=== PATIENT | female | born 1955 | race American Indian/Alaskan Native ===

== ENCOUNTER 2018-11-24 13:55 | Emergency (ER) | payer MEDICARE ==
[2018-11-24 14:08] VITALS: BP 145/62
--- NOTE | 2018-11-24 14:09 | Emergency Department Report ---
Chief Complaint: Dyspnea/Respdistress Stated Complaint: KATERINA Time Seen by Provider: 11/24/18 14:06 - HPI History of Present Illness: PCP CLINIC COLD COUGH CONGESTION SMOKER DENIES FEVER/COPD COUGH WORSE IN AM ASSOCIATED WITH DULL CP- SUBSTERNAL RAD TO L NECK; NO DIAPHORESIS DENIES SOB RHONCHI ON EXAM WITH MILD WHEEZING MOM DEC CA DAD DEC CA PMH HTN RX LISINOPRIL PSH HYSTERECTOMY ALLERGY NONE 12 LEAD DUE TO TACHYCARDIA AND CHEST PAIN LOW INDEX SUSP FOR ACS MSE COMPLETED MSE screening note: Focused history and physical exam performed. Due to findings the following was ordered: ED Disposition for MSE Condition: Stable
--- NOTE | 2018-11-24 14:28 | XRay Report ---
ROUTINE CHEST, TWO VIEWS: HISTORY: Cough. The trachea, heart, mediastinal contour, lung mcbride and bony thorax are unremarkable. IMPRESSION: Unremarkable chest x-ray.
--- NOTE | 2018-11-24 15:13 | Emergency Department Report ---
Minor Respiratory - HPI Chief Complaint: Dyspnea/Respdistress Stated Complaint: KATERINA Time Seen by Provider: 11/24/18 14:06 Duration: 3 Days Minor Respiratory: Yes Able to Tolerate Fluids, Yes Cough (productive of yellow sputum as of today), Yes Shortness of Breath, No Sore Throat, No Ear Pain, No Sick Contacts, No Hemoptysis, No Chest Pain, No Fever Other History: Patient is a heavy smoker ED Review of Systems ROS: Stated complaint: KATERINA Other details as noted in HPI Comment: All other systems reviewed and negative ED Past Medical Hx - Past Medical History Previous Medical History?: Yes Hx Hypertension: Yes - Surgical History Past Surgical History?: Yes Additional Surgical History: hysterectomy - Social History Smoking Status: Current Every Day Smoker Substance Use Type: None - Medications Home Medications: Home Medications Medication Instructions Recorded Confirmed Last Taken Type ALBUTEROL Inhaler (OR & NICU) 2 puff IH QID PRN #1 inhalation 11/24/18 Unknown Rx [ProAir HFA Inhaler] Azithromycin [Zithromax Z-LONNY] 250 mg PO DAILY #6 tablet 11/24/18 Unknown Rx predniSONE [Deltasone] 20 mg PO QDAY #5 tab 11/24/18 Unknown Rx Minor Respiratory Exam - Exam General: Vital signs noted. No distress. Alert and acting appropriately. HEENT: Yes Moist Mucous Membranes, No Pharyngeal Erythema, No Pharyngeal Exudates, No Rhinorrhea, No Conjuctival Injection, No Frontal Tenderness, No Maxillary Tenderness Ear: Neither TM Bulge, Neither TM Erythema, Neither EAC Pain, Neither EAC Discharge Neck: Yes Supple, No Adenopathy Lungs: Yes Good Air Exchange, Yes Cough, No Wheezes, No Ronchi, No Stridor, No Labored Respirations, No Retractions, No Use of Accessory Muscles, No Other Abnormal Lung Sounds Heart: Yes Regular, No Murmur Abdomen: Yes Normal Bowel Sounds, No Tenderness, No Peritoneal Signs Skin: No Rash, No Edema Neurologic: Alert and oriented, no deficits. Musculoskeletal: Unremarkable. ED Course Vital Signs 11/24/18 14:06 Temperature 98.3 F Pulse Rate 87 Respiratory 18 Rate Blood Pressure 145/62 O2 Sat by Pulse 100 Oximetry ED Medical Decision Making - Radiology Data Chest x-ray is within normal limits - Medical Decision Making Patient presumed to have a smoker's bronchitis will be treated appropriately. Patient discharged home in stable condition. Critical care attestation.: If time is entered above; I have spent that time in minutes in the direct care of this critically ill patient, excluding procedure time. ED Disposition Clinical Impression: Acute bronchitis Qualifiers: Bronchitis organism: unspecified organism Qualified Code(s): J20.9 - Acute bronchitis, unspecified Disposition: DC-01 TO HOME OR SELFCARE Is pt being admited?: No Does the pt Need Aspirin: No Condition: Stable Instructions: Acute Bronchitis (ED), How to Stop Smoking (ED) Time of Disposition: 15:12
[2018-11-24 15:15] LABS: Hematocrit 30.5 % (30.3-42.9); Hemoglobin 9.3 gm/dl (10.1-14.3); Mean Corpuscular HGB Conc 30 % (30-34); Mean Corpuscular Volume 89 fl (79-97); Platelet Count 381 K/mm3 (140-440); Red Blood Count 3.43 M/mm3 (3.65-5.03)
[2018-11-24 15:17] LABS: Red Cell Distribution Width 25.1 % (13.2-15.2)
[2018-11-24 15:24] LABS: BUN/Creatinine Ratio 17; Blood Urea Nitrogen 12 mg/dL (7-17); Calcium 8.8 mg/dL (8.4-10.2); Hemolysis Index 6
== END 2018-11-24 15:33 | disposition home or self-care (01) ==
LOC: ED 13:55
DX: J20.9 Acute bronchitis, unspecified (principal); F17.200 Nicotine dependence, unspecified, uncomplicated
CPT/HCPCS: 36415; 71046; 80048; 85027; 93005; 93010

== ENCOUNTER 2019-03-04 08:50 | Inpatient (IN) | payer MEDICARE ==
[2019-03-04 09:43] LABS: Albumin 3.4 g/dL (3.9-5); Calcium 9.5 mg/dL (8.4-10.2)
[2019-03-04 09:54] LABS: Hematocrit 25.1 % (30.3-42.9); Hemoglobin 8.1 gm/dl (10.1-14.3); Mean Corpuscular HGB Conc 32 % (30-34); Platelet Count 607 K/mm3 (140-440); Red Blood Count 3.85 M/mm3 (3.65-5.03)
[2019-03-04 09:55] LABS: Mean Corpuscular Volume 65 fl (79-97); Red Cell Distribution Width 20.5 % (13.2-15.2)
[2019-03-04] MEDS ORDERED: ANTIVERT PO ONE (09:57)
[2019-03-04 11:10] LABS: Total Cells Counted 100
--- NOTE | 2019-03-04 11:10 | Cat Scan Report ---
PROCEDURE: CT HEAD/BRAIN WO CON TECHNIQUE: A noncontrast CT of the head was performed. HISTORY: vertigo COMPARISON: None FINDINGS: There is no acute intracranial hemorrhage. There is no brain edema, mass effect or midline shift. Ventricular size is appropriate for brain volume. There is no abnormal extra-axial fluid collections. There is no skull fracture seen. The visualized paranasal sinuses, mastoids and middle ears are aerated. IMPRESSION: There is no acute intracranial abnormality seen. This document is electronically signed by Soraya Tadeo MD., March 04 2019 12:08:57 PM ET
[2019-03-04 11:11] LABS: Anisocytosis 1+; Band Neutrophils # (Manual) 1.4 K/mm3; Basophils % (Manual) 0 % (0.0-1.8); Eosinophils % (Manual) 0 % (0.0-4.3); Hypochromasia 2+; Platelet Estimate Consistent w Auto; Target Cells 1+
[2019-03-04] MEDS ORDERED: NACL 0.9% 1000 ML 1,000 ML IV ONE ×2 (11:49→15:14)
[2019-03-04] MEDS ORDERED: NACL 0.9% 1000 ML 1,000 ML ONE ×2 (11:50→20:21)
[2019-03-04] MEDS ORDERED: ZOFRAN IV ONE (12:48)
[2019-03-04] MEDS ORDERED: MORPHINE IV ONE (12:48)
--- NOTE | 2019-03-04 13:34 | Emergency Department Report ---
ED General Adult HPI - General Chief complaint: Dizziness Stated complaint: N/V/NO BOWEL MOVEMENT Time Seen by Provider: 03/04/19 09:34 Source: patient Mode of arrival: Wheelchair Limitations: No Limitations - History of Present Illness Initial comments: The patient presents to the emergency department with a chief complaint dizziness and started 2 days ago. Patient states that her dizziness is worse with standing. Patient also complains of having some vomiting 1 day as well. Patient denies chest pain, shows above, or abdominal pain. -: Sudden Location: head Radiation: non-radiation Severity scale (0 -10): 0 Improves with: rest Worsens with: movement Associated Symptoms: denies other symptoms, nausea/vomiting Treatments Prior to Arrival: none - Related Data Previous Rx's Medication Instructions Recorded Last Taken Type ALBUTEROL Inhaler (OR & NICU) 2 puff IH QID PRN #1 inhalation 11/24/18 Unknown Rx [ProAir HFA Inhaler] Azithromycin [Zithromax Z-LONNY] 250 mg PO DAILY #6 tablet 11/24/18 Unknown Rx predniSONE [Deltasone] 20 mg PO QDAY #5 tab 11/24/18 Unknown Rx Allergies Allergy/AdvReac Type Severity Reaction Status Date / Time Penicillins Allergy Itching Verified 03/04/19 08:51 ED Review of Systems ROS: Stated complaint: N/V/NO BOWEL MOVEMENT Other details as noted in HPI Comment: All other systems reviewed and negative Constitutional: denies: chills, fever Eyes: denies: eye pain, eye discharge, vision change ENT: denies: ear pain, throat pain Respiratory: denies: cough, shortness of breath, wheezing Cardiovascular: denies: chest pain, palpitations Endocrine: no symptoms reported Gastrointestinal: denies: abdominal pain, nausea, diarrhea Genitourinary: denies: urgency, dysuria, discharge Musculoskeletal: denies: back pain, joint swelling, arthralgia Skin: denies: rash, lesions Neurological: vertigo. denies: headache, weakness, paresthesias Psychiatric: denies: anxiety, depression Hematological/Lymphatic: denies: easy bleeding, easy bruising ED Past Medical Hx - Past Medical History Hx Hypertension: Yes - Surgical History Additional Surgical History: hysterectomy - Social History Smoking Status: Current Every Day Smoker - Medications Home Medications: Home Medications Medication Instructions Recorded Confirmed Last Taken Type ALBUTEROL Inhaler (OR & NICU) 2 puff IH QID PRN #1 inhalation 11/24/18 Unknown Rx [ProAir HFA Inhaler] Azithromycin [Zithromax Z-LONNY] 250 mg PO DAILY #6 tablet 11/24/18 Unknown Rx predniSONE [Deltasone] 20 mg PO QDAY #5 tab 11/24/18 Unknown Rx ED Physical Exam - General Limitations: No Limitations General appearance: alert, in no apparent distress - Head Head exam: Present: atraumatic, normocephalic - Eye Eye exam: Present: normal appearance, PERRL, EOMI - ENT ENT exam: Present: mucous membranes moist - Neck Neck exam: Present: normal inspection - Respiratory Respiratory exam: Present: normal lung sounds bilaterally. Absent: respiratory distress - Cardiovascular Cardiovascular Exam: Present: regular rate, normal rhythm. Absent: systolic murmur, diastolic murmur, rubs, gallop - GI/Abdominal GI/Abdominal exam: Present: soft, normal bowel sounds. Absent: distended, tenderness - Extremities Exam Extremities exam: Present: normal inspection - Back Exam Back exam: Present: normal inspection - Neurological Exam Neurological exam: Present: alert, oriented X3, CN II-XII intact, other (able to decrease symptoms with rapid standing). Absent: motor sensory deficit - Psychiatric Psychiatric exam: Present: normal affect, normal mood - Skin Skin exam: Present: warm, dry, intact, normal color. Absent: rash ED Course Vital Signs 03/04/19 03/04/19 03/04/19 08:51 10:00 11:36 Temperature 98.7 F Pulse Rate 110 H Pulse Rate [ 102 H Lying] Respiratory 18 18 Rate Blood Pressure 99/57 Blood Pressure 103/61 [Lying] O2 Sat by Pulse 100 Oximetry ED Medical Decision Making - Lab Data Result diagrams: 03/04/19 09:06 03/04/19 09:06 Lab Results 03/04/19 03/04/19 Range/Units 09:06 09:06 WBC 27.2 H (4.5-11.0) K/mm3 RBC 3.85 (3.65-5.03) M/mm3 Hgb 8.1 L (10.1-14.3) gm/dl Hct 25.1 L (30.3-42.9) % MCV 65 L (79-97) fl MCH 21 L (28-32) pg MCHC 32 (30-34) % RDW 20.5 H (13.2-15.2) % Plt Count 607 H (140-440) K/mm3 Lymph % (Auto) General Claims Agent Harvey % (Auto) General Claims Agent Eos % (Auto) General Claims Agent Baso % (Auto) General Claims Agent Lymph # General Claims Agent Harvey # General Claims Agent Eos # General Claims Agent Baso # General Claims Agent Add Manual Diff Complete Total Counted 100 Seg Neutrophils % General Claims Agent Seg Neuts % (Manual) 88.0 H (40.0-70.0) % Band Neutrophils % 5.0 % Lymphocytes % (Manual) 3.0 L (13.4-35.0) % Reactive Lymphs % (Man) 0 % Monocytes % (Manual) 4.0 (0.0-7.3) % Eosinophils % (Manual) 0 (0.0-4.3) % Basophils % (Manual) 0 (0.0-1.8) % Metamyelocytes % 0 % Myelocytes % 0 % Promyelocytes % 0 % Blast Cells % 0 % Nucleated RBC % Not Reportable Seg Neutrophils # General Claims Agent Seg Neutrophils # Man 23.9 H (1.8-7.7) K/mm3 Band Neutrophils # 1.4 K/mm3 Lymphocytes # (Manual) 0.8 L (1.2-5.4) K/mm3 Abs React Lymphs (Man) 0.0 K/mm3 Monocytes # (Manual) 1.1 H (0.0-0.8) K/mm3 Eosinophils # (Manual) 0.0 (0.0-0.4) K/mm3 Basophils # (Manual) 0.0 (0.0-0.1) K/mm3 Metamyelocytes # 0.0 K/mm3 Myelocytes # 0.0 K/mm3 Promyelocytes # 0.0 K/mm3 Blast Cells # 0.0 K/mm3 WBC Morphology Not Reportable Hypersegmented Neuts Not Reportable Hyposegmented Neuts Not Reportable Hypogranular Neuts Not Reportable Smudge Cells Not Reportable Toxic Granulation Not Reportable Toxic Vacuolation Not Reportable Dohle Bodies Not Reportable Pelger-Huet Anomaly Not Reportable Eliezer Rods Not Reportable Platelet Estimate Consistent w auto Clumped Platelets Not Reportable Plt Clumps, EDTA Not Reportable Large Platelets Not Reportable Giant Platelets Not Reportable Platelet Satelliting Not Reportable Plt Morphology Comment Not Reportable RBC Morphology Not Reportable Dimorphic RBCs Not Reportable Polychromasia Not Reportable Hypochromasia 2+ Poikilocytosis Not Reportable Anisocytosis 1+ Microcytosis 1+ Macrocytosis Not Reportable Spherocytes Not Reportable Pappenheimer Bodies Not Reportable Sickle Cells Not Reportable Target Cells 1+ Tear Drop Cells Not Reportable Ovalocytes Not Reportable Helmet Cells Not Reportable Ramírez-Chidester Bodies Not Reportable [place] Rings Not Reportable [place] Cells Not Reportable Bite Cells Not Reportable Crenated Cell Not Reportable Elliptocytes Not Reportable Acanthocytes (Spur) Not Reportable Rouleaux Not Reportable Hemoglobin C Crystals Not Reportable Schistocytes Not Reportable Malaria parasites Not Reportable Brendan Bodies Not Reportable Hem Pathologist Commnt No Sodium 131 L (137-145) mmol/L Potassium 3.0 L (3.6-5.0) mmol/L Chloride 83.9 L (98-107) mmol/L Carbon Dioxide 22 (22-30) mmol/L Anion Gap 28 mmol/L BUN 41 H (7-17) mg/dL Creatinine 4.6 H (0.7-1.2) mg/dL Estimated GFR 12 ml/min BUN/Creatinine Ratio 9 % Glucose 219 H (65-100) mg/dL Calcium 9.5 (8.4-10.2) mg/dL Total Bilirubin 0.30 (0.1-1.2) mg/dL AST 12 (5-40) units/L ALT 8 (7-56) units/L Alkaline Phosphatase 99 (35-129) units/L Total Protein 7.6 (6.3-8.2) g/dL Albumin 3.4 L (3.9-5) g/dL Albumin/Globulin Ratio 0.8 % - EKG Data -: EKG Interpreted by Pr EKG shows normal: sinus rhythm Rate: normal - Radiology Data Radiology results: report reviewed - Medical Decision Making Orthostatics Supine BP is 103/61 heart rate 102 Sitting BP is 117/67 heart rate is 105 Standing BP is 95/51 heart rate is 112 On reevaluation of the patient at 12:45 PM she began to complain of lower abdom inal pain patient is tender to palpation right lower quadrant Repeat exam at 2:59 PM patient states that her last bowel movement was 3 days ago and she has been vomiting for 2 days NG tube ordered Patient denies any previous surgical history specifically exploratory laparoscopy, hysterectomy, section. At 3:30 PM the patient informs the nurse that she forgot to tell us that she's had a partial hysterectomy at the approximate age of 33 Critical Care Time: Yes Critical care time in (mins) excluding proc time.: 35 Critical care attestation.: If time is entered above; I have spent that time in minutes in the direct care of this critically ill patient, excluding procedure time. ED Disposition Clinical Impression: SBO (small bowel obstruction), Renal failure Disposition: -09 OP ADMIT IP TO THIS HOSP Is pt being admited?: Yes Does the pt Need Aspirin: No Condition: Fair Referrals: KEVIN FORD MD [Primary Care Provider] - 3-5 Days
[2019-03-04 13:54] LABS: Bacteria,Urine 1+ /HPF (Negative); Bilirubin,Urine NEG (Negative); Blood,Urine NEG (Negative); Mucus,Urine FEW /HPF; Urobilinogen,Urine < 2.0 mg/dL (<2.0)
[2019-03-04 13:58] LABS: Color,Urine Yellow (Yellow)
--- NOTE | 2019-03-04 14:03 | XRay Report ---
PROCEDURE: XR CHEST 1V AP TECHNIQUE: Frontal chest radiograph. HISTORY: leukocytosis COMPARISONS: None FINDINGS: Atherosclerotic calculi are seen in the thoracic aorta. The cardiomediastinal silhouette is normal. Mild groundglass opacities are seen in the left lower lobe. A focal nodular opacity projects in the l ateral aspect of the left upper lobe measuring 1.1 cm. No pleural effusion. No pneumothorax. No acute osseous abnormality. IMPRESSION: 1.1 cm left upper lobe nodule. Recommend further evaluation with chest CT. Mild groundglass opacities in left lower lobe may represent atelectasis versus early pneumonia. This document is electronically signed by Brittny Jett., March 04 2019 03:01:17 PM ET
--- NOTE | 2019-03-04 14:51 | Cat Scan Report ---
PROCEDURE: CT ABDOMEN PELVIS WO CON TECHNIQUE: Computerized axial tomography of the abdomen and pelvis was performed without intravenous contrast. This study is performed without intravascular contrast material and its sensitivity for ab dominal and pelvic pathology, including neoplasms, inflammation, abscess, free fluid, thrombosis, art erial dissection and infarction, is reduced compared with a contrast enhanced study. CT DOSE LENGTH PRODUCT: 468.1 mGycm HISTORY: Right lower quadrant abdominal pain COMPARISONS: None . FINDINGS: Visualized lower thorax: No significant abnormality. Liver: Normal size and attenuation. Spleen: 2.4 cm cyst in the inferior spleen. Gallbladder and biliary system: Normal. Pancreas: Normal. Adrenals: Normal. Kidneys: There are 2 left renal cysts present, measuring up to 15 mm. GI tract: There is small bowel obstruction. Small bowel loops are dilated up to 4 cm. There is bowel wall thickening in the distal ileum. The transition point may be at the junction of the terminal ile um and colon, where there is soft tissue prominence. There is limited evaluation due to lack of contr ast. Cannot exclude a mass. The colon is decompressed diffusely. Small amount of intraluminal contras t is seen within the colon . The appendix is not identified Lymph nodes and mesentery: There is limited evaluation due to lack of IV contrast. There is likely pa raaortic adenopathy Vasculature: Aortic atherosclerotic calcification. Bladder: Normal. Reproductive organs: Uterus is not identified. Peritoneum: No free fluid. Musculoskeletal structures: Degenerative disc changes at L5-S1. Other: None. IMPRESSION: There is small bowel obstruction. Transition point is likely at the junction of the terminal ileum an d the colon. There is abnormal wall thickening in the region of the terminal ileum, and a mass cannot be excluded which could be causing the obstruction. Recommend further evaluation with CT with IV and oral contrast Probable para-aortic adenopathy, which is not well delineated from surrounding small bowel loops. Aga in this would be better evaluated with CT with IV and oral contrast This document is electronically signed by Ginny Bertrand MD., March 04 2019 03:49:24 PM ET
[2019-03-04] MEDS ORDERED: VICKS SINEX NS ONE (14:58)
[2019-03-04] MEDS ORDERED: HURRICAINE ONE 20% TOPICAL SPRAY MM NR (15:00)
[2019-03-04] MEDS ORDERED: NACL 0.9% 1000 ML IV ONE (15:06)
--- NOTE | 2019-03-04 15:31 | History and Physical Report ---
History of Present Illness Chief complaint: I been feeling sick, Im dizzy, im nauseated, and i been vomiting History of present illness: 63 YO Female with HTN, Nicotine Dependence presents to ED for evaluation. Pt states that she has experienced Nausea, multiple episodes of vomiting, and abdominal discomfort over the past 3 days with worsening symptoms over the past 1 day. Pt also acknowledges dizziness with standing over the past 1 day. Pt acknowledges decreased oral intake due to the aformentioned symptoms as well as an inability to tolerate oral intake. Pt transported to [facility] via private vehicle. Pt seen and evaluated in ED and found to have SBO, ARF, Sepsis, Hypokalemia with a QSofa Score of 3. Pt found to be hypotensive with SBP in the 90's. Pt admitted to [facility] and initiated on Sepsis protocol. Surgery team consulted in ED. Pt initiated on IVF resuscitation therapy. Pt denies fever, chills, CP, Palpit ations, Trauma, BRBPR, Skin Rash, Productive Cough, Hematemesis, ingestion of food/water from new or different sources. No prior admission for review. Past History Past Medical History: hypertension, other (nicotine Dependence) Past Surgical History: hysterectomy Social history: smoking Family history: hypertension Medications and Allergies Allergies Allergy/AdvReac Type Severity Reaction Status Date / Time Penicillins Allergy Itching Verified 03/04/19 08:51 Home Medications Medication Instructions Recorded Confirmed Last Taken Type ALBUTEROL Inhaler (OR & NICU) 2 puff IH QID PRN #1 inhalation 11/24/18 Unknown Rx [ProAir HFA Inhaler] Azithromycin [Zithromax Z-LONNY] 250 mg PO DAILY #6 tablet 11/24/18 Unknown Rx predniSONE [Deltasone] 20 mg PO QDAY #5 tab 11/24/18 Unknown Rx Active Meds: Active Medications Benzocaine (Hurricaine One 20% Topical [place]) 1 spray MM PREOP NR Stop: 03/04/19 23:59 Levofloxacin/Dextrose (Levaquin 750mg/150ml) 750 mg in 150 mls @ 100 mls/hr IV ONCE ONE; Protocol Stop: 03/04/19 17:29 Levofloxacin/Dextrose (Levaquin 500mg/100ml) 500 mg in 100 mls @ 100 mls/hr IV Q48HR AUDREY Sodium Chloride (Nacl 0.9% 1000 Ml) 1,000 mls @ 125 mls/hr IV BOLUS ONE Stop: 03/04/19 23:13 Review of Systems Constitutional: no weight loss, no weight gain, no fever, no chills Ears, nose, mouth and throat: no ear pain, no ear discharge, no tinnitis, no decreased hearing, no nose pain, no nasal congestion Breasts: no change in shape, no swelling, no mass Cardiovascular: no chest pain, no orthopnea, no edema, no syncope, no lightheadedness, no shortness of breath Respiratory: no cough, no cough with sputum, no excessive sputum, no hemoptysis, no shortness of breath, no dyspnea on exertion Gastrointestinal: nausea, vomiting, no abdominal pain, no diarrhea, no BRBPR, no melena, no hematochezia, no loss of appetite Genitourinary Female: no pelvic pain, no flank pain, no menorrhagia, no dysuria, no urinary frequency, no urgency, no stress incontinence, no post void dribbling Rectal: no pain, no incontinence, no bleeding Musculoskeletal: no neck stiffness, no neck pain, no shooting arm pain, no arm numbness/tingling, no shooting leg pain, no leg numbness/tingling Integumentary: no rash, no pruritis, no redness, no sores, no wounds Neurological: no head injury, no transient paralysis, no paralysis, no weakness, no parathesias, no numbness, no tingling Psychiatric: no anxiety, no memory loss, no change in sleep habits, no sleep disturbances, no insomnia, no hypersomnia, no change in appetite, no change in libido, no suicidal ideation Endocrine: no cold intolerance, no heat intolerance, no polyphagia, no excessive thirst, no polydipsia, no polyuria, no nocturia Hematologic/Lymphatic: no easy bruising, no easy bleeding, no lymphadenopathy, no lymphedema Allergic/Immunologic: no urticaria, no allergic rhinitis, no wheezing Exam - Constitutional Vitals: Temp Pulse Resp BP Pulse Ox 98.7 F 102 H 18 103/61 100 03/04/19 08:51 03/04/19 11:36 03/04/19 10:00 03/04/19 11:36 03/04/19 08:51 General appearance: Present: mild distress - EENT Eyes: Present: PERRL ENT: hearing intact, clear oral mucosa - Neck Neck: Present: supple, normal ROM - Respiratory Respiratory effort: normal Respiratory: bilateral: CTA - Cardiovascular Heart Sounds: Present: S1 & S2. Absent: rub, click - Extremities Extremities: pulses symmetrical, No edema Peripheral Pulses: within normal limits - Abdominal General gastrointestinal: Present: soft, non-tender, distended, normal bowel sounds. Absent: hepatomegaly, splenomegaly, mass Localized gastrointestinal: tender: diffuse Female genitourinary: Present: normal - Integumentary Integumentary: Present: clear, warm, dry - Musculoskeletal Musculoskeletal: gait normal, strength equal bilaterally - Psychiatric Psychiatric: appropriate mood/affect, intact judgment & insight - Neurologic Neurologic: CNII-XII intact, moves all extremities Results - Labs CBC & Chem 7: 03/04/19 09:06 03/04/19 09:06 Labs: Abnormal lab results 03/04/19 03/04/19 Range/Units 09:06 09:06 WBC 27.2 H (4.5-11.0) K/mm3 Hgb 8.1 L (10.1-14.3) gm/dl Hct 25.1 L (30.3-42.9) % MCV 65 L (79-97) fl MCH 21 L (28-32) pg RDW 20.5 H (13.2-15.2) % Plt Count 607 H (140-440) K/mm3 Seg Neuts % (Manual) 88.0 H (40.0-70.0) % Lymphocytes % (Manual) 3.0 L (13.4-35.0) % Seg Neutrophils # Man 23.9 H (1.8-7.7) K/mm3 Lymphocytes # (Manual) 0.8 L (1.2-5.4) K/mm3 Monocytes # (Manual) 1.1 H (0.0-0.8) K/mm3 Sodium 131 L (137-145) mmol/L Potassium 3.0 L (3.6-5.0) mmol/L Chloride 83.9 L (98-107) mmol/L BUN 41 H (7-17) mg/dL Creatinine 4.6 H (0.7-1.2) mg/dL Glucose 219 H (65-100) mg/dL Albumin 3.4 L (3.9-5) g/dL Assessment and Plan - Patient Problems (1) Sepsis Current Visit: Yes Status: Acute Qualifiers: Sepsis type: sepsis due to unspecified organism Qualified Code(s): A41.9 - Sepsis, unspecified organism Plan to address problem: Admit to IMCU, Sepsis Protocol: IV ABx therapy(Renal dose levaquin), IVF resuscitation therapy, serial lactic acid level, Chest x ray, urinalysis, blood cultures, monitor uop q shift, IV pressor support as indicated to maintain MAP above 60. (2) ARF (acute renal failure) with tubular necrosis Current Visit: Yes Status: Acute Plan to address problem: IVF resuscitation therapy, Nephrology consulted, renal ultrasound, urine electrolytes. (3) Hypokalemia Current Visit: Yes Status: Acute (4) SBO (small bowel obstruction) Current Visit: Yes Status: Acute Plan to address problem: Surgery consulted, NGT to LWS as per surgical team, serial abdominal exam, CT Abdomen/Pelvis, pain control, bowel rest. (5) DVT prophylaxis Current Visit: Yes Status: Acute Plan to address problem: SCD to BLE while in bed. Prophylactic heparin.
[2019-03-04] MEDS ORDERED: PROVENTIL IH PRN (15:40)
[2019-03-04] MEDS ORDERED: SODIUM CHLORIDE FLUSH SYRINGE 10 ML IV PRN (15:40)
[2019-03-04] MEDS ORDERED: LEVAQUIN 750MG/150ML 750 MG/150 ML BAG IV ONE ×2 (16:00→17:08)
[2019-03-04] MEDS ORDERED: VICKS SINEX ONE (16:18)
--- NOTE | 2019-03-04 17:05 | Event Note ---
Date: 03/04/[address] Kent. Chart and CT reviewed. Concern for SBO secondary to possible mass. Pt in renal failure. Admit to hospitalist for resuscitation. Place NGT. Patient will most likely need ex-lap once resuscitated. Will probably need blood transfusion as well since the Hgb of 8 is probably hemoconcentrated.
[2019-03-04] MEDS ORDERED: POTASSIUM CHLORIDE FEEDTUBE ONE (18:00)
[2019-03-04] MEDS ORDERED: FLAGYL 500 MG/100 ML 500 MG/100 ML BAG IV ONE (22:40)
[2019-03-04] MEDS ORDERED: HEPARIN ONE (22:40)
[2019-03-04] MEDS: FLAGYL 500 MG/100 ML 500 MG/100 ML BAG IV SCH (22:49)
[2019-03-04] MEDS: HEPARIN SUB-Q SCH (22:49)
[2019-03-04] MEDS: SODIUM CHLORIDE FLUSH SYRINGE 10 ML IV SCH (22:49)
[2019-03-05] MEDS: FLAGYL 500 MG/100 ML 500 MG/100 ML BAG IV SCH ×3 (05:27→21:15)
[2019-03-05 06:43] LABS: Hematocrit 21.6 % (30.3-42.9); Hemoglobin 6.9 gm/dl (10.1-14.3); Mean Corpuscular HGB Conc 32 % (30-34); Platelet Count 560 K/mm3 (140-440)
[2019-03-05 06:52] LABS: Mean Corpuscular Volume 66 fl (79-97); Red Cell Distribution Width 20.2 % (13.2-15.2)
[2019-03-05 06:55] LABS: Albumin 2.7 g/dL (3.9-5); Calcium 8.5 mg/dL (8.4-10.2)
[2019-03-05 09:28] LABS: Basophils % (Manual) 0 % (0.0-1.8); Eosinophils % (Manual) 0 % (0.0-4.3); Total Cells Counted 100
[2019-03-05 09:29] LABS: Anisocytosis 1+; Hypochromasia 2+; Target Cells 1+
[2019-03-05 09:30] LABS: Platelet Estimate Consistent w Auto
[2019-03-05] MEDS: HEPARIN SUB-Q SCH ×2 (10:00→21:15)
[2019-03-05] MEDS ORDERED: LEVAQUIN 250MG/50ML 250 MG/50 ML BAG IV SCH (10:00)
[2019-03-05] MEDS ORDERED: DELTASONE PO SCH (10:00)
[2019-03-05] MEDS: SODIUM CHLORIDE FLUSH SYRINGE 10 ML IV SCH ×2 (10:05→21:16)
--- NOTE | 2019-03-05 11:30 | Consultation ---
History of Present Illness - Reason for Consult Consult date: 03/05/19 acute renal failure - History of Present Illness The patient is a 63 YO Female with hsitory signficant for HTN and Nicotine Dependence who presented to [facility] ED for evaluation nausea, vomiting and abdominal discomfort over the past week. The symptoms are worse for about a day. Pt also reports obstipation, decrease appetite, poor PO intake and dizziness on standing. Pt denies fever, chills, CP, Palpitations, Trauma, rash, Cough, Hematemesis, diarrhea or syncope. On further evaluation she was found to have SBO, RUSS, Hypokalemia and Sepsis. Her initial BP was in the 90/50s. Pt admitted to [facility] and initiated on Sepsis protocol. Creatinine was 4.6 on admission. Nephrology was consulted for further evaluation. Past History Past Medical History: hypertension, other (nicotine Dependence) Past Surgical History: hysterectomy Social history: smoking Family history: hypertension Medications and Allergies Allergies Allergy/AdvReac Type Severity Reaction Status Date / Time Penicillins Allergy Itching Verified 03/04/19 08:51 Home Medications Medication Instructions Recorded Confirmed Last Taken Type ALBUTEROL Inhaler (OR & NICU) 2 puff IH QID PRN #1 inhalation 11/24/18 03/04/19 Unknown Rx [ProAir HFA Inhaler] Azithromycin [Zithromax Z-LONNY] 250 mg PO DAILY #6 tablet 11/24/18 03/04/19 Unknown Rx predniSONE [Deltasone] 20 mg PO QDAY #5 tab 11/24/18 03/04/19 Unknown Rx Active Meds: Active Medications Albuterol (Proventil) 2.5 mg IH Q3HRT PRN PRN Reason: Shortness Of Breath Heparin Sodium (Porcine) (Heparin) 5,000 unit SUB-Q Q12HR AUDREY Last Admin: 03/04/19 22:49 Dose: 5,000 unit Documented by: Levofloxacin/Dextrose (Levaquin 500mg/100ml) 500 mg in 100 mls @ 100 mls/hr IV Q48HR AUDREY Metronidazole (Flagyl 500 Mg/100 Ml) 500 mg in 100 mls @ 100 mls/hr IV Q8HR S [facility]; Protocol Last Admin: 03/05/19 05:27 Dose: 100 mls/hr Documented by: Sodium Chloride (Sodium Chloride Flush Syringe 10 Ml) 10 ml IV BID [facility] Last Admin: 03/04/19 22:49 Dose: 10 ml Documented by: Sodium Chloride (Sodium Chloride Flush Syringe 10 Ml) 10 ml IV PRN PRN PRN Reason: LINE FLUSH Review of Systems Constitutional: anorexia, fatigue, weakness, poor appetite, no weight loss, no weight gain, no fever, no chills Breasts: deferred Cardiovascular: no chest pain, no orthopnea, no edema, no syncope, no shortness of breath, no high blood pressure, no leg edema Respiratory: no cough, no shortness of breath Gastrointestinal: abdominal pain, nausea, vomiting, constipation Genitourinary Female: no dysuria Rectal: no bleeding Integumentary: no rash, no sores, no wounds, no jaundice Neurological: no head injury, no paralysis, no weakness, no seizures, no syncope, no tremors, no aphasia, no change in speech, no change in mentation, no confusion, no memory loss Exam - Vital Signs Vital signs: Vital Signs Temp Pulse Resp BP Pulse Ox 98.7 F 110 H 18 99/57 100 03/04/19 08:51 03/04/19 08:51 03/04/19 08:51 03/04/19 08:51 03/04/19 08:51 - General Appearance General appearance: well-developed, appears stated age, other (no distress) EENT: ATNC, PERRL, mucous membranes dry, hearing intact, vision intact Neck: Present: neck supple, trachea midline Respiratory: Clear to Ascultation Heart: regular, S1S2, no murmurs Gastrointestinal: Present: normoactive bowel sounds, tenderness, distended Integumentary: no rash, warm and dry Neurologic: no focal deficit, no asterixis, alert and oriented x3 Musculoskeletal: Present: other (no edema) Psychiatric: cooperative Results - Lab Results 03/07/19 04:55 03/07/19 04:55 Most recent lab results Calcium 8.5 mg/dL (8.4-10.2) 03/05/19 05:23 - Image Kidney/bladder ultrasound: report reviewed Assessment and Plan 1. Acute kidney injury: Vasomotor RUSS in the setting of volume depletion. Renal US was negative for hydronephrosis. Renal function is improving. Continue IV fluids. Monitor renal function. Avoid nephrotoxic agents. Meds dosage based on GFR. 2. FEN: Continue IV fluids. Replete K. Monitor lytes. 3. Small bowel obstruction: Followed by Gen. Surgery. 4. Anemia. 5. Leukocytosis.
--- NOTE | 2019-03-05 12:11 | Ultrasound Report ---
ULTRASOUND RENAL BILATERAL HISTORY: Renal failure. TECHNIQUE: transabdominal ultrasound with color Doppler interrogation. FINDINGS: The right kidney measures 10.9cm. Right renal cortex: 1.5cm. The left kidney measures 10.9cm. Left renal cortex: 1.5cm. Scans of the kidneys show normal renal contours. There is normal central calyceal clustering and good preservation of the cortical thickness. There is no evidence of mass or hydronephrosis. There are 2 or 3 cysts in the mid left kidney measuring up to 2.6 cm in diameter. The views of the bladder and the region of the ureters appear normal. IMPRESSION: Unremarkable renal ultrasound. Few simple left renal cysts.
[2019-03-05] MEDS ORDERED: NACL 0.9% IV SCH (13:00)
[2019-03-05] MEDS ORDERED: KCL IV SCH (13:00)
[2019-03-05] MEDS ORDERED: NACL 0.9% 500 ML 500 ML IV SCH (13:36)
--- NOTE | 2019-03-05 13:41 | Progress Note ---
Assessment and Plan Assessment and plan: --Anemia: Hemoglobin 6.9, type and cross transfuse 2 units of PRBC today Closely monitor H&H additional PRBC transfusion as needed --Hypokalemia; Replace with KCl IV, check magnesium, closely monitor electrolytes -- SBO (small bowel obstruction) Surgery evaluated the patient, NGT to LWS as per surgical team, Supportive care --Possible abdominal mass/causing small bowel obstruction workup in progress -- Sepsis Sepsis Protocol: IV ABx therapy(Renal dose levaquin), IVF resuscitation therapy, serial lactic acid level, Follow cultures --ARF (acute renal failure) with tubular necrosis IVF resuscitation therapy, Nephrology following , Renal function gradually improving ,renal ultrasound no acute abnormalities --Severe malnutrition/hypoalbuminemia Due to her underlying disease process, diet reconsult nutrition supplements when able to take oral --DVT prophylaxis SCD to BLE while in bed. Prophylactic heparin. Consultations and recommendations noted and appreciated History Interval history: Patient seen and examined, Medical records reviewed Patient complains of vague abdominal discomfort Alert and awake , mild distress Vital signs noted Hospitalist Physical - Constitutional Vitals: Temp Pulse Resp BP Pulse Ox 99.7 F H 101 H 20 129/70 95 03/05/19 11:54 03/05/19 12:00 03/05/19 12:00 03/05/19 12:00 03/05/19 12:00 General appearance: Present: mild distress, well-nourished - EENT Eyes: Present: PERRL, EOM intact - Neck Neck: Present: supple, normal ROM - Respiratory Respiratory effort: normal Respiratory: bilateral: diminished, negative: rales, rhonchi, wheezing - Cardiovascular Rhythm: regular Heart Sounds: Present: S1 & S2 - Extremities Extremities: no ischemia, No edema - Abdominal General gastrointestinal: soft, non-tender, distended, normal bowel sounds - Integumentary Integumentary: Present: clear, warm - Psychiatric Psychiatric: appropriate mood/affect, cooperative - Neurologic Neurologic: CNII-XII intact, moves all extremities Results - Labs CBC & Chem 7: 03/06/19 05:46 03/06/19 05:46 Labs: Laboratory Last Values WBC 19.1 K/mm3 (4.5-11.0) H 03/05/19 05:23 RBC 3.30 M/mm3 (3.65-5.03) L 03/05/19 05:23 Hgb 6.9 gm/dl (10.1-14.3) L 03/05/19 05:23 Hct 21.6 % (30.3-42.9) L 03/05/19 05:23 MCV 66 fl (79-97) L 03/05/19 05:23 MCH 21 pg (28-32) L 03/05/19 05:23 MCHC 32 % (30-34) 03/05/19 05:23 RDW 20.2 % (13.2-15.2) H 03/05/19 05:23 Plt Count 560 K/mm3 (140-440) H 03/05/19 05:23 Lymph % (Auto) [employer] 03/04/19 09:06 [place] % (Auto) [employer] 03/04/19 09:06 Eos % (Auto) [employer] 03/04/19 09:06 Baso % (Auto) [employer] 03/04/19 09:06 Lymph # [employer] 03/04/19 09:06 [place] # [employer] 03/04/19 09:06 Eos # [employer] 03/04/19 09:06 Baso # [employer] 03/04/19 09:06 Add Manual Diff Complete 03/05/19 05:23 Total Counted 100 03/05/19 05:23 Seg Neutrophils % [employer] 03/04/19 09:06 Seg Neuts % (Manual) 96.0 % (40.0-70.0) H 03/05/19 05:23 0 % 03/05/19 05:23 2.0 % (13.4-35.0) L 03/05/19 05:23 Reactive Lymphs % (Man) 0 % 03/05/19 05:23 2.0 % (0.0-7.3) 03/05/19 05:23 0 % (0.0-4.3) 03/05/19 05:23 0 % (0.0-1.8) 03/05/19 05:23 0 % 03/05/19 05:23 0 % 03/05/19 05:23 0 % 03/05/19 05:23 0 % 03/05/19 05:23 Nucleated RBC % Not Reportable 03/05/19 05:23 Seg Neutrophils # [employer] 03/04/19 09:06 Seg Neutrophils # Man 18.3 K/mm3 (1.8-7.7) H 03/05/19 05:23 Band Neutrophils # 0.0 K/mm3 03/05/19 05:23 0.4 K/mm3 (1.2-5.4) L 03/05/19 05:23 Abs React Lymphs (Man) 0.0 K/mm3 03/05/19 05:23 0.4 K/mm3 (0.0-0.8) 03/05/19 05:23 0.0 K/mm3 (0.0-0.4) 03/05/19 05:23 0.0 K/mm3 (0.0-0.1) 03/05/19 05:23 0.0 K/mm3 03/05/19 05:23 0.0 K/mm3 03/05/19 05:23 0.0 K/mm3 03/05/19 05:23 Blast Cells # 0.0 K/mm3 03/05/19 05:23 WBC Morphology Not Reportable 03/05/19 05:23 Hypersegmented Neuts Not Reportable 03/05/19 05:23 Hyposegmented Neuts Not Reportable 03/05/19 05:23 Hypogranular Neuts Not Reportable 03/05/19 05:23 Not Reportable 03/05/19 05:23 Not Reportable 03/05/19 05:23 Not Reportable 03/05/19 05:23 Not Reportable 03/05/19 05:23 Not Reportable 03/05/19 05:23 Not Reportable 03/05/19 05:23 Consistent w auto 03/05/19 05:23 Not Reportable 03/05/19 05:23 Plt Clumps, EDTA Not Reportable 03/05/19 05:23 Not Reportable 03/05/19 05:23 Not Reportable 03/05/19 05:23 Not Reportable 03/05/19 05:23 Plt Morphology Comment Not Reportable 03/05/19 05:23 RBC Morphology Not Reportable 03/05/19 05:23 Dimorphic RBCs Not Reportable 03/05/19 05:23 Not Reportable 03/05/19 05:23 2+ 03/05/19 05:23 Not Reportable 03/05/19 05:23 1+ 03/05/19 05:23 1+ 03/05/19 05:23 Not Reportable 03/05/19 05:23 Not Reportable 03/05/19 05:23 Not Reportable 03/05/19 05:23 Not Reportable 03/05/19 05:23 1+ 03/05/19 05:23 Not Reportable 03/05/19 05:23 Not Reportable 03/05/19 05:23 Not Reportable 03/05/19 05:23 Not Reportable 03/05/19 05:23 Not Reportable 03/05/19 05:23 Not Reportable 03/05/19 05:23 Not Reportable 03/05/19 05:23 Not Reportable 03/05/19 05:23 Not Reportable 03/05/19 05:23 Acanthocytes (Spur) Not Reportable 03/05/19 05:23 Rouleaux Not Reportable 03/05/19 05:23 Not Reportable 03/05/19 05:23 Not Reportable 03/05/19 05:23 Not Reportable 03/05/19 05:23 Not Reportable 03/05/19 05:23 Hem Pathologist Commnt No 03/05/19 05:23 Sodium 139 mmol/L (137-145) D 03/05/19 05:23 Potassium 3.0 mmol/L (3.6-5.0) L 03/05/19 05:23 Chloride 98.5 mmol/L (98-107) 03/05/19 05:23 Carbon Dioxide 24 mmol/L (22-30) 03/05/19 05:23 19 mmol/L 03/05/19 05:23 BUN 36 mg/dL (7-17) H 03/05/19 05:23 1.5 mg/dL (0.7-1.2) H D 03/05/19 05:23 Estimated GFR 42 ml/min 03/05/19 05:23 24 % 03/05/19 05:23 Glucose 115 mg/dL (65-100) H 03/05/19 05:23 Lactic Acid 0.80 mmol/L (0.7-2.0) 03/05/19 05:23 Calcium 8.5 mg/dL (8.4-10.2) 03/05/19 05:23 0.30 mg/dL (0.1-1.2) 03/05/19 05:23 AST 9 units/L (5-40) 03/05/19 05:23 ALT 5 units/L (7-56) L 03/05/19 05:23 85 units/L (35-129) 03/05/19 05:23 6.1 g/dL (6.3-8.2) L 03/05/19 05:23 2.7 g/dL (3.9-5) L 03/05/19 05:23 0.8 % 03/05/19 05:23 Yellow (Yellow) 03/04/19 13:13 Cloudy (Clear) 03/04/19 13:13 5.0 (5.0-7.0) 03/04/19 13:13 Ur Specific [place] 1.018 (1.003-1.030) 03/04/19 13:13 30 mg/dl mg/dL (Negative) 03/04/19 13:13 Neg mg/dL (Negative) 03/04/19 13:13 Tr mg/dL (Negative) 03/04/19 13:13 Neg (Negative) 03/04/19 13:13 Neg (Negative) 03/04/19 13:13 Neg (Negative) 03/04/19 13:13 < 2.0 mg/dL (<2.0) 03/04/19 13:13 Ur Leukocyte Esterase Tr (Negative) 03/04/19 13:13 5.0 /HPF (0.0-6.0) 03/04/19 13:13 4.0 /HPF (0.0-6.0) 03/04/19 13:13 U Epithel Cells (Auto) 8.0 /HPF (0-13.0) 03/04/19 13:13 1+ /HPF (Negative) 03/04/19 13:13 Few /HPF 03/04/19 13:13 Blood Type O NEGATIVE 03/04/19 15:56 Antibody Screen Not Reportable 03/04/19 15:56 [place] Antibody Screen Negative 03/04/19 15:56 Active Medications - Current Medications Current Medications: Generic Name Dose Route Start Last Admin Trade Name Freq PRN Reason Stop Dose Admin Albuterol 2.5 mg 03/04/19 15:40 Proventil IH Q3HRT PRN Shortness Of Breath Heparin Sodium (Porcine) 5,000 unit 03/04/19 22:00 03/04/19 22:49 Heparin SUB-Q 5,000 unit Q12HR AUDREY Administration Levofloxacin/Dextrose 500 mg in 100 mls @ 100 mls/hr 03/06/19 10:00 Levaquin 500mg/100ml IV Q48HR AUDREY Metronidazole 500 mg in 100 mls @ 100 mls/hr 03/04/19 22:00 03/05/19 05:27 Flagyl 500 Mg/100 Ml IV 100 mls/hr Q8HR AUDREY Administration Protocol Potassium Chloride 40 meq/ 1,020 mls @ 100 mls/hr 03/05/19 13:00 Sodium Chloride IV DIRECT AUDREY Sodium Chloride 10 ml 03/04/19 22:00 03/04/19 22:49 Sodium Chloride Flush Syringe 10 Ml IV 10 ml BID AUDREY Administration Sodium Chloride 10 ml 03/04/19 15:40 Sodium Chloride Flush Syringe 10 Ml IV PRN PRN LINE FLUSH Nutrition/Malnutrition Assess - Dietary Evaluation Nutrition/Malnutrition Findings: Nutrition Notes Start: 03/05/19 13:19 Freq: Status: Active Protocol: Document 03/05/19 13:20 LP (Rec: 03/05/19 13:23 LP [id number]) Nutrition Notes Need for Assessment generated from: rn embedded Initial or Follow up Assessment Current Diagnosis Acute Kidney Injury,Sepsis, Hypertension,Small Bowel Obstruction Current Diet No diet Labs/Tests K 3 BUN 36 Cr 1.5 Pertinent Medications Reviewed Height 5 ft 7 in Weight 58.6 kg [place] Body Weight (kg) 61.36 BMI 20.2 Subjective/Other Information Screen for MST. Pt states eating well right before admit . Pt denies wt changes. NGT to LIS. Burn Absent Trauma Absent #1 Nutrition Diagnosis Inadequate oral intake Etiology altered GI function As Evidenced by Signs and Symptoms Pt currently NPO and NGT to LIS Is patient on ventilator? No Is Patient Ambulatory and/or Out of Bed Yes [facility] [ 1512.719 [id number]] Calculation Used for Recommendations [facility] Additional Notes Protein needs are 59-70g (1-1. 2g/kg) Fluid needs are 1ml/kcal Nutrition Intervention Change Diet Order: Advance diet as feasible Goal #1 Advance diet as feasible Anticipated Discharge Needs: Unable to determine at this time Follow-Up By: 03/08/19 Additional Comments Follow for diet advancement/ intakes
[2019-03-05] MEDS: KCL 10MEQ/100ML 10 MEQ/100 ML BAG IV SCH ×4 (16:30→21:19)
--- NOTE | 2019-03-05 17:39 | Consultation ---
History of Present Illness Consult date: 03/05/19 Reason for consult: abdominal pain Requesting physician: BERT HERRERA Chief complaint: abdominal pain - History of present illness History of present illness: 63yo F with no prior cancer history presents with acute onset of obstipation, abdominal pain, N/V. Pt reports that 2 months ago, she went from having BMs daily to every 2-3 days. Then, she could not have a BM without a laxative. It would just be liquid. She could go a week without a BM. Currently, she has stomach soreness. The N/V has resolved with the NGT. She has not passed flatus or BM. Past History Past Medical History: hypertension, other (nicotine Dependence) Past Surgical History: hysterectomy Social history: smoking. denies: alcohol abuse, prescription drug abuse, IV drug use Family history: hypertension Medications and Allergies Allergies Allergy/AdvReac Type Severity Reaction Status Date / Time Penicillins Allergy Itching Verified 03/04/19 08:51 Home Medications Medication Instructions Recorded Confirmed Last Taken Type ALBUTEROL Inhaler (OR & NICU) 2 puff IH QID PRN #1 inhalation 11/24/18 03/04/19 Unknown Rx [ProAir HFA Inhaler] Azithromycin [Zithromax Z-LONNY] 250 mg PO DAILY #6 tablet 11/24/18 03/04/19 Unknown Rx predniSONE [Deltasone] 20 mg PO QDAY #5 tab 11/24/18 03/04/19 Unknown Rx Active Meds: Active Medications Albuterol (Proventil) 2.5 mg IH Q3HRT PRN PRN Reason: Shortness Of Breath Heparin Sodium (Porcine) (Heparin) 5,000 unit SUB-Q Q12HR AUDREY Last Admin: 03/05/19 10:00 Dose: Not Given Documented by: Levofloxacin/Dextrose (Levaquin 500mg/100ml) 500 mg in 100 mls @ 100 mls/hr IV Q48HR AUDREY Metronidazole (Flagyl 500 Mg/100 Ml) 500 mg in 100 mls @ 100 mls/hr IV Q8HR AUDREY; Protocol Last Admin: 03/05/19 16:27 Dose: 100 mls/hr Documented by: Potassium Chloride 40 meq/ (Sodium Chloride) 1,020 mls @ 100 mls/hr IV DIRECT AUDREY Last Admin: 03/05/19 16:32 Dose: 100 mls/hr Documented by: Sodium Chloride (Nacl 0.9% 500 Ml) 500 mls @ 0 mls/hr IV ONCE AUDREY Stop: 03/06/19 06:00 Potassium Chloride (Kcl 10meq/100ml) 10 meq in 100 mls @ 100 mls/hr IV Q1H [facility] Stop: 03/05/19 19:59 Last Admin: 03/05/19 16:30 Dose: 100 mls/hr Documented by: Sodium Chloride (Sodium Chloride Flush Syringe 10 Ml) 10 ml IV BID AUDREY Last Admin: 03/05/19 10:05 Dose: 10 ml Documented by: Sodium Chloride (Sodium Chloride Flush Syringe 10 Ml) 10 ml IV PRN PRN PRN Reason: LINE FLUSH Review of Systems - Constitutional no fever, no chills, no chronic pain - Cardiovascular no chest pain - Respiratory no cough, no shortness of breath, no dyspnea on exertion - Gastrointestinal abdominal pain, nausea, vomiting, constipation, change in bowel habits, no hematemesis, no coffee ground emesis, no BRBPR, no melena, no hematochezia - Muskuloskeletal no low back pain Exam Vital Signs Temp Pulse Resp BP Pulse Ox 98.7 F 110 H 18 99/57 100 03/04/19 08:51 03/04/19 08:51 03/04/19 08:51 03/04/19 08:51 03/04/19 08:51 - General physical appearance Positive: no distress, no pain, other - Eyes Positive: normal occular movement. Negative: icteric - Respiratory Positive: normal expansion, normal respiratory effort, clear to auscultation - Cardiovascular Rhythm: regular - Abdomen Abdomen: Present: soft, tender (mild throughout, significant in RLQ/right pelvic area. ), bowel sounds hypoactive (none). Absent: distended, masses, guarding, rigid, wound - Integumentary no rash, no growths, no abnormal pigmentation - Neurologic Neurologic: alert and oriented to time, place and person, motor strength and sensation are grossly intact - Psychiatric Psychiatric: appropriate mood/affect, intact judgment & insight, cooperative Results - Labs 03/05/19 05:23 03/05/19 05:23 Abnormal lab results 03/04/19 03/05/19 03/05/19 Range/Units 15:56 05:23 05:23 WBC 19.1 H (4.5-11.0) K/mm3 RBC 3.30 L (3.65-5.03) M/mm3 Hgb 6.9 L (10.1-14.3) gm/dl Hct 21.6 L (30.3-42.9) % MCV 66 L (79-97) fl MCH 21 L (28-32) pg RDW 20.2 H (13.2-15.2) % Plt Count 560 H (140-440) K/mm3 Seg Neuts % (Manual) 96.0 H (40.0-70.0) % Lymphocytes % (Manual) 2.0 L (13.4-35.0) % Seg Neutrophils # Man 18.3 H (1.8-7.7) K/mm3 Lymphocytes # (Manual) 0.4 L (1.2-5.4) K/mm3 Potassium 3.0 L (3.6-5.0) mmol/L BUN 36 H (7-17) mg/dL Creatinine 1.5 H D (0.7-1.2) mg/dL Glucose 115 H (65-100) mg/dL ALT 5 L (7-56) units/L Total Protein 6.1 L (6.3-8.2) g/dL Albumin 2.7 L (3.9-5) g/dL Crossmatch See Detail Diabetes panel 03/05/19 Range/Units 05:23 Sodium 139 D (137-145) mmol/L Potassium 3.0 L (3.6-5.0) mmol/L Chloride 98.5 (98-107) mmol/L Carbon Dioxide 24 (22-30) mmol/L BUN 36 H (7-17) mg/dL Creatinine 1.5 H D (0.7-1.2) mg/dL Glucose 115 H (65-100) mg/dL Calcium 8.5 (8.4-10.2) mg/dL AST 9 (5-40) units/L ALT 5 L (7-56) units/L Alkaline Phosphatase 85 (35-129) units/L Total Protein 6.1 L (6.3-8.2) g/dL Albumin 2.7 L (3.9-5) g/dL Calcium panel 03/05/19 Range/Units 05:23 Calcium 8.5 (8.4-10.2) mg/dL Albumin 2.7 L (3.9-5) g/dL Pituitary panel 03/05/19 Range/Units 05:23 Sodium 139 D (137-145) mmol/L Potassium 3.0 L (3.6-5.0) mmol/L Chloride 98.5 (98-107) mmol/L Carbon Dioxide 24 (22-30) mmol/L BUN 36 H (7-17) mg/dL Creatinine 1.5 H D (0.7-1.2) mg/dL Glucose 115 H (65-100) mg/dL Calcium 8.5 (8.4-10.2) mg/dL Adrenal panel 03/05/19 Range/Units 05:23 Sodium 139 D (137-145) mmol/L Potassium 3.0 L (3.6-5.0) mmol/L Chloride 98.5 (98-107) mmol/L Carbon Dioxide 24 (22-30) mmol/L BUN 36 H (7-17) mg/dL Creatinine 1.5 H D (0.7-1.2) mg/dL Glucose 115 H (65-100) mg/dL Calcium 8.5 (8.4-10.2) mg/dL Total Bilirubin 0.30 (0.1-1.2) mg/dL AST 9 (5-40) units/L ALT 5 L (7-56) units/L Alkaline Phosphatase 85 (35-129) units/L Total Protein 6.1 L (6.3-8.2) g/dL Albumin 2.7 L (3.9-5) g/dL - Imaging CT scan - abdomen: report reviewed, image reviewed CT scan - pelvis: report reviewed, image reviewed Assessment and Plan - Patient Problems (1) SBO (small bowel obstruction) Current Visit: Yes Status: Acute Plan to address problem: Pt stable. Her history is very concerning for a neoplastic process causing her blockage. She will most likely need some sort of surgery to relieve the current blockage. If her Cr is back to normal tomorrow (4.6 was probably a lab error), I would like to get a repeat CT tomorrow with IV and PO contrast. That will assist with surgical planning. My preference would be to a robotic/laparoscopic right hemicolectomy if she does not have wide spread disease. -Cont NGT for now -Cont resuscitation -BMP and CEA in AM -CT soon if Cr back to normal. Will follow along. Please call with questions. Time=30min
[2019-03-06] MEDS: FLAGYL 500 MG/100 ML 500 MG/100 ML BAG IV SCH ×3 (05:10→21:52)
[2019-03-06 06:05] LABS: Hematocrit 27.7 % (30.3-42.9); Hemoglobin 9.2 gm/dl (10.1-14.3); Mean Corpuscular HGB Conc 33 % (30-34); Platelet Count 627 K/mm3 (140-440); Red Blood Count 3.98 M/mm3 (3.65-5.03)
[2019-03-06 06:07] LABS: Mean Corpuscular Volume 70 fl (79-97); Red Cell Distribution Width 22.8 % (13.2-15.2)
[2019-03-06 06:34] LABS: Alanine Aminotransferase 7 units/L (7-56); Albumin 2.8 g/dL (3.9-5); BUN/Creatinine Ratio 40; Blood Urea Nitrogen 32 mg/dL (7-17); Calcium 9.1 mg/dL (8.4-10.2); Hemolysis Index 0
[2019-03-06 08:34] LABS: Anisocytosis 1+; Basophils % (Manual) 0 % (0.0-1.8); Eosinophils % (Manual) 0 % (0.0-4.3); Total Cells Counted 100
[2019-03-06 08:35] LABS: Hypochromasia 1+; Platelet Estimate Consistent w Auto; Target Cells 1+
--- NOTE | 2019-03-06 09:12 | Progress Note ---
Assessment and Plan 1. Acute kidney injury: Vasomotor RUSS in the setting of volume depletion. Renal US was negative for hydronephrosis. Renal function is improving. Continue IV fluids. Monitor renal function. Avoid nephrotoxic agents. Meds dosage based on GFR. 2. FEN: Continue IV fluids. Replete K. Monitor lytes. 3. Small bowel obstruction: Followed by Gen. Surgery. 4. Anemia. 5. Leukocytosis. Subjective Date of service: 03/06/19 Interval history: Patient was seen and examined at the bedside. Doing ok. Objective - Vital Signs Vital signs: Vital Signs - 12hr 03/05/19 03/05/19 03/05/19 21:15 22:00 23:00 Temperature 99.0 F Pulse Rate 98 H 101 H 102 H Respiratory 23 27 H 26 H Rate Blood Pressure 154/81 146/79 153/89 O2 Sat by Pulse 96 93 Oximetry 03/06/19 03/06/19 03/06/19 00:00 01:00 02:00 Temperature Pulse Rate 103 H 97 H 99 H Respiratory 24 22 26 H Rate Blood Pressure 145/86 134/62 153/83 O2 Sat by Pulse 95 93 94 Oximetry 03/06/19 03/06/19 03/06/19 03:00 04:00 05:00 Temperature Pulse Rate 99 H 98 H 99 H Respiratory 23 22 24 Rate Blood Pressure 170/92 146/79 149/84 O2 Sat by Pulse 93 95 95 Oximetry 03/06/19 03/06/19 06:00 07:00 Temperature Pulse Rate 96 H 94 H Respiratory 25 H 22 Rate Blood Pressure 144/73 148/76 O2 Sat by Pulse 93 92 Oximetry - General Appearance General appearance: well-developed, appears stated age, other (NG tube noted, no distress) EENT: ATNC, PERRL, hearing intact, vision intact Neck: supple Respiratory: Present: Clear to Ascultation Cardiology: regular, S1S2, no murmurs Gastrointestinal: normoactive bowel sounds, tenderness, distended Integumentary: no rash, warm and dry Neurologic: no focal deficit, no asterixis, alert and oriented x3 Musculoskeletal: other (no edema) Psychiatric: cooperative - Lab 03/07/19 04:55 03/07/19 04:55 Most recent lab results Calcium 9.1 mg/dL (8.4-10.2) 03/06/19 05:46 Phosphorus 2.10 mg/dL (2.5-4.5) L 03/06/19 05:46 Magnesium 1.90 mg/dL (1.7-2.3) 03/06/19 05:46 Medications & Allergies - Medications Allergies/Adverse Reactions: Allergies Penicillins Allergy (Verified 03/04/19 08:51) Itching Home Medications: Home Medications Medication Instructions Recorded Confirmed Last Taken Type ALBUTEROL Inhaler (OR & NICU) 2 puff IH QID PRN #1 inhalation 11/24/18 03/04/19 Unknown Rx [ProAir HFA Inhaler] Azithromycin [Zithromax Z-LONNY] 250 mg PO DAILY #6 tablet 11/24/18 03/04/19 Unknown Rx predniSONE [Deltasone] 20 mg PO QDAY #5 tab 11/24/18 03/04/19 Unknown Rx Active Medications: Generic Name Dose Route Start Last Admin Trade Name Freq PRN Reason Stop Dose Admin Albuterol 2.5 mg 03/04/19 15:40 Proventil IH Q3HRT PRN Shortness Of Breath Heparin Sodium (Porcine) 5,000 unit 03/04/19 22:00 03/05/19 21:15 Heparin SUB-Q 5,000 unit Q12HR AUDREY Administration Levofloxacin/Dextrose 500 mg in 100 mls @ 100 mls/hr 03/06/19 10:00 Levaquin 500mg/100ml IV Q24HR AUDREY Metronidazole 500 mg in 100 mls @ 100 mls/hr 03/04/19 22:00 03/06/19 05:10 Flagyl 500 Mg/100 Ml IV 100 mls/hr Q8HR AUDREY Administration Protocol Potassium Chloride 40 meq/ 1,020 mls @ 100 mls/hr 03/05/19 13:00 03/05/19 16:32 Sodium Chloride IV 100 mls/hr DIRECT AUDREY Administration Sodium Chloride 10 ml 03/04/19 22:00 03/05/19 21:16 Sodium Chloride Flush Syringe 10 Ml IV 10 ml BID AUDREY Administration Sodium Chloride 10 ml 03/04/19 15:40 Sodium Chloride Flush Syringe 10 Ml IV PRN PRN LINE FLUSH
[2019-03-06] MEDS: HEPARIN SUB-Q SCH ×2 (09:36→21:51)
[2019-03-06] MEDS: SODIUM CHLORIDE FLUSH SYRINGE 10 ML IV SCH ×2 (09:37→21:53)
[2019-03-06] MEDS: LEVAQUIN 500MG/100ML 500 MG/100 ML BAG IV SCH (09:37)
[2019-03-06] MEDS ORDERED: KPHOS 40 MMOL in NACL 0.9% 500 ML 500 ML IV ONE (12:00)
--- NOTE | 2019-03-06 13:53 | Cat Scan Report ---
PROCEDURE: CT ABDOMEN PELVIS W CON TECHNIQUE: CT examination of the abdomen and pelvis was performed after the IV injection of iodinated nonionic contrast. CT DOSE LENGTH PRODUCT: 767.8 mGycm HISTORY: assess mass in RLQ . Small bowel obstruction COMPARISONS: AP CT without IV contrast 03/04/2019 . FINDINGS: Nonspecific consolidation in right lung base posteriorly may be atelectasis and/or pneumonia. New sli ght atelectasis left posterior CP angle. Degenerative change in the regional skeleton. No acute fracture. New trace ascites is noted in the abdomen and pelvis. This may be reactive. A smoothly marginated hypodense right hepatic lobe lesion is nonspecific and statistically most likel y reflects a cyst or hemangioma. Normal-appearing gallbladder, adrenals, pancreas, and spleen. Intact normal caliber abdominal aorta w ith moderate calcified atherosclerotic plaque. Normal caliber IVC. Nonspecific, smoothly marginated, simple appearing, low density bilateral renal lesions are statistic ally most likely cysts. No renal calculus or hydronephrosis. The ureters are obscured by adjacent str uctures. Very small fat-containing umbilical hernia. No inguinal hernia. No visualized retroperitonea l adenopathy. No visualized mesenteric mass. Normal-appearing stomach and duodenum. NG tube distal ti p in the anterior mid stomach region. Again present is diffuse distention of the small bowel in the abdomen and pelvis compatible with hist ory of obstruction. Oral contrast opacifies several loops of proximal distended small intestine. It d oes not reach the pelvic small bowel. This limits the evaluation of the small intestine. The distende d small bowel contains prominent gas and fluid levels throughout. Loop distention of small bowel is l arger in the abdomen and pelvis. A small amount of luminal contrast is noted in the rectum. This may have been introduced per rectum. It does not reach the sigmoid or remaining colon, limiting the examination. The rectum and sigmoid co dinh are not distended. No diverticulosis noted. Normal caliber transverse colon. Normal-appearing dis herman ascending colon. Once again, there is ill-defined nonspecific soft tissue prominence in the right lower quadrant in th e region of the cecum and terminal ileum, as well as ileocecal valve. This raises suspicion of a soft tissue mass in this region, not much better outlined with IV contrast. Lack of oral contrast in this region again limits the examination. Mural thickening is suggested in the cecum and proximal ascendi ng colon. On sagittal images, this manifests as irregular mural thickening with luminal narrowing inv olving a 5.8 cm segment of proximal ascending colon, just distal to the ileocecal valve region. Findi ngs again could reflect edema, inflammation, infection, or neoplastic infiltration. The appendix is obscured or surgically absent. Normal-appearing urinary bladder. No definite adnexal abnormality. IMPRESSION: Findings again most compatible with small bowel obstruction with transition point in the region of th e ileocecal valve or proximal ascending colon. Sagittal images suggest an apple core type lesion, in the proximal ascending colon, just distal to the ileocecal valve, suspicious for neoplasm. The ileoce mckay valve may also be involved. Differential includes edema, inflammation, or infection. New consolidation in the right lung base posteriorly may be atelectasis and/or pneumonia. New slight atelectasis left posterior CP angle 8mm lesion in subcapsular lateral aspect of anterior segment right hepatic lobe may be a small cyst o r hemangioma. Metastatic disease must be considered since there is a possibility of intestinal neopla sm Trace new ascites in the abdomen and pelvis may be reactive or neoplastic This document is electronically signed by Huan Krishna MD., March 06 2019 01:51:35 PM ET
--- NOTE | 2019-03-06 15:42 | Progress Note ---
Assessment and Plan - Patient Problems (1) SBO (small bowel obstruction) Current Visit: Yes Status: Acute Plan to address problem: Pt stable. CT done today is concerning for a mass in the ascending colon. No evidence of metastatic disease. Discussed with patient. I recommended our best approach would be to do a right hemicolectomy. I told her that it depends on what we find, but she may need chemotherapy afterwards. Procedure, risks, benefits were discussed. All questions were answered. Consent was obtained for an open right hemicolectomy. Unfortunately due to the obstruction and bowel dilatation, a minimally invasive approach is not recommended. Patient has been scheduled for at 1 PM. CEA pending. Will follow along. Please call with questions. Time=15min Subjective Date of service: 03/06/19 Patient Reports: Positive: no new complaints, feels better. Negative: nausea, vomiting Objective Vital Signs - 12hr 03/06/19 03/06/19 03/06/19 04:00 05:00 06:00 Pulse Rate 98 H 99 H 96 H Respiratory 22 24 25 H Rate Blood Pressure 146/79 149/84 144/73 O2 Sat by Pulse 95 95 93 Oximetry 03/06/19 03/06/19 03/06/19 07:00 08:00 09:00 Pulse Rate 94 H 92 H 95 H Respiratory 22 27 H 23 Rate Blood Pressure 148/76 153/83 150/85 O2 Sat by Pulse 92 92 95 Oximetry 03/06/19 03/06/19 03/06/19 10:00 11:00 12:00 Pulse Rate 97 H 102 H Respiratory 20 17 27 H Rate Blood Pressure 160/84 143/82 O2 Sat by Pulse 97 91 94 Oximetry 03/06/19 03/06/19 03/06/19 12:01 13:01 14:00 Pulse Rate 107 H 90 97 H Respiratory 23 15 18 Rate Blood Pressure 187/105 154/87 153/88 O2 Sat by Pulse 96 99 96 Oximetry - General physical appearance no distress, no pain - Eyes normal occular movement - Respiratory normal expansion, normal respiratory effort - Abdomen soft, bowel sounds hypoactive, not guarding, not rigid - Integumentary no rash, no growths, no abnormal pigmentation - Psychiatric oriented to time, oriented to person, oriented to place, speech is normal, memory intact - Labs 03/06/19 05:46 03/06/19 05:46 Diabetes panel 03/06/19 Range/Units 05:46 Sodium 144 (137-145) mmol/L Potassium 3.4 L (3.6-5.0) mmol/L Chloride 101.3 (98-107) mmol/L Carbon Dioxide 26 (22-30) mmol/L BUN 32 H (7-17) mg/dL Creatinine 0.8 (0.7-1.2) mg/dL Glucose 117 H (65-100) mg/dL Calcium 9.1 (8.4-10.2) mg/dL AST 11 (5-40) units/L ALT 7 (7-56) units/L Alkaline Phosphatase 93 (35-129) units/L Total Protein 6.4 (6.3-8.2) g/dL Albumin 2.8 L (3.9-5) g/dL Calcium panel 03/06/19 Range/Units 05:46 Calcium 9.1 (8.4-10.2) mg/dL Phosphorus 2.10 L (2.5-4.5) mg/dL Albumin 2.8 L (3.9-5) g/dL Pituitary panel 03/06/19 Range/Units 05:46 Sodium 144 (137-145) mmol/L Potassium 3.4 L (3.6-5.0) mmol/L Chloride 101.3 (98-107) mmol/L Carbon Dioxide 26 (22-30) mmol/L BUN 32 H (7-17) mg/dL Creatinine 0.8 (0.7-1.2) mg/dL Glucose 117 H (65-100) mg/dL Calcium 9.1 (8.4-10.2) mg/dL Adrenal panel 03/06/19 Range/Units 05:46 Sodium 144 (137-145) mmol/L Potassium 3.4 L (3.6-5.0) mmol/L Chloride 101.3 (98-107) mmol/L Carbon Dioxide 26 (22-30) mmol/L BUN 32 H (7-17) mg/dL Creatinine 0.8 (0.7-1.2) mg/dL Glucose 117 H (65-100) mg/dL Calcium 9.1 (8.4-10.2) mg/dL Total Bilirubin 0.40 (0.1-1.2) mg/dL AST 11 (5-40) units/L ALT 7 (7-56) units/L Alkaline Phosphatase 93 (35-129) units/L Total Protein 6.4 (6.3-8.2) g/dL Albumin 2.8 L (3.9-5) g/dL - Imaging CT scan - abdomen: report reviewed, image reviewed CT Scan - head: report reviewed, image reviewed
--- NOTE | 2019-03-06 17:21 | Progress Note ---
Assessment and Plan Assessment and plan: --Hypokalemia; Replace with KCl IV, check magnesium, closely monitor electrolytes --Hypophosphatemia replacement therapy with IV K-Phos, monitor electrolytes -- SBO (small bowel obstruction) NGT to LWS as per surgical team, --CT abdomen and pelvis/abdominal mass CT abdomen and pelvis findings possible mass in the ascending colon. Surgery recommend right hemicolectomy, on 03/08/2019 --Anemia: Received 2 units PRBC yesterday ,Hemoglobin 6.9-9.2, Closely monitor H&H additional PRBC transfusion if not PRBC as needed -- Sepsis Sepsis Protocol: IV ABx therapy(Renal dose levaquin), IVF resuscitation therapy, lactate levels within normal limits, follow cultures --ARF (acute renal failure) with tubular necrosis IVF resuscitation therapy, Nephrology following , resolved Avoid nephrotoxins --Severe malnutrition/hypoalbuminemia Due to her underlying disease process, diet reconsult nutrition supplements when able to take oral --DVT prophylaxis SCD to BLE while in bed. Prophylactic heparin. Consults and recommendations noted and appreciated History Interval history: Patient seen and examined medical records reviewed Patient complains of vague abdominal discomfort and tiredness CT abdomen findings reviewed NG tube in place Vital signs noted Hospitalist Physical - Constitutional Vitals: Temp Pulse Resp BP Pulse Ox 98.4 F 97 H 18 153/88 96 03/06/19 16:00 03/06/19 14:00 03/06/19 14:00 03/06/19 14:00 03/06/19 14:00 General appearance: Present: mild distress, well-nourished - EENT Eyes: Present: PERRL, EOM intact - Neck Neck: Present: supple, normal ROM - Respiratory Respiratory effort: normal Respiratory: bilateral: diminished, negative: rales, rhonchi, wheezing - Cardiovascular Rhythm: regular Heart Sounds: Present: S1 & S2 - Extremities Extremities: no ischemia, No edema - Abdominal General gastrointestinal: soft, non-tender, distended, normal bowel sounds - Integumentary Integumentary: Present: clear, warm - Psychiatric Psychiatric: appropriate mood/affect, cooperative - Neurologic Neurologic: CNII-XII intact, moves all extremities Results - Labs CBC & Chem 7: 03/06/19 05:46 03/06/19 05:46 Labs: Laboratory Last Values WBC 18.7 K/mm3 (4.5-11.0) H 03/06/19 05:46 RBC 3.98 M/mm3 (3.65-5.03) 03/06/19 05:46 Hgb 9.2 gm/dl (10.1-14.3) L 03/06/19 05:46 Hct 27.7 % (30.3-42.9) L D 03/06/19 05:46 MCV 70 fl (79-97) L 03/06/19 05:46 MCH 23 pg (28-32) L 03/06/19 05:46 MCHC 33 % (30-34) 03/06/19 05:46 RDW 22.8 % (13.2-15.2) H 03/06/19 05:46 Plt Count 627 K/mm3 (140-440) H 03/06/19 05:46 Lymph % (Auto) Info Specialist 03/04/19 09:06 [place] % (Auto) Info Specialist 03/04/19 09:06 Eos % (Auto) Info Specialist 03/04/19 09:06 Baso % (Auto) Info Specialist 03/04/19 09:06 Lymph # Info Specialist 03/04/19 09:06 [place] # Info Specialist 03/04/19 09:06 Eos # Info Specialist 03/04/19 09:06 Baso # Info Specialist 03/04/19 09:06 Add Manual Diff Complete 03/06/19 05:46 Total Counted 100 03/06/19 05:46 Seg Neutrophils % Info Specialist 03/04/19 09:06 Seg Neuts % (Manual) 96.0 % (40.0-70.0) H 03/06/19 05:46 0 % 03/06/19 05:46 2.0 % (13.4-35.0) L 03/06/19 05:46 Reactive Lymphs % (Man) 0 % 03/06/19 05:46 2.0 % (0.0-7.3) 03/06/19 05:46 0 % (0.0-4.3) 03/06/19 05:46 0 % (0.0-1.8) 03/06/19 05:46 0 % 03/06/19 05:46 0 % 03/06/19 05:46 0 % 03/06/19 05:46 0 % 03/06/19 05:46 Nucleated RBC % Not Reportable 03/06/19 05:46 Seg Neutrophils # Info Specialist 03/04/19 09:06 Seg Neutrophils # Man 18.0 K/mm3 (1.8-7.7) H 03/06/19 05:46 Band Neutrophils # 0.0 K/mm3 03/06/19 05:46 0.4 K/mm3 (1.2-5.4) L 03/06/19 05:46 Abs React Lymphs (Man) 0.0 K/mm3 03/06/19 05:46 0.4 K/mm3 (0.0-0.8) 03/06/19 05:46 0.0 K/mm3 (0.0-0.4) 03/06/19 05:46 0.0 K/mm3 (0.0-0.1) 03/06/19 05:46 0.0 K/mm3 03/06/19 05:46 0.0 K/mm3 03/06/19 05:46 0.0 K/mm3 03/06/19 05:46 Blast Cells # 0.0 K/mm3 03/06/19 05:46 WBC Morphology Not Reportable 03/06/19 05:46 Hypersegmented Neuts Not Reportable 03/06/19 05:46 Hyposegmented Neuts Not Reportable 03/06/19 05:46 Hypogranular Neuts Not Reportable 03/06/19 05:46 Not Reportable 03/06/19 05:46 Not Reportable 03/06/19 05:46 Not Reportable 03/06/19 05:46 Not Reportable 03/06/19 05:46 Not Reportable 03/06/19 05:46 Not Reportable 03/06/19 05:46 Consistent w auto 03/06/19 05:46 Not Reportable 03/06/19 05:46 Plt Clumps, EDTA Not Reportable 03/06/19 05:46 Not Reportable 03/06/19 05:46 Not Reportable 03/06/19 05:46 Not Reportable 03/06/19 05:46 Plt Morphology Comment Not Reportable 03/06/19 05:46 RBC Morphology Not Reportable 03/06/19 05:46 Dimorphic RBCs Not Reportable 03/06/19 05:46 Not Reportable 03/06/19 05:46 1+ 03/06/19 05:46 Not Reportable 03/06/19 05:46 1+ 03/06/19 05:46 1+ 03/06/19 05:46 Not Reportable 03/06/19 05:46 Not Reportable 03/06/19 05:46 Not Reportable 03/06/19 05:46 Not Reportable 03/06/19 05:46 1+ 03/06/19 05:46 Not Reportable 03/06/19 05:46 Not Reportable 03/06/19 05:46 Not Reportable 03/06/19 05:46 Not Reportable 03/06/19 05:46 Not Reportable 03/06/19 05:46 Not Reportable 03/06/19 05:46 Not Reportable 03/06/19 05:46 Not Reportable 03/06/19 05:46 Not Reportable 03/06/19 05:46 Acanthocytes (Spur) Not Reportable 03/06/19 05:46 Rouleaux Not Reportable 03/06/19 05:46 Not Reportable 03/06/19 05:46 Not Reportable 03/06/19 05:46 Not Reportable 03/06/19 05:46 Not Reportable 03/06/19 05:46 Hem Pathologist Commnt No 03/06/19 05:46 Sodium 144 mmol/L (137-145) 03/06/19 05:46 Potassium 3.4 mmol/L (3.6-5.0) L 03/06/19 05:46 Chloride 101.3 mmol/L (98-107) 03/06/19 05:46 Carbon Dioxide 26 mmol/L (22-30) 03/06/19 05:46 20 mmol/L 03/06/19 05:46 BUN 32 mg/dL (7-17) H 03/06/19 05:46 0.8 mg/dL (0.7-1.2) 03/06/19 05:46 Estimated GFR > 60 ml/min 03/06/19 05:46 40 % 03/06/19 05:46 Glucose 117 mg/dL (65-100) H 03/06/19 05:46 Lactic Acid 0.80 mmol/L (0.7-2.0) 03/05/19 05:23 Calcium 9.1 mg/dL (8.4-10.2) 03/06/19 05:46 Phosphorus 2.10 mg/dL (2.5-4.5) L 03/06/19 05:46 Magnesium 1.90 mg/dL (1.7-2.3) 03/06/19 05:46 0.40 mg/dL (0.1-1.2) 03/06/19 05:46 AST 11 units/L (5-40) 03/06/19 05:46 ALT 7 units/L (7-56) 03/06/19 05:46 93 units/L (35-129) 03/06/19 05:46 6.4 g/dL (6.3-8.2) 03/06/19 05:46 2.8 g/dL (3.9-5) L 03/06/19 05:46 0.8 % 03/06/19 05:46 Yellow (Yellow) 03/04/19 13:13 Cloudy (Clear) 03/04/19 13:13 5.0 (5.0-7.0) 03/04/19 13:13 Ur Specific [place] 1.018 (1.003-1.030) 03/04/19 13:13 30 mg/dl mg/dL (Negative) 03/04/19 13:13 Neg mg/dL (Negative) 03/04/19 13:13 Tr mg/dL (Negative) 03/04/19 13:13 Neg (Negative) 03/04/19 13:13 Neg (Negative) 03/04/19 13:13 Neg (Negative) 03/04/19 13:13 < 2.0 mg/dL (<2.0) 03/04/19 13:13 Ur Leukocyte Esterase Tr (Negative) 03/04/19 13:13 5.0 /HPF (0.0-6.0) 03/04/19 13:13 4.0 /HPF (0.0-6.0) 03/04/19 13:13 U Epithel Cells (Auto) 8.0 /HPF (0-13.0) 03/04/19 13:13 1+ /HPF (Negative) 03/04/19 13:13 Few /HPF 03/04/19 13:13 Blood Type O NEGATIVE 03/04/19 15:56 Antibody Screen Not Reportable 03/04/19 15:56 [place] Antibody Screen Negative 03/04/19 15:56 Crossmatch See Detail 03/04/19 15:56 Active Medications - Current Medications Current Medications: Generic Name Dose Route Start Last Admin Trade Name Freq PRN Reason Stop Dose Admin Albuterol 2.5 mg 03/04/19 15:40 Proventil IH Q3HRT PRN Shortness Of Breath Heparin Sodium (Porcine) 5,000 unit 03/04/19 22:00 03/06/19 09:36 Heparin SUB-Q 5,000 unit Q12HR AUDREY Administration Levofloxacin/Dextrose 500 mg in 100 mls @ 100 mls/hr 03/06/19 10:00 03/06/19 09:37 Levaquin 500mg/100ml IV 100 mls/hr Q24HR AUDREY Administration Metronidazole 500 mg in 100 mls @ 100 mls/hr 03/04/19 22:00 03/06/19 14:52 Flagyl 500 Mg/100 Ml IV 100 mls/hr Q8HR AUDREY Administration Protocol Potassium Chloride 40 meq/ 1,020 mls @ 100 mls/hr 03/05/19 13:00 03/05/19 16:32 Sodium Chloride IV 100 mls/hr DIRECT AUDREY Administration Potassium Phosphate 40 mmol/ 513.3333 mls @ 83 mls/hr 03/06/19 12:00 03/06/19 14:52 Sodium Chloride IV 03/06/19 18:11 83 mls/hr ONCE ONE Administration Sodium Chloride 10 ml 03/04/19 22:00 03/06/19 09:37 Sodium Chloride Flush Syringe 10 Ml IV 10 ml BID AUDREY Administration Sodium Chloride 10 ml 03/04/19 15:40 Sodium Chloride Flush Syringe 10 Ml IV PRN PRN LINE FLUSH Nutrition/Malnutrition Assess - Dietary Evaluation Nutrition/Malnutrition Findings: Nutrition Notes Start: 03/05/19 13:19 Freq: Status: Active Protocol: Document 03/05/19 13:20 LP (Rec: 03/05/19 13:23 LP [id number]) Nutrition Notes Need for Assessment generated from: hospital nursing assistant Initial or Follow up Assessment Current Diagnosis Acute Kidney Injury,Sepsis, Hypertension,Small Bowel Obstruction Current Diet No diet Labs/Tests K 3 BUN 36 Cr 1.5 Pertinent Medications Reviewed Height 5 ft 7 in Weight 58.6 kg [place] Body Weight (kg) 61.36 BMI 20.2 Subjective/Other Information Screen for MST. Pt states eating well right before admit . Pt denies wt changes. NGT to LIS. Burn Absent Trauma Absent #1 Nutrition Diagnosis Inadequate oral intake Etiology altered GI function As Evidenced by Signs and Symptoms Pt currently NPO and NGT to LIS Is patient on ventilator? No Is Patient Ambulatory and/or Out of Bed Yes REE-([facility]-ambulatory/OOB) [ 1512.719 [id number]] Calculation Used for Recommendations [facility] Additional Notes Protein needs are 59-70g (1-1. 2g/kg) Fluid needs are 1ml/kcal Nutrition Intervention Change Diet Order: Advance diet as feasible Goal #1 Advance diet as feasible Anticipated Discharge Needs: Unable to determine at this time Follow-Up By: 03/08/19 Additional Comments Follow for diet advancement/ intakes
[2019-03-06] MEDS ORDERED: RESTORIL PO ONE (21:17)
[2019-03-07 05:18] LABS: Hematocrit 29.6 % (30.3-42.9); Hemoglobin 9.8 gm/dl (10.1-14.3); Mean Corpuscular HGB Conc 33 % (30-34); Platelet Count 687 K/mm3 (140-440); Red Blood Count 4.26 M/mm3 (3.65-5.03)
[2019-03-07 05:27] LABS: Mean Corpuscular Volume 69 fl (79-97); Red Cell Distribution Width 23.3 % (13.2-15.2)
[2019-03-07] MEDS: FLAGYL 500 MG/100 ML 500 MG/100 ML BAG IV SCH ×3 (05:32→22:37)
[2019-03-07 05:39] LABS: BUN/Creatinine Ratio 31; Blood Urea Nitrogen 25 mg/dL (7-17); Calcium 9.3 mg/dL (8.4-10.2); Hemolysis Index 0
[2019-03-07 06:11] LABS: Anisocytosis 2+; Basophils % (Manual) 0 % (0.0-1.8); Hypochromasia 1+; Poikilocytosis 1+; Target Cells 1+; Total Cells Counted 100
[2019-03-07 06:12] LABS: Ovalocytes Few; Platelet Estimate Consistent w Auto; Tear Drop Cells Rare
--- NOTE | 2019-03-07 09:41 | Progress Note ---
Assessment and Plan 1. Acute kidney injury: Vasomotor RUSS in the setting of volume depletion. Renal US was negative for hydronephrosis. Renal function is improving. Continue IV fluids. Monitor renal function. Avoid nephrotoxic agents. Meds dosage based on GFR. 2. FEN: Continue IV fluids. Replete K and Phos. Monitor lytes. 3. Small bowel obstruction: Followed by Gen. Surgery. 4. Anemia. 5. Leukocytosis. Subjective Date of service: 03/07/19 Interval history: Patient was seen and examined at the bedside. Passing gas. Objective - Vital Signs Vital signs: Vital Signs - 12hr 03/06/19 03/06/19 03/07/19 22:00 23:00 00:00 Temperature 99.4 F Pulse Rate 99 H 92 H 81 Respiratory 24 22 28 H Rate Blood Pressure 180/93 148/88 152/85 O2 Sat by Pulse 94 93 93 Oximetry 03/07/19 03/07/19 03/07/19 01:00 02:00 03:00 Temperature Pulse Rate 87 84 89 Respiratory 27 H 26 H 27 H Rate Blood Pressure 169/91 172/94 169/90 O2 Sat by Pulse 94 93 96 Oximetry 03/07/19 03/07/19 03/07/19 04:00 05:00 06:00 Temperature 99.3 F Pulse Rate 93 H 93 H 80 Respiratory 28 H 28 H 24 Rate Blood Pressure 161/92 168/91 136/73 O2 Sat by Pulse 98 96 Oximetry - General Appearance General appearance: well-developed, appears stated age, other (NG tube noted, no distress) EENT: ATNC, PERRL, hearing intact, vision intact Neck: supple Respiratory: Present: Clear to Ascultation Cardiology: regular, S1S2, no murmurs Gastrointestinal: normoactive bowel sounds, no tenderness, no distended Integumentary: no rash, warm and dry Neurologic: no focal deficit, no asterixis, alert and oriented x3 Musculoskeletal: other (no edema) - Lab 03/07/19 04:55 03/07/19 04:55 Most recent lab results Calcium 9.3 mg/dL (8.4-10.2) 03/07/19 04:55 Phosphorus 2.30 mg/dL (2.5-4.5) L 03/07/19 04:55 Magnesium 1.90 mg/dL (1.7-2.3) 03/06/19 05:46 Medications & Allergies - Medications Allergies/Adverse Reactions: Allergies Penicillins Allergy (Verified 03/04/19 08:51) Itching Home Medications: Home Medications Medication Instructions Recorded Confirmed Last Taken Type ALBUTEROL Inhaler (OR & NICU) 2 puff IH QID PRN #1 inhalation 11/24/18 03/04/19 Unknown Rx [ProAir HFA Inhaler] Azithromycin [Zithromax Z-LONNY] 250 mg PO DAILY #6 tablet 11/24/18 03/04/19 Unkn own Rx predniSONE [Deltasone] 20 mg PO QDAY #5 tab 11/24/18 03/04/19 Unknown Rx Active Medications: Generic Name Dose Route Start Last Admin Trade Name Freq PRN Reason Stop Dose Admin Albuterol 2.5 mg 03/04/19 15:40 Proventil IH Q3HRT PRN Shortness Of Breath Heparin Sodium (Porcine) 5,000 unit 03/04/19 22:00 03/06/19 21:51 Heparin SUB-Q 5,000 unit Q12HR AUDREY Administration Levofloxacin/Dextrose 500 mg in 100 mls @ 100 mls/hr 03/06/19 10:00 03/06/19 09:37 Levaquin 500mg/100ml IV 100 mls/hr Q24HR AUDREY Administration Metronidazole 500 mg in 100 mls @ 100 mls/hr 03/04/19 22:00 03/07/19 05:32 Flagyl 500 Mg/100 Ml IV 100 mls/hr Q8HR AUDREY Administration Protocol Potassium Chloride 40 meq/ 1,020 mls @ 100 mls/hr 03/05/19 13:00 03/05/19 16:32 Sodium Chloride IV 100 mls/hr DIRECT AUDREY Administration Sodium Chloride 10 ml 03/04/19 22:00 03/06/19 21:53 Sodium Chloride Flush Syringe 10 Ml IV 10 ml BID AUDREY Administration Sodium Chloride 10 ml 03/04/19 15:40 03/07/19 05:33 Sodium Chloride Flush Syringe 10 Ml IV 10 ml PRN PRN Administration LINE FLUSH
[2019-03-07] MEDS: SODIUM CHLORIDE FLUSH SYRINGE 10 ML IV SCH ×2 (10:03→22:40)
[2019-03-07] MEDS: LEVAQUIN 500MG/100ML 500 MG/100 ML BAG IV SCH (10:04)
[2019-03-07] MEDS: HEPARIN SUB-Q SCH ×2 (10:19→22:32)
[2019-03-07] MEDS ORDERED: FLAGYL 500 MG/100 ML 500 MG/100 ML BAG IV NR (17:00)
--- NOTE | 2019-03-07 18:04 | Progress Note ---
Assessment and Plan Assessment and plan: --Hypokalemia; corrected ,monitor electrolytes --Hypophosphatemia replacement therapy with IV K-Phos, monitor electrolytes -- SBO (small bowel obstruction) NGT to LWS as per surgical team, right hemicolectomy tomorrow Clear liquids today, nothing by mouth from midnight --CT abdomen and pelvis/abdominal mass CT abdomen and pelvis findings possible mass in the ascending colon. Surgery recommend right hemicolectomy, on 03/08/2019 --Anemia: Received 2 units PRBC yesterday ,Hemoglobin 6.9-9.2-9.8 Closely monitor H&H additional PRBC transfusion if not PRBC as needed -- Sepsis Sepsis Protocol: IV ABx therapy Levaquin and Flagyl, IVF resuscitation therapy, lactate levels within normal limits, follow cultures --ARF (acute renal failure) with tubular necrosis IVF resuscitation therapy, Nephrology following , resolved Avoid nephrotoxins --Severe malnutrition/hypoalbuminemia Due to her underlying disease process, diet reconsult nutrition supplements when able to take oral --DVT prophylaxis SCD to BLE while in bed. Prophylactic heparin. Consults and recommendations noted and appreciated Plan of care is reviewed for the patient and her nurse No family members available History Interval history: Patient seen and examined medical records reviewed Patient feels slightly better scheduled for right hemicolectomy tomorrow Complaints of some abdominal pain NG tube in place, Vital signs reviewed Hospitalist Physical - Constitutional Vitals: Temp Pulse Resp BP Pulse Ox 99.3 F 94 H 24 168/75 95 03/07/19 04:00 03/07/19 16:00 03/07/19 16:00 03/07/19 16:00 03/07/19 16:00 General appearance: Present: mild distress, well-nourished - EENT Eyes: Present: PERRL, EOM intact - Neck Neck: Present: supple, normal ROM - Respiratory Respiratory effort: normal Respiratory: bilateral: diminished, negative: rales, rhonchi, wheezing - Cardiovascular Rhythm: regular Heart Sounds: Present: S1 & S2 - Extremities Extremities: no ischemia, No edema - Abdominal General gastrointestinal: soft, non-tender, non-distended - Integumentary Integumentary: Present: clear, warm - Psychiatric Psychiatric: appropriate mood/affect, cooperative - Neurologic Neurologic: moves all extremities Results - Labs CBC & Chem 7: 03/07/19 04:55 03/07/19 04:55 Labs: Laboratory Last Values WBC 15.9 K/mm3 (4.5-11.0) H 03/07/19 04:55 RBC 4.26 M/mm3 (3.65-5.03) 03/07/19 04:55 Hgb 9.8 gm/dl (10.1-14.3) L 03/07/19 04:55 Hct 29.6 % (30.3-42.9) L 03/07/19 04:55 MCV 69 fl (79-97) L 03/07/19 04:55 MCH 23 pg (28-32) L 03/07/19 04:55 MCHC 33 % (30-34) 03/07/19 04:55 RDW 23.3 % (13.2-15.2) H 03/07/19 04:55 Plt Count 687 K/mm3 (140-440) H 03/07/19 04:55 Lymph % (Auto) Data Coordinator 03/04/19 09:06 [place] % (Auto) Data Coordinator 03/04/19 09:06 Eos % (Auto) Data Coordinator 03/04/19 09:06 Baso % (Auto) Data Coordinator 03/04/19 09:06 Lymph # Data Coordinator 03/04/19 09:06 [place] # Data Coordinator 03/04/19 09:06 Eos # Data Coordinator 03/04/19 09:06 Baso # Data Coordinator 03/04/19 09:06 Add Manual Diff Complete 03/07/19 04:55 Total Counted 100 03/07/19 04:55 Seg Neutrophils % Data Coordinator 03/04/19 09:06 Seg Neuts % (Manual) 89.0 % (40.0-70.0) H 03/07/19 04:55 0 % 03/07/19 04:55 5.0 % (13.4-35.0) L 03/07/19 04:55 Reactive Lymphs % (Man) 0 % 03/07/19 04:55 4.0 % (0.0-7.3) 03/07/19 04:55 2.0 % (0.0-4.3) 03/07/19 04:55 0 % (0.0-1.8) 03/07/19 04:55 0 % 03/07/19 04:55 0 % 03/07/19 04:55 0 % 03/07/19 04:55 0 % 03/07/19 04:55 Nucleated RBC % Not Reportable 03/07/19 04:55 Seg Neutrophils # Data Coordinator 03/04/19 09:06 Seg Neutrophils # Man 14.2 K/mm3 (1.8-7.7) H 03/07/19 04:55 Band Neutrophils # 0.0 K/mm3 03/07/19 04:55 0.8 K/mm3 (1.2-5.4) L 03/07/19 04:55 Abs React Lymphs (Man) 0.0 K/mm3 03/07/19 04:55 0.6 K/mm3 (0.0-0.8) 03/07/19 04:55 0.3 K/mm3 (0.0-0.4) 03/07/19 04:55 0.0 K/mm3 (0.0-0.1) 03/07/19 04:55 0.0 K/mm3 03/07/19 04:55 0.0 K/mm3 03/07/19 04:55 0.0 K/mm3 03/07/19 04:55 Blast Cells # 0.0 K/mm3 03/07/19 04:55 WBC Morphology Not Reportable 03/07/19 04:55 Hypersegmented Neuts Not Reportable 03/07/19 04:55 Hyposegmented Neuts Not Reportable 03/07/19 04:55 Hypogranular Neuts Not Reportable 03/07/19 04:55 Not Reportable 03/07/19 04:55 Not Reportable 03/07/19 04:55 Not Reportable 03/07/19 04:55 Not Reportable 03/07/19 04:55 Not Reportable 03/07/19 04:55 Not Reportable 03/07/19 04:55 Consistent w auto 03/07/19 04:55 Not Reportable 03/07/19 04:55 Plt Clumps, EDTA Not Reportable 03/07/19 04:55 Not Reportable 03/07/19 04:55 Not Reportable 03/07/19 04:55 Not Reportable 03/07/19 04:55 Plt Morphology Comment Not Reportable 03/07/19 04:55 RBC Morphology Not Reportable 03/07/19 04:55 Dimorphic RBCs Not Reportable 03/07/19 04:55 Not Reportable 03/07/19 04:55 1+ 03/07/19 04:55 1+ 03/07/19 04:55 2+ 03/07/19 04:55 1+ 03/07/19 04:55 Not Reportable 03/07/19 04:55 Not Reportable 03/07/19 04:55 Not Reportable 03/07/19 04:55 Not Reportable 03/07/19 04:55 1+ 03/07/19 04:55 Rare 03/07/19 04:55 Few 03/07/19 04:55 Not Reportable 03/07/19 04:55 Not Reportable 03/07/19 04:55 Not Reportable 03/07/19 04:55 Not Reportable 03/07/19 04:55 Not Reportable 03/07/19 04:55 Not Reportable 03/07/19 04:55 Few 03/07/19 04:55 Acanthocytes (Spur) Not Reportable 03/07/19 04:55 Rouleaux Not Reportable 03/07/19 04:55 Not Reportable 03/07/19 04:55 Not Reportable 03/07/19 04:55 Not Reportable 03/07/19 04:55 Not Reportable 03/07/19 04:55 Hem Pathologist Commnt No 03/07/19 04:55 Sodium 146 mmol/L (137-145) H 03/07/19 04:55 Potassium 3.7 mmol/L (3.6-5.0) 03/07/19 04:55 Chloride 105.1 mmol/L (98-107) 03/07/19 04:55 Carbon Dioxide 29 mmol/L (22-30) 03/07/19 04:55 16 mmol/L 03/07/19 04:55 BUN 25 mg/dL (7-17) H 03/07/19 04:55 0.8 mg/dL (0.7-1.2) 03/07/19 04:55 Estimated GFR > 60 ml/min 03/07/19 04:55 31 % 03/07/19 04:55 Glucose 118 mg/dL (65-100) H 03/07/19 04:55 Lactic Acid 0.80 mmol/L (0.7-2.0) 03/05/19 05:23 Calcium 9.3 mg/dL (8.4-10.2) 03/07/19 04:55 Phosphorus 2.30 mg/dL (2.5-4.5) L 03/07/19 04:55 Magnesium 1.90 mg/dL (1.7-2.3) 03/06/19 05:46 0.40 mg/dL (0.1-1.2) 03/06/19 05:46 AST 11 units/L (5-40) 03/06/19 05:46 ALT 7 units/L (7-56) 03/06/19 05:46 93 units/L (35-129) 03/06/19 05:46 6.4 g/dL (6.3-8.2) 03/06/19 05:46 2.8 g/dL (3.9-5) L 03/06/19 05:46 0.8 % 03/06/19 05:46 Yellow (Yellow) 03/04/19 13:13 Cloudy (Clear) 03/04/19 13:13 5.0 (5.0-7.0) 03/04/19 13:13 Ur Specific [place] 1.018 (1.003-1.030) 03/04/19 13:13 30 mg/dl mg/dL (Negative) 03/04/19 13:13 Neg mg/dL (Negative) 03/04/19 13:13 Tr mg/dL (Negative) 03/04/19 13:13 Neg (Negative) 03/04/19 13:13 Neg (Negative) 03/04/19 13:13 Neg (Negative) 03/04/19 13:13 < 2.0 mg/dL (<2.0) 03/04/19 13:13 Ur Leukocyte Esterase Tr (Negative) 03/04/19 13:13 5.0 /HPF (0.0-6.0) 03/04/19 13:13 4.0 /HPF (0.0-6.0) 03/04/19 13:13 U Epithel Cells (Auto) 8.0 /HPF (0-13.0) 03/04/19 13:13 1+ /HPF (Negative) 03/04/19 13:13 Few /HPF 03/04/19 13:13 Blood Type O NEGATIVE 03/04/19 15:56 Antibody Screen Not Reportable 03/04/19 15:56 [place] Antibody Screen Negative 03/04/19 15:56 Crossmatch See Detail 03/04/19 15:56 Active Medications - Current Medications Current Medications: Generic Name Dose Route Start Last Admin Trade Name Freq PRN Reason Stop Dose Admin Albuterol 2.5 mg 03/04/19 15:40 Proventil IH Q3HRT PRN Shortness Of Breath Heparin Sodium (Porcine) 5,000 unit 03/04/19 22:00 03/07/19 10:19 Heparin SUB-Q 5,000 unit Q12HR AUDREY Administration Levofloxacin/Dextrose 500 mg in 100 mls @ 100 mls/hr 03/06/19 10:00 03/07/19 10:04 Levaquin 500mg/100ml IV 100 mls/hr Q24HR AUDREY Administration Metronidazole 500 mg in 100 mls @ 100 mls/hr 03/04/19 22:00 03/07/19 15:34 Flagyl 500 Mg/100 Ml IV 100 mls/hr Q8HR AUDREY Administration Protocol Potassium Chloride 40 meq/ 1,020 mls @ 100 mls/hr 03/05/19 13:00 03/05/19 16:32 Sodium Chloride IV 100 mls/hr DIRECT AUDREY Administration Gentamicin Sulfate / Sodium 100 mls @ 200 mls/hr 03/08/19 06:00 Chloride IV 03/08/19 06:29 PREOP ONE Protocol Morphine Sulfate 2 mg 03/07/19 17:58 Morphine IV Q4H PRN Pain, Moderate (4-6) Sodium Chloride 10 ml 03/04/19 22:00 03/07/19 10:03 Sodium Chloride Flush Syringe 10 Ml IV 10 ml BID AUDREY Administration Sodium Chloride 10 ml 03/04/19 15:40 03/07/19 05:33 Sodium Chloride Flush Syringe 10 Ml IV 10 ml PRN PRN Administration LINE FLUSH Nutrition/Malnutrition Assess - Dietary Evaluation Nutrition/Malnutrition Findings: Nutrition Notes Start: 03/05/19 13:19 Freq: Status: Active Protocol: Document 03/05/19 13:20 LP (Rec: 03/05/19 13:23 LP [id number]) Nutrition Notes 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 Pt states eating well right before admit . Pt denies wt changes. NGT to LIS. Burn Absent Trauma Absent #1 Nutrition Diagnosis Inadequate oral intake Etiology altered GI function As Evidenced by Signs and Symptoms Pt currently NPO and NGT to LIS Is patient on ventilator? No Is Patient Ambulatory and/or Out of Bed Yes REE-([facility]-ambulatory/OOB) [ 1512.719 [email or web address]] Calculation Used for Recommendations [facility] Additional Notes Protein needs are 59-70g (1-1. 2g/kg) Fluid needs are 1ml/kcal Nutrition Intervention Change Diet Order: Advance diet as feasible Goal #1 Advance diet as feasible Anticipated Discharge Needs: Unable to determine at this time Follow-Up By: 03/08/19 Additional Comments Follow for diet advancement/ intakes
[2019-03-07] MEDS ORDERED: KPHOS 30 MMOL in NACL 0.9% 500 ML 500 ML IV ONE (18:30)
[2019-03-08] MEDS: FLAGYL 500 MG/100 ML 500 MG/100 ML BAG IV SCH ×3 (05:24→22:00)
[2019-03-08 05:42] LABS: Basophils # (Auto) 0.1 K/mm3 (0.0-0.1); Basophils % (Auto) 0.7 % (0.0-1.8); Eosinophils % (Auto) 0.2 % (0.0-4.3); Hematocrit 29.5 % (30.3-42.9); Hemoglobin 9.8 gm/dl (10.1-14.3); Lymphocytes # (Auto) 2.4 K/mm3 (1.2-5.4); Lymphocytes % (Auto) 13.7 % (13.4-35.0); Mean Corpuscular HGB Conc 33 % (30-34); Mean Corpuscular Volume 70 fl (79-97); Monocytes # (Auto) 1.6 K/mm3 (0.0-0.8); Monocytes % (Auto) 8.8 % (0.0-7.3); Platelet Count 731 K/mm3 (140-440); Red Blood Count 4.21 M/mm3 (3.65-5.03)
[2019-03-08] MEDS ORDERED: GENTAMICIN/NS 80 MG/100 ML 100 ML IV ONE (06:00)
[2019-03-08 06:02] LABS: BUN/Creatinine Ratio 29; Blood Urea Nitrogen 20 mg/dL (7-17); Calcium 9.2 mg/dL (8.4-10.2); Hemolysis Index 1
--- NOTE | 2019-03-08 07:22 | Progress Note ---
Assessment and Plan Assessment and plan: -- SBO (small bowel obstruction) Right hemicolectomy today Patient nothing by mouth --CT abdomen and pelvis/abdominal mass CT abdomen and pelvis findings possible mass in the ascending colon. Schedule for right hemicolectomy, today --Hypomagnesemia; replace with mag sulfate 3 g IV, monitor levels --Hypokalemia/Hypophosphatemia: corrected , monitor electrolytes --Anemia: Received 2 units PRBC yesterday ,Hemoglobin 6.9-9.2-9.8 Closely monitor H&H additional PRBC transfusion if not PRBC as needed -- Sepsis Sepsis Protocol: IV ABx therapy Levaquin and Flagyl, IVF resuscitation therapy, lactate levels within normal limits, follow cultures --ARF (acute renal failure) with tubular necrosis IVF resuscitation therapy, Nephrology following , resolved Avoid nephrotoxins --Severe malnutrition/hypoalbuminemia Due to her underlying disease process, diet reconsult nutrition supplements when able to take oral --DVT prophylaxis SCD to BLE while in bed. Prophylactic heparin. Plan of care reviewed with the patient and her nurse History Interval history: Patient seen and examined this morning medical records reviewed Patient is scheduled for right hemicolectomy Nothing by mouth, NG tube intermittent suction Patient looks chronically ill cachectic Mild distress, vital vital signs reviewed Hospitalist Physical - Constitutional Vitals: Temp Pulse Resp BP Pulse Ox 98.7 F 109 H 22 175/104 100 03/08/19 04:00 03/08/19 05:00 03/08/19 05:00 03/08/19 07:00 03/08/19 07:00 General appearance: Present: mild distress, cachectic, disheveled - EENT Eyes: Present: PERRL, EOM intact - Neck Neck: Present: supple, normal ROM - Respiratory Respiratory effort: normal Respiratory: bilateral: diminished, negative: rales, rhonchi, wheezing - Cardiovascular Rhythm: regular Heart Sounds: Present: S1 & S2 - Extremities Extremities: no ischemia, No edema - Abdominal General gastrointestinal: soft, non-tender - Integumentary Integumentary: Present: clear, warm - Psychiatric Psychiatric: appropriate mood/affect, cooperative - Neurologic Neurologic: moves all extremities Results - Labs CBC & Chem 7: 03/08/19 05:25 03/08/19 05:25 Labs: Laboratory Last Values WBC 17.8 K/mm3 (4.5-11.0) H 03/08/19 05:25 RBC 4.21 M/mm3 (3.65-5.03) 03/08/19 05:25 Hgb 9.8 gm/dl (10.1-14.3) L 03/08/19 05:25 Hct 29.5 % (30.3-42.9) L 03/08/19 05:25 MCV 70 fl (79-97) L 03/08/19 05:25 MCH 23 pg (28-32) L 03/08/19 05:25 MCHC 33 % (30-34) 03/08/19 05:25 RDW 24.0 % (13.2-15.2) H 03/08/19 05:25 Plt Count 731 K/mm3 (140-440) H 03/08/19 05:25 Lymph % (Auto) 13.7 % (13.4-35.0) 03/08/19 05:25 [place] % (Auto) 8.8 % (0.0-7.3) H 03/08/19 05:25 Eos % (Auto) 0.2 % (0.0-4.3) 03/08/19 05:25 Baso % (Auto) 0.7 % (0.0-1.8) 03/08/19 05:25 Lymph # 2.4 K/mm3 (1.2-5.4) 03/08/19 05:25 [place] # 1.6 K/mm3 (0.0-0.8) H 03/08/19 05:25 Eos # 0.0 K/mm3 (0.0-0.4) 03/08/19 05:25 Baso # 0.1 K/mm3 (0.0-0.1) 03/08/19 05:25 Add Manual Diff Complete 03/07/19 04:55 Total Counted 100 03/07/19 04:55 Seg Neutrophils % 76.6 % (40.0-70.0) H 03/08/19 05:25 Seg Neuts % (Manual) 89.0 % (40.0-70.0) H 03/07/19 04:55 0 % 03/07/19 04:55 5.0 % (13.4-35.0) L 03/07/19 04:55 Reactive Lymphs % (Man) 0 % 03/07/19 04:55 4.0 % (0.0-7.3) 03/07/19 04:55 2.0 % (0.0-4.3) 03/07/19 04:55 0 % (0.0-1.8) 03/07/19 04:55 0 % 03/07/19 04:55 0 % 03/07/19 04:55 0 % 03/07/19 04:55 0 % 03/07/19 04:55 Nucleated RBC % Not Reportable 03/07/19 04:55 Seg Neutrophils # 13.7 K/mm3 (1.8-7.7) H 03/08/19 05:25 Seg Neutrophils # Man 14.2 K/mm3 (1.8-7.7) H 03/07/19 04:55 Band Neutrophils # 0.0 K/mm3 03/07/19 04:55 0.8 K/mm3 (1.2-5.4) L 03/07/19 04:55 Abs React Lymphs (Man) 0.0 K/mm3 03/07/19 04:55 0.6 K/mm3 (0.0-0.8) 03/07/19 04:55 0.3 K/mm3 (0.0-0.4) 03/07/19 04:55 0.0 K/mm3 (0.0-0.1) 03/07/19 04:55 0.0 K/mm3 03/07/19 04:55 0.0 K/mm3 03/07/19 04:55 0.0 K/mm3 03/07/19 04:55 Blast Cells # 0.0 K/mm3 03/07/19 04:55 WBC Morphology Not Reportable 03/07/19 04:55 Hypersegmented Neuts Not Reportable 03/07/19 04:55 Hyposegmented Neuts Not Reportable 03/07/19 04:55 Hypogranular Neuts Not Reportable 03/07/19 04:55 Not Reportable 03/07/19 04:55 Not Reportable 03/07/19 04:55 Not Reportable 03/07/19 04:55 Not Reportable 03/07/19 04:55 Not Reportable 03/07/19 04:55 Not Reportable 03/07/19 04:55 Consistent w auto 03/07/19 04:55 Not Reportable 03/07/19 04:55 Plt Clumps, EDTA Not Reportable 03/07/19 04:55 Not Reportable 03/07/19 04:55 Not Reportable 03/07/19 04:55 Not Reportable 03/07/19 04:55 Plt Morphology Comment Not Reportable 03/07/19 04:55 RBC Morphology Not Reportable 03/07/19 04:55 Dimorphic RBCs Not Reportable 03/07/19 04:55 Not Reportable 03/07/19 04:55 1+ 03/07/19 04:55 1+ 03/07/19 04:55 2+ 03/07/19 04:55 1+ 03/07/19 04:55 Not Reportable 03/07/19 04:55 Not Reportable 03/07/19 04:55 Not Reportable 03/07/19 04:55 Not Reportable 03/07/19 04:55 1+ 03/07/19 04:55 Rare 03/07/19 04:55 Few 03/07/19 04:55 Not Reportable 03/07/19 04:55 Not Reportable 03/07/19 04:55 Not Reportable 03/07/19 04:55 Not Reportable 03/07/19 04:55 Not Reportable 03/07/19 04:55 Not Reportable 03/07/19 04:55 Few 03/07/19 04:55 Acanthocytes (Spur) Not Reportable 03/07/19 04:55 Rouleaux Not Reportable 03/07/19 04:55 Not Reportable 03/07/19 04:55 Not Reportable 03/07/19 04:55 Not Reportable 03/07/19 04:55 Not Reportable 03/07/19 04:55 Hem Pathologist Commnt No 03/07/19 04:55 Sodium 147 mmol/L (137-145) H 03/08/19 05:25 Potassium 3.9 mmol/L (3.6-5.0) 03/08/19 05:25 Chloride 106.2 mmol/L (98-107) 03/08/19 05:25 Carbon Dioxide 24 mmol/L (22-30) 03/08/19 05:25 21 mmol/L 03/08/19 05:25 BUN 20 mg/dL (7-17) H 03/08/19 05:25 0.7 mg/dL (0.7-1.2) 03/08/19 05:25 Estimated GFR > 60 ml/min 03/08/19 05:25 29 % 03/08/19 05:25 Glucose 106 mg/dL (65-100) H 03/08/19 05:25 Lactic Acid 0.80 mmol/L (0.7-2.0) 03/05/19 05:23 Calcium 9.2 mg/dL (8.4-10.2) 03/08/19 05:25 Phosphorus 4.50 mg/dL (2.5-4.5) D 03/08/19 05:25 Magnesium 1.40 mg/dL (1.7-2.3) L 03/08/19 05:25 0.40 mg/dL (0.1-1.2) 03/06/19 05:46 AST 11 units/L (5-40) 03/06/19 05:46 ALT 7 units/L (7-56) 03/06/19 05:46 93 units/L (35-129) 03/06/19 05:46 6.4 g/dL (6.3-8.2) 03/06/19 05:46 2.8 g/dL (3.9-5) L 03/06/19 05:46 0.8 % 03/06/19 05:46 Yellow (Yellow) 03/04/19 13:13 Cloudy (Clear) 03/04/19 13:13 5.0 (5.0-7.0) 03/04/19 13:13 Ur Specific [place] 1.018 (1.003-1.030) 03/04/19 13:13 30 mg/dl mg/dL (Negative) 03/04/19 13:13 Neg mg/dL (Negative) 03/04/19 13:13 Tr mg/dL (Negative) 03/04/19 13:13 Neg (Negative) 03/04/19 13:13 Neg (Negative) 03/04/19 13:13 Neg (Negative) 03/04/19 13:13 < 2.0 mg/dL (<2.0) 03/04/19 13:13 Ur Leukocyte Esterase Tr (Negative) 03/04/19 13:13 5.0 /HPF (0.0-6.0) 03/04/19 13:13 4.0 /HPF (0.0-6.0) 03/04/19 13:13 U Epithel Cells (Auto) 8.0 /HPF (0-13.0) 03/04/19 13:13 1+ /HPF (Negative) 03/04/19 13:13 Few /HPF 03/04/19 13:13 Blood Type O NEGATIVE 03/04/19 15:56 Antibody Screen Not Reportable 03/04/19 15:56 [place] Antibody Screen Negative 03/04/19 15:56 Crossmatch See Detail 03/04/19 15:56 Active Medications - Current Medications Current Medications: Generic Name Dose Route Start Last Admin Trade Name Freq PRN Reason Stop Dose Admin Albuterol 2.5 mg 03/04/19 15:40 Proventil IH Q3HRT PRN Shortness Of Breath Heparin Sodium (Porcine) 5,000 unit 03/04/19 22:00 03/07/19 22:32 Heparin SUB-Q 5,000 unit Q12HR AUDREY Administration Levofloxacin/Dextrose 500 mg in 100 mls @ 100 mls/hr 03/06/19 10:00 03/07/19 10:04 Levaquin 500mg/100ml IV 100 mls/hr Q24HR AUDREY Administration Metronidazole 500 mg in 100 mls @ 100 mls/hr 03/04/19 22:00 03/08/19 05:24 Flagyl 500 Mg/100 Ml IV 100 mls/hr Q8HR AUDREY Administration Protocol Potassium Chloride 40 meq/ 1,020 mls @ 100 mls/hr 03/05/19 13:00 03/05/19 16:32 Sodium Chloride IV 100 mls/hr DIRECT AUDREY Administration Magnesium Sulfate 3 gm/ Sodium 106 mls @ 35.333 mls/hr 03/08/19 07:16 Chloride IV 03/08/19 10:15 ONCE ONE Morphine Sulfate 2 mg 03/07/19 17:58 Morphine IV Q4H PRN Pain, Moderate (4-6) Sodium Chloride 10 ml 03/04/19 22:00 03/07/19 22:40 Sodium Chloride Flush Syringe 10 Ml IV 10 ml BID AUDREY Administration Sodium Chloride 10 ml 03/04/19 15:40 03/07/19 05:33 Sodium Chloride Flush Syringe 10 Ml IV 10 ml PRN PRN Administration LINE FLUSH Nutrition/Malnutrition Assess - Dietary Evaluation Nutrition/Malnutrition Findings: Nutrition Notes Start: 03/05/19 13:19 Freq: Status: Active Protocol: Document 03/05/19 13:20 LP (Rec: 03/05/19 13:23 LP [id number]) Nutrition Notes 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 Pt states eating well right before admit . Pt denies wt changes. NGT to LIS. Burn Absent Trauma Absent #1 Nutrition Diagnosis Inadequate oral intake Etiology altered GI function As Evidenced by Signs and Symptoms Pt currently NPO and NGT to LIS Is patient on ventilator? No Is Patient Ambulatory and/or Out of Bed Yes REE-(Wallace-St. Jeor-ambulatory/OOB) [ 1512.719 NUTR.MSJOOB] Calculation Used for Recommendations [facility]-St Jeor Additional Notes Protein needs are 59-70g (1-1. 2g/kg) Fluid needs are 1ml/kcal Nutrition Intervention Change Diet Order: Advance diet as feasible Goal #1 Advance diet as feasible Anticipated Discharge Needs: Unable to determine at this time Follow-Up By: 03/08/19 Additional Comments Follow for diet advancement/ intakes
[2019-03-08] MEDS ORDERED: MAGNESIUM SULFATE 3 GM in NACL 0.9% 100 ML IV ONE (08:30)
[2019-03-08] MEDS: LEVAQUIN 500MG/100ML 500 MG/100 ML BAG IV SCH (09:47)
[2019-03-08] MEDS: HEPARIN SUB-Q SCH ×2 (09:47→22:01)
[2019-03-08] MEDS: SODIUM CHLORIDE FLUSH SYRINGE 10 ML IV SCH ×2 (09:48→22:00)
--- NOTE | 2019-03-08 09:48 | Progress Note ---
Assessment and Plan 1. Acute kidney injury: Vasomotor RUSS in the setting of volume depletion. Renal US was negative for hydronephrosis. Renal function is better. Continue IV fluids. Monitor renal function. Avoid nephrotoxic agents. Meds dosage based on GFR. 2. FEN: Continue IV fluids. Replete Mg. Monitor lytes. 3. Small bowel obstruction: Followed by Gen. Surgery. 4. Anemia. 5. Leukocytosis. Subjective Date of service: 03/08/19 Interval history: Patient was seen and examined at the bedside. Objective - Vital Signs Vital signs: Vital Signs - 12hr 03/07/19 03/07/19 03/08/19 22:00 23:00 00:00 Temperature 99.0 F Pulse Rate 95 H 96 H 96 H Respiratory 20 23 24 Rate Blood Pressure 163/95 172/93 182/96 O2 Sat by Pulse 97 94 99 Oximetry 03/08/19 03/08/19 03/08/19 01:00 02:00 03:00 Temperature Pulse Rate 92 H 98 H 97 H Respiratory 25 H 16 17 Rate Blood Pressure 147/83 159/103 170/99 O2 Sat by Pulse 97 100 Oximetry 03/08/19 03/08/19 03/08/19 04:00 05:00 06:00 Temperature 98.7 F Pulse Rate 94 H 109 H Respiratory 22 22 Rate Blood Pressure 172/94 164/112 161/104 O2 Sat by Pulse 99 100 99 Oximetry 03/08/19 07:00 Temperature Pulse Rate Respiratory Rate Blood Pressure 175/104 O2 Sat by Pulse 100 Oximetry - General Appearance General appearance: well-developed, appears stated age, other (no distress) EENT: ATNC, PERRL, hearing intact, vision intact Neck: supple Respiratory: Present: Clear to Ascultation Cardiology: regular, S1S2, no murmurs Gastrointestinal: normoactive bowel sounds, tenderness, distended Integumentary: no rash, warm and dry Neurologic: no focal deficit, no asterixis Musculoskeletal: other (no edema) - Lab 03/12/19 04:18 03/11/19 05:10 Most recent lab results Calcium 9.2 mg/dL (8.4-10.2) 03/08/19 05:25 Phosphorus 4.50 mg/dL (2.5-4.5) D 03/08/19 05:25 Magnesium 1.40 mg/dL (1.7-2.3) L 03/08/19 05:25 Medications & Allergies - Medications Allergies/Adverse Reactions: Allergies Penicillins Allergy (Verified 03/04/19 08:51) Itching Home Medications: Home Medications Medication Instructions Recorded Confirmed Last Taken Type ALBUTEROL Inhaler (OR & NICU) 2 puff IH QID PRN #1 inhalation 11/24/18 03/04/19 Unknown Rx [ProAir HFA Inhaler] Azithromycin [Zithromax Z-LONNY] 250 mg PO DAILY #6 tablet 11/24/18 03/04/19 Unknown Rx predniSONE [Deltasone] 20 mg PO QDAY #5 tab 11/24/18 03/04/19 Unknown Rx Amitriptyline 10 mg PO HS 03/08/19 03/08/19 Unknown History Chlorthalidone 25 mg PO QDAY 03/08/19 03/08/19 Unknown History Mirtazapine 45 mg PO HS 03/08/19 03/08/19 Unknown History RisperiDONE 1 mg HS 03/08/19 03/08/19 03/03/19 History amLODIPine 10 mg PO QDAY 03/08/19 03/08/19 Unknown History Active Medications: Generic Name Dose Route Start Last Admin Trade Name Freq PRN Reason Stop Dose Admin Albuterol 2.5 mg 03/04/19 15:40 Proventil IH Q3HRT PRN Shortness Of Breath Heparin Sodium (Porcine) 5,000 unit 03/04/19 22:00 03/07/19 22:32 Heparin SUB-Q 5,000 unit Q12HR AUDREY Administration Levofloxacin/Dextrose 500 mg in 100 mls @ 100 mls/hr 03/06/19 10:00 03/07/19 10:04 Levaquin 500mg/100ml IV 100 mls/hr Q24HR AUDREY Administration Metronidazole 500 mg in 100 mls @ 100 mls/hr 03/04/19 22:00 03/08/19 05:24 Flagyl 500 Mg/100 Ml IV 100 mls/hr Q8HR AUDREY Administration Protocol Potassium Chloride 40 meq/ 1,020 mls @ 100 mls/hr 03/05/19 13:00 03/05/19 16:32 Sodium Chloride IV 100 mls/hr DIRECT AUDREY Administration Magnesium Sulfate 3 gm/ Sodium 106 mls @ 35.333 mls/hr 03/08/19 08:30 Chloride IV 03/08/19 11:29 ONCE ONE Morphine Sulfate 2 mg 03/07/19 17:58 Morphine IV Q4H PRN Pain, Moderate (4-6) Sodium Chloride 10 ml 03/04/19 22:00 03/07/19 22:40 Sodium Chloride Flush Syringe 10 Ml IV 10 ml BID AUDREY Administration Sodium Chloride 10 ml 03/04/19 15:40 03/07/19 05:33 Sodium Chloride Flush Syringe 10 Ml IV 10 ml PRN PRN Administration LINE FLUSH
[2019-03-08] MEDS ORDERED: APRESOLINE IV PRN (11:10)
[2019-03-08] MEDS: ATIVAN IV PRN (11:42)
[2019-03-08] MEDS ORDERED: NS/KCL 40MEQ 40 MEQ/1,000 ML BAG IV SCH (12:00)
--- NOTE | 2019-03-08 14:26 | Anesthesia Day of Surgery ---
Anesthesia Day of Surgery - Day of Surgery Patient Examined: Yes Patient H&P Reviewed: Yes Patient is NPO: Yes
--- NOTE | 2019-03-08 14:26 | Anesthesia Consultation ---
Anesthesia Consult and Med Hx Date of service: 03/08/19 - Airway Anesthetic Teeth Evaluation: Partials Mental/Hyoid Distance: Adequate Mallampati Class: Class II Intubation Access Assessment: Probably Good - Pulmonary Exam CTA: Yes - Cardiac Exam Cardiac Exam: RRR - Pre-Operative Health Status ASA Pre-Surgery Classification: ASA4 Proposed Anesthetic Plan: General - Pulmonary Hx Smoking: Yes (Daily smoker 30 + years) - Cardiovascular System Hx Hypertension: Yes - Additional Comments Anesthesia Medical History Comments: Acute obstruction, hx HTN, smoker, Fever 100.1 will give GA plan to extubate at the end of case if possible d/w Surgeon
[2019-03-08] MEDS ORDERED: DILAUDID IV PRN (15:00)
[2019-03-08] MEDS ORDERED: ZOFRAN IV PRN (15:00)
[2019-03-08] MEDS ORDERED: DILAUDID ONE (15:01)
[2019-03-08] MEDS ORDERED: DIPRIVAN 10 MG/ML IV ONE (15:01)
[2019-03-08] MEDS ORDERED: ZEMURON IV ONE (15:01)
[2019-03-08] MEDS ORDERED: XYLOCAINE MPF 2% ONE (15:01)
[2019-03-08] MEDS: LACTATED RINGERS 1,000 ML IV SCH ×2 (15:12→22:06)
[2019-03-08] MEDS ORDERED: QUELICIN ONE (15:28)
[2019-03-08] MEDS ORDERED: BLOXIVERZ ONE (17:08)
[2019-03-08] MEDS ORDERED: ZOFRAN ONE (17:08)
[2019-03-08] MEDS ORDERED: ROBINUL ONE ×2 (17:08)
[2019-03-08] MEDS ORDERED: NACL 0.9% 1000 ML 1,000 ML ONE (17:19)
--- NOTE | 2019-03-08 17:22 | Post Operative Note ---
Date of procedure: 03/08/19 (dictation:[id number]) Pre-op diagnosis: bowel obstruction Post-op diagnosis: other (malignant bowel obstruction with diffuse met implants) Findings: large, firm mass in RLQ involving presumed malignancy, large bowel and small bowel. multiple implants in mesentery, omentum, peritoneum, liver, iliac LNs. Procedure: ex lap, omental biopsies x 2, diverting loop ileostomy creation. IVF 1000cc EBL 50cc UOP 100cc Anesthesia: GETA Surgeon: FANNY SALINAS Gastroenterology Technician: ASHLEY BOO Estimated blood loss: minimal (50cc) Pathology: list (omental biopsies x 2. Second one was adhered to small bowel as well.) Specimen disposition: to lab Condition: stable Disposition: PACU
--- NOTE | 2019-03-08 18:34 | Operative Report ---
PREOPERATIVE DIAGNOSIS: Bowel obstruction. POSTOPERATIVE DIAGNOSIS: Malignant bowel obstruction with metastatic disease. REFERRING PHYSICIAN: Philip Mcknight MD MEDIA SUPERVISOR: Dr. Lam. ANESTHESIA: General. ESTIMATED BLOOD LOSS: 50 mL. FLUIDS: 1 liter. URINE OUTPUT: 100 mL. PROCEDURES: 1. Exploratory laparotomy. 2. Omental biopsies x 2. 3. Creation of loop ileostomy. DRAINS SPECIMENS: None. COMPLICATIONS: None. DISPOSITION: Stable transport to Recovery Room. INDICATIONS: This is a 63-year-old female who presented with acute onset of right lower quadrant pain. Evaluation revealed a bowel obstruction with an ill-defined mass in the right lower quadrant. Further review suggested perhaps a mass in the ascending colon that was causing the blockage. The patient is estimated need for exploratory laparotomy and possible right hemicolectomy. Procedure, risks and benefits were explained to the patient. Risks included but were not limited to infection, bleeding, pain, injury to surrounding structures, possible ostomy creation, possible need for further surgeries in the future. The patient understood and consented. Our original consent that was typewritten and listed all of the risks including an ostomy creation possibility was misplaced, so a new hand written consent was done. However, we did discuss all of these risks yesterday. DESCRIPTION OF PROCEDURE: The patient was brought to the operating room and placed on the table in supine position. After adequate general anesthesia was established, the patient was prepped and draped in the usual sterile fashion. Antibiotics were already being given. SCDs were in place. Elena catheter was placed. Timeout was called. Sterile prep and drape had been done. I began by making a midline incision. We entered the peritoneal cavity safely. The small bowel was mildly dilated in places; however, soon after we got in, we found a large firm mass composed of what appeared to be malignant tissue. Small bowel and large bowel, all matted together in one dense mass in the right lower quadrant. I found what I presumed to be metastatic implants in the right lobe of the liver, anterior peritoneum, omentum and small bowel mesentery. We also found enlarged lymph nodes in the left iliac vessel region. The patient appeared to have diffuse disease. At this point, I discussed with Dr. Lam that we have an elderly woman that has not been eating well for recent period of time, she presented anemic, she has no assistance at home, and this is a worst case scenario where she has presumed metastatic disease throughout the abdomen. I felt that to do a large resection when she is clinically malnourished and in a weakened state that she has not been eating well or having bowel movements that it would be very risky for her. The better part would be to give her a diverting ileostomy, so that she could get the nutrition that she needs, regain her strength, and have a conversation with Oncology to see what her options are and her prognosis. Dr. Lam agreed. Therefore, we proceeded to identify the ligament of Treitz and go as far distal in the small bowel as possible. We made it to the jejunoileal junction region and plan to bring up that part of the bowel as a loop ileostomy. I made an approximately 3 cm opening in the left side of the abdominal wall just below the level of the umbilicus, trying to take into account where her anterior superior iliac spine was and belt line so as not to cause a problem with her clothes or when she sits. Small lac vieux of skin was excised. I excised some of the subcutaneous tissue as well, so as not to put excessive pressure on this loop ileostomy that we are bringing up. A cruciate incision was made in the anterior and posterior rectus sheaths. We brought up the loop of bowel. The proximal end was on the superior side and the distal limb was on the inferior side. On the peritoneal surface, we secured the two loops of bowel to the peritoneum with interrupted 3-0 Vicryl sutures. We then proceeded to secure the bowel to the anterior rectus sheath with interrupted 3-0 Vicryl sutures. At this point, we turned our attention to closing the abdomen. We also took 2 biopsies of the omentum where there were at least 1 cm implants, one of the second implant was actually adhered to a loop of small bowel. The appearance of this implant was similar to the other implants that we had seen and she had various sizes throughout the abdomen. Seprafilm was placed over the omentum. We made sure that we did not create any holes in the omentum through which an internal hernia could occur. We did open up any sections of omentum where we thought there may be a hole. We laid the omentum over the bowel. The residual omentum laid Seprafilm over it and then closed the fascia with a running looped PDS running stitch. Subcutaneous tissue was cleaned. Skin was closed with damon. We then covered this area and proceeded to mature the ostomy. Vertical incision was made in the ostomy and then circumferentially, we matured the loop ileostomy with 3-0 Vicryl sutures, taking a bite of skin, serosa and then the edge of the ileostomy. We checked both the distal and proximal openings. They easily allowed a finger to pass. I did not feel that the openings were tight at all, nor did I feel that they were excessively loose. They felt slightly snug, so I thought that was good. Hemostasis was good. Red rubber catheter had been used as an alternative to a osmel to help mature the loop ileostomy. Skin was cleaned and dried. Appliance was placed. The patient tolerated the procedure well. There were no complications. The patient was safely extubated at the end of the case. The patient has no family or friends that she wanted me to talk to. JOB# [id number] JAMISON/SATYA CHAHAL
[2019-03-08] MEDS: MORPHINE IV PRN (22:00)
[2019-03-09 05:31] LABS: Hematocrit 29.1 % (30.3-42.9); Hemoglobin 9.4 gm/dl (10.1-14.3); Mean Corpuscular HGB Conc 32 % (30-34); Mean Corpuscular Volume 71 fl (79-97); Platelet Count 683 K/mm3 (140-440); Red Blood Count 4.08 M/mm3 (3.65-5.03)
[2019-03-09] MEDS: FLAGYL 500 MG/100 ML 500 MG/100 ML BAG IV SCH ×3 (05:35→21:52)
[2019-03-09 06:01] LABS: Albumin 2.2 g/dL (3.9-5); BUN/Creatinine Ratio 31; Blood Urea Nitrogen 28 mg/dL (7-17); Hemolysis Index 0
[2019-03-09 06:02] LABS: Alanine Aminotransferase < 5 units/L (7-56)
[2019-03-09 06:17] LABS: Anisocytosis 2+; Basophils % (Manual) 0 % (0.0-1.8); Eosinophils % (Manual) 0 % (0.0-4.3); Hypochromasia 2+; Target Cells Few; Total Cells Counted 100
[2019-03-09 06:18] LABS: Platelet Estimate Consistent w Auto
[2019-03-09] MEDS: NORCO 5/325 PO PRN (06:39)
[2019-03-09] MEDS: MORPHINE IV PRN ×3 (08:03→22:18)
--- NOTE | 2019-03-09 08:17 | Progress Note ---
Assessment and Plan - Patient Problems (1) SBO (small bowel obstruction) Current Visit: Yes Status: Acute Plan to address problem: Pt stable. Clinically appears to have metastatic process in abdomen. Source is probably colon. Biopsies pending. May have a diet as tolerated. Did diverting ileostomy so that she could eat and improve her nutritional st atus. Depending on Dr. Carson's eval, will decide if further surgery will be needed. If so, then she would benefit from referral to a surgical oncologist. An en-bloc resection will be required which also may involve the iliac vessels. This is not something that we would be able to do here. She told me today that she is homeless. Will have to discuss with case management about what resources are available for her. Please call with questions. Subjective Date of service: 03/09/19 Patient Reports: Positive: still having pain (pain now in midline as well. ), tolerating liquids well. Negative: nausea, vomiting Objective Vital Signs - 12hr 03/08/19 03/08/19 03/08/19 20:36 21:00 22:00 Temperature 98.6 F Pulse Rate 96 H 93 H Pulse Rate [ From Monitor] Respiratory 14 15 Rate Blood Pressure 124/57 119/55 O2 Sat by Pulse 98 100 Oximetry 03/08/19 03/08/19 03/09/19 23:00 23:46 00:00 Temperature Pulse Rate 88 88 85 Pulse Rate [ 85 From Monitor] Respiratory 16 14 Rate Blood Pressure 142/80 137/75 O2 Sat by Pulse 100 100 Oximetry 03/09/19 03/09/19 03/09/19 00:11 00:45 01:00 Temperature 98.8 F Pulse Rate 86 83 Pulse Rate [ From Monitor] Respiratory 15 15 Rate Blood Pressure 137/75 139/79 O2 Sat by Pulse 100 100 Oximetry 03/09/19 03/09/19 03/09/19 02:00 03:00 04:00 Temperature Pulse Rate 85 86 89 Pulse Rate [ 88 From Monitor] Respiratory 17 20 19 Rate Blood Pressure 124/79 135/72 139/75 O2 Sat by Pulse 100 100 100 Oximetry 03/09/19 03/09/19 03/09/19 04:55 05:00 06:00 Temperature 98.6 F Pulse Rate 80 83 Pulse Rate [ From Monitor] Respiratory 20 19 Rate Blood Pressure 140/75 140/74 O2 Sat by Pulse 99 100 Oximetry - General physical appearance no distress, no pain, other (appears sad) - Eyes normal occular movement - Respiratory normal expansion, normal respiratory effort - Abdomen soft, tender (appropriately), distended (mild), not guarding, not rigid, surgical scars (dressing dry), other (ostomy pink and moderate amount of fluid in the bag.) - Integumentary no rash, no growths, no abnormal pigmentation - Psychiatric oriented to time, oriented to person, oriented to place, speech is normal, memory intact - Labs 03/09/19 04:52 03/09/19 04:52 Diabetes panel 03/09/19 Range/Units 04:52 Sodium 146 H (137-145) mmol/L Potassium 4.5 (3.6-5.0) mmol/L Chloride 108.4 H (98-107) mmol/L Carbon Dioxide 25 (22-30) mmol/L BUN 28 H (7-17) mg/dL Creatinine 0.9 (0.7-1.2) mg/dL Glucose 84 (65-100) mg/dL Calcium 8.0 L (8.4-10.2) mg/dL AST 12 (5-40) units/L ALT < 5 L (7-56) units/L Alkaline Phosphatase 65 (35-129) units/L Total Protein 5.5 L (6.3-8.2) g/dL Albumin 2.2 L (3.9-5) g/dL Calcium panel 03/09/19 Range/Units 04:52 Calcium 8.0 L (8.4-10.2) mg/dL Albumin 2.2 L (3.9-5) g/dL Pituitary panel 03/09/19 Range/Units 04:52 Sodium 146 H (137-145) mmol/L Potassium 4.5 (3.6-5.0) mmol/L Chloride 108.4 H (98-107) mmol/L Carbon Dioxide 25 (22-30) mmol/L BUN 28 H (7-17) mg/dL Creatinine 0.9 (0.7-1.2) mg/dL Glucose 84 (65-100) mg/dL Calcium 8.0 L (8.4-10.2) mg/dL Adrenal panel 03/09/19 Range/Units 04:52 Sodium 146 H (137-145) mmol/L Potassium 4.5 (3.6-5.0) mmol/L Chloride 108.4 H (98-107) mmol/L Carbon Dioxide 25 (22-30) mmol/L BUN 28 H (7-17) mg/dL Creatinine 0.9 (0.7-1.2) mg/dL Glucose 84 (65-100) mg/dL Calcium 8.0 L (8.4-10.2) mg/dL Total Bilirubin 0.20 (0.1-1.2) mg/dL AST 12 (5-40) units/L ALT < 5 L (7-56) units/L Alkaline Phosphatase 65 (35-129) units/L Total Protein 5.5 L (6.3-8.2) g/dL Albumin 2.2 L (3.9-5) g/dL
[2019-03-09] MEDS: HEPARIN SUB-Q SCH (10:08)
[2019-03-09] MEDS: LEVAQUIN 500MG/100ML 500 MG/100 ML BAG IV SCH (10:08)
[2019-03-09] MEDS: SODIUM CHLORIDE FLUSH SYRINGE 10 ML IV SCH ×2 (10:08→21:54)
--- NOTE | 2019-03-09 10:51 | Progress Note ---
Assessment and Plan Assessment and plan: --Status post diverting ileostomy; Status post diverting ileostomy, biopsies of metastatic lesions in the abdomen, postop care, Oncology consulted -- SBO (small bowel obstruction) Right hemicolectomy today Patient nothing by mouth --CT abdomen and pelvis/abdominal mass CT abdomen and pelvis findings possible mass in the ascending colon. Schedule for right hemicolectomy, today --Hypomagnesemia; replace with mag sulfate 3 g IV, monitor levels --Hypokalemia/Hypophosphatemia: corrected , monitor electrolytes --Anemia: Received 2 units PRBC yesterday ,Hemoglobin 6.9-9.2-9.8 Closely monitor H&H additional PRBC transfusion if not PRBC as needed -- Sepsis Sepsis Protocol: IV ABx therapy Levaquin and Flagyl, IVF resuscitation therapy, lactate levels within normal limits, follow cultures --ARF (acute renal failure) with tubular necrosis IVF resuscitation therapy, Nephrology following , resolved Avoid nephrotoxins --Severe malnutrition/hypoalbuminemia Due to her underlying disease process, diet reconsult nutrition supplements when able to take oral --DVT prophylaxis SCD to BLE while in bed. Prophylactic heparin. Plan of care reviewed with the patient and her nurse And case management History Interval history: Patient seen and examined and medical records reviewed Underwent diverting ileostomy and biopsy of metastatic lesion Patient feels slightly better, tolerating clear liquids Vital signs noted Hospitalist Physical - Constitutional Vitals: Temp Pulse Resp BP Pulse Ox 98.6 F 83 19 140/74 100 03/09/19 04:55 03/09/19 06:00 03/09/19 06:00 03/09/19 06:00 03/09/19 06:00 General appearance: Present: mild distress, cachectic, disheveled - EENT Eyes: Present: PERRL, EOM intact - Neck Neck: Present: supple, normal ROM - Respiratory Respiratory effort: normal Respiratory: bilateral: diminished, negative: rales, rhonchi, wheezing - Cardiovascular Rhythm: regular Heart Sounds: Present: S1 & S2 - Extremities Extremities: no ischemia, No edema - Abdominal General gastrointestinal: soft, non-tender, non-distended, normal bowel sounds - Integumentary Integumentary: Present: clear, warm - Psychiatric Psychiatric: appropriate mood/affect, cooperative - Neurologic Neurologic: CNII-XII intact, moves all extremities Results - Labs CBC & Chem 7: 03/09/19 04:52 03/09/19 04:52 Labs: Laboratory Last Values WBC 13.1 K/mm3 (4.5-11.0) H 03/09/19 04:52 RBC 4.08 M/mm3 (3.65-5.03) 03/09/19 04:52 Hgb 9.4 gm/dl (10.1-14.3) L 03/09/19 04:52 Hct 29.1 % (30.3-42.9) L 03/09/19 04:52 MCV 71 fl (79-97) L 03/09/19 04:52 MCH 23 pg (28-32) L 03/09/19 04:52 MCHC 32 % (30-34) 03/09/19 04:52 RDW 25.0 % (13.2-15.2) H 03/09/19 04:52 Plt Count 683 K/mm3 (140-440) H 03/09/19 04:52 Lymph % (Auto) 13.7 % (13.4-35.0) 03/08/19 05:25 [place] % (Auto) 8.8 % (0.0-7.3) H 03/08/19 05:25 Eos % (Auto) 0.2 % (0.0-4.3) 03/08/19 05:25 Baso % (Auto) 0.7 % (0.0-1.8) 03/08/19 05:25 Lymph # 2.4 K/mm3 (1.2-5.4) 03/08/19 05:25 [place] # 1.6 K/mm3 (0.0-0.8) H 03/08/19 05:25 Eos # 0.0 K/mm3 (0.0-0.4) 03/08/19 05:25 Baso # 0.1 K/mm3 (0.0-0.1) 03/08/19 05:25 Add Manual Diff Complete 03/09/19 04:52 Total Counted 100 03/09/19 04:52 Seg Neutrophils % 76.6 % (40.0-70.0) H 03/08/19 05:25 Seg Neuts % (Manual) 85.0 % (40.0-70.0) H 03/09/19 04:52 0 % 03/09/19 04:52 9.0 % (13.4-35.0) L 03/09/19 04:52 Reactive Lymphs % (Man) 1.0 % 03/09/19 04:52 5.0 % (0.0-7.3) 03/09/19 04:52 0 % (0.0-4.3) 03/09/19 04:52 0 % (0.0-1.8) 03/09/19 04:52 0 % 03/09/19 04:52 0 % 03/09/19 04:52 0 % 03/09/19 04:52 0 % 03/09/19 04:52 Nucleated RBC % Not Reportable 03/09/19 04:52 Seg Neutrophils # 13.7 K/mm3 (1.8-7.7) H 03/08/19 05:25 Seg Neutrophils # Man 11.1 K/mm3 (1.8-7.7) H 03/09/19 04:52 Band Neutrophils # 0.0 K/mm3 03/09/19 04:52 1.2 K/mm3 (1.2-5.4) 03/09/19 04:52 Abs React Lymphs (Man) 0.1 K/mm3 03/09/19 04:52 0.7 K/mm3 (0.0-0.8) 03/09/19 04:52 0.0 K/mm3 (0.0-0.4) 03/09/19 04:52 0.0 K/mm3 (0.0-0.1) 03/09/19 04:52 0.0 K/mm3 03/09/19 04:52 0.0 K/mm3 03/09/19 04:52 0.0 K/mm3 03/09/19 04:52 Blast Cells # 0.0 K/mm3 03/09/19 04:52 WBC Morphology Not Reportable 03/09/19 04:52 Hypersegmented Neuts Not Reportable 03/09/19 04:52 Hyposegmented Neuts Not Reportable 03/09/19 04:52 Hypogranular Neuts Not Reportable 03/09/19 04:52 Not Reportable 03/09/19 04:52 Not Reportable 03/09/19 04:52 Not Reportable 03/09/19 04:52 Not Reportable 03/09/19 04:52 Not Reportable 03/09/19 04:52 Not Reportable 03/09/19 04:52 Consistent w auto 03/09/19 04:52 Not Reportable 03/09/19 04:52 Plt Clumps, EDTA Not Reportable 03/09/19 04:52 Not Reportable 03/09/19 04:52 Not Reportable 03/09/19 04:52 Not Reportable 03/09/19 04:52 Plt Morphology Comment Not Reportable 03/09/19 04:52 RBC Morphology Not Reportable 03/09/19 04:52 Dimorphic RBCs Not Reportable 03/09/19 04:52 Not Reportable 03/09/19 04:52 2+ 03/09/19 04:52 Not Reportable 03/09/19 04:52 2+ 03/09/19 04:52 Not Reportable 03/09/19 04:52 Not Reportable 03/09/19 04:52 Not Reportable 03/09/19 04:52 Not Reportable 03/09/19 04:52 Not Reportable 03/09/19 04:52 Few 03/09/19 04:52 Not Reportable 03/09/19 04:52 Not Reportable 03/09/19 04:52 Not Reportable 03/09/19 04:52 Not Reportable 03/09/19 04:52 Not Reportable 03/09/19 04:52 Not Reportable 03/09/19 04:52 Not Reportable 03/09/19 04:52 Not Reportable 03/09/19 04:52 Not Reportable 03/09/19 04:52 Acanthocytes (Spur) Not Reportable 03/09/19 04:52 Rouleaux Not Reportable 03/09/19 04:52 Not Reportable 03/09/19 04:52 Not Reportable 03/09/19 04:52 Not Reportable 03/09/19 04:52 Not Reportable 03/09/19 04:52 Hem Pathologist Commnt No 03/09/19 04:52 Sodium 146 mmol/L (137-145) H 03/09/19 04:52 Potassium 4.5 mmol/L (3.6-5.0) 03/09/19 04:52 Chloride 108.4 mmol/L (98-107) H 03/09/19 04:52 Carbon Dioxide 25 mmol/L (22-30) 03/09/19 04:52 17 mmol/L 03/09/19 04:52 BUN 28 mg/dL (7-17) H 03/09/19 04:52 0.9 mg/dL (0.7-1.2) 03/09/19 04:52 Estimated GFR > 60 ml/min 03/09/19 04:52 31 % 03/09/19 04:52 Glucose 84 mg/dL (65-100) 03/09/19 04:52 Lactic Acid 0.80 mmol/L (0.7-2.0) 03/05/19 05:23 Calcium 8.0 mg/dL (8.4-10.2) L 03/09/19 04:52 Phosphorus 4.50 mg/dL (2.5-4.5) D 03/08/19 05:25 Magnesium 1.90 mg/dL (1.7-2.3) 03/09/19 04:52 0.20 mg/dL (0.1-1.2) 03/09/19 04:52 AST 12 units/L (5-40) 03/09/19 04:52 ALT < 5 units/L (7-56) L 03/09/19 04:52 65 units/L (35-129) 03/09/19 04:52 5.5 g/dL (6.3-8.2) L 03/09/19 04:52 2.2 g/dL (3.9-5) L 03/09/19 04:52 0.7 % 03/09/19 04:52 Carcinoembryonic Ag 14.1 ng/mL (0.0-2.4) H 03/06/19 05:46 Yellow (Yellow) 03/04/19 13:13 Cloudy (Clear) 03/04/19 13:13 5.0 (5.0-7.0) 03/04/19 13:13 Ur Specific [place] 1.018 (1.003-1.030) 03/04/19 13:13 30 mg/dl mg/dL (Negative) 03/04/19 13:13 Neg mg/dL (Negative) 03/04/19 13:13 Tr mg/dL (Negative) 03/04/19 13:13 Neg (Negative) 03/04/19 13:13 Neg (Negative) 03/04/19 13:13 Neg (Negative) 03/04/19 13:13 < 2.0 mg/dL (<2.0) 03/04/19 13:13 Ur Leukocyte Esterase Tr (Negative) 03/04/19 13:13 5.0 /HPF (0.0-6.0) 03/04/19 13:13 4.0 /HPF (0.0-6.0) 03/04/19 13:13 U Epithel Cells (Auto) 8.0 /HPF (0-13.0) 03/04/19 13:13 1+ /HPF (Negative) 03/04/19 13:13 Few /HPF 03/04/19 13:13 Blood Type O NEGATIVE 03/08/19 14:25 Antibody Screen Negative 03/08/19 14:25 [place] Antibody Screen Negative 03/04/19 15:56 Crossmatch See Detail 03/04/19 15:56 Active Medications - Current Medications Current Medications: Generic Name Dose Route Start Last Admin Trade Name Freq PRN Reason Stop Dose Admin Acetaminophen/Hydrocodone Bitart 2 each 03/08/19 17:17 03/09/19 06:39 [place] 5/325 PO 2 each Q6H PRN Administration Pain, Moderate (4-6) Albuterol 2.5 mg 03/04/19 15:40 Proventil IH Q3HRT PRN Shortness Of Breath Heparin Sodium (Porcine) 5,000 unit 03/04/19 22:00 03/09/19 10:08 Heparin SUB-Q 5,000 unit Q12HR AUDREY Administration Hydralazine HCl 10 mg 03/08/19 11:10 Apresoline IV Q4HR PRN Hypertension Levofloxacin/Dextrose 500 mg in 100 mls @ 100 mls/hr 03/06/19 10:00 03/09/19 10:08 Levaquin 500mg/100ml IV 100 mls/hr Q24HR AUDREY Administration Metronidazole 500 mg in 100 mls @ 100 mls/hr 03/04/19 22:00 03/09/19 05:35 Flagyl 500 Mg/100 Ml IV 100 mls/hr Q8HR AUDREY Administration Protocol Potassium Chloride/Sodium Chloride 40 meq in 1,000 mls @ 100 mls/hr 03/08/19 12:00 Ns/Kcl 40meq IV DIRECT AUDREY Lactated Ringer's 1,000 mls @ 75 mls/hr 03/08/19 15:00 03/08/19 22:06 Lactated Ringers IV 75 mls/hr DIRECT AUDREY Administration Lorazepam 1 mg 03/08/19 11:10 03/08/19 11:42 Ativan IV 1 mg Q4H PRN Administration Agitation Morphine Sulfate 2 mg 03/07/19 17:58 03/09/19 08:03 Morphine IV 2 mg Q4H PRN Administration Pain, Moderate (4-6) Ondansetron HCl 4 mg 03/08/19 15:00 Zofran IV ONCE PRN Nausea And Vomiting Sodium Chloride 10 ml 03/04/19 22:00 03/09/19 10:08 Sodium Chloride Flush Syringe 10 Ml IV 10 ml BID AUDREY Administration Sodium Chloride 10 ml 03/04/19 15:40 03/07/19 05:33 Sodium Chloride Flush Syringe 10 Ml IV 10 ml PRN PRN Administration LINE FLUSH Nutrition/Malnutrition Assess - Dietary Evaluation Nutrition/Malnutrition Findings: Nutrition Notes Start: 03/05/19 13:19 Freq: Status: Active Protocol: Document 03/08/19 14:54 RM (Rec: 03/08/19 14:56 RM [id number]) Nutrition Notes Initial or Follow up Brief Note Subjective/Other Information Pt remains NPO w/NGT in place. Nutrition Intervention Follow-Up By: 03/10/19 Additional Comments Follow for diet advancement/ intakes
--- NOTE | 2019-03-09 14:06 | Progress Note ---
Assessment and Plan 1. Acute kidney injury: Vasomotor RUSS in the setting of volume depletion. Renal US was negative for hydronephrosis. Renal function is better. Continue IV fluids. Monitor renal function. Avoid nephrotoxic agents. Meds dosage based on GFR. 2. FEN: Continue IV fluids. Monitor lytes. 3. Small bowel obstruction: S/p Ex lap, omental biopsies x 2 and diverting loop ileostomy creation. Followed by Gen. Surgery. 4. Anemia. 5. Leukocytosis. Subjective Date of service: 03/09/19 Interval history: Patient was seen and examined at the bedside. Objective - Vital Signs Vital signs: Vital Signs - 12hr 03/09/19 03/09/19 03/09/19 03:00 04:00 04:55 Temperature 98.6 F Pulse Rate 86 89 Pulse Rate [ 88 From Monitor] Respiratory 20 19 Rate Blood Pressure 135/72 139/75 O2 Sat by Pulse 100 100 Oximetry 03/09/19 03/09/19 03/09/19 05:00 06:00 07:00 Temperature Pulse Rate 80 83 83 Pulse Rate [ From Monitor] Respiratory 20 19 22 Rate Blood Pressure 140/75 140/74 140/71 O2 Sat by Pulse 99 100 100 Oximetry 03/09/19 03/09/19 03/09/19 08:00 09:00 10:01 Temperature 98.7 F Pulse Rate 90 89 86 Pulse Rate [ From Monitor] Respiratory 17 18 20 Rate Blood Pressure 154/80 141/73 136/62 O2 Sat by Pulse 100 100 100 Oximetry 03/09/19 03/09/19 11:00 12:00 Temperature 98.8 F Pulse Rate 82 88 Pulse Rate [ From Monitor] Respiratory 20 19 Rate Blood Pressure 124/69 123/76 O2 Sat by Pulse 100 97 Oximetry - General Appearance General appearance: well-developed, appears stated age, other (no distress) EENT: ATNC, PERRL, hearing intact, vision intact Neck: supple Respiratory: Present: Clear to Ascultation Cardiology: regular, S1S2, no murmurs Gastrointestinal: tenderness, other (bowel sounds heard) Integumentary: no rash, warm and dry Neurologic: no focal deficit, no asterixis Musculoskeletal: other (no edema) - Lab 03/12/19 04:18 03/11/19 05:10 Most recent lab results Calcium 8.0 mg/dL (8.4-10.2) L 03/09/19 04:52 Phosphorus 4.50 mg/dL (2.5-4.5) D 03/08/19 05:25 Magnesium 1.90 mg/dL (1.7-2.3) 03/09/19 04:52 Medications & Allergies - Medications Allergies/Adverse Reactions: Allergies Penicillins Allergy (Verified 03/04/19 08:51) Itching Home Medications: Home Medications Medication Instructions Recorded Confirmed Last Taken Type ALBUTEROL Inhaler (OR & NICU) 2 puff IH QID PRN #1 inhalation 11/24/18 03/04/19 Unknown Rx [ProAir HFA Inhaler] Azithromycin [Zithromax Z-LONNY] 250 mg PO DAILY #6 tablet 11/24/18 03/04/19 Unknown Rx predniSONE [Deltasone] 20 mg PO QDAY #5 tab 11/24/18 03/04/19 Unknown Rx Amitriptyline 10 mg PO HS 03/08/19 03/08/19 Unknown History Chlorthalidone 25 mg PO QDAY 03/08/19 03/08/19 Unknown History Mirtazapine 45 mg PO HS 03/08/19 03/08/19 Unknown History RisperiDONE 1 mg HS 03/08/19 03/08/19 03/03/19 History amLODIPine 10 mg PO QDAY 03/08/19 03/08/19 Unknown History Active Medications: Generic Name Dose Route Start Last Admin Trade Name Freq PRN Reason Stop Dose Admin Acetaminophen/Hydrocodone Bitart 2 each 03/08/19 17:17 03/09/19 06:39 [place] 5/325 PO 2 each Q6H PRN Administration Pain, Moderate (4-6) Albuterol 2.5 mg 03/04/19 15:40 Proventil IH Q3HRT PRN Shortness Of Breath Heparin Sodium (Porcine) 5,000 unit 03/04/19 22:00 03/09/19 10:08 Heparin SUB-Q 5,000 unit Q12HR AUDREY Administration Hydralazine HCl 10 mg 03/08/19 11:10 Apresoline IV Q4HR PRN Hypertension Levofloxacin/Dextrose 500 mg in 100 mls @ 100 mls/hr 03/06/19 10:00 03/09/19 10:08 Levaquin 500mg/100ml IV 100 mls/hr Q24HR AUDREY Administration Metronidazole 500 mg in 100 mls @ 100 mls/hr 03/04/19 22:00 03/09/19 05:35 Flagyl 500 Mg/100 Ml IV 100 mls/hr Q8HR AUDREY Administration Protocol Potassium Chloride/Sodium Chloride 40 meq in 1,000 mls @ 100 mls/hr 03/08/19 12:00 Ns/Kcl 40meq IV DIRECT AUDREY Lactated Ringer's 1,000 mls @ 75 mls/hr 03/08/19 15:00 03/08/19 22:06 Lactated Ringers IV 75 mls/hr DIRECT AUDREY Administration Lorazepam 1 mg 03/08/19 11:10 03/08/19 11:42 Ativan IV 1 mg Q4H PRN Administration Agitation Morphine Sulfate 2 mg 03/07/19 17:58 03/09/19 08:03 Morphine IV 2 mg Q4H PRN Administration Pain, Moderate (4-6) Ondansetron HCl 4 mg 03/08/19 15:00 Zofran IV ONCE PRN Nausea And Vomiting Sodium Chloride 10 ml 03/04/19 22:00 03/09/19 10:08 Sodium Chloride Flush Syringe 10 Ml IV 10 ml BID AUDREY Administration Sodium Chloride 10 ml 03/04/19 15:40 03/07/19 05:33 Sodium Chloride Flush Syringe 10 Ml IV 10 ml PRN PRN Administration LINE FLUSH
--- NOTE | 2019-03-09 16:58 | Event Note ---
Date: 03/09/19 [id number]
[2019-03-09] MEDS: LACTATED RINGERS 1,000 ML IV SCH (18:44)
[2019-03-09] MEDS: ATIVAN IV PRN (21:53)
[2019-03-10] MEDS: FLAGYL 500 MG/100 ML 500 MG/100 ML BAG IV SCH ×3 (05:27→21:30)
[2019-03-10] MEDS: LACTATED RINGERS 1,000 ML IV SCH (05:27)
[2019-03-10 05:45] LABS: Hematocrit 27.9 % (30.3-42.9); Mean Corpuscular HGB Conc 32 % (30-34); Mean Corpuscular Volume 70 fl (79-97); Platelet Count 703 K/mm3 (140-440); Red Blood Count 3.98 M/mm3 (3.65-5.03)
[2019-03-10 05:53] LABS: Red Cell Distribution Width 25.4 % (13.2-15.2)
[2019-03-10 06:13] LABS: BUN/Creatinine Ratio 20; Blood Urea Nitrogen 18 mg/dL (7-17); Calcium 8.1 mg/dL (8.4-10.2); Hemolysis Index 0; Iron 11 ug/dL (37-170); Total Iron Binding Capacity 201 mcg/dL (250-450)
[2019-03-10 07:28] LABS: Basophils % (Manual) 0 % (0.0-1.8); Eosinophils % (Manual) 0 % (0.0-4.3); Total Cells Counted 100
[2019-03-10 07:29] LABS: Anisocytosis 1+; Hypochromasia 1+
[2019-03-10 07:30] LABS: Platelet Estimate Consistent w Auto
[2019-03-10] MEDS: MORPHINE IV PRN ×2 (08:26→17:37)
[2019-03-10] MEDS: ATIVAN IV PRN ×2 (08:27→21:30)
--- NOTE | 2019-03-10 10:31 | Progress Note ---
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 multiple implants in mesentery, omentum, peritoneum, liver, iliac LNs. s/p omental biopsies x 2, diverting loop ileostomy creation. Continue supportive care, follow histopathology Oncology evaluation noted no appreciated --CT abdomen and pelvis/abdominal mass CT abdomen and pelvis findings possible mass in the ascending colon. --Hypomagnesemia;Hypokalemia/Hypophosphatemia: corrected , monitor electrolytes --Anemia: Received 2 units PRBC, hemoglobin level improved -- Sepsis Sepsis Protocol: IV ABx therapy Levaquin and Flagyl, IVF resuscitation therapy, lactate levels within normal limits, follow cultures --ARF (acute renal failure) with tubular necrosis Resolved , avoid nephrotoxins , IV fluids needed --Severe malnutrition/hypoalbuminemia Due to her underlying disease process, nutrition consult nutrition supplements when able to take oral --DVT prophylaxis SCD to BLE while in bed. Prophylactic heparin. Plan of care reviewed with the patient and her nurse And case management History Interval history: Assessment and examined medical records reviewed Patient feels slightly better, no new complaints On full liquid diet, advance the diet as tolerated Review of systems Denies nausea denies vomiting Denies chest pain or shortness of breath Denies headache or dizziness Vital signs noted Hospitalist Physical - Constitutional Vitals: Temp Pulse Resp BP Pulse Ox 98.7 F 101 H 24 148/60 97 03/10/19 07:26 03/10/19 07:00 03/10/19 07:00 03/10/19 07:00 03/10/19 07:00 General appearance: Present: mild distress, cachectic, disheveled - EENT Eyes: Present: PERRL, EOM intact - Neck Neck: Present: supple, normal ROM - Respiratory Respiratory effort: normal Respiratory: bilateral: diminished, negative: rales, rhonchi, wheezing - Cardiovascular Rhythm: regular Heart Sounds: Present: S1 & S2 - Extremities Extremities: no ischemia, No edema - Abdominal General gastrointestinal: soft, non-tender, non-distended, normal bowel sounds, other (ostomy in place, surgical dressing) - Integumentary Integumentary: Present: clear, warm - Psychiatric Psychiatric: appropriate mood/affect, cooperative - Neurologic Neurologic: CNII-XII intact, moves all extremities Results - Labs CBC & Chem 7: 03/10/19 04:31 03/10/19 04:31 Labs: Laboratory Last Values WBC 23.3 K/mm3 (4.5-11.0) H 03/10/19 04:31 RBC 3.98 M/mm3 (3.65-5.03) 03/10/19 04:31 Hgb 9.0 gm/dl (10.1-14.3) L 03/10/19 04:31 Hct 27.9 % (30.3-42.9) L 03/10/19 04:31 MCV 70 fl (79-97) L 03/10/19 04:31 MCH 23 pg (28-32) L 03/10/19 04:31 MCHC 32 % (30-34) 03/10/19 04:31 RDW 25.4 % (13.2-15.2) H 03/10/19 04:31 Plt Count 703 K/mm3 (140-440) H 03/10/19 04:31 Lymph % (Auto) 13.7 % (13.4-35.0) 03/08/19 05:25 [place] % (Auto) 8.8 % (0.0-7.3) H 03/08/19 05:25 Eos % (Auto) 0.2 % (0.0-4.3) 03/08/19 05:25 Baso % (Auto) 0.7 % (0.0-1.8) 03/08/19 05:25 Lymph # 2.4 K/mm3 (1.2-5.4) 03/08/19 05:25 [place] # 1.6 K/mm3 (0.0-0.8) H 03/08/19 05:25 Eos # 0.0 K/mm3 (0.0-0.4) 03/08/19 05:25 Baso # 0.1 K/mm3 (0.0-0.1) 03/08/19 05:25 Add Manual Diff Complete 03/10/19 04:31 Total Counted 100 03/10/19 04:31 Seg Neutrophils % 76.6 % (40.0-70.0) H 03/08/19 05:25 Seg Neuts % (Manual) 74.0 % (40.0-70.0) H 03/10/19 04:31 13.0 % 03/10/19 04:31 6.0 % (13.4-35.0) L 03/10/19 04:31 Reactive Lymphs % (Man) 0 % 03/10/19 04:31 7.0 % (0.0-7.3) 03/10/19 04:31 0 % (0.0-4.3) 03/10/19 04:31 0 % (0.0-1.8) 03/10/19 04:31 0 % 03/10/19 04:31 0 % 03/10/19 04:31 0 % 03/10/19 04:31 0 % 03/10/19 04:31 Nucleated RBC % Not Reportable 03/10/19 04:31 Seg Neutrophils # 13.7 K/mm3 (1.8-7.7) H 03/08/19 05:25 Seg Neutrophils # Man 17.2 K/mm3 (1.8-7.7) H 03/10/19 04:31 Band Neutrophils # 3.0 K/mm3 03/10/19 04:31 1.4 K/mm3 (1.2-5.4) 03/10/19 04:31 Abs React Lymphs (Man) 0.0 K/mm3 03/10/19 04:31 1.6 K/mm3 (0.0-0.8) H 03/10/19 04:31 0.0 K/mm3 (0.0-0.4) 03/10/19 04:31 0.0 K/mm3 (0.0-0.1) 03/10/19 04:31 0.0 K/mm3 03/10/19 04:31 0.0 K/mm3 03/10/19 04:31 0.0 K/mm3 03/10/19 04:31 Blast Cells # 0.0 K/mm3 03/10/19 04:31 WBC Morphology Not Reportable 03/10/19 04:31 Hypersegmented Neuts Not Reportable 03/10/19 04:31 Hyposegmented Neuts Not Reportable 03/10/19 04:31 Hypogranular Neuts Not Reportable 03/10/19 04:31 Not Reportable 03/10/19 04:31 Not Reportable 03/10/19 04:31 Not Reportable 03/10/19 04:31 Not Reportable 03/10/19 04:31 Not Reportable 03/10/19 04:31 Not Reportable 03/10/19 04:31 Consistent w auto 03/10/19 04:31 Not Reportable 03/10/19 04:31 Plt Clumps, EDTA Not Reportable 03/10/19 04:31 Not Reportable 03/10/19 04:31 Not Reportable 03/10/19 04:31 Not Reportable 03/10/19 04:31 Plt Morphology Comment Not Reportable 03/10/19 04:31 RBC Morphology Not Reportable 03/10/19 04:31 Dimorphic RBCs Not Reportable 03/10/19 04:31 Not Reportable 03/10/19 04:31 1+ 03/10/19 04:31 Not Reportable 03/10/19 04:31 1+ 03/10/19 04:31 1+ 03/10/19 04:31 Not Reportable 03/10/19 04:31 Not Reportable 03/10/19 04:31 Not Reportable 03/10/19 04:31 Not Reportable 03/10/19 04:31 Not Reportable 03/10/19 04:31 Not Reportable 03/10/19 04:31 Not Reportable 03/10/19 04:31 Not Reportable 03/10/19 04:31 Not Reportable 03/10/19 04:31 Not Reportable 03/10/19 04:31 Not Reportable 03/10/19 04:31 Not Reportable 03/10/19 04:31 Not Reportable 03/10/19 04:31 Not Reportable 03/10/19 04:31 Acanthocytes (Spur) Not Reportable 03/10/19 04:31 Rouleaux Not Reportable 03/10/19 04:31 Not Reportable 03/10/19 04:31 Not Reportable 03/10/19 04:31 Not Reportable 03/10/19 04:31 Not Reportable 03/10/19 04:31 Hem Pathologist Commnt No 03/10/19 04:31 Sodium 138 mmol/L (137-145) D 03/10/19 04:31 Potassium 3.6 mmol/L (3.6-5.0) 03/10/19 04:31 Chloride 99.9 mmol/L (98-107) 03/10/19 04:31 Carbon Dioxide 26 mmol/L (22-30) 03/10/19 04:31 16 mmol/L 03/10/19 04:31 BUN 18 mg/dL (7-17) H 03/10/19 04:31 0.9 mg/dL (0.7-1.2) 03/10/19 04:31 Estimated GFR > 60 ml/min 03/10/19 04:31 20 % 03/10/19 04:31 Glucose 148 mg/dL (65-100) H 03/10/19 04:31 Lactic Acid 0.80 mmol/L (0.7-2.0) 03/05/19 05:23 Calcium 8.1 mg/dL (8.4-10.2) L 03/10/19 04:31 Phosphorus 4.50 mg/dL (2.5-4.5) D 03/08/19 05:25 Magnesium 1.90 mg/dL (1.7-2.3) 03/09/19 04:52 Iron 11 ug/dL (37-170) L 03/10/19 04:31 TIBC 201 mcg/dL (250-450) L 03/10/19 04:31 87.9 ng/mL (13.0-400.0) 03/10/19 04:31 0.20 mg/dL (0.1-1.2) 03/09/19 04:52 AST 12 units/L (5-40) 03/09/19 04:52 ALT < 5 units/L (7-56) L 03/09/19 04:52 65 units/L (35-129) 03/09/19 04:52 5.5 g/dL (6.3-8.2) L 03/09/19 04:52 2.2 g/dL (3.9-5) L 03/09/19 04:52 0.7 % 03/09/19 04:52 Carcinoembryonic Ag 14.1 ng/mL (0.0-2.4) H 03/06/19 05:46 Vitamin B12 1622 pg/mL (211-911) H 03/10/19 04:31 8.04 ng/mL (7.3-26.0) 03/10/19 04:31 Yellow (Yellow) 03/04/19 13:13 Cloudy (Clear) 03/04/19 13:13 5.0 (5.0-7.0) 03/04/19 13:13 Ur Specific Bell 1.018 (1.003-1.030) 03/04/19 13:13 30 mg/dl mg/dL (Negative) 03/04/19 13:13 Neg mg/dL (Negative) 03/04/19 13:13 Tr mg/dL (Negative) 03/04/19 13:13 Neg (Negative) 03/04/19 13:13 Neg (Negative) 03/04/19 13:13 Neg (Negative) 03/04/19 13:13 < 2.0 mg/dL (<2.0) 03/04/19 13:13 Ur Leukocyte Esterase Tr (Negative) 03/04/19 13:13 5.0 /HPF (0.0-6.0) 03/04/19 13:13 4.0 /HPF (0.0-6.0) 03/04/19 13:13 U Epithel Cells (Auto) 8.0 /HPF (0-13.0) 03/04/19 13:13 1+ /HPF (Negative) 03/04/19 13:13 Few /HPF 03/04/19 13:13 Blood Type O NEGATIVE 03/08/19 14:25 Antibody Screen Negative 03/08/19 14:25 [place] Antibody Screen Negative 03/04/19 15:56 Crossmatch See Detail 03/04/19 15:56 Active Medications - Current Medications Current Medications: Generic Name Dose Route Start Last Admin Trade Name Freq PRN Reason Stop Dose Admin Acetaminophen/Hydrocodone Bitart 2 each 03/08/19 17:17 03/09/19 06:39 [place] 5/325 PO 2 each Q6H PRN Administration Pain, Moderate (4-6) Albuterol 2.5 mg 03/04/19 15:40 Proventil IH Q3HRT PRN Shortness Of Breath Heparin Sodium (Porcine) 5,000 unit 03/04/19 22:00 03/10/19 00:00 Heparin SUB-Q Not Given Q12HR AUDREY Hydralazine HCl 10 mg 03/08/19 11:10 Apresoline IV Q4HR PRN Hypertension Levofloxacin/Dextrose 500 mg in 100 mls @ 100 mls/hr 03/06/19 10:00 03/09/19 10:08 Levaquin 500mg/100ml IV 100 mls/hr Q24HR AUDREY Administration Metronidazole 500 mg in 100 mls @ 100 mls/hr 03/04/19 22:00 03/10/19 05:27 Flagyl 500 Mg/100 Ml IV 100 mls/hr Q8HR AUDREY Administration Protocol Potassium Chloride/Sodium Chloride 40 meq in 1,000 mls @ 100 mls/hr 03/08/19 12:00 Ns/Kcl 40meq IV DIRECT AUDREY Lactated Ringer's 1,000 mls @ 75 mls/hr 03/08/19 15:00 03/10/19 05:27 Lactated Ringers IV 75 mls/hr DIRECT AUDREY Administration Lorazepam 1 mg 03/08/19 11:10 03/10/19 08:27 Ativan IV 1 mg Q4H PRN Administration Agitation Morphine Sulfate 2 mg 03/07/19 17:58 03/10/19 08:26 Morphine IV 2 mg Q4H PRN Administration Pain, Moderate (4-6) Ondansetron HCl 4 mg 03/08/19 15:00 Zofran IV ONCE PRN Nausea And Vomiting Sodium Chloride 10 ml 03/04/19 22:00 03/09/19 21:54 Sodium Chloride Flush Syringe 10 Ml IV 10 ml BID AUDREY Administration Sodium Chloride 10 ml 03/04/19 15:40 03/07/19 05:33 Sodium Chloride Flush Syringe 10 Ml IV 10 ml PRN PRN Administration LINE FLUSH Nutrition/Malnutrition Assess - Dietary Evaluation Nutrition/Malnutrition Findings: Nutrition Notes Start: 03/05/19 13:19 Freq: Status: Active Protocol: Document 03/08/19 14:54 RM (Rec: 03/08/19 14:56 RM [id number]) Nutrition Notes Initial or Follow up Brief Note Subjective/Other Information Pt remains NPO w/NGT in place. Nutrition Intervention Follow-Up By: 03/10/19 Additional Comments Follow for diet advancement/ intakes
[2019-03-10] MEDS: LEVAQUIN 500MG/100ML 500 MG/100 ML BAG IV SCH (11:22)
[2019-03-10] MEDS: HEPARIN SUB-Q SCH ×3 (11:22→21:31)
[2019-03-10] MEDS: SODIUM CHLORIDE FLUSH SYRINGE 10 ML IV SCH ×2 (11:22→21:34)
--- NOTE | 2019-03-10 11:37 | Progress Note ---
Assessment and Plan - Patient Problems (1) SBO (small bowel obstruction) Current Visit: Yes Status: Acute Plan to address problem: Pt stable. Clinically appears to have metastatic process in abdomen. Source is probably colon. Biopsies pending. May have a diet as tolerated. No new recs. Did diverting ileostomy so that she could eat and improve her nutritional status. Depending on Dr. Carson's eval, will decide if further surgery will be needed. If so, then she would benefit from referral to a surgical oncologist. An en-bloc resection will be required which also may involve the iliac vessels. This is not something that we would be able to do here. Please call with questions. Subjective Date of service: 03/10/19 Patient Reports: Positive: no new complaints, still having pain, tolerating a regular diet. Negative: nausea, vomiting Objective Vital Signs - 12hr 03/10/19 03/10/19 03/10/19 00:00 01:00 02:00 Temperature 99.9 F H Pulse Rate 96 H 95 H 98 H Pulse Rate [ 96 H From Monitor] Respiratory 25 H 25 H 24 Rate Blood Pressure 141/71 132/69 134/78 O2 Sat by Pulse 99 99 100 Oximetry 03/10/19 03/10/19 03/10/19 03:00 04:00 05:00 Temperature 99.8 F H Pulse Rate 107 H 96 H 95 H Pulse Rate [ 101 H From Monitor] Respiratory 23 21 29 H Rate Blood Pressure 147/74 151/74 153/78 O2 Sat by Pulse 97 97 98 Oximetry 03/10/19 03/10/19 03/10/19 06:00 07:00 07:26 Temperature 98.7 F Pulse Rate 94 H 101 H Pulse Rate [ From Monitor] Respiratory 24 24 Rate Blood Pressure 147/80 148/60 O2 Sat by Pulse 98 97 Oximetry - General physical appearance no distress, no pain, other (depressed affect) - Eyes normal occular movement - Respiratory normal expansion, normal respiratory effort - Abdomen soft, tender (mild), distended (mild), not guarding, not rigid, surgical scars (dressing with minimal drainage), other (ostomy functioning with brown liquid and some formed material) - Integumentary no rash, no growths, no abnormal pigmentation - Psychiatric oriented to time, oriented to person, oriented to place, speech is normal, memory intact - Labs 03/10/19 04:31 03/10/19 04:31 Diabetes panel 03/10/19 Range/Units 04:31 Sodium 138 D (137-145) mmol/L Potassium 3.6 (3.6-5.0) mmol/L Chloride 99.9 (98-107) mmol/L Carbon Dioxide 26 (22-30) mmol/L BUN 18 H (7-17) mg/dL Creatinine 0.9 (0.7-1.2) mg/dL Glucose 148 H (65-100) mg/dL Calcium 8.1 L (8.4-10.2) mg/dL Calcium panel 03/10/19 Range/Units 04:31 Calcium 8.1 L (8.4-10.2) mg/dL Pituitary panel 03/10/19 Range/Units 04:31 Sodium 138 D (137-145) mmol/L Potassium 3.6 (3.6-5.0) mmol/L Chloride 99.9 (98-107) mmol/L Carbon Dioxide 26 (22-30) mmol/L BUN 18 H (7-17) mg/dL Creatinine 0.9 (0.7-1.2) mg/dL Glucose 148 H (65-100) mg/dL Calcium 8.1 L (8.4-10.2) mg/dL Adrenal panel 03/10/19 Range/Units 04:31 Sodium 138 D (137-145) mmol/L Potassium 3.6 (3.6-5.0) mmol/L Chloride 99.9 (98-107) mmol/L Carbon Dioxide 26 (22-30) mmol/L BUN 18 H (7-17) mg/dL Creatinine 0.9 (0.7-1.2) mg/dL Glucose 148 H (65-100) mg/dL Calcium 8.1 L (8.4-10.2) mg/dL
--- NOTE | 2019-03-10 16:22 | Progress Note ---
Assessment and Plan 1. Acute kidney injury: Vasomotor RUSS in the setting of volume depletion. Renal US was negative for hydronephrosis. Renal function is better. Continue IV fluids. Monitor renal function. Avoid nephrotoxic agents. Meds dosage based on GFR. 2. FEN: Continue IV fluids. Monitor lytes. 3. Small bowel obstruction: S/p Ex lap, omental biopsies x 2 and diverting loop ileostomy creation. Followed by Gen. Surgery. 4. Anemia. 5. Leukocytosis. Subjective Date of service: 03/10/19 Interval history: Patient was seen and examined at the bedside. Doing ok. Objective - Vital Signs Vital signs: Vital Signs - 12hr 03/10/19 03/10/19 03/10/19 05:00 06:00 07:00 Temperature Pulse Rate 95 H 94 H 101 H Pulse Rate [ From Monitor] Respiratory 29 H 24 24 Rate Blood Pressure 153/78 147/80 148/60 O2 Sat by Pulse 98 98 97 Oximetry 03/10/19 03/10/19 03/10/19 07:26 08:00 08:16 Temperature 98.7 F Pulse Rate Pulse Rate [ 101 H From Monitor] Respiratory 21 Rate Blood Pressure O2 Sat by Pulse 97 100 Oximetry 03/10/19 03/10/19 03/10/19 09:00 10:00 11:00 Temperature Pulse Rate Pulse Rate [ From Monitor] Respiratory Rate Blood Pressure 146/76 149/80 144/78 O2 Sat by Pulse 100 100 98 Oximetry 03/10/19 03/10/19 03/10/19 11:53 12:00 13:00 Temperature 99.7 F H Pulse Rate Pulse Rate [ From Monitor] Respiratory Rate Blood Pressure 153/74 131/71 O2 Sat by Pulse 97 98 Oximetry 03/10/19 03/10/19 03/10/19 14:00 15:00 16:00 Temperature Pulse Rate 100 H 99 H 97 H Pulse Rate [ From Monitor] Respiratory 27 H 28 H 25 H Rate Blood Pressure 130/65 125/69 125/69 O2 Sat by Pulse 99 97 99 Oximetry - General Appearance General appearance: well-developed, appears stated age, other (no distress) EENT: ATNC, PERRL, hearing intact, vision intact Neck: supple Respiratory: Present: Clear to Ascultation Cardiology: regular, S1S2, no murmurs Gastrointestinal: normoactive bowel sounds, no tenderness, no distended Integumentary: no rash, warm and dry Neurologic: no focal deficit, no asterixis Musculoskeletal: other (no edema) - Lab 03/12/19 04:18 03/11/19 05:10 Most recent lab results Calcium 8.1 mg/dL (8.4-10.2) L 03/10/19 04:31 Phosphorus 4.50 mg/dL (2.5-4.5) D 03/08/19 05:25 Magnesium 1.90 mg/dL (1.7-2.3) 03/09/19 04:52 Medications & Allergies - Medications Allergies/Adverse Reactions: Allergies Penicillins Allergy (Verified 03/04/19 08:51) Itching Home Medications: Home Medications Medication Instructions Recorded Confirmed Last Taken Type ALBUTEROL Inhaler (OR & NICU) 2 puff IH QID PRN #1 inhalation 11/24/18 03/04/19 Unknown Rx [ProAir HFA Inhaler] Azithromycin [Zithromax Z-LONNY] 250 mg PO DAILY #6 tablet 11/24/18 03/04/19 Unknown Rx predniSONE [Deltasone] 20 mg PO QDAY #5 tab 11/24/18 03/04/19 Unknown Rx Amitriptyline 10 mg PO HS 03/08/19 03/08/19 Unknown History Chlorthalidone 25 mg PO QDAY 03/08/19 03/08/19 Unknown History Mirtazapine 45 mg PO HS 03/08/19 03/08/19 Unknown History RisperiDONE 1 mg HS 03/08/19 03/08/19 03/03/19 History amLODIPine 10 mg PO QDAY 03/08/19 03/08/19 Unknown History Active Medications: Generic Name Dose Route Start Last Admin Trade Name Freq PRN Reason Stop Dose Admin Acetaminophen/Hydrocodone Bitart 2 each 03/08/19 17:17 03/09/19 06:39 [place] 5/325 PO 2 each Q6H PRN Administration Pain, Moderate (4-6) Albuterol 2.5 mg 03/04/19 15:40 Proventil IH Q3HRT PRN Shortness Of Breath Heparin Sodium (Porcine) 5,000 unit 03/04/19 22:00 03/10/19 11:22 Heparin SUB-Q 5,000 unit Q12HR AUDREY Administration Hydralazine HCl 10 mg 03/08/19 11:10 Apresoline IV Q4HR PRN Hypertension Levofloxacin/Dextrose 500 mg in 100 mls @ 100 mls/hr 03/06/19 10:00 03/10/19 11:22 Levaquin 500mg/100ml IV 100 mls/hr Q24HR AUDREY Administration Metronidazole 500 mg in 100 mls @ 100 mls/hr 03/04/19 22:00 03/10/19 05:27 Flagyl 500 Mg/100 Ml IV 100 mls/hr Q8HR AUDREY Administration Protocol Potassium Chloride/Sodium Chloride 40 meq in 1,000 mls @ 100 mls/hr 03/08/19 12:00 Ns/Kcl 40meq IV DIRECT AUDREY Lactated Ringer's 1,000 mls @ 75 mls/hr 03/08/19 15:00 03/10/19 05:27 Lactated Ringers IV 75 mls/hr DIRECT AUDREY Administration Lorazepam 1 mg 03/08/19 11:10 03/10/19 08:27 Ativan IV 1 mg Q4H PRN Administration Agitation Morphine Sulfate 2 mg 03/07/19 17:58 03/10/19 08:26 Morphine IV 2 mg Q4H PRN Administration Pain, Moderate (4-6) Ondansetron HCl 4 mg 03/08/19 15:00 Zofran IV ONCE PRN Nausea And Vomiting Sodium Chloride 10 ml 03/04/19 22:00 03/10/19 11:22 Sodium Chloride Flush Syringe 10 Ml IV 10 ml BID AUDREY Administration Sodium Chloride 10 ml 03/04/19 15:40 03/07/19 05:33 Sodium Chloride Flush Syringe 10 Ml IV 10 ml PRN PRN Administration LINE FLUSH
--- NOTE | 2019-03-10 17:33 | Consultation ---
REFERRED BY: Dr. Magallon/Dr. Mcknight. REASON FOR CONSULTATION: Colon cancer, clinical suspicion. HISTORY OF PRESENT ILLNESS: I saw the patient, a 63-year-old female, in the medical floor. The patient says that she was well until about 2 weeks ago when she was having bowel issues and slowly constipation worsened. She took laxatives. She also had nausea, episodes of vomiting and abdominal discomfort. The patient was not able to eat well. In the Emergency Room, the patient was found to have bowel obstruction, renal failure, sepsis. Surgical team saw the patient. The patient underwent diverting ileostomy. RADIOLOGY: CT suggested possible mass in the ascending colon. The patient was also found to have anemia for which she received transfusion support, renal failure. I have been asked to evaluate the patient further with a suspicion for stage IV colon cancer. We are waiting for pathology report. At this time, abdominal discomfort post procedure, no headache, no visual disturbances. No ear discharge, no chest pain, no shortness of breath. The patient had a history of nausea, vomiting and no bowel movement, no leg discomfort. PAST MEDICAL HISTORY: Hypertension, history of smoking. PAST SURGICAL HISTORY: Hysterectomy. SOCIAL HISTORY: The patient states lives with friends. FAMILY HISTORY: Hypertension. ALLERGIES: PENICILLIN. HOME MEDICATIONS: Include Zithromax, prednisone. PRESENT MEDICATIONS: Include albuterol, heparin, lorazepam. PHYSICAL EXAMINATION: VITAL SIGNS: Temperature 99, pulse 84, respirations 19, BP 126/66. HEENT: Pallor present. No icterus. NECK: No neck lymph nodes. HEART: S1, S2. LUNGS: Clear to auscultation anteriorly. ABDOMEN: Soft. Surgical scar present. Ileostomy present. NEUROLOGIC: Alert, awake, answers simple questions. LABORATORY DATA: White cell 13, hemoglobin 9.4, MCV 71, platelets 383, at admission hemoglobin 6.9, MCV 66. Potassium was 3 at admission, now 4.5. Creatinine has improved to 0.9, calcium 8.5, bilirubin 0.3. RADIOLOGY: Abdominal CT, small-bowel obstruction junction of the terminal ileum and colon, abnormal thickening in the terminal ileum area, probable paraaortic adenopathy. During the procedure note, it appears that there was metastatic process in the abdomen and a diverting ileostomy was done. ASSESSMENT AND PLAN: Clinical suspicion of colon cancer with mass in the ascending colon and based on surgical notes metastatic process in the abdomen. I had discussed with the pathologist the tissue is being processed. The patient has a diverting ileostomy. If the disease is advanced stage 4 with mets in the abdomen, chemotherapy will be the first line. I discussed with the patient regarding clinical suspicion. The -----pathology report and if it is confirmed to be colon, we would do markers to decide immunotherapy. Tumor markers. Anemia, MCV low, likely secondary to iron deficiency. Electrolyte issues. Creatinine better. Social issues, the patient lives with friends. I will follow the patient during inpatient stay. JOB# [id number] SOSA/SATYA CHAHAL
[2019-03-10] MEDS: NORCO 5/325 PO PRN (21:30)
[2019-03-11] MEDS: LACTATED RINGERS 1,000 ML IV SCH (02:24)
[2019-03-11] MEDS: FLAGYL 500 MG/100 ML 500 MG/100 ML BAG IV SCH ×3 (05:14→21:02)
[2019-03-11 05:54] LABS: Basophils # (Auto) 0.1 K/mm3 (0.0-0.1); Basophils % (Auto) 0.4 % (0.0-1.8); Eosinophils # (Auto) 0.2 K/mm3 (0.0-0.4); Eosinophils % (Auto) 0.9 % (0.0-4.3); Hematocrit 25.5 % (30.3-42.9); Hemoglobin 8.4 gm/dl (10.1-14.3); Lymphocytes # (Auto) 2.5 K/mm3 (1.2-5.4); Lymphocytes % (Auto) 13.1 % (13.4-35.0); Mean Corpuscular HGB Conc 33 % (30-34); Monocytes # (Auto) 1.4 K/mm3 (0.0-0.8); Monocytes % (Auto) 7.2 % (0.0-7.3); Red Blood Count 3.67 M/mm3 (3.65-5.03)
[2019-03-11 06:00] LABS: Mean Corpuscular Volume 70 fl (79-97)
[2019-03-11 06:06] LABS: BUN/Creatinine Ratio 15; Blood Urea Nitrogen 12 mg/dL (7-17); Calcium 8.2 mg/dL (8.4-10.2); Hemolysis Index 0
[2019-03-11] MEDS: MORPHINE IV PRN ×3 (06:12→21:02)
[2019-03-11 06:44] LABS: Platelet Count 669 K/mm3 (140-440)
[2019-03-11] MEDS ORDERED: FERRLECIT 125 MG in NACL 0.9% 100 ML IV ONE (08:24)
--- NOTE | 2019-03-11 08:28 | Hem/Onc Progress Note ---
Assessment and Plan # Clinical suspicion of colon cancer with mass in the ascending colon and based on surgical notes metastatic process in the abdomen. I had discussed with the pathologist the tissue is being processed. The patient has a diverting ileostomy. If the disease is advanced stage 4 with mets in the abdomen, chemotherapy will be the first line. I discussed with the patient regarding clinical suspicion. will await pathology report and if it is confirmed to be colon, we would do markers to decide immunotherapy. # Tumor markers. # Anemia, MCV low, likely secondary to iron deficiency. # Electrolyte issues. # Creatinine better. # Social issues, the patient lives with friends. I will follow the patient during inpatient stay. 03/11 d/w pt that ref to sx an option - but due to her age - chemo - immunotherapy preferred - Patient Problems (1) Colonic mass Current Visit: Yes Status: Acute Subjective Date of service: 03/11/19 Principal diagnosis: cliical colon ca Interval history: s/p sx Objective - Constitutional Vitals: Last Vital Signs Temp 98.8 F 03/11/19 04:06 Pulse 87 03/11/19 05:00 Resp 22 03/11/19 05:00 BP 130/77 03/11/19 06:00 Pulse Ox 95 03/11/19 06:00 Pain Intensity (0-10): 1/10 General appearance: no acute distress Performance status: 4-completely disabled - EENT Eyes: EOM intact ENT: hearing intact Lymph node exam: negative cervical - Respiratory Respiratory effort: Positive: normal Respiratory: bilateral: CTA (anteriorly) - Cardiovascular Heart Sounds: Present: S1 & S2 Extremities: normal temperature - Gastrointestinal General gastrointestinal: Present: soft, other (stomy) Rectal Exam: deferred - Genitourinary Female genitourinary: Present: deferred - Integumentary Integumentary: warm - Musculoskeletal Musculoskeletal: generalized weakness - Labs Lab Results: Laboratory Results - last 24 hr 03/11/19 03/11/19 05:10 05:10 WBC 19.2 H RBC 3.67 Hgb 8.4 L Hct 25.5 L MCV 70 L MCH 23 L MCHC 33 RDW 25.0 H Plt Count 669 H Lymph % (Auto) 13.1 L [place] % (Auto) 7.2 Eos % (Auto) 0.9 Baso % (Auto) 0.4 Lymph # 2.5 [place] # 1.4 H Eos # 0.2 Baso # 0.1 Seg Neutrophils % 78.4 H Seg Neutrophils # 15.0 H Sodium 136 L Potassium 3.6 Chloride 98.5 Carbon Dioxide 24 Anion Gap 17 BUN 12 Creatinine 0.8 Estimated GFR > 60 BUN/Creatinine Ratio 15 Glucose 109 H Calcium 8.2 L Medications & Allergies - Medications Allergies/Adverse Reactions: Allergies Penicillins Allergy (Verified 03/04/19 08:51) Itching Home Medications: Home Medications Medication Instructions Recorded Confirmed Last Taken Type ALBUTEROL Inhaler (OR & NICU) 2 puff IH QID PRN #1 inhalation 11/24/18 03/04/19 Unknown Rx [ProAir HFA Inhaler] Azithromycin [Zithromax Z-LONNY] 250 mg PO DAILY #6 tablet 11/24/18 03/04/19 Unknown Rx predniSONE [Deltasone] 20 mg PO QDAY #5 tab 11/24/18 03/04/19 Unknown Rx Amitriptyline 10 mg PO HS 03/08/19 03/08/19 Unknown History Chlorthalidone 25 mg PO QDAY 03/08/19 03/08/19 Unknown History Mirtazapine 45 mg PO HS 03/08/19 03/08/19 Unknown History RisperiDONE 1 mg HS 03/08/19 03/08/19 03/03/19 History amLODIPine 10 mg PO QDAY 03/08/19 03/08/19 Unknown History Active Medications: Generic Name Dose Route Start Last Admin Trade Name Freq PRN Reason Stop Dose Admin Acetaminophen/Hydrocodone Bitart 2 each 03/08/19 17:17 03/10/19 21:30 [place] 5/325 PO 2 each Q6H PRN Administration Pain, Moderate (4-6) Albuterol 2.5 mg 03/04/19 15:40 Proventil IH Q3HRT PRN Shortness Of Breath Heparin Sodium (Porcine) 5,000 unit 03/04/19 22:00 03/10/19 21:31 Heparin SUB-Q 5,000 unit Q12HR AUDREY Administration Hydralazine HCl 10 mg 03/08/19 11:10 Apresoline IV Q4HR PRN Hypertension Levofloxacin/Dextrose 500 mg in 100 mls @ 100 mls/hr 03/06/19 10:00 03/10/19 11:22 Levaquin 500mg/100ml IV 100 mls/hr Q24HR AUDREY Administration Metronidazole 500 mg in 100 mls @ 100 mls/hr 03/04/19 22:00 03/11/19 05:14 Flagyl 500 Mg/100 Ml IV 100 mls/hr Q8HR AUDREY Administration Protocol Potassium Chloride/Sodium Chloride 40 meq in 1,000 mls @ 100 mls/hr 03/08/19 12:00 Ns/Kcl 40meq IV DIRECT AUDREY Lactated Ringer's 1,000 mls @ 75 mls/hr 03/08/19 15:00 03/11/19 02:24 Lactated Ringers IV 75 mls/hr DIRECT AUDREY Administration Ferric Sodium Gluconate 110 mls @ 100 mls/hr 03/11/19 08:24 Complex 125 mg/ Sodium IV 03/11/19 09:29 Chloride ONCE ONE Lorazepam 1 mg 03/08/19 11:10 03/10/19 21:30 Ativan IV 1 mg Q4H PRN Administration Agitation Morphine Sulfate 2 mg 03/07/19 17:58 03/11/19 06:12 Morphine IV 2 mg Q4H PRN Administration Pain, Moderate (4-6) Ondansetron HCl 4 mg 03/08/19 15:00 Zofran IV ONCE PRN Nausea And Vomiting Sodium Chloride 10 ml 03/04/19 22:00 03/10/19 21:34 Sodium Chloride Flush Syringe 10 Ml IV 10 ml BID AUDREY Administration Sodium Chloride 10 ml 03/04/19 15:40 03/07/19 05:33 Sodium Chloride Flush Syringe 10 Ml IV 10 ml PRN PRN Administration LINE FLUSH
--- NOTE | 2019-03-11 09:30 | Progress Note ---
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 multiple implants in mesentery, omentum, peritoneum, liver, iliac LNs. s/p omental biopsies x 2, diverting loop ileostomy creation. Continue supportive care, follow histopathology Oncology evaluation noted no appreciated --CT abdomen and pelvis/abdominal mass CT abdomen and pelvis findings possible mass in the ascending colon. --Hypomagnesemia;Hypokalemia/Hypophosphatemia: corrected , monitor electrolytes --Anemia: Received 2 units PRBC, hemoglobin level improved -- Sepsis/leukocytosis Sepsis Protocol: IV ABx therapy Levaquin and Flagyl, IVF resuscitation therapy, lactate levels within normal limits, follow cultures --ARF (acute renal failure) with tubular necrosis Resolved , avoid nephrotoxins , IV fluids needed --Severe malnutrition/hypoalbuminemia Due to her underlying disease process, nutrition consult nutrition supplements when able to take oral --DVT prophylaxis SCD to BLE while in bed. Prophylactic heparin. Plan of care reviewed with the patient and her nurse Consults and recommendations noted and appreciated History Interval history: Patient seen and examined medical records reviewed No new events reported by nursing Oncology evaluation and recommendations noted Alert awake oriented 3 not in acute distress Vital signs noted Hospitalist Physical - Constitutional Vitals: Temp Pulse Resp BP Pulse Ox 97.4 F L 87 22 130/77 95 03/11/19 08:00 03/11/19 05:00 03/11/19 05:00 03/11/19 06:00 03/11/19 06:00 General appearance: Present: no acute distress, cachectic, disheveled - EENT Eyes: Present: PERRL, EOM intact - Neck Neck: Present: supple, normal ROM - Respiratory Respiratory effort: normal Respiratory: bilateral: diminished, negative: rales, rhonchi, wheezing - Cardiovascular Rhythm: regular Heart Sounds: Present: S1 & S2 - Extremities Extremities: no ischemia, No edema - Abdominal General gastrointestinal: soft, non-tender, non-distended, normal bowel sounds, other (surgical scars, ileostomy in place) - Integumentary Integumentary: Present: clear, warm - Psychiatric Psychiatric: appropriate mood/affect, cooperative - Neurologic Neurologic: CNII-XII intact, moves all extremities Results - Labs CBC & Chem 7: 03/11/19 05:10 03/11/19 05:10 Labs: Laboratory Last Values WBC 19.2 K/mm3 (4.5-11.0) H 03/11/19 05:10 RBC 3.67 M/mm3 (3.65-5.03) 03/11/19 05:10 Hgb 8.4 gm/dl (10.1-14.3) L 03/11/19 05:10 Hct 25.5 % (30.3-42.9) L 03/11/19 05:10 MCV 70 fl (79-97) L 03/11/19 05:10 MCH 23 pg (28-32) L 03/11/19 05:10 MCHC 33 % (30-34) 03/11/19 05:10 RDW 25.0 % (13.2-15.2) H 03/11/19 05:10 Plt Count 669 K/mm3 (140-440) H 03/11/19 05:10 Lymph % (Auto) 13.1 % (13.4-35.0) L 03/11/19 05:10 [place] % (Auto) 7.2 % (0.0-7.3) 03/11/19 05:10 Eos % (Auto) 0.9 % (0.0-4.3) 03/11/19 05:10 Baso % (Auto) 0.4 % (0.0-1.8) 03/11/19 05:10 Lymph # 2.5 K/mm3 (1.2-5.4) 03/11/19 05:10 [place] # 1.4 K/mm3 (0.0-0.8) H 03/11/19 05:10 Eos # 0.2 K/mm3 (0.0-0.4) 03/11/19 05:10 Baso # 0.1 K/mm3 (0.0-0.1) 03/11/19 05:10 Add Manual Diff Complete 03/10/19 04:31 Total Counted 100 03/10/19 04:31 Seg Neutrophils % 78.4 % (40.0-70.0) H 03/11/19 05:10 Seg Neuts % (Manual) 74.0 % (40.0-70.0) H 03/10/19 04:31 13.0 % 03/10/19 04:31 6.0 % (13.4-35.0) L 03/10/19 04:31 Reactive Lymphs % (Man) 0 % 03/10/19 04:31 7.0 % (0.0-7.3) 03/10/19 04:31 0 % (0.0-4.3) 03/10/19 04:31 0 % (0.0-1.8) 03/10/19 04:31 0 % 03/10/19 04:31 0 % 03/10/19 04:31 0 % 03/10/19 04:31 0 % 03/10/19 04:31 Nucleated RBC % Not Reportable 03/10/19 04:31 Seg Neutrophils # 15.0 K/mm3 (1.8-7.7) H 03/11/19 05:10 Seg Neutrophils # Man 17.2 K/mm3 (1.8-7.7) H 03/10/19 04:31 Band Neutrophils # 3.0 K/mm3 03/10/19 04:31 1.4 K/mm3 (1.2-5.4) 03/10/19 04:31 Abs React Lymphs (Man) 0.0 K/mm3 03/10/19 04:31 1.6 K/mm3 (0.0-0.8) H 03/10/19 04:31 0.0 K/mm3 (0.0-0.4) 03/10/19 04:31 0.0 K/mm3 (0.0-0.1) 03/10/19 04:31 0.0 K/mm3 03/10/19 04:31 0.0 K/mm3 03/10/19 04:31 0.0 K/mm3 03/10/19 04:31 Blast Cells # 0.0 K/mm3 03/10/19 04:31 WBC Morphology Not Reportable 03/10/19 04:31 Hypersegmented Neuts Not Reportable 03/10/19 04:31 Hyposegmented Neuts Not Reportable 03/10/19 04:31 Hypogranular Neuts Not Reportable 03/10/19 04:31 Not Reportable 03/10/19 04:31 Not Reportable 03/10/19 04:31 Not Reportable 03/10/19 04:31 Not Reportable 03/10/19 04:31 Not Reportable 03/10/19 04:31 Not Reportable 03/10/19 04:31 Consistent w auto 03/10/19 04:31 Not Reportable 03/10/19 04:31 Plt Clumps, EDTA Not Reportable 03/10/19 04:31 Not Reportable 03/10/19 04:31 Not Reportable 03/10/19 04:31 Not Reportable 03/10/19 04:31 Plt Morphology Comment Not Reportable 03/10/19 04:31 RBC Morphology Not Reportable 03/10/19 04:31 Dimorphic RBCs Not Reportable 03/10/19 04:31 Not Reportable 03/10/19 04:31 1+ 03/10/19 04:31 Not Reportable 03/10/19 04:31 1+ 03/10/19 04:31 1+ 03/10/19 04:31 Not Reportable 03/10/19 04:31 Not Reportable 03/10/19 04:31 Not Reportable 03/10/19 04:31 Not Reportable 03/10/19 04:31 Not Reportable 03/10/19 04:31 Not Reportable 03/10/19 04:31 Not Reportable 03/10/19 04:31 Not Reportable 03/10/19 04:31 Not Reportable 03/10/19 04:31 Not Reportable 03/10/19 04:31 Not Reportable 03/10/19 04:31 Not Reportable 03/10/19 04:31 Not Reportable 03/10/19 04:31 Not Reportable 03/10/19 04:31 Acanthocytes (Spur) Not Reportable 03/10/19 04:31 Rouleaux Not Reportable 03/10/19 04:31 Not Reportable 03/10/19 04:31 Not Reportable 03/10/19 04:31 Not Reportable 03/10/19 04:31 Not Reportable 03/10/19 04:31 Hem Pathologist Commnt No 03/10/19 04:31 Sodium 136 mmol/L (137-145) L 03/11/19 05:10 Potassium 3.6 mmol/L (3.6-5.0) 03/11/19 05:10 Chloride 98.5 mmol/L (98-107) 03/11/19 05:10 Carbon Dioxide 24 mmol/L (22-30) 03/11/19 05:10 17 mmol/L 03/11/19 05:10 BUN 12 mg/dL (7-17) 03/11/19 05:10 0.8 mg/dL (0.7-1.2) 03/11/19 05:10 Estimated GFR > 60 ml/min 03/11/19 05:10 15 % 03/11/19 05:10 Glucose 109 mg/dL (65-100) H 03/11/19 05:10 Lactic Acid 0.80 mmol/L (0.7-2.0) 03/05/19 05:23 Calcium 8.2 mg/dL (8.4-10.2) L 03/11/19 05:10 Phosphorus 4.50 mg/dL (2.5-4.5) D 03/08/19 05:25 Magnesium 1.90 mg/dL (1.7-2.3) 03/09/19 04:52 Iron 11 ug/dL (37-170) L 03/10/19 04:31 TIBC 201 mcg/dL (250-450) L 03/10/19 04:31 87.9 ng/mL (13.0-400.0) 03/10/19 04:31 0.20 mg/dL (0.1-1.2) 03/09/19 04:52 AST 12 units/L (5-40) 03/09/19 04:52 ALT < 5 units/L (7-56) L 03/09/19 04:52 65 units/L (35-129) 03/09/19 04:52 5.5 g/dL (6.3-8.2) L 03/09/19 04:52 2.2 g/dL (3.9-5) L 03/09/19 04:52 0.7 % 03/09/19 04:52 Carcinoembryonic Ag 14.1 ng/mL (0.0-2.4) H 03/06/19 05:46 Vitamin B12 1622 pg/mL (211-911) H 03/10/19 04:31 8.04 ng/mL (7.3-26.0) 03/10/19 04:31 Yellow (Yellow) 03/04/19 13:13 Cloudy (Clear) 03/04/19 13:13 5.0 (5.0-7.0) 03/04/19 13:13 Ur Specific [place] 1.018 (1.003-1.030) 03/04/19 13:13 30 mg/dl mg/dL (Negative) 03/04/19 13:13 Neg mg/dL (Negative) 03/04/19 13:13 Tr mg/dL (Negative) 03/04/19 13:13 Neg (Negative) 03/04/19 13:13 Neg (Negative) 03/04/19 13:13 Neg (Negative) 03/04/19 13:13 < 2.0 mg/dL (<2.0) 03/04/19 13:13 Ur Leukocyte Esterase Tr (Negative) 03/04/19 13:13 5.0 /HPF (0.0-6.0) 03/04/19 13:13 4.0 /HPF (0.0-6.0) 03/04/19 13:13 U Epithel Cells (Auto) 8.0 /HPF (0-13.0) 03/04/19 13:13 1+ /HPF (Negative) 03/04/19 13:13 Few /HPF 03/04/19 13:13 Blood Type O NEGATIVE 03/08/19 14:25 Antibody Screen Negative 03/08/19 14:25 [place] Antibody Screen Negative 03/04/19 15:56 Crossmatch See Detail 03/04/19 15:56 Active Medications - Current Medications Current Medications: Generic Name Dose Route Start Last Admin Trade Name Freq PRN Reason Stop Dose Admin Acetaminophen/Hydrocodone Bitart 2 each 03/08/19 17:17 03/10/19 21:30 [place] 5/325 PO 2 each Q6H PRN Administration Pain, Moderate (4-6) Albuterol 2.5 mg 03/04/19 15:40 Proventil IH Q3HRT PRN Shortness Of Breath Heparin Sodium (Porcine) 5,000 unit 03/04/19 22:00 03/10/19 21:31 Heparin SUB-Q 5,000 unit Q12HR AUDREY Administration Hydralazine HCl 10 mg 03/08/19 11:10 Apresoline IV Q4HR PRN Hypertension Levofloxacin/Dextrose 500 mg in 100 mls @ 100 mls/hr 03/06/19 10:00 03/10/19 11:22 Levaquin 500mg/100ml IV 100 mls/hr Q24HR AUDREY Administration Metronidazole 500 mg in 100 mls @ 100 mls/hr 03/04/19 22:00 03/11/19 05:14 Flagyl 500 Mg/100 Ml IV 100 mls/hr Q8HR AUDREY Administration Protocol Potassium Chloride/Sodium Chloride 40 meq in 1,000 mls @ 100 mls/hr 03/08/19 12:00 Ns/Kcl 40meq IV DIRECT AUDREY Lactated Ringer's 1,000 mls @ 75 mls/hr 03/08/19 15:00 03/11/19 02:24 Lactated Ringers IV 75 mls/hr DIRECT AUDREY Administration Ferric Sodium Gluconate 110 mls @ 100 mls/hr 03/11/19 08:24 Complex 125 mg/ Sodium IV 03/11/19 09:29 Chloride ONCE ONE Lorazepam 1 mg 03/08/19 11:10 03/10/19 21:30 Ativan IV 1 mg Q4H PRN Administration Agitation Morphine Sulfate 2 mg 03/07/19 17:58 03/11/19 06:12 Morphine IV 2 mg Q4H PRN Administration Pain, Moderate (4-6) Ondansetron HCl 4 mg 03/08/19 15:00 Zofran IV ONCE PRN Nausea And Vomiting Sodium Chloride 10 ml 03/04/19 22:00 03/10/19 21:34 Sodium Chloride Flush Syringe 10 Ml IV 10 ml BID AUDREY Administration Sodium Chloride 10 ml 03/04/19 15:40 03/07/19 05:33 Sodium Chloride Flush Syringe 10 Ml IV 10 ml PRN PRN Administration LINE FLUSH Nutrition/Malnutrition Assess - Dietary Evaluation Nutrition/Malnutrition Findings: Nutrition Notes Start: 03/05/19 13:19 Freq: Status: Active Protocol: Document 03/10/19 16:34 RM (Rec: 03/10/19 16:40 RM [id number]) Nutrition Notes Initial or Follow up Reassessment Current Diagnosis Acute Kidney Injury,Sepsis, Hypertension,Small Bowel Obstruction Other Pertinent Diagnosis Surgical abdominal wound Current Diet [facility] soft Labs/Tests Reviewed Pertinent Medications Reviewed Height 5 ft 7 in Weight 59.2 kg [place] Body Weight (kg) 61.36 BMI 20.4 Subjective/Other Information Pt stated that her appetite is improving and that she eats 1 /3 of her meals. Percent of energy/protein needs met: 47%/47% Burn Absent Trauma Absent #1 Nutrition Diagnosis Inadequate oral intake Diagnosis Progress(for reassessment Continues documentation) Is patient on ventilator? No Is Patient Ambulatory and/or Out of Bed Yes REE-([facility]-ambulatory/OOB) [ 1520.519 [id number]] Calculation Used for Recommendations [facility] Additional Notes Protein needs are 71-89g (1.2- 1.5g/kg) Fluid needs are 1ml/kcal Nutrition Intervention Change Diet Order: Continue current Add Supplement/Snack (indicate name/kcal Ensure Enlive Bomoseen 1 /protein ) daily Provides kCal: 350 Provides Protein (gm) 20 Goal #1 Meet at least 75% of calorie and protein needs via PO and ONS intakes Anticipated Discharge Needs: [facility] soft Follow-Up By: 03/14/19 Additional Comments Follow for PO and ONS intakes
[2019-03-11] MEDS: LEVAQUIN 500MG/100ML 500 MG/100 ML BAG IV SCH (10:45)
[2019-03-11] MEDS: SODIUM CHLORIDE FLUSH SYRINGE 10 ML IV SCH ×2 (10:46→21:03)
[2019-03-11] MEDS: HEPARIN SUB-Q SCH ×2 (10:46→21:02)
--- NOTE | 2019-03-11 12:02 | Progress Note ---
Assessment and Plan 1. Acute kidney injury: Vasomotor RUSS in the setting of volume depletion. Renal US was negative for hydronephrosis. Renal function is better. Continue IV fluids. Monitor renal function. Avoid nephrotoxic agents. Meds dosage based on GFR. 2. FEN: Continue IV fluids. Monitor lytes. 3. Small bowel obstruction: S/p Ex lap, omental biopsies x 2 and diverting loop ileostomy creation. Followed by Gen. Surgery. 4. Anemia. Will sign off. Subjective Date of service: 03/11/19 Interval history: Patient was seen and examined at the bedside. Doing ok. Objective - Vital Signs Vital signs: Vital Signs - 12hr 03/11/19 03/11/19 03/11/19 00:08 01:00 02:00 Temperature Pulse Rate 91 H 88 85 Pulse Rate [ From Monitor] Respiratory 23 21 21 Rate Blood Pressure 133/72 129/66 129/67 O2 Sat by Pulse 95 96 96 Oximetry 03/11/19 03/11/19 03/11/19 03:00 04:00 04:06 Temperature 98.8 F Pulse Rate 84 86 Pulse Rate [ 87 From Monitor] Respiratory 21 21 Rate Blood Pressure 128/69 135/74 O2 Sat by Pulse 95 95 Oximetry 03/11/19 03/11/19 03/11/19 05:00 06:00 08:00 Temperature 97.4 F L Pulse Rate 87 Pulse Rate [ From Monitor] Respiratory 22 Rate Blood Pressure 129/67 130/77 O2 Sat by Pulse 94 95 Oximetry 03/11/19 10:00 Temperature Pulse Rate 87 Pulse Rate [ From Monitor] Respiratory Rate Blood Pressure O2 Sat by Pulse Oximetry - General Appearance General appearance: well-developed, appears stated age, other (no edema) EENT: ATNC, PERRL, hearing intact, vision intact Neck: supple Respiratory: Present: Clear to Ascultation Cardiology: regular, S1S2, no murmurs Gastrointestinal: normoactive bowel sounds, no tenderness, no distended Integumentary: no rash, warm and dry Neurologic: no focal deficit, no asterixis Musculoskeletal: other (no edema) - Lab 03/12/19 04:18 03/11/19 05:10 Most recent lab results Calcium 8.2 mg/dL (8.4-10.2) L 03/11/19 05:10 Phosphorus 4.50 mg/dL (2.5-4.5) D 03/08/19 05:25 Magnesium 1.90 mg/dL (1.7-2.3) 03/09/19 04:52 Medications & Allergies - Medications Allergies/Adverse Reactions: Allergies Penicillins Allergy (Verified 03/04/19 08:51) Itching Home Medications: Home Medications Medication Instructions Recorded Confirmed Last Taken Type ALBUTEROL Inhaler (OR & NICU) 2 puff IH QID PRN #1 inhalation 11/24/18 03/04/19 Unknown Rx [ProAir HFA Inhaler] Azithromycin [Zithromax Z-LONNY] 250 mg PO DAILY #6 tablet 11/24/18 03/04/19 Unknown Rx predniSONE [Deltasone] 20 mg PO QDAY #5 tab 11/24/18 03/04/19 Unknown Rx Amitriptyline 10 mg PO HS 03/08/19 03/08/19 Unknown History Chlorthalidone 25 mg PO QDAY 03/08/19 03/08/19 Unknown History Mirtazapine 45 mg PO HS 03/08/19 03/08/19 Unknown History RisperiDONE 1 mg HS 03/08/19 03/08/19 03/03/19 History amLODIPine 10 mg PO QDAY 03/08/19 03/08/19 Unknown History Active Medications: Generic Name Dose Route Start Last Admin Trade Name Freq PRN Reason Stop Dose Admin Acetaminophen/Hydrocodone Bitart 2 each 03/08/19 17:17 03/10/19 21:30 [place] 5/325 PO 2 each Q6H PRN Administration Pain, Moderate (4-6) Albuterol 2.5 mg 03/04/19 15:40 Proventil IH Q3HRT PRN Shortness Of Breath Heparin Sodium (Porcine) 5,000 unit 03/04/19 22:00 03/11/19 10:46 Heparin SUB-Q Not Given Q12HR AUDREY Hydralazine HCl 10 mg 03/08/19 11:10 Apresoline IV Q4HR PRN Hypertension Levofloxacin/Dextrose 500 mg in 100 mls @ 100 mls/hr 03/06/19 10:00 03/11/19 10:45 Levaquin 500mg/100ml IV 100 mls/hr Q24HR AUDREY Administration Metronidazole 500 mg in 100 mls @ 100 mls/hr 03/04/19 22:00 03/11/19 05:14 Flagyl 500 Mg/100 Ml IV 100 mls/hr Q8HR AUDREY Administration Protocol Potassium Chloride/Sodium Chloride 40 meq in 1,000 mls @ 100 mls/hr 03/08/19 12:00 Ns/Kcl 40meq IV DIRECT AUDREY Lactated Ringer's 1,000 mls @ 75 mls/hr 03/08/19 15:00 03/11/19 02:24 Lactated Ringers IV 75 mls/hr DIRECT AUDREY Administration Lorazepam 1 mg 03/08/19 11:10 03/10/19 21:30 Ativan IV 1 mg Q4H PRN Administration Agitation Morphine Sulfate 2 mg 03/07/19 17:58 03/11/19 06:12 Morphine IV 2 mg Q4H PRN Administration Pain, Moderate (4-6) Ondansetron HCl 4 mg 03/08/19 15:00 Zofran IV ONCE PRN Nausea And Vomiting Sodium Chloride 10 ml 03/04/19 22:00 03/11/19 10:46 Sodium Chloride Flush Syringe 10 Ml IV Not Given BID AUDREY Sodium Chloride 10 ml 03/04/19 15:40 03/07/19 05:33 Sodium Chloride Flush Syringe 10 Ml IV 10 ml PRN PRN Administration LINE FLUSH
--- NOTE | 2019-03-11 12:06 | Event Note ---
Date: 03/11/19 Patient resting comfortably. Nurse reports small leak from ostomy bag. Otherwise, patient doing well. Continue present management. Please call with questions.
[2019-03-11] MEDS: NORCO 5/325 PO PRN (15:30)
[2019-03-11] MEDS: ATIVAN IV PRN (16:30)
[2019-03-12] MEDS: NORCO 5/325 PO PRN ×3 (01:20→20:21)
[2019-03-12 05:10] LABS: Hematocrit 26.6 % (30.3-42.9); Hemoglobin 8.8 gm/dl (10.1-14.3); Mean Corpuscular HGB Conc 33 % (30-34); Platelet Count 688 K/mm3 (140-440); Red Blood Count 3.84 M/mm3 (3.65-5.03)
[2019-03-12 05:16] LABS: Mean Corpuscular Volume 69 fl (79-97); Red Cell Distribution Width 25.3 % (13.2-15.2)
[2019-03-12 06:03] LABS: Anisocytosis 2+; Basophils % (Manual) 0 % (0.0-1.8); Hypochromasia 1+; Total Cells Counted 100
[2019-03-12] MEDS: FLAGYL 500 MG/100 ML 500 MG/100 ML BAG IV SCH ×3 (06:33→22:26)
--- NOTE | 2019-03-12 08:22 | Hem/Onc Progress Note ---
Assessment and Plan # Clinical suspicion of colon cancer with mass in the ascending colon and based on surgical notes metastatic process in the abdomen. I had discussed with the pathologist the tissue is being processed. The patient has a diverting ileostomy. If the disease is advanced stage 4 with mets in the abdomen, chemotherapy will be the first line. I discussed with the patient regarding clinical suspicion. will await pathology report and if it is confirmed to be colon, we would do markers to decide immunotherapy. # Tumor markers. # Anemia, MCV low, likely secondary to iron deficiency. # Electrolyte issues. # Creatinine better. # Social issues, the patient lives with friends. I will follow the patient during inpatient stay. 03/12 d/w pt that referal to sx for colon sx an option - but due to her age - chemo - immunotherapy preferred prelim path - report - + for colon ca - Patient Problems (1) Colonic mass Current Visit: Yes Status: Acute Subjective Date of service: 03/12/19 Principal diagnosis: colon mass Interval history: pt sitting - trying to eat Objective - Constitutional Vitals: Last Vital Signs Temp 98.9 F 03/12/19 04:00 Pulse 73 03/12/19 06:00 Resp 13 03/12/19 06:00 BP 137/68 03/12/19 06:00 Pulse Ox 97 03/12/19 06:00 Pain Intensity (0-10): denies any pain General appearance: no acute distress Performance status: 3-limited selfcare - EENT Eyes: EOM intact ENT: hearing intact Lymph node exam: negative cervical - Neck Neck: normal ROM - Respiratory Respiratory effort: Positive: normal Respiratory: bilateral: CTA - Cardiovascular Heart Sounds: Present: S1 & S2 Extremities: No edema - Gastrointestinal General gastrointestinal: Present: soft, other (stomy+) Rectal Exam: deferred - Genitourinary Female genitourinary: Present: deferred - Integumentary Integumentary: warm - Musculoskeletal Musculoskeletal: generalized weakness - Neurologic Neurologic: moves all extremities - Labs Lab Results: Laboratory Results - last 24 hr 03/12/19 04:18 WBC 14.4 H RBC 3.84 Hgb 8.8 L Hct 26.6 L MCV 69 L MCH 23 L MCHC 33 RDW 25.3 H Plt Count 688 H Add Manual Diff Complete Total Counted 100 Seg Neuts % (Manual) 73.0 H Band Neutrophils % 0 Lymphocytes % (Manual) 15.0 Reactive Lymphs % (Man) 0 Monocytes % (Manual) 9.0 H Eosinophils % (Manual) 3.0 Basophils % (Manual) 0 Metamyelocytes % 0 Myelocytes % 0 Promyelocytes % 0 Blast Cells % 0 Nucleated RBC % Not Reportable Seg Neutrophils # Man 10.5 H Band Neutrophils # 0.0 Lymphocytes # (Manual) 2.2 Abs React Lymphs (Man) 0.0 Monocytes # (Manual) 1.3 H Eosinophils # (Manual) 0.4 Basophils # (Manual) 0.0 Metamyelocytes # 0.0 Myelocytes # 0.0 Promyelocytes # 0.0 Blast Cells # 0.0 WBC Morphology Not Reportable Hypersegmented Neuts Not Reportable Hyposegmented Neuts Not Reportable Hypogranular Neuts Not Reportable Smudge Cells Not Reportable Toxic Granulation Not Reportable Toxic Vacuolation Not Reportable Dohle Bodies Not Reportable Pelger-Huet Anomaly Not Reportable Eliezer Rods Not Reportable Platelet Estimate Not Reportable Clumped Platelets Not Reportable Plt Clumps, EDTA Not Reportable Large Platelets Not Reportable Giant Platelets Not Reportable Platelet Satelliting Not Reportable Plt Morphology Comment Not Reportable RBC Morphology Not Reportable Dimorphic RBCs Not Reportable Polychromasia Not Reportable Hypochromasia 1+ Poikilocytosis Not Reportable Anisocytosis 2+ Microcytosis 1+ Macrocytosis Not Reportable Spherocytes Not Reportable Pappenheimer Bodies Not Reportable Sickle Cells Not Reportable Target Cells Not Reportable Tear Drop Cells Not Reportable Ovalocytes Not Reportable Helmet Cells Not Reportable [place] Bodies Not Reportable [place] Rings Not Reportable Ralf Cells Not Reportable Bite Cells Not Reportable Crenated Cell Not Reportable Elliptocytes Not Reportable Acanthocytes (Spur) Not Reportable Rouleaux Not Reportable Hemoglobin C Crystals Not Reportable Schistocytes Not Reportable Malaria parasites Not Reportable Brendan Bodies Not Reportable Hem Pathologist Commnt No Medications & Allergies - Medications Allergies/Adverse Reactions: Allergies Penicillins Allergy (Verified 03/04/19 08:51) Itching Home Medications: Home Medications Medication Instructions Recorded Confirmed Last Taken Type ALBUTEROL Inhaler (OR & NICU) 2 puff IH QID PRN #1 inhalation 11/24/18 03/04/19 Unknown Rx [ProAir HFA Inhaler] Azithromycin [Zithromax Z-LONNY] 250 mg PO DAILY #6 tablet 11/24/18 03/04/19 Unknown Rx predniSONE [Deltasone] 20 mg PO QDAY #5 tab 11/24/18 03/04/19 Unknown Rx Amitriptyline 10 mg PO HS 03/08/19 03/08/19 Unknown History Chlorthalidone 25 mg PO QDAY 03/08/19 03/08/19 Unknown History Mirtazapine 45 mg PO HS 03/08/19 03/08/19 Unknown History RisperiDONE 1 mg HS 03/08/19 03/08/19 03/03/19 History amLODIPine 10 mg PO QDAY 03/08/19 03/08/19 Unknown History Active Medications: Generic Name Dose Route Start Last Admin Trade Name Freq PRN Reason Stop Dose Admin Acetaminophen/Hydrocodone Bitart 2 each 03/08/19 17:17 03/12/19 01:20 [place] 5/325 PO 2 each Q6H PRN Administration Pain, Moderate (4-6) Albuterol 2.5 mg 03/04/19 15:40 Proventil IH Q3HRT PRN Shortness Of Breath Heparin Sodium (Porcine) 5,000 unit 03/04/19 22:00 03/11/19 21:02 Heparin SUB-Q 5,000 unit Q12HR AUDREY Administration Hydralazine HCl 10 mg 03/08/19 11:10 Apresoline IV Q4HR PRN Hypertension Levofloxacin/Dextrose 500 mg in 100 mls @ 100 mls/hr 03/06/19 10:00 03/11/19 10:45 Levaquin 500mg/100ml IV 03/16/19 09:59 100 mls/hr Q24HR AUDREY Administration Metronidazole 500 mg in 100 mls @ 100 mls/hr 03/04/19 22:00 03/12/19 06:33 Flagyl 500 Mg/100 Ml IV 100 mls/hr Q8HR AUDREY Administration Protocol Potassium Chloride/Sodium Chloride 40 meq in 1,000 mls @ 100 mls/hr 03/08/19 12:00 Ns/Kcl 40meq IV DIRECT AUDREY Lactated Ringer's 1,000 mls @ 75 mls/hr 03/08/19 15:00 03/11/19 02:24 Lactated Ringers IV 75 mls/hr DIRECT AUDREY Administration Lorazepam 1 mg 03/08/19 11:10 03/11/19 16:30 Ativan IV 1 mg Q4H PRN Administration Agitation Morphine Sulfate 2 mg 03/07/19 17:58 03/11/19 21:02 Morphine IV 2 mg Q4H PRN Administration Pain, Moderate (4-6) Ondansetron HCl 4 mg 03/08/19 15:00 Zofran IV ONCE PRN Nausea And Vomiting Sodium Chloride 10 ml 03/04/19 22:00 03/11/19 21:03 Sodium Chloride Flush Syringe 10 Ml IV 10 ml BID AUDREY Administration Sodium Chloride 10 ml 03/04/19 15:40 03/07/19 05:33 Sodium Chloride Flush Syringe 10 Ml IV 10 ml PRN PRN Administration LINE FLUSH
[2019-03-12] MEDS: LEVAQUIN 500MG/100ML 500 MG/100 ML BAG IV SCH (10:42)
[2019-03-12] MEDS: HEPARIN SUB-Q SCH ×2 (10:42→22:31)
[2019-03-12] MEDS: SODIUM CHLORIDE FLUSH SYRINGE 10 ML IV SCH ×2 (10:43→22:37)
[2019-03-12] MEDS: LACTATED RINGERS 1,000 ML IV SCH ×2 (10:43→22:51)
[2019-03-12] MEDS: ATIVAN IV PRN ×2 (14:09→22:44)
--- NOTE | 2019-03-12 14:17 | Progress Note ---
Assessment and Plan - Patient Problems (1) SBO (small bowel obstruction) Current Visit: Yes Status: Acute Plan to address problem: Pt stable. Clinically appears to have metastatic process in abdomen. Source is probably colon. Biopsies pending. May have a diet as tolerated. No new recs. Cleared from surgical standpoint for discharge/transfer. Will remove catheter under ileostomy in the office in 1-2 weeks. Did diverting ileostomy so that she could eat and improve her nutritional status. Please call with questions. Subjective Date of service: 03/12/19 Patient Reports: Positive: feels better, pain is less, tolerating a regular diet. Negative: nausea, vomiting Objective Vital Signs - 12hr 03/12/19 03/12/19 03/12/19 03:00 04:00 04:47 Temperature 98.9 F Pulse Rate 77 73 Pulse Rate [ 71 From Monitor] Respiratory 15 11 L 14 Rate Blood Pressure 127/69 O2 Sat by Pulse 96 98 100 Oximetry 03/12/19 03/12/19 03/12/19 05:00 06:00 07:00 Temperature Pulse Rate 71 73 75 Pulse Rate [ From Monitor] Respiratory 15 13 12 Rate Blood Pressure 119/62 137/68 143/68 O2 Sat by Pulse 98 97 98 Oximetry 03/12/19 03/12/19 03/12/19 08:00 09:00 10:00 Temperature 98.5 F Pulse Rate 75 88 80 Pulse Rate [ 80 From Monitor] Respiratory 17 17 18 Rate Blood Pressure 151/73 138/71 136/76 O2 Sat by Pulse 98 96 97 Oximetry 03/12/19 03/12/19 03/12/19 11:00 12:00 13:00 Temperature 98.8 F Pulse Rate 77 85 83 Pulse Rate [ 78 From Monitor] Respiratory 17 20 22 Rate Blood Pressure 152/76 141/76 O2 Sat by Pulse 98 99 98 Oximetry - General physical appearance no distress, no pain, other (looks better) - Eyes normal occular movement - Respiratory normal expansion, normal respiratory effort - Abdomen soft, tender (mild), distended (mild), not guarding, not rigid, surgical scars (C/D/I) - Integumentary no rash, no growths, no abnormal pigmentation - Psychiatric oriented to time, oriented to person, oriented to place, speech is normal, memory intact - Labs 03/12/19 04:18 03/11/19 05:10
--- NOTE | 2019-03-12 16:14 | Progress Note ---
Assessment and Plan Assessment and plan: 63-year-old female patient admitted through emergency room with nausea vomiting generalized weakness, initiated workup is consistent with anemia, small bowel obstruction Patient received 2 units of PRBC, surgery evaluated the patient. Possible colonic mass suspicion for malignancy, patient stabilized Underwent exploratory laparotomy, diverting loop ileostomy, omental biopsies.Large firm mass right lower quadrant, presumed malignancy Patient was evaluated by oncology, pending pathology report , metastatic colon cancer consider different treatment plans --Possible metastases colon cancer Surgery, oncology following, needing pathology report of omental biopsy --Small bowel obstruction /Status post diverting ileostomy; Expl Lap:large, firm mass in RLQ involving presumed malignancy, large bowel and small bowel. multiple implants in mesentery, omentum, peritoneum, liver, iliac LNs. s/p omental biopsies x 2, diverting loop ileostomy creation. Continue supportive care, follow histopathology Oncology evaluation noted no appreciated --CT abdomen and pelvis/abdominal mass CT abdomen and pelvis findings possible mass in the ascending colon. --Hypomagnesemia;Hypokalemia/Hypophosphatemia: corrected , monitor electrolytes --Anemia: Received 2 units PRBC, hemoglobin level improved -- Sepsis/leukocytosis Sepsis Protocol: IV ABx therapy Levaquin and Flagyl, IVF resuscitation therapy, lactate levels within normal limits, follow cultures --ARF (acute renal failure) with tubular necrosis Resolved , avoid nephrotoxins , IV fluids needed --Severe malnutrition/hypoalbuminemia Due to her underlying disease process, nutrition consult nutrition supplements when able to take oral --DVT prophylaxis SCD to BLE while in bed. Prophylactic heparin. Plan of care reviewed with the patient and her nurse Consults and recommendations noted and appreciated Disposition; follow biopsy report, follow oncology and surgical recommendations Pending placement to SNF/rehabilitation History Interval history: Patient seen and examined medical records reviewed Face but in no new complaints Vital signs reviewed Tolerating mechanical soft diet Hospitalist Physical - Constitutional Vitals: Temp Pulse Resp BP Pulse Ox 98.6 F 83 22 141/76 98 03/12/19 12:00 03/12/19 13:00 03/12/19 13:00 03/12/19 13:00 03/12/19 13:00 General appearance: Present: no acute distress, cachectic, disheveled - EENT Eyes: Present: PERRL, EOM intact - Neck Neck: Present: supple, normal ROM - Respiratory Respiratory effort: normal Respiratory: bilateral: diminished, negative: rales, rhonchi, wheezing - Cardiovascular Rhythm: regular Heart Sounds: Present: S1 & S2 - Extremities Extremities: no ischemia, No edema - Abdominal General gastrointestinal: soft, non-tender, distended (mild), normal bowel sounds - Integumentary Integumentary: Present: clear, warm - Psychiatric Psychiatric: appropriate mood/affect, cooperative - Neurologic Neurologic: CNII-XII intact, moves all extremities Results - Labs CBC & Chem 7: 03/12/19 04:18 03/11/19 05:10 Labs: Laboratory Last Values WBC 14.4 K/mm3 (4.5-11.0) H 03/12/19 04:18 RBC 3.84 M/mm3 (3.65-5.03) 03/12/19 04:18 Hgb 8.8 gm/dl (10.1-14.3) L 03/12/19 04:18 Hct 26.6 % (30.3-42.9) L 03/12/19 04:18 MCV 69 fl (79-97) L 03/12/19 04:18 MCH 23 pg (28-32) L 03/12/19 04:18 MCHC 33 % (30-34) 03/12/19 04:18 RDW 25.3 % (13.2-15.2) H 03/12/19 04:18 Plt Count 688 K/mm3 (140-440) H 03/12/19 04:18 Lymph % (Auto) 13.1 % (13.4-35.0) L 03/11/19 05:10 [place] % (Auto) 7.2 % (0.0-7.3) 03/11/19 05:10 Eos % (Auto) 0.9 % (0.0-4.3) 03/11/19 05:10 Baso % (Auto) 0.4 % (0.0-1.8) 03/11/19 05:10 Lymph # 2.5 K/mm3 (1.2-5.4) 03/11/19 05:10 [place] # 1.4 K/mm3 (0.0-0.8) H 03/11/19 05:10 Eos # 0.2 K/mm3 (0.0-0.4) 03/11/19 05:10 Baso # 0.1 K/mm3 (0.0-0.1) 03/11/19 05:10 Add Manual Diff Complete 03/12/19 04:18 Total Counted 100 03/12/19 04:18 Seg Neutrophils % 78.4 % (40.0-70.0) H 03/11/19 05:10 Seg Neuts % (Manual) 73.0 % (40.0-70.0) H 03/12/19 04:18 0 % 03/12/19 04:18 15.0 % (13.4-35.0) 03/12/19 04:18 Reactive Lymphs % (Man) 0 % 03/12/19 04:18 9.0 % (0.0-7.3) H 03/12/19 04:18 3.0 % (0.0-4.3) 03/12/19 04:18 0 % (0.0-1.8) 03/12/19 04:18 0 % 03/12/19 04:18 0 % 03/12/19 04:18 0 % 03/12/19 04:18 0 % 03/12/19 04:18 Nucleated RBC % Not Reportable 03/12/19 04:18 Seg Neutrophils # 15.0 K/mm3 (1.8-7.7) H 03/11/19 05:10 Seg Neutrophils # Man 10.5 K/mm3 (1.8-7.7) H 03/12/19 04:18 Band Neutrophils # 0.0 K/mm3 03/12/19 04:18 2.2 K/mm3 (1.2-5.4) 03/12/19 04:18 Abs React Lymphs (Man) 0.0 K/mm3 03/12/19 04:18 1.3 K/mm3 (0.0-0.8) H 03/12/19 04:18 0.4 K/mm3 (0.0-0.4) 03/12/19 04:18 0.0 K/mm3 (0.0-0.1) 03/12/19 04:18 0.0 K/mm3 03/12/19 04:18 0.0 K/mm3 03/12/19 04:18 0.0 K/mm3 03/12/19 04:18 Blast Cells # 0.0 K/mm3 03/12/19 04:18 WBC Morphology Not Reportable 03/12/19 04:18 Hypersegmented Neuts Not Reportable 03/12/19 04:18 Hyposegmented Neuts Not Reportable 03/12/19 04:18 Hypogranular Neuts Not Reportable 03/12/19 04:18 Not Reportable 03/12/19 04:18 Not Reportable 03/12/19 04:18 Not Reportable 03/12/19 04:18 Not Reportable 03/12/19 04:18 Not Reportable 03/12/19 04:18 Not Reportable 03/12/19 04:18 Not Reportable 03/12/19 04:18 Not Reportable 03/12/19 04:18 Plt Clumps, EDTA Not Reportable 03/12/19 04:18 Not Reportable 03/12/19 04:18 Not Reportable 03/12/19 04:18 Not Reportable 03/12/19 04:18 Plt Morphology Comment Not Reportable 03/12/19 04:18 RBC Morphology Not Reportable 03/12/19 04:18 Dimorphic RBCs Not Reportable 03/12/19 04:18 Not Reportable 03/12/19 04:18 1+ 03/12/19 04:18 Not Reportable 03/12/19 04:18 2+ 03/12/19 04:18 1+ 03/12/19 04:18 Not Reportable 03/12/19 04:18 Not Reportable 03/12/19 04:18 Not Reportable 03/12/19 04:18 Not Reportable 03/12/19 04:18 Not Reportable 03/12/19 04:18 Not Reportable 03/12/19 04:18 Not Reportable 03/12/19 04:18 Not Reportable 03/12/19 04:18 Not Reportable 03/12/19 04:18 Not Reportable 03/12/19 04:18 Not Reportable 03/12/19 04:18 Not Reportable 03/12/19 04:18 Not Reportable 03/12/19 04:18 Not Reportable 03/12/19 04:18 Acanthocytes (Spur) Not Reportable 03/12/19 04:18 Rouleaux Not Reportable 03/12/19 04:18 Not Reportable 03/12/19 04:18 Not Reportable 03/12/19 04:18 Not Reportable 03/12/19 04:18 Not Reportable 03/12/19 04:18 Hem Pathologist Commnt No 03/12/19 04:18 Sodium 136 mmol/L (137-145) L 03/11/19 05:10 Potassium 3.6 mmol/L (3.6-5.0) 03/11/19 05:10 Chloride 98.5 mmol/L (98-107) 03/11/19 05:10 Carbon Dioxide 24 mmol/L (22-30) 03/11/19 05:10 17 mmol/L 03/11/19 05:10 BUN 12 mg/dL (7-17) 03/11/19 05:10 0.8 mg/dL (0.7-1.2) 03/11/19 05:10 Estimated GFR > 60 ml/min 03/11/19 05:10 15 % 03/11/19 05:10 Glucose 109 mg/dL (65-100) H 03/11/19 05:10 Lactic Acid 0.80 mmol/L (0.7-2.0) 03/05/19 05:23 Calcium 8.2 mg/dL (8.4-10.2) L 03/11/19 05:10 Phosphorus 4.50 mg/dL (2.5-4.5) D 03/08/19 05:25 Magnesium 1.90 mg/dL (1.7-2.3) 03/09/19 04:52 Iron 11 ug/dL (37-170) L 03/10/19 04:31 TIBC 201 mcg/dL (250-450) L 03/10/19 04:31 87.9 ng/mL (13.0-400.0) 03/10/19 04:31 0.20 mg/dL (0.1-1.2) 03/09/19 04:52 AST 12 units/L (5-40) 03/09/19 04:52 ALT < 5 units/L (7-56) L 03/09/19 04:52 65 units/L (35-129) 03/09/19 04:52 5.5 g/dL (6.3-8.2) L 03/09/19 04:52 2.2 g/dL (3.9-5) L 03/09/19 04:52 0.7 % 03/09/19 04:52 Carcinoembryonic Ag 14.1 ng/mL (0.0-2.4) H 03/06/19 05:46 Vitamin B12 1622 pg/mL (211-911) H 03/10/19 04:31 8.04 ng/mL (7.3-26.0) 03/10/19 04:31 Yellow (Yellow) 03/04/19 13:13 Cloudy (Clear) 03/04/19 13:13 5.0 (5.0-7.0) 03/04/19 13:13 Ur Specific [place] 1.018 (1.003-1.030) 03/04/19 13:13 30 mg/dl mg/dL (Negative) 03/04/19 13:13 Neg mg/dL (Negative) 03/04/19 13:13 Tr mg/dL (Negative) 03/04/19 13:13 Neg (Negative) 03/04/19 13:13 Neg (Negative) 03/04/19 13:13 Neg (Negative) 03/04/19 13:13 < 2.0 mg/dL (<2.0) 03/04/19 13:13 Ur Leukocyte Esterase Tr (Negative) 03/04/19 13:13 5.0 /HPF (0.0-6.0) 03/04/19 13:13 4.0 /HPF (0.0-6.0) 03/04/19 13:13 U Epithel Cells (Auto) 8.0 /HPF (0-13.0) 03/04/19 13:13 1+ /HPF (Negative) 03/04/19 13:13 Few /HPF 03/04/19 13:13 Blood Type O NEGATIVE 03/08/19 14:25 Antibody Screen Negative 03/08/19 14:25 [place] Antibody Screen Negative 03/04/19 15:56 Crossmatch See Detail 03/04/19 15:56 Active Medications - Current Medications Current Medications: Generic Name Dose Route Start Last Admin Trade Name Freq PRN Reason Stop Dose Admin Acetaminophen/Hydrocodone Bitart 2 each 03/08/19 17:17 03/12/19 14:09 [place] 5/325 PO 2 each Q6H PRN Administration Pain, Moderate (4-6) Albuterol 2.5 mg 03/04/19 15:40 Proventil IH Q3HRT PRN Shortness Of Breath Heparin Sodium (Porcine) 5,000 unit 03/04/19 22:00 03/12/19 10:42 Heparin SUB-Q 5,000 unit Q12HR AUDREY Administration Hydralazine HCl 10 mg 03/08/19 11:10 Apresoline IV Q4HR PRN Hypertension Levofloxacin/Dextrose 500 mg in 100 mls @ 100 mls/hr 03/06/19 10:00 03/12/19 10:42 Levaquin 500mg/100ml IV 03/16/19 09:59 100 mls/hr Q24HR AUDREY Administration Metronidazole 500 mg in 100 mls @ 100 mls/hr 03/04/19 22:00 03/12/19 14:09 Flagyl 500 Mg/100 Ml IV 100 mls/hr Q8HR AUDREY Administration Protocol Potassium Chloride/Sodium Chloride 40 meq in 1,000 mls @ 100 mls/hr 03/08/19 12:00 Ns/Kcl 40meq IV DIRECT AUDREY Lactated Ringer's 1,000 mls @ 75 mls/hr 03/08/19 15:00 03/12/19 10:43 Lactated Ringers IV 75 mls/hr DIRECT AUDREY Administration Lorazepam 1 mg 03/08/19 11:10 03/12/19 14:09 Ativan IV 1 mg Q4H PRN Administration Agitation Morphine Sulfate 2 mg 03/07/19 17:58 03/11/19 21:02 Morphine IV 2 mg Q4H PRN Administration Pain, Moderate (4-6) Ondansetron HCl 4 mg 03/08/19 15:00 Zofran IV ONCE PRN Nausea And Vomiting Sodium Chloride 10 ml 03/04/19 22:00 03/12/19 10:43 Sodium Chloride Flush Syringe 10 Ml IV 10 ml BID AUDREY Administration Sodium Chloride 10 ml 03/04/19 15:40 03/07/19 05:33 Sodium Chloride Flush Syringe 10 Ml IV 10 ml PRN PRN Administration LINE FLUSH Nutrition/Malnutrition Assess - Dietary Evaluation Nutrition/Malnutrition Findings: Nutrition Notes Start: 03/05/19 13:19 Freq: Status: Active Protocol: Document 06/08/19 16:34 RM (Rec: 03/10/19 16:40 RM [id number]) Nutrition Notes Initial or Follow up Reassessment Current Diagnosis Acute Kidney Injury,Sepsis, Hypertension,Small Bowel Obstruction Other Pertinent Diagnosis Surgical abdominal wound Current Diet [facility] soft Labs/Tests Reviewed Pertinent Medications Reviewed Height 5 ft 7 in Weight 59.2 kg [place] Body Weight (kg) 61.36 BMI 20.4 Subjective/Other Information Pt stated that her appetite is improving and that she eats 1 /3 of her meals. Percent of energy/protein needs met: 47%/47% Burn Absent Trauma Absent #1 Nutrition Diagnosis Inadequate oral intake Diagnosis Progress(for reassessment Continues documentation) Is patient on ventilator? No Is Patient Ambulatory and/or Out of Bed Yes REE-([facility]-ambulatory/OOB) [ [id number] [id number]] Calculation Used for Recommendations [facility] Additional Notes Protein needs are 71-89g (1.2- 1.5g/kg) Fluid needs are 1ml/kcal Nutrition Intervention Change Diet Order: Continue current Add Supplement/Snack (indicate name/kcal Ensure Enlive [place] 1 /protein ) daily Provides kCal: 350 Provides Protein (gm) 20 Goal #1 Meet at least 75% of calorie and protein needs via PO and ONS intakes Anticipated Discharge Needs: [facility] soft Follow-Up By: 03/14/19 Additional Comments Follow for PO and ONS intakes
[2019-03-13] MEDS: FLAGYL 500 MG/100 ML 500 MG/100 ML BAG IV SCH ×3 (05:29→21:20)
--- NOTE | 2019-03-13 08:05 | Hem/Onc Progress Note ---
Assessment and Plan # colon cancer with mass in the ascending colon and based on surgical notes metastatic process in the abdomen. The patient has a diverting ileostomy. the disease is advanced stage 4 with mets in the abdomen, chemotherapy will be the first line. # Tumor markers elevated CEA # Anemia, MCV low, likely secondary to iron deficiency. # Electrolyte issues. # Creatinine better. # Social issues, the patient lives with friends. I will follow the patient during inpatient stay. 03/13 d/w pt that referal to sx for colon sx an option - but due to her age - chemo - immunotherapy preferred path - report - + for colon ca CEA 50s low iron - IV iron trial pt has social issues - housing etc - OP f/u for chemo - Patient Problems (1) Colonic mass Current Visit: Yes Status: Acute Subjective Date of service: 03/13/19 Principal diagnosis: colon mass Interval history: feeling better - eating Objective - Constitutional Vitals: Last Vital Signs Temp 98.5 F 03/13/19 07:22 Pulse 95 H 03/13/19 07:22 Resp 20 03/13/19 07:22 BP 125/65 03/13/19 07:22 Pulse Ox 96 03/13/19 07:22 Pain Intensity (0-10): 1/10 (post op) General appearance: no acute distress Performance status: 3-limited selfcare - EENT Eyes: EOM intact ENT: hearing intact Lymph node exam: negative cervical - Neck Neck: normal ROM - Respiratory Respiratory effort: Positive: normal Respiratory: bilateral: CTA (anteriorly) - Cardiovascular Heart Sounds: Present: S1 & S2 Extremities: normal temperature - Gastrointestinal General gastrointestinal: Present: soft, other (stomy+) Rectal Exam: deferred - Genitourinary Female genitourinary: Present: deferred - Integumentary Integumentary: warm - Musculoskeletal Musculoskeletal: generalized weakness - Neurologic Neurologic: moves all extremities - Labs Lab Results: Laboratory Results - last 24 hr 03/10/19 04:31 CA 125 Antigen 96 H Medications & Allergies - Medications Allergies/Adverse Reactions: Allergies Penicillins Allergy (Verified 03/04/19 08:51) Itching Home Medications: Home Medications Medication Instructions Recorded Confirmed Last Taken Type ALBUTEROL Inhaler (OR & NICU) 2 puff IH QID PRN #1 inhalation 11/24/18 03/04/19 Unknown Rx [ProAir HFA Inhaler] Azithromycin [Zithromax Z-LONNY] 250 mg PO DAILY #6 tablet 11/24/18 03/04/19 Unknown Rx predniSONE [Deltasone] 20 mg PO QDAY #5 tab 11/24/18 03/04/19 Unknown Rx Amitriptyline 10 mg PO HS 03/08/19 03/08/19 Unknown History Chlorthalidone 25 mg PO QDAY 03/08/19 03/08/19 Unknown History Mirtazapine 45 mg PO HS 03/08/19 03/08/19 Unknown History RisperiDONE 1 mg HS 03/08/19 03/08/19 03/03/19 History amLODIPine 10 mg PO QDAY 03/08/19 03/08/19 Unknown History Active Medications: Generic Name Dose Route Start Last Admin Trade Name Freq PRN Reason Stop Dose Admin Acetaminophen/Hydrocodone Bitart 2 each 03/08/19 17:17 03/12/19 20:21 [place] 5/325 PO 2 each Q6H PRN Administration Pain, Moderate (4-6) Albuterol 2.5 mg 03/04/19 15:40 Proventil IH Q3HRT PRN Shortness Of Breath Heparin Sodium (Porcine) 5,000 unit 03/04/19 22:00 03/12/19 22:31 Heparin SUB-Q 5,000 unit Q12HR AUDREY Administration Hydralazine HCl 10 mg 03/08/19 11:10 Apresoline IV Q4HR PRN Hypertension Levofloxacin/Dextrose 500 mg in 100 mls @ 100 mls/hr 03/06/19 10:00 03/12/19 22:37 Levaquin 500mg/100ml IV 03/16/19 09:59 Infused Q24HR AUDREY Infusion Metronidazole 500 mg in 100 mls @ 100 mls/hr 03/04/19 22:00 03/13/19 07:25 Flagyl 500 Mg/100 Ml IV Infused Q8HR AUDREY Infusion Protocol Potassium Chloride/Sodium Chloride 40 meq in 1,000 mls @ 100 mls/hr 03/08/19 12:00 Ns/Kcl 40meq IV DIRECT AUDREY Lactated Ringer's 1,000 mls @ 75 mls/hr 03/08/19 15:00 03/12/19 22:51 Lactated Ringers IV 75 mls/hr DIRECT AUDREY Administration Lorazepam 1 mg 03/08/19 11:10 03/12/19 22:44 Ativan IV 1 mg Q4H PRN Administration Agitation Morphine Sulfate 2 mg 03/07/19 17:58 03/11/19 21:02 Morphine IV 2 mg Q4H PRN Administration Pain, Moderate (4-6) Ondansetron HCl 4 mg 03/08/19 15:00 Zofran IV ONCE PRN Nausea And Vomiting Sodium Chloride 10 ml 03/04/19 22:00 03/12/19 22:37 Sodium Chloride Flush Syringe 10 Ml IV 10 ml BID AUDREY Administration Sodium Chloride 10 ml 03/04/19 15:40 03/07/19 05:33 Sodium Chloride Flush Syringe 10 Ml IV 10 ml PRN PRN Administration LINE FLUSH
[2019-03-13 09:04] LABS: BUN/Creatinine Ratio 13; Blood Urea Nitrogen 9 mg/dL (7-17); Calcium 8.8 mg/dL (8.4-10.2); Hemolysis Index 2
[2019-03-13 09:11] LABS: Hematocrit 28.2 % (30.3-42.9); Hemoglobin 9.3 gm/dl (10.1-14.3); Mean Corpuscular HGB Conc 33 % (30-34); Mean Corpuscular Volume 70 fl (79-97); Platelet Count 777 K/mm3 (140-440); Red Blood Count 4.02 M/mm3 (3.65-5.03)
[2019-03-13 09:15] LABS: Red Cell Distribution Width 25.1 % (13.2-15.2)
--- NOTE | 2019-03-13 09:30 | Progress Note ---
Assessment and Plan Assessment and plan: 63-year-old female patient admitted through emergency room with nausea vomiting generalized weakness, initiated workup is consistent with anemia, small bowel obstruction Patient received 2 units of PRBC, surgery evaluated the patient. Possible colonic mass suspicion for malignancy, patient stabilized Underwent exploratory laparotomy, diverting loop ileostomy, omental biopsies.Large firm mass right lower quadrant, presumed malignancy Patient was evaluated by oncology, pending pathology report , metastatic colon cancer consider different treatment plans --Possible metastases colon cancer- Metastatic Moderately Differentiated adenocarcinoma consistent with colorectal primary Surgery, oncology following, pathology report of omental biopsy noted as above --Small bowel obstruction /Status post diverting ileostomy; Expl Lap:large, firm mass in RLQ involving presumed malignancy, large bowel and small bowel. multiple implants in mesentery, omentum, peritoneum, liver, iliac LNs. s/p omental biopsies x 2, diverting loop ileostomy creation. Continue supportive care, follow histopathology Oncology evaluation noted appreciated --CT abdomen and pelvis/abdominal mass CT abdomen and pelvis findings possible mass in the ascending colon. --Hypomagnesemia;Hypokalemia/Hypophosphatemia: corrected , monitor electrolytes --Anemia: Received 2 units PRBC, hemoglobin level improved -- Sepsis/leukocytosis Sepsis Protocol: IV ABx therapy Levaquin and Flagyl, IVF resuscitation therapy, lactate levels within normal limits, follow cultures --ARF (acute renal failure) with tubular necrosis Resolved , avoid nephrotoxins , IV fluids needed --Severe malnutrition/hypoalbuminemia Due to her underlying disease process, nutrition consult nutrition supplements when able to take oral --DVT prophylaxis SCD to BLE while in bed. Prophylactic heparin. Plan of care reviewed with the patient and her nurse Consults and recommendations noted and appreciated Disposition; follow biopsy report, follow oncology and surgical recommendations Pending placement to SNF/rehabilitation History Interval history: Patient seen and examined, reports some generalized pain 2/5, no acute distress. wound dressing going on at the time of my visit Hospitalist Physical - Physical exam Narrative exam: VITAL SIGNS: Reviewed. GENERAL: The patient appeared cachectic, uncomfortable, Vital signs as documented. HEAD: No signs of head trauma. EYES: Pupils are equal. Extraocular motions intact. EARS: Hearing grossly intact. MOUTH: Oropharynx is normal. NECK: No adenopathy, no JVD. CHEST: Chest with diminished breath sounds bilaterally. No wheezes, rales, or rhonchi. CARDIAC: Regular rate and rhythm. S1 and S2, without murmurs, gallops, or rubs. VASCULAR: No Edema. Peripheral pulses normal and equal in all extremities. ABDOMEN: Soft, non tender and non distended. dressing in place, ileostomy noted, high output, No rebound or guarding, and no masses palpated. Bowel Sounds normal. MUSCULOSKELETAL: Good range of motion of all major joints. Extremities without clubbing, cyanosis or edema. NEUROLOGIC EXAM: Alert and oriented x 3 No focal sensory or strength deficits. Speech normal. Follows commands. PSYCHIATRIC: Mood normal. SKIN: abdominal wound with dressing. - Constitutional Vitals: Temp Pulse Resp BP Pulse Ox 98.5 F 95 H 20 125/65 96 03/13/19 07:22 03/13/19 07:22 03/13/19 07:22 03/13/19 07:22 03/13/19 07:22 General appearance: Present: no acute distress, cachectic, disheveled Results - Labs CBC & Chem 7: 03/14/19 05:06 03/14/19 05:06 Labs: Laboratory Last Values WBC 23.5 K/mm3 (4.5-11.0) H 03/13/19 08:19 RBC 4.02 M/mm3 (3.65-5.03) 03/13/19 08:19 Hgb 9.3 gm/dl (10.1-14.3) L 03/13/19 08:19 Hct 28.2 % (30.3-42.9) L 03/13/19 08:19 MCV 70 fl (79-97) L 03/13/19 08:19 MCH 23 pg (28-32) L 03/13/19 08:19 MCHC 33 % (30-34) 03/13/19 08:19 RDW 25.1 % (13.2-15.2) H 03/13/19 08:19 Plt Count 777 K/mm3 (140-440) H 03/13/19 08:19 Lymph % (Auto) 13.1 % (13.4-35.0) L 03/11/19 05:10 Gaines % (Auto) 7.2 % (0.0-7.3) 03/11/19 05:10 Eos % (Auto) 0.9 % (0.0-4.3) 03/11/19 05:10 Baso % (Auto) 0.4 % (0.0-1.8) 03/11/19 05:10 Lymph # 2.5 K/mm3 (1.2-5.4) 03/11/19 05:10 Gaines # 1.4 K/mm3 (0.0-0.8) H 03/11/19 05:10 Eos # 0.2 K/mm3 (0.0-0.4) 03/11/19 05:10 Baso # 0.1 K/mm3 (0.0-0.1) 03/11/19 05:10 Add Manual Diff Complete 03/12/19 04:18 Total Counted 100 03/12/19 04:18 Seg Neutrophils % 78.4 % (40.0-70.0) H 03/11/19 05:10 Seg Neuts % (Manual) 73.0 % (40.0-70.0) H 03/12/19 04:18 0 % 03/12/19 04:18 15.0 % (13.4-35.0) 03/12/19 04:18 Reactive Lymphs % (Man) 0 % 03/12/19 04:18 9.0 % (0.0-7.3) H 03/12/19 04:18 3.0 % (0.0-4.3) 03/12/19 04:18 0 % (0.0-1.8) 03/12/19 04:18 0 % 03/12/19 04:18 0 % 03/12/19 04:18 0 % 03/12/19 04:18 0 % 03/12/19 04:18 Nucleated RBC % Not Reportable 03/12/19 04:18 Seg Neutrophils # 15.0 K/mm3 (1.8-7.7) H 03/11/19 05:10 Seg Neutrophils # Man 10.5 K/mm3 (1.8-7.7) H 03/12/19 04:18 Band Neutrophils # 0.0 K/mm3 03/12/19 04:18 2.2 K/mm3 (1.2-5.4) 03/12/19 04:18 Abs React Lymphs (Man) 0.0 K/mm3 03/12/19 04:18 1.3 K/mm3 (0.0-0.8) H 03/12/19 04:18 0.4 K/mm3 (0.0-0.4) 03/12/19 04:18 0.0 K/mm3 (0.0-0.1) 03/12/19 04:18 0.0 K/mm3 03/12/19 04:18 0.0 K/mm3 03/12/19 04:18 0.0 K/mm3 03/12/19 04:18 Blast Cells # 0.0 K/mm3 03/12/19 04:18 WBC Morphology Not Reportable 03/12/19 04:18 Hypersegmented Neuts Not Reportable 03/12/19 04:18 Hyposegmented Neuts Not Reportable 03/12/19 04:18 Hypogranular Neuts Not Reportable 03/12/19 04:18 Not Reportable 03/12/19 04:18 Not Reportable 03/12/19 04:18 Not Reportable 03/12/19 04:18 Not Reportable 03/12/19 04:18 Not Reportable 03/12/19 04:18 Not Reportable 03/12/19 04:18 Not Reportable 03/12/19 04:18 Not Reportable 03/12/19 04:18 Plt Clumps, EDTA Not Reportable 03/12/19 04:18 Not Reportable 03/12/19 04:18 Not Reportable 03/12/19 04:18 Not Reportable 03/12/19 04:18 Plt Morphology Comment Not Reportable 03/12/19 04:18 RBC Morphology Not Reportable 03/12/19 04:18 Dimorphic RBCs Not Reportable 03/12/19 04:18 Not Reportable 03/12/19 04:18 1+ 03/12/19 04:18 Not Reportable 03/12/19 04:18 2+ 03/12/19 04:18 1+ 03/12/19 04:18 Not Reportable 03/12/19 04:18 Not Reportable 03/12/19 04:18 Not Reportable 03/12/19 04:18 Not Reportable 03/12/19 04:18 Not Reportable 03/12/19 04:18 Not Reportable 03/12/19 04:18 Not Reportable 03/12/19 04:18 Not Reportable 03/12/19 04:18 Not Reportable 03/12/19 04:18 Not Reportable 03/12/19 04:18 Not Reportable 03/12/19 04:18 Not Reportable 03/12/19 04:18 Not Reportable 03/12/19 04:18 Not Reportable 03/12/19 04:18 Acanthocytes (Spur) Not Reportable 03/12/19 04:18 Rouleaux Not Reportable 03/12/19 04:18 Not Reportable 03/12/19 04:18 Not Reportable 03/12/19 04:18 Not Reportable 03/12/19 04:18 Not Reportable 03/12/19 04:18 Hem Pathologist Commnt No 03/12/19 04:18 Sodium 134 mmol/L (137-145) L 03/13/19 08:19 Potassium 3.6 mmol/L (3.6-5.0) 03/13/19 08:19 Chloride 97.4 mmol/L (98-107) L 03/13/19 08:19 Carbon Dioxide 25 mmol/L (22-30) 03/13/19 08:19 15 mmol/L 03/13/19 08:19 BUN 9 mg/dL (7-17) 03/13/19 08:19 0.7 mg/dL (0.7-1.2) 03/13/19 08:19 Estimated GFR > 60 ml/min 03/13/19 08:19 13 % 03/13/19 08:19 Glucose 123 mg/dL (65-100) H 03/13/19 08:19 Lactic Acid 0.80 mmol/L (0.7-2.0) 03/05/19 05:23 Calcium 8.8 mg/dL (8.4-10.2) 03/13/19 08:19 Phosphorus 2.90 mg/dL (2.5-4.5) 03/13/19 08:19 Magnesium 1.20 mg/dL (1.7-2.3) L 03/13/19 08:19 Iron 11 ug/dL (37-170) L 03/10/19 04:31 TIBC 201 mcg/dL (250-450) L 03/10/19 04:31 87.9 ng/mL (13.0-400.0) 03/10/19 04:31 0.20 mg/dL (0.1-1.2) 03/09/19 04:52 AST 12 units/L (5-40) 03/09/19 04:52 ALT < 5 units/L (7-56) L 03/09/19 04:52 65 units/L (35-129) 03/09/19 04:52 5.5 g/dL (6.3-8.2) L 03/09/19 04:52 2.2 g/dL (3.9-5) L 03/09/19 04:52 0.7 % 03/09/19 04:52 Carcinoembryonic Ag 14.1 ng/mL (0.0-2.4) H 03/06/19 05:46 96 U/mL (<35) H 03/10/19 04:31 Vitamin B12 1622 pg/mL (211-911) H 03/10/19 04:31 8.04 ng/mL (7.3-26.0) 03/10/19 04:31 Yellow (Yellow) 03/04/19 13:13 Cloudy (Clear) 03/04/19 13:13 5.0 (5.0-7.0) 03/04/19 13:13 Ur Specific Hydro 1.018 (1.003-1.030) 03/04/19 13:13 30 mg/dl mg/dL (Negative) 03/04/19 13:13 Neg mg/dL (Negative) 03/04/19 13:13 Tr mg/dL (Negative) 03/04/19 13:13 Neg (Negative) 03/04/19 13:13 Neg (Negative) 03/04/19 13:13 Neg (Negative) 03/04/19 13:13 < 2.0 mg/dL (<2.0) 03/04/19 13:13 Ur Leukocyte Esterase Tr (Negative) 03/04/19 13:13 5.0 /HPF (0.0-6.0) 03/04/19 13:13 4.0 /HPF (0.0-6.0) 03/04/19 13:13 U Epithel Cells (Auto) 8.0 /HPF (0-13.0) 03/04/19 13:13 1+ /HPF (Negative) 03/04/19 13:13 Few /HPF 03/04/19 13:13 Blood Type O NEGATIVE 03/08/19 14:25 Antibody Screen Negative 03/08/19 14:25 [place] Antibody Screen Negative 03/04/19 15:56 Crossmatch See Detail 03/04/19 15:56 Active Medications - Current Medications Current Medications: Generic Name Dose Route Start Last Admin Trade Name Freq PRN Reason Stop Dose Admin Acetaminophen/Hydrocodone Bitart 2 each 03/08/19 17:17 03/12/19 20:21 [place] 5/325 PO 2 each Q6H PRN Administration Pain, Moderate (4-6) Albuterol 2.5 mg 03/04/19 15:40 Proventil IH Q3HRT PRN Shortness Of Breath Heparin Sodium (Porcine) 5,000 unit 03/04/19 22:00 03/12/19 22:31 Heparin SUB-Q 5,000 unit Q12HR AUDREY Administration Hydralazine HCl 10 mg 03/08/19 11:10 Apresoline IV Q4HR PRN Hypertension Levofloxacin/Dextrose 500 mg in 100 mls @ 100 mls/hr 03/06/19 10:00 03/12/19 22:37 Levaquin 500mg/100ml IV 03/16/19 09:59 Infused Q24HR AUDREY Infusion Metronidazole 500 mg in 100 mls @ 100 mls/hr 03/04/19 22:00 03/13/19 07:25 Flagyl 500 Mg/100 Ml IV Infused Q8HR AUDREY Infusion Protocol Potassium Chloride/Sodium Chloride 40 meq in 1,000 mls @ 100 mls/hr 03/08/19 12:00 Ns/Kcl 40meq IV DIRECT AUDREY Lactated Ringer's 1,000 mls @ 75 mls/hr 03/08/19 15:00 03/12/19 22:51 Lactated Ringers IV 75 mls/hr DIRECT AUDREY Administration Magnesium Sulfate 1 gm/ Sodium 52 mls @ 52 mls/hr 03/13/19 09:25 Chloride IV 03/13/19 10:24 ONCE ONE Lorazepam 1 mg 03/08/19 11:10 03/12/19 22:44 Ativan IV 1 mg Q4H PRN Administration Agitation Morphine Sulfate 2 mg 03/07/19 17:58 06/09/19 21:02 Morphine IV 2 mg Q4H PRN Administration Pain, Moderate (4-6) Ondansetron HCl 4 mg 03/08/19 15:00 Zofran IV ONCE PRN Nausea And Vomiting Sodium Chloride 10 ml 03/04/19 22:00 03/12/19 22:37 Sodium Chloride Flush Syringe 10 Ml IV 10 ml BID AUDREY Administration Sodium Chloride 10 ml 03/04/19 15:40 03/07/19 05:33 Sodium Chloride Flush Syringe 10 Ml IV 10 ml PRN PRN Administration LINE FLUSH Nutrition/Malnutrition Assess - Dietary Evaluation Nutrition/Malnutrition Findings: Nutrition Notes Start: 03/05/19 13:19 Freq: Status: Active Protocol: Document 03/10/19 16:34 RM (Rec: 03/10/19 16:40 RM [id number]) Nutrition Notes Initial or Follow up Reassessment Current Diagnosis Acute Kidney Injury,Sepsis, Hypertension,Small Bowel Obstruction Other Pertinent Diagnosis Surgical abdominal wound Current Diet [facility] soft Labs/Tests Reviewed Pertinent Medications Reviewed Height 5 ft 7 in Weight 59.2 kg [place] Body Weight (kg) 61.36 BMI 20.4 Subjective/Other Information Pt stated that her appetite is improving and that she eats 1 /3 of her meals. Percent of energy/protein needs met: 47%/47% Burn Absent Trauma Absent #1 Nutrition Diagnosis Inadequate oral intake Diagnosis Progress(for reassessment Continues documentation) Is patient on ventilator? No Is Patient Ambulatory and/or Out of Bed Yes REE-([facility]-ambulatory/OOB) [ [id number] [id number]] Calculation Used for Recommendations [facility] Additional Notes Protein needs are 71-89g (1.2- 1.5g/kg) Fluid needs are 1ml/kcal Nutrition Intervention Change Diet Order: Continue current Add Supplement/Snack (indicate name/kcal Ensure Enlive [place] 1 /protein ) daily Provides kCal: 350 Provides Protein (gm) 20 Goal #1 Meet at least 75% of calorie and protein needs via PO and ONS intakes Anticipated Discharge Needs: [facility] soft Follow-Up By: 03/14/19 Additional Comments Follow for PO and ONS intakes
[2019-03-13] MEDS: NORCO 5/325 PO PRN ×2 (09:36→19:29)
[2019-03-13] MEDS: LEVAQUIN 500MG/100ML 500 MG/100 ML BAG IV SCH (09:37)
[2019-03-13] MEDS: HEPARIN SUB-Q SCH ×2 (09:39→21:20)
[2019-03-13] MEDS: SODIUM CHLORIDE FLUSH SYRINGE 10 ML IV SCH ×2 (09:42→21:20)
[2019-03-13] MEDS ORDERED: MAGNESIUM SULFATE 1 GM in NACL 0.9% 50 ML IV ONE (11:00)
[2019-03-13 14:30] LABS: Basophils % (Manual) 0 % (0.0-1.8); Eosinophils % (Manual) 0 % (0.0-4.3); Total Cells Counted 100
[2019-03-13 14:32] LABS: Anisocytosis 2+; Hypochromasia 1+
[2019-03-13 14:33] LABS: Platelet Estimate Consistent w Auto; Target Cells Few
[2019-03-13] MEDS: MORPHINE IV PRN (15:33)
[2019-03-13] MEDS: ATIVAN IV PRN (21:20)
[2019-03-14] MEDS: LACTATED RINGERS 1,000 ML IV SCH ×2 (04:16→14:38)
[2019-03-14] MEDS: FLAGYL 500 MG/100 ML 500 MG/100 ML BAG IV SCH ×3 (05:33→21:10)
[2019-03-14 06:01] LABS: Hematocrit 26.2 % (30.3-42.9); Hemoglobin 8.8 gm/dl (10.1-14.3); Mean Corpuscular HGB Conc 34 % (30-34); Platelet Count 804 K/mm3 (140-440); Red Blood Count 3.76 M/mm3 (3.65-5.03)
[2019-03-14 06:13] LABS: BUN/Creatinine Ratio 13; Blood Urea Nitrogen 9 mg/dL (7-17); Calcium 8.6 mg/dL (8.4-10.2); Hemolysis Index 10
[2019-03-14 06:18] LABS: Mean Corpuscular Volume 70 fl (79-97); Red Cell Distribution Width 25.2 % (13.2-15.2)
[2019-03-14] MEDS ORDERED: FERRLECIT 125 MG in NACL 0.9% 100 ML IV ONE (07:39)
--- NOTE | 2019-03-14 07:43 | Hem/Onc Progress Note ---
Assessment and Plan # colon cancer with mass in the ascending colon and based on surgical notes metastatic process in the abdomen. The patient has a diverting ileostomy. the disease is advanced stage 4 with mets in the abdomen, chemotherapy will be the first line. # Tumor markers elevated CEA # Anemia, MCV low, likely secondary to iron deficiency. # Electrolyte issues. # Creatinine better. # Social issues, the patient lives with friends. I will follow the patient during inpatient stay. 03/14 d/w pt that referal to sx for colon sx an option - but due to her age - chemo - immunotherapy preferred path - report - + for colon ca CEA 50s low iron - IV iron trial pt has social issues - housing etc - OP f/u for chemo high plt - likely reactive - IV iron trial d/w dr hawley - Patient Problems (1) Colonic mass Current Visit: Yes Status: Acute Subjective Date of service: 03/14/19 Principal diagnosis: colon ca Interval history: eating Objective - Constitutional Vitals: Last Vital Signs Temp 98.0 F 03/14/19 06:57 Pulse 97 H 03/14/19 06:57 Resp 18 03/14/19 06:57 BP 146/80 03/14/19 06:57 Pulse Ox 97 03/14/19 06:57 Pain Intensity (0-10): 1/10 (abdo) General appearance: mild distress (abdo) Performance status: 3-limited selfcare - EENT Eyes: EOM intact ENT: hearing intact Lymph node exam: negative cervical - Neck Neck: normal ROM - Respiratory Respiratory effort: Positive: normal Respiratory: bilateral: CTA (anteriorly) - Cardiovascular Heart Sounds: Present: S1 & S2 Extremities: normal temperature - Gastrointestinal General gastrointestinal: Present: soft, other (stomy) Rectal Exam: deferred - Genitourinary Female genitourinary: Present: deferred - Integumentary Integumentary: warm - Musculoskeletal Musculoskeletal: generalized weakness - Neurologic Neurologic: moves all extremities - Labs Lab Results: Laboratory Results - last 24 hr 03/10/19 03/13/19 03/13/19 04:31 08:19 08:19 WBC 23.5 H RBC 4.02 Hgb 9.3 L Hct 28.2 L MCV 70 L MCH 23 L MCHC 33 RDW 25.1 H Plt Count 777 H Add Manual Diff Complete Total Counted 100 Seg Neuts % (Manual) 95.0 H Band Neutrophils % 0 Lymphocytes % (Manual) 4.0 L Reactive Lymphs % (Man) 0 Monocytes % (Manual) 1.0 Eosinophils % (Manual) 0 Basophils % (Manual) 0 Metamyelocytes % 0 Myelocytes % 0 Promyelocytes % 0 Blast Cells % 0 Nucleated RBC % Not Reportable Seg Neutrophils # Man 22.3 H Band Neutrophils # 0.0 Lymphocytes # (Manual) 0.9 L Abs React Lymphs (Man) 0.0 Monocytes # (Manual) 0.2 Eosinophils # (Manual) 0.0 Basophils # (Manual) 0.0 Metamyelocytes # 0.0 Myelocytes # 0.0 Promyelocytes # 0.0 Blast Cells # 0.0 WBC Morphology Not Reportable Hypersegmented Neuts Not Reportable Hyposegmented Neuts Not Reportable Hypogranular Neuts Not Reportable Smudge Cells Not Reportable Toxic Granulation Not Reportable Toxic Vacuolation Not Reportable Dohle Bodies Not Reportable Pelger-Huet Anomaly Not Reportable Eliezer Rods Not Reportable Platelet Estimate Consistent w auto Clumped Platelets Not Reportable Plt Clumps, EDTA Not Reportable Large Platelets Not Reportable Giant Platelets Not Reportable Platelet Satelliting Not Reportable Plt Morphology Comment Not Reportable RBC Morphology Not Reportable Dimorphic RBCs Not Reportable Polychromasia Not Reportable Hypochromasia 1+ Poikilocytosis Not Reportable Anisocytosis 2+ Microcytosis Few Macrocytosis Not Reportable Spherocytes Not Reportable Pappenheimer Bodies Not Reportable Sickle Cells Not Reportable Target Cells Few Tear Drop Cells Not Reportable Ovalocytes Not Reportable Helmet Cells Not Reportable Ramírez-[place] Bodies Not Reportable [place] Rings Not Reportable Ralf Cells Not Reportable Bite Cells Not Reportable Crenated Cell Not Reportable Elliptocytes Not Reportable Acanthocytes (Spur) Rare Rouleaux Not Reportable Hemoglobin C Crystals Not Reportable Schistocytes Not Reportable Malaria parasites Not Reportable Brendan Bodies Not Reportable Hem Pathologist Commnt No Sodium 134 L Potassium 3.6 Chloride 97.4 L Carbon Dioxide 25 Anion Gap 15 BUN 9 Creatinine 0.7 Estimated GFR > 60 BUN/Creatinine Ratio 13 Glucose 123 H Calcium 8.8 Phosphorus 2.90 Magnesium 1.20 L Carcinoembryonic Ag 58.8 H 03/14/19 03/14/19 05:06 05:06 WBC 17.3 H RBC 3.76 Hgb 8.8 L Hct 26.2 L MCV 70 L MCH 24 L MCHC 34 RDW 25.2 H Plt Count 804 H Add Manual Diff Total Counted Seg Neuts % (Manual) Band Neutrophils % Lymphocytes % (Manual) Reactive Lymphs % (Man) Monocytes % (Manual) Eosinophils % (Manual) Basophils % (Manual) Metamyelocytes % Myelocytes % Promyelocytes % Blast Cells % Nucleated RBC % Seg Neutrophils # Man Band Neutrophils # Lymphocytes # (Manual) Abs React Lymphs (Man) Monocytes # (Manual) Eosinophils # (Manual) Basophils # (Manual) Metamyelocytes # Myelocytes # Promyelocytes # Blast Cells # WBC Morphology Hypersegmented Neuts Hyposegmented Neuts Hypogranular Neuts Smudge Cells Toxic Granulation Toxic Vacuolation Dohle Bodies Pelger-Huet Anomaly Eliezer Rods Platelet Estimate Clumped Platelets Plt Clumps, EDTA Large Platelets Giant Platelets Platelet Satelliting Plt Morphology Comment RBC Morphology Dimorphic RBCs Polychromasia Hypochromasia Poikilocytosis Anisocytosis Microcytosis Macrocytosis Spherocytes Pappenheimer Bodies Sickle Cells Target Cells Tear Drop Cells Ovalocytes Helmet Cells Ramírez-[place] Bodies [place] Rings [place] Cells Bite Cells Crenated Cell Elliptocytes Acanthocytes (Spur) Rouleaux Hemoglobin C Crystals Schistocytes Malaria parasites Brendan Bodies Hem Pathologist Commnt Sodium 138 Potassium 3.9 Chloride 100.3 Carbon Dioxide 25 Anion Gap 17 BUN 9 Creatinine 0.7 Estimated GFR > 60 BUN/Creatinine Ratio 13 Glucose 98 Calcium 8.6 Phosphorus Magnesium Carcinoembryonic Ag Medications & Allergies - Medications Allergies/Adverse Reactions: Allergies Penicillins Allergy (Verified 03/04/19 08:51) Itching Home Medications: Home Medications Medication Instructions Recorded Confirmed Last Taken Type ALBUTEROL Inhaler (OR & NICU) 2 puff IH QID PRN #1 inhalation 11/24/18 03/04/19 Unknown Rx [ProAir HFA Inhaler] Azithromycin [Zithromax Z-LONNY] 250 mg PO DAILY #6 tablet 11/24/18 03/04/19 Unknown Rx predniSONE [Deltasone] 20 mg PO QDAY #5 tab 11/24/18 03/04/19 Unknown Rx Amitriptyline 10 mg PO HS 03/08/19 03/08/19 Unknown History Chlorthalidone 25 mg PO QDAY 03/08/19 03/08/19 Unknown History Mirtazapine 45 mg PO HS 03/08/19 03/08/19 Unknown History RisperiDONE 1 mg HS 03/08/19 03/08/19 03/03/19 History amLODIPine 10 mg PO QDAY 03/08/19 03/08/19 Unknown History Active Medications: Generic Name Dose Route Start Last Admin Trade Name Freq PRN Reason Stop Dose Admin Acetaminophen/Hydrocodone Bitart 2 each 03/08/19 17:17 03/13/19 19:29 [place] 5/325 PO 2 each Q6H PRN Administration Pain, Moderate (4-6) Albuterol 2.5 mg 03/04/19 15:40 Proventil IH Q3HRT PRN Shortness Of Breath Heparin Sodium (Porcine) 5,000 unit 03/04/19 22:00 03/13/19 21:20 Heparin SUB-Q 5,000 unit Q12HR AUDREY Administration Hydralazine HCl 10 mg 03/08/19 11:10 Apresoline IV Q4HR PRN Hypertension Levofloxacin/Dextrose 500 mg in 100 mls @ 100 mls/hr 03/06/19 10:00 03/13/19 09:37 Levaquin 500mg/100ml IV 03/16/19 09:59 100 mls/hr Q24HR AUDREY Administration Metronidazole 500 mg in 100 mls @ 100 mls/hr 03/04/19 22:00 03/14/19 05:33 Flagyl 500 Mg/100 Ml IV 100 mls/hr Q8HR AUDREY Administration Protocol Lactated Ringer's 1,000 mls @ 75 mls/hr 03/08/19 15:00 03/14/19 04:16 Lactated Ringers IV 75 mls/hr DIRECT AUDREY Administration Ferric Sodium Gluconate 110 mls @ 100 mls/hr 03/14/19 07:39 Complex 125 mg/ Sodium IV 03/14/19 08:44 Chloride ONCE ONE Lorazepam 1 mg 03/08/19 11:10 03/13/19 21:20 Ativan IV 1 mg Q4H PRN Administration Agitation Morphine Sulfate 2 mg 03/07/19 17:58 03/13/19 15:33 Morphine IV 2 mg Q4H PRN Administration Pain, Moderate (4-6) Ondansetron HCl 4 mg 03/08/19 15:00 Zofran IV ONCE PRN Nausea And Vomiting Sodium Chloride 10 ml 03/04/19 22:00 03/13/19 21:20 Sodium Chloride Flush Syringe 10 Ml IV 10 ml BID AUDREY Administration Sodium Chloride 10 ml 03/04/19 15:40 03/07/19 05:33 Sodium Chloride Flush Syringe 10 Ml IV 10 ml PRN PRN Administration LINE FLUSH
[2019-03-14] MEDS: LEVAQUIN 500MG/100ML 500 MG/100 ML BAG IV SCH (09:45)
[2019-03-14] MEDS: SODIUM CHLORIDE FLUSH SYRINGE 10 ML IV SCH (10:00)
[2019-03-14] MEDS: MORPHINE IV PRN ×2 (14:18→18:30)
[2019-03-14] MEDS: ATIVAN IV PRN (14:19)
[2019-03-14] MEDS: HEPARIN SUB-Q SCH ×2 (14:20→21:09)
[2019-03-14] MEDS ORDERED: MAGNESIUM SULFATE 1 GM in NACL 0.9% 50 ML IV ONE (16:33)
--- NOTE | 2019-03-14 16:48 | Progress Note ---
Assessment and Plan Assessment and plan: 63-year-old female patient admitted through emergency room with nausea vomiting generalized weakness, initiated workup is consistent with anemia, small bowel obstruction Patient received 2 units of PRBC, surgery evaluated the patient. Possible colonic mass suspicion for malignancy, patient stabilized Underwent exploratory laparotomy, diverting loop ileostomy, omental biopsies.Large firm mass right lower quadrant, presumed malignancy Patient was evaluated by oncology, pending pathology report , metastatic colon cancer consider different treatment plans. CT abdomen and pelvis/abdominal mass CT abdomen and pelvis findings possible mass in the ascending colon. --Possible metastases colon cancer- Metastatic Moderately Differentiated adenocarcinoma consistent with colorectal primary Surgery, oncology following, pathology report of omental biopsy noted as above --Small bowel obstruction /Status post diverting ileostomy; Expl Lap:large, firm mass in RLQ involving presumed malignancy, large bowel and small bowel. multiple implants in mesentery, omentum, peritoneum, liver, iliac LNs. s/p omental biopsies x 2, diverting loop ileostomy creation. Continue supportive care, follow histopathology Oncology evaluation noted appreciated --Hypomagnesemia;Hypokalemia/Hypophosphatemia: corrected , monitor electrolytes Replace --Anemia: Received 2 units PRBC, hemoglobin level improved -- Sepsis/leukocytosis Sepsis Protocol: IV ABx therapy Levaquin and Flagyl, IVF resuscitation therapy, lactate levels within normal limits, No growth in cultures Monitor resolution of leukocytosis --ARF (acute renal failure) with tubular necrosis Resolved , avoid nephrotoxins , IV fluids needed --Severe malnutrition/hypoalbuminemia Due to her underlying disease process, nutrition consult nutrition supplements when able to take oral --DVT prophylaxis SCD to BLE while in bed. Prophylactic heparin. Plan of care reviewed with the patient and her nurse Consults and recommendations noted and appreciated Disposition; follow biopsy report, follow oncology and surgical recommendations Pending placement to SNF/rehabilitation Discharge Planning History Interval history: Patient seen and examined, ambulating with PT. Had complained of cramps on both legs earlier but improved Hospitalist Physical - Physical exam Narrative exam: VITAL SIGNS: Reviewed. GENERAL: The patient appeared cachectic, uncomfortable, Vital signs as documen alma. ambulating HEAD: No signs of head trauma. EYES: Pupils are equal. Extraocular motions intact. EARS: Hearing grossly intact. MOUTH: Oropharynx is normal. NECK: No adenopathy, no JVD. CHEST: Chest with diminished breath sounds bilaterally. No wheezes, rales, or rhonchi. CARDIAC: Regular rate and rhythm. S1 and S2, without murmurs, gallops, or rubs. VASCULAR: No Edema. Peripheral pulses normal and equal in all extremities. ABDOMEN: Soft, non tender and non distended. dressing in place, ileostomy noted, high output, No rebound or guarding, and no masses palpated. Bowel Sounds normal. MUSCULOSKELETAL: Good range of motion of all major joints. Extremities without clubbing, cyanosis or edema. NEUROLOGIC EXAM: Alert and oriented x 3 No focal sensory or strength deficits. Speech normal. Follows commands. PSYCHIATRIC: Mood normal. SKIN: abdominal wound with dressing. - Constitutional Vitals: Temp Pulse Resp BP Pulse Ox 97.3 F L 84 20 128/63 98 03/14/19 12:00 03/14/19 12:00 03/14/19 12:00 03/14/19 12:00 03/14/19 12:00 General appearance: Present: no acute distress, cachectic, disheveled Results - Labs CBC & Chem 7: 03/14/19 05:06 03/14/19 05:06 Labs: Laboratory Last Values WBC 17.3 K/mm3 (4.5-11.0) H 03/14/19 05:06 RBC 3.76 M/mm3 (3.65-5.03) 03/14/19 05:06 Hgb 8.8 gm/dl (10.1-14.3) L 03/14/19 05:06 Hct 26.2 % (30.3-42.9) L 03/14/19 05:06 MCV 70 fl (79-97) L 03/14/19 05:06 MCH 24 pg (28-32) L 03/14/19 05:06 MCHC 34 % (30-34) 03/14/19 05:06 RDW 25.2 % (13.2-15.2) H 03/14/19 05:06 Plt Count 804 K/mm3 (140-440) H 03/14/19 05:06 Lymph % (Auto) 13.1 % (13.4-35.0) L 03/11/19 05:10 [place] % (Auto) 7.2 % (0.0-7.3) 03/11/19 05:10 Eos % (Auto) 0.9 % (0.0-4.3) 03/11/19 05:10 Baso % (Auto) 0.4 % (0.0-1.8) 03/11/19 05:10 Lymph # 2.5 K/mm3 (1.2-5.4) 03/11/19 05:10 [place] # 1.4 K/mm3 (0.0-0.8) H 03/11/19 05:10 Eos # 0.2 K/mm3 (0.0-0.4) 03/11/19 05:10 Baso # 0.1 K/mm3 (0.0-0.1) 03/11/19 05:10 Add Manual Diff Complete 03/13/19 08:19 Total Counted 100 03/13/19 08:19 Seg Neutrophils % 78.4 % (40.0-70.0) H 03/11/19 05:10 Seg Neuts % (Manual) 95.0 % (40.0-70.0) H 03/13/19 08:19 0 % 03/13/19 08:19 4.0 % (13.4-35.0) L 03/13/19 08:19 Reactive Lymphs % (Man) 0 % 03/13/19 08:19 1.0 % (0.0-7.3) 03/13/19 08:19 0 % (0.0-4.3) 03/13/19 08:19 0 % (0.0-1.8) 03/13/19 08:19 0 % 03/13/19 08:19 0 % 03/13/19 08:19 0 % 03/13/19 08:19 0 % 03/13/19 08:19 Nucleated RBC % Not Reportable 03/13/19 08:19 Seg Neutrophils # 15.0 K/mm3 (1.8-7.7) H 03/11/19 05:10 Seg Neutrophils # Man 22.3 K/mm3 (1.8-7.7) H 03/13/19 08:19 Band Neutrophils # 0.0 K/mm3 03/13/19 08:19 0.9 K/mm3 (1.2-5.4) L 03/13/19 08:19 Abs React Lymphs (Man) 0.0 K/mm3 03/13/19 08:19 0.2 K/mm3 (0.0-0.8) 03/13/19 08:19 0.0 K/mm3 (0.0-0.4) 03/13/19 08:19 0.0 K/mm3 (0.0-0.1) 03/13/19 08:19 0.0 K/mm3 03/13/19 08:19 0.0 K/mm3 03/13/19 08:19 0.0 K/mm3 03/13/19 08:19 Blast Cells # 0.0 K/mm3 03/13/19 08:19 WBC Morphology Not Reportable 03/13/19 08:19 Hypersegmented Neuts Not Reportable 03/13/19 08:19 Hyposegmented Neuts Not Reportable 03/13/19 08:19 Hypogranular Neuts Not Reportable 03/13/19 08:19 Not Reportable 03/13/19 08:19 Not Reportable 03/13/19 08:19 Not Reportable 03/13/19 08:19 Not Reportable 03/13/19 08:19 Not Reportable 03/13/19 08:19 Not Reportable 03/13/19 08:19 Consistent w auto 03/13/19 08:19 Not Reportable 03/13/19 08:19 Plt Clumps, EDTA Not Reportable 03/13/19 08:19 Not Reportable 03/13/19 08:19 Not Reportable 03/13/19 08:19 Not Reportable 03/13/19 08:19 Plt Morphology Comment Not Reportable 03/13/19 08:19 RBC Morphology Not Reportable 03/13/19 08:19 Dimorphic RBCs Not Reportable 03/13/19 08:19 Not Reportable 03/13/19 08:19 1+ 03/13/19 08:19 Not Reportable 03/13/19 08:19 2+ 03/13/19 08:19 Few 03/13/19 08:19 Not Reportable 03/13/19 08:19 Not Reportable 03/13/19 08:19 Not Reportable 03/13/19 08:19 Not Reportable 03/13/19 08:19 Few 03/13/19 08:19 Not Reportable 03/13/19 08:19 Not Reportable 03/13/19 08:19 Not Reportable 03/13/19 08:19 Not Reportable 03/13/19 08:19 Not Reportable 03/13/19 08:19 Not Reportable 03/13/19 08:19 Not Reportable 03/13/19 08:19 Not Reportable 03/13/19 08:19 Not Reportable 03/13/19 08:19 Acanthocytes (Spur) Rare 03/13/19 08:19 Rouleaux Not Reportable 03/13/19 08:19 Not Reportable 03/13/19 08:19 Not Reportable 03/13/19 08:19 Not Reportable 03/13/19 08:19 Not Reportable 03/13/19 08:19 Hem Pathologist Commnt No 03/13/19 08:19 Sodium 138 mmol/L (137-145) 03/14/19 05:06 Potassium 3.9 mmol/L (3.6-5.0) 03/14/19 05:06 Chloride 100.3 mmol/L (98-107) 03/14/19 05:06 Carbon Dioxide 25 mmol/L (22-30) 03/14/19 05:06 17 mmol/L 03/14/19 05:06 BUN 9 mg/dL (7-17) 03/14/19 05:06 0.7 mg/dL (0.7-1.2) 03/14/19 05:06 Estimated GFR > 60 ml/min 03/14/19 05:06 13 % 03/14/19 05:06 Glucose 98 mg/dL (65-100) 03/14/19 05:06 Lactic Acid 0.80 mmol/L (0.7-2.0) 03/05/19 05:23 Calcium 8.6 mg/dL (8.4-10.2) 03/14/19 05:06 Phosphorus 2.90 mg/dL (2.5-4.5) 03/13/19 08:19 Magnesium 1.20 mg/dL (1.7-2.3) L 03/13/19 08:19 Iron 11 ug/dL (37-170) L 03/10/19 04:31 TIBC 201 mcg/dL (250-450) L 03/10/19 04:31 87.9 ng/mL (13.0-400.0) 03/10/19 04:31 0.20 mg/dL (0.1-1.2) 03/09/19 04:52 AST 12 units/L (5-40) 03/09/19 04:52 ALT < 5 units/L (7-56) L 03/09/19 04:52 65 units/L (35-129) 03/09/19 04:52 5.5 g/dL (6.3-8.2) L 03/09/19 04:52 2.2 g/dL (3.9-5) L 03/09/19 04:52 0.7 % 03/09/19 04:52 Carcinoembryonic Ag 58.8 ng/mL (0.0-2.4) H 03/10/19 04:31 96 U/mL (<35) H 03/10/19 04:31 Vitamin B12 1622 pg/mL (211-911) H 03/10/19 04:31 8.04 ng/mL (7.3-26.0) 03/10/19 04:31 Yellow (Yellow) 03/04/19 13:13 Cloudy (Clear) 03/04/19 13:13 5.0 (5.0-7.0) 03/04/19 13:13 Ur Specific [place] 1.018 (1.003-1.030) 03/04/19 13:13 30 mg/dl mg/dL (Negative) 03/04/19 13:13 Neg mg/dL (Negative) 03/04/19 13:13 Tr mg/dL (Negative) 03/04/19 13:13 Neg (Negative) 03/04/19 13:13 Neg (Negative) 03/04/19 13:13 Neg (Negative) 03/04/19 13:13 < 2.0 mg/dL (<2.0) 03/04/19 13:13 Ur Leukocyte Esterase Tr (Negative) 03/04/19 13:13 5.0 /HPF (0.0-6.0) 03/04/19 13:13 4.0 /HPF (0.0-6.0) 03/04/19 13:13 U Epithel Cells (Auto) 8.0 /HPF (0-13.0) 03/04/19 13:13 1+ /HPF (Negative) 03/04/19 13:13 Few /HPF 03/04/19 13:13 Blood Type O NEGATIVE 03/08/19 14:25 Antibody Screen Negative 03/08/19 14:25 [place] Antibody Screen Negative 03/04/19 15:56 Crossmatch See Detail 03/04/19 15:56 Active Medications - Current Medications Current Medications: Generic Name Dose Route Start Last Admin Trade Name Freq PRN Reason Stop Dose Admin Acetaminophen/Hydrocodone Bitart 2 each 03/08/19 17:17 03/13/19 19:29 [place] 5/325 PO 2 each Q6H PRN Administration Pain, Moderate (4-6) Albuterol 2.5 mg 03/04/19 15:40 Proventil IH Q3HRT PRN Shortness Of Breath Heparin Sodium (Porcine) 5,000 unit 03/04/19 22:00 03/14/19 14:20 Heparin SUB-Q 5,000 unit Q12HR AUDREY Administration Hydralazine HCl 10 mg 03/08/19 11:10 Apresoline IV Q4HR PRN Hypertension Levofloxacin/Dextrose 500 mg in 100 mls @ 100 mls/hr 03/06/19 10:00 03/14/19 09:45 Levaquin 500mg/100ml IV 03/16/19 09:59 100 mls/hr Q24HR AUDREY Administration Metronidazole 500 mg in 100 mls @ 100 mls/hr 03/04/19 22:00 03/14/19 14:27 Flagyl 500 Mg/100 Ml IV 100 mls/hr Q8HR AUDREY Administration Protocol Lactated Ringer's 1,000 mls @ 75 mls/hr 03/08/19 15:00 03/14/19 14:38 Lactated Ringers IV 75 mls/hr DIRECT AUDREY Administration Magnesium Sulfate 1 gm/ Sodium 52 mls @ 52 mls/hr 03/14/19 16:33 Chloride IV 03/14/19 17:32 ONCE ONE Lorazepam 1 mg 03/08/19 11:10 03/14/19 14:19 Ativan IV 1 mg Q4H PRN Administration Agitation Morphine Sulfate 2 mg 03/07/19 17:58 03/14/19 14:18 Morphine IV 2 mg Q4H PRN Administration Pain, Moderate (4-6) Ondansetron HCl 4 mg 03/08/19 15:00 Zofran IV ONCE PRN Nausea And Vomiting Sodium Chloride 10 ml 03/04/19 22:00 03/14/19 10:00 Sodium Chloride Flush Syringe 10 Ml IV Not Given BID AUDREY Sodium Chloride 10 ml 03/04/19 15:40 03/07/19 05:33 Sodium Chloride Flush Syringe 10 Ml IV 10 ml PRN PRN Administration LINE FLUSH Nutrition/Malnutrition Assess - Dietary Evaluation Nutrition/Malnutrition Findings: Nutrition Notes Start: 03/05/19 13:19 Freq: Status: Active Protocol: Document 03/14/19 14:54 CHELSEA (Rec: 03/14/19 15:02 NHALL [email or web address]- [email or web address]) Nutrition Notes Initial or Follow up Reassessment Other Pertinent Diagnosis ? metastatic colon CA, SBO s/p diverting ileostomy Current Diet Mech soft + Ensure Enlive daily Labs/Tests Reviewed Pertinent Medications Reviewed Height 5 ft 7 in Weight 59.2 kg [place] Body Weight (kg) 61.36 BMI 20.4 Subjective/Other Information Pt reports eating <25% of meals sec to not liking taste of the food. Says she had good appetite [employer]. She wants ONS on each meal tray. Percent of energy/protein needs met: 58% energy 63% pro (includes ONS) Burn Absent Trauma Absent #1 Nutrition Diagnosis Inadequate oral intake Diagnosis Progress(for reassessment Continues documentation) Is patient on ventilator? No Is Patient Ambulatory and/or Out of Bed Yes REE-([facility]-ambulatory/OOB) [ 1520.519 [id number]] Kcal/Kg value to use for calculation 30 Approximate Energy Requirements Using 1776 kcal/Kg Calculation Used for Recommendations Kcal/kg Additional Notes Pro needs 1.2-1.5g/k-89g/ day Fluid needs 1ml/kcal Nutrition Intervention Change Diet Order: Continue diet order; dietary staff to contact pt to collect meal preferences daily Add Supplement/Snack (indicate name/kcal Ensure Enlive TID (strawberry) /protein ) Provides kCal: 1,050 Provides Protein (gm) 60 Goal #1 PO intake of meals plus ONS to meet at least 75% energy and pro needs Goal #2 Wt maintenance Follow-Up By: 03/20/19 Additional Comments F/U: intakes, wt - Attestation Statement I have reviewed and agreed w/ Malnutrition eval & tx plan: Yes
[2019-03-14] MEDS: NORCO 5/325 PO PRN (20:24)
[2019-03-15] MEDS: MORPHINE IV PRN ×2 (02:24→10:19)
[2019-03-15] MEDS: SODIUM CHLORIDE FLUSH SYRINGE 10 ML IV SCH ×3 (02:25→22:31)
[2019-03-15] MEDS: ATIVAN IV PRN ×3 (02:27→16:26)
[2019-03-15] MEDS: LACTATED RINGERS 1,000 ML IV SCH (05:18)
[2019-03-15] MEDS: FLAGYL 500 MG/100 ML 500 MG/100 ML BAG IV SCH ×3 (05:19→22:30)
[2019-03-15] MEDS: NORCO 5/325 PO PRN ×3 (06:44→22:30)
[2019-03-15 06:57] LABS: Hemoglobin 8.5 gm/dl (10.1-14.3)
[2019-03-15 07:21] LABS: Hematocrit 25.5 % (30.3-42.9); Mean Corpuscular HGB Conc 33 % (30-34); Mean Corpuscular Volume 70 fl (79-97); Platelet Count 810 K/mm3 (140-440); Red Blood Count 3.63 M/mm3 (3.65-5.03)
[2019-03-15 07:26] LABS: Red Cell Distribution Width 25.7 % (13.2-15.2)
--- NOTE | 2019-03-15 07:39 | Hem/Onc Progress Note ---
Assessment and Plan # colon cancer with mass in the ascending colon and based on surgical notes metastatic process in the abdomen. The patient has a diverting ileostomy. the disease is advanced stage 4 with mets in the abdomen, chemotherapy will be the first line. # Tumor markers elevated CEA # Anemia, MCV low, likely secondary to iron deficiency. # h/o Electrolyte issues. # h/o Creatinine abn. # Social issues, the patient lives with friends. I will follow the patient during inpatient stay. 03/15 d/w pt that referal to sx for colon sx an option - but due to her age - chemo - immunotherapy/chemo preferred path - report - + for colon ca CEA 50s low iron - s/p IV iron trial pt has social issues - housing etc - OP f/u for chemo high plt - likely reactive - IV iron trial d/w dr hawley on 03/14 for OP follow up - once wound healed - will look into Rx options CT chest - d/w dr hawley - Patient Problems (1) Colonic mass Current Visit: Yes Status: Acute Subjective Date of service: 03/15/19 Principal diagnosis: colon ca Interval history: pt eating more Objective - Constitutional Vitals: Last Vital Signs Temp 98.3 F 03/15/19 04:44 Pulse 81 03/15/19 04:44 Resp 20 03/15/19 04:44 BP 133/74 03/15/19 04:44 Pulse Ox 94 03/15/19 04:44 Pain Intensity (0-10): denies any pain General appearance: no acute distress Performance status: 3-limited selfcare - EENT Eyes: EOM intact ENT: hearing intact Lymph node exam: negative cervical - Neck Neck: normal ROM - Respiratory Respiratory effort: Positive: normal Respiratory: bilateral: CTA - Cardiovascular Heart Sounds: Present: S1 & S2 Extremities: No edema - Gastrointestinal General gastrointestinal: Present: soft, other (stomy+) Rectal Exam: deferred - Genitourinary Female genitourinary: Present: deferred - Integumentary Integumentary: warm - Musculoskeletal Musculoskeletal: generalized weakness - Neurologic Neurologic: moves all extremities - Labs Lab Results: Laboratory Results - last 24 hr 03/15/19 03/15/19 05:32 05:32 WBC 15.1 H RBC 3.63 L Hgb 8.5 L Hct 25.5 L MCV 70 L MCH 24 L MCHC 33 RDW 25.7 H Plt Count 810 H Magnesium 1.70 Medications & Allergies - Medications Allergies/Adverse Reactions: Allergies Penicillins Allergy (Verified 03/04/19 08:51) Itching Home Medications: Home Medications Medication Instructions Recorded Confirmed Last Taken Type ALBUTEROL Inhaler (OR & NICU) 2 puff IH QID PRN #1 inhalation 11/24/18 03/04/19 Unknown Rx [ProAir HFA Inhaler] Azithromycin [Zithromax Z-LONNY] 250 mg PO DAILY #6 tablet 11/24/18 03/04/19 Unknown Rx predniSONE [Deltasone] 20 mg PO QDAY #5 tab 11/24/18 03/04/19 Unknown Rx Amitriptyline 10 mg PO HS 03/08/19 03/08/19 Unknown History Chlorthalidone 25 mg PO QDAY 03/08/19 03/08/19 Unknown History Mirtazapine 45 mg PO HS 03/08/19 03/08/19 Unknown History RisperiDONE 1 mg HS 03/08/19 03/08/19 03/03/19 History amLODIPine 10 mg PO QDAY 03/08/19 03/08/19 Unknown History Active Medications: Generic Name Dose Route Start Last Admin Trade Name Freq PRN Reason Stop Dose Admin Acetaminophen/Hydrocodone Bitart 2 each 03/08/19 17:17 03/15/19 06:44 [place] 5/325 PO 2 each Q6H PRN Administration Pain, Moderate (4-6) Albuterol 2.5 mg 03/04/19 15:40 Proventil IH Q3HRT PRN Shortness Of Breath Heparin Sodium (Porcine) 5,000 unit 03/04/19 22:00 03/14/19 21:09 Heparin SUB-Q 5,000 unit Q12HR AUDREY Administration Hydralazine HCl 10 mg 03/08/19 11:10 Apresoline IV Q4HR PRN Hypertension Levofloxacin/Dextrose 500 mg in 100 mls @ 100 mls/hr 03/06/19 10:00 03/14/19 20:52 Levaquin 500mg/100ml IV 03/16/19 09:59 Infused Q24HR AUDREY Infusion Metronidazole 500 mg in 100 mls @ 100 mls/hr 03/04/19 22:00 03/15/19 06:52 Flagyl 500 Mg/100 Ml IV Infused Q8HR AUDREY Infusion Protocol Lactated Ringer's 1,000 mls @ 75 mls/hr 03/08/19 15:00 03/15/19 05:18 Lactated Ringers IV 75 mls/hr DIRECT AUDREY Administration Lorazepam 1 mg 03/08/19 11:10 03/15/19 02:27 Ativan IV 1 mg Q4H PRN Administration Agitation Morphine Sulfate 2 mg 03/07/19 17:58 03/15/19 02:24 Morphine IV 2 mg Q4H PRN Administration Pain, Moderate (4-6) Ondansetron HCl 4 mg 03/08/19 15:00 Zofran IV ONCE PRN Nausea And Vomiting Sodium Chloride 10 ml 03/04/19 22:00 03/15/19 02:25 Sodium Chloride Flush Syringe 10 Ml IV 10 ml BID AUDREY Administration Sodium Chloride 10 ml 03/04/19 15:40 03/07/19 05:33 Sodium Chloride Flush Syringe 10 Ml IV 10 ml PRN PRN Administration LINE FLUSH
[2019-03-15] MEDS ORDERED: NACL 0.9% 1000 ML 1,000 ML IV SCH (09:00)
[2019-03-15] MEDS: LEVAQUIN 500MG/100ML 500 MG/100 ML BAG IV SCH (10:19)
[2019-03-15] MEDS: HEPARIN SUB-Q SCH ×2 (10:20→22:31)
--- NOTE | 2019-03-15 17:00 | Cat Scan Report ---
PROCEDURE: CT chest with contrast. TECHNIQUE: Computerized axial tomography of the chest was performed during the IV injection of iodin ated nonionic contrast. CT DOSE LENGTH PRODUCT: 332.4 mGycm HISTORY: Colon cancer. COMPARISONS: None. FINDINGS: The trachea and central bronchi appear normal. There are numerous small cystic changes in both upper lobes. This suggests emphysema. There are 2 small adjacent peripheral nodules in the anterior portion of the right upper lobe. These are not calcified. The largest measures 8.7 mm x 5.4 mm. There is a t hird nodule located centrally in the right upper lobe. This measures 9.6 mm x 8.1 mm in cross-section . There is a large lobulated or possibly 2 adjacent nodules in the medial portion of the left lower l obe. This measures 22.6 mm x 16.5 mm in cross-section. There is one nodule located laterally in the l eft upper lobe measuring 12.8 mm x 8.4 mm in cross-section. These nodules are consistent with metasta tic disease. There is some confluent opacity in the dependent portions of both lower lobes. This may represent subsegmental atelectasis. Pneumonia in the right lower lobe is also possible however. There is a tiny right pleural effusion. The thoracic aorta is mildly ectatic. The central pulmonary arteri es enhance normally. There is no mediastinal adenopathy. The heart size is normal. There is a small n onspecific area of diminished attenuation within the liver. This could be benign or malignant. The th oracic skeleton appears intact. IMPRESSION: Bilateral pulmonary nodules as described consistent with metastatic disease. Underlying emphysema. Right lower lobe pneumonia versus subsegmental atelectasis. Tiny right pleural effusion. S mall indeterminate liver lesion. This document is electronically signed by [place] MD., March 15 2019 04:58:25 PM ET
--- NOTE | 2019-03-15 23:13 | Progress Note ---
Assessment and Plan Assessment and plan: 63-year-old female patient admitted through emergency room with nausea vomiting generalized weakness, initiated workup is consistent with anemia, small bowel obstruction Patient received 2 units of PRBC, surgery evaluated the patient. Possible colonic mass suspicion for malignancy, patient stabilized Underwent exploratory laparotomy, diverting loop ileostomy, omental biopsies.Large firm mass right lower quadrant, presumed malignancy Patient was evaluated by oncology, pending pathology report , metastatic colon cancer consider different treatment plans. CT abdomen and pelvis/abdominal mass CT abdomen and pelvis findings possible mass in the ascending colon. --Possible metastases colon cancer- Metastatic Moderately Differentiated adenocarcinoma consistent with colorectal primary Surgery, oncology following, pathology report of omental biopsy noted as above --Small bowel obstruction /Status post diverting ileostomy; Expl Lap:large, firm mass in RLQ involving presumed malignancy, large bowel and small bowel. multiple implants in mesentery, omentum, peritoneum, liver, iliac LNs. s/p omental biopsies x 2, diverting loop ileostomy creation. Continue supportive care, follow histopathology Oncology evaluation noted appreciated --Hypomagnesemia;Hypokalemia/Hypophosphatemia: corrected , monitor electrolytes Replace --Anemia: Received 2 units PRBC, hemoglobin level improved -- Sepsis/leukocytosis Sepsis Protocol: IV ABx therapy Levaquin and Flagyl, IVF resuscitation therapy, lactate levels within normal limits, No growth in cultures Monitor resolution of leukocytosis --ARF (acute renal failure) with tubular necrosis Resolved , avoid nephrotoxins , IV fluids needed --Severe malnutrition/hypoalbuminemia Due to her underlying disease process, nutrition consult nutrition supplements when able to take oral --DVT prophylaxis SCD to BLE while in bed. Prophylactic heparin. Plan of care reviewed with the patient and her nurse Consults and recommendations noted and appreciated Disposition; follow biopsy report, follow oncology and surgical recommendations Pending placement to SNF/rehabilitation Discharge Planning History Interval history: Patient seen and examined, Resting comfortably, in good spirits Hospitalist Physical - Physical exam Narrative exam: VITAL SIGNS: Reviewed. GENERAL: The patient appeared cachectic, uncomfortable, Vital signs as documented. ambulating HEAD: No signs of head trauma. EYES: Pupils are equal. Extraocular motions intact. EARS: Hearing grossly intact. MOUTH: Oropharynx is normal. NECK: No adenopathy, no JVD. CHEST: Chest with diminished breath sounds bilaterally. No wheezes, rales, or rhonchi. CARDIAC: Regular rate and rhythm. S1 and S2, without murmurs, gallops, or rubs. VASCULAR: No Edema. Peripheral pulses normal and equal in all extremities. ABDOMEN: Soft, non tender and non distended. dressing in place, ileostomy noted, high output, No rebound or guarding, and no masses palpated. Bowel Sounds normal. MUSCULOSKELETAL: Good range of motion of all major joints. Extremities without clubbing, cyanosis or edema. NEUROLOGIC EXAM: Alert and oriented x 3 No focal sensory or strength deficits. Speech normal. Follows commands. PSYCHIATRIC: Mood normal. SKIN: abdominal wound with dressing. - Constitutional Vitals: Temp Pulse Resp BP Pulse Ox 98.4 F 87 18 127/61 98 03/15/19 20:30 03/15/19 20:30 03/15/19 22:30 03/15/19 20:30 03/15/19 20:30 General appearance: Present: no acute distress, cachectic, disheveled Results - Labs CBC & Chem 7: 03/16/19 04:18 03/16/19 04:18 Labs: Laboratory Last Values WBC 15.1 K/mm3 (4.5-11.0) H 03/15/19 05:32 RBC 3.63 M/mm3 (3.65-5.03) L 03/15/19 05:32 Hgb 8.5 gm/dl (10.1-14.3) L 03/15/19 05:32 Hct 25.5 % (30.3-42.9) L 03/15/19 05:32 MCV 70 fl (79-97) L 03/15/19 05:32 MCH 24 pg (28-32) L 03/15/19 05:32 MCHC 33 % (30-34) 03/15/19 05:32 RDW 25.7 % (13.2-15.2) H 03/15/19 05:32 Plt Count 810 K/mm3 (140-440) H 03/15/19 05:32 Lymph % (Auto) 13.1 % (13.4-35.0) L 03/11/19 05:10 [place] % (Auto) 7.2 % (0.0-7.3) 03/11/19 05:10 Eos % (Auto) 0.9 % (0.0-4.3) 03/11/19 05:10 Baso % (Auto) 0.4 % (0.0-1.8) 03/11/19 05:10 Lymph # 2.5 K/mm3 (1.2-5.4) 03/11/19 05:10 Wright # 1.4 K/mm3 (0.0-0.8) H 03/11/19 05:10 Eos # 0.2 K/mm3 (0.0-0.4) 03/11/19 05:10 Baso # 0.1 K/mm3 (0.0-0.1) 03/11/19 05:10 Add Manual Diff Complete 03/13/19 08:19 Total Counted 100 03/13/19 08:19 Seg Neutrophils % 78.4 % (40.0-70.0) H 03/11/19 05:10 Seg Neuts % (Manual) 95.0 % (40.0-70.0) H 03/13/19 08:19 0 % 03/13/19 08:19 4.0 % (13.4-35.0) L 03/13/19 08:19 Reactive Lymphs % (Man) 0 % 03/13/19 08:19 1.0 % (0.0-7.3) 03/13/19 08:19 0 % (0.0-4.3) 03/13/19 08:19 0 % (0.0-1.8) 03/13/19 08:19 0 % 03/13/19 08:19 0 % 03/13/19 08:19 0 % 03/13/19 08:19 0 % 03/13/19 08:19 Nucleated RBC % Not Reportable 03/13/19 08:19 Seg Neutrophils # 15.0 K/mm3 (1.8-7.7) H 03/11/19 05:10 Seg Neutrophils # Man 22.3 K/mm3 (1.8-7.7) H 03/13/19 08:19 Band Neutrophils # 0.0 K/mm3 03/13/19 08:19 0.9 K/mm3 (1.2-5.4) L 03/13/19 08:19 Abs React Lymphs (Man) 0.0 K/mm3 03/13/19 08:19 0.2 K/mm3 (0.0-0.8) 03/13/19 08:19 0.0 K/mm3 (0.0-0.4) 03/13/19 08:19 0.0 K/mm3 (0.0-0.1) 03/13/19 08:19 0.0 K/mm3 03/13/19 08:19 0.0 K/mm3 03/13/19 08:19 0.0 K/mm3 03/13/19 08:19 Blast Cells # 0.0 K/mm3 03/13/19 08:19 WBC Morphology Not Reportable 03/13/19 08:19 Hypersegmented Neuts Not Reportable 03/13/19 08:19 Hyposegmented Neuts Not Reportable 03/13/19 08:19 Hypogranular Neuts Not Reportable 03/13/19 08:19 Not Reportable 03/13/19 08:19 Not Reportable 03/13/19 08:19 Not Reportable 03/13/19 08:19 Not Reportable 03/13/19 08:19 Not Reportable 03/13/19 08:19 Not Reportable 03/13/19 08:19 Consistent w auto 03/13/19 08:19 Not Reportable 03/13/19 08:19 Plt Clumps, EDTA Not Reportable 03/13/19 08:19 Not Reportable 03/13/19 08:19 Not Reportable 03/13/19 08:19 Not Reportable 03/13/19 08:19 Plt Morphology Comment Not Reportable 03/13/19 08:19 RBC Morphology Not Reportable 03/13/19 08:19 Dimorphic RBCs Not Reportable 03/13/19 08:19 Not Reportable 03/13/19 08:19 1+ 03/13/19 08:19 Not Reportable 03/13/19 08:19 2+ 03/13/19 08:19 Few 03/13/19 08:19 Not Reportable 03/13/19 08:19 Not Reportable 03/13/19 08:19 Not Reportable 03/13/19 08:19 Not Reportable 03/13/19 08:19 Few 03/13/19 08:19 Not Reportable 03/13/19 08:19 Not Reportable 03/13/19 08:19 Not Reportable 03/13/19 08:19 Not Reportable 03/13/19 08:19 Not Reportable 03/13/19 08:19 Not Reportable 03/13/19 08:19 Not Reportable 03/13/19 08:19 Not Reportable 03/13/19 08:19 Not Reportable 03/13/19 08:19 Acanthocytes (Spur) Rare 03/13/19 08:19 Rouleaux Not Reportable 03/13/19 08:19 Not Reportable 03/13/19 08:19 Not Reportable 03/13/19 08:19 Not Reportable 03/13/19 08:19 Not Reportable 03/13/19 08:19 Hem Pathologist Commnt No 03/13/19 08:19 Sodium 138 mmol/L (137-145) 03/14/19 05:06 Potassium 3.9 mmol/L (3.6-5.0) 03/14/19 05:06 Chloride 100.3 mmol/L (98-107) 03/14/19 05:06 Carbon Dioxide 25 mmol/L (22-30) 03/14/19 05:06 17 mmol/L 03/14/19 05:06 BUN 9 mg/dL (7-17) 03/14/19 05:06 0.7 mg/dL (0.7-1.2) 03/14/19 05:06 Estimated GFR > 60 ml/min 03/14/19 05:06 13 % 03/14/19 05:06 Glucose 98 mg/dL (65-100) 03/14/19 05:06 Lactic Acid 0.80 mmol/L (0.7-2.0) 03/05/19 05:23 Calcium 8.6 mg/dL (8.4-10.2) 03/14/19 05:06 Phosphorus 2.90 mg/dL (2.5-4.5) 03/13/19 08:19 Magnesium 1.70 mg/dL (1.7-2.3) 03/15/19 05:32 Iron 11 ug/dL (37-170) L 03/10/19 04:31 TIBC 201 mcg/dL (250-450) L 03/10/19 04:31 87.9 ng/mL (13.0-400.0) 03/10/19 04:31 0.20 mg/dL (0.1-1.2) 03/09/19 04:52 AST 12 units/L (5-40) 03/09/19 04:52 ALT < 5 units/L (7-56) L 03/09/19 04:52 65 units/L (35-129) 03/09/19 04:52 5.5 g/dL (6.3-8.2) L 03/09/19 04:52 2.2 g/dL (3.9-5) L 03/09/19 04:52 0.7 % 03/09/19 04:52 Carcinoembryonic Ag 58.8 ng/mL (0.0-2.4) H 03/10/19 04:31 96 U/mL (<35) H 03/10/19 04:31 Vitamin B12 1622 pg/mL (211-911) H 03/10/19 04:31 8.04 ng/mL (7.3-26.0) 03/10/19 04:31 Yellow (Yellow) 03/04/19 13:13 Cloudy (Clear) 03/04/19 13:13 5.0 (5.0-7.0) 03/04/19 13:13 Ur Specific [place] 1.018 (1.003-1.030) 03/04/19 13:13 30 mg/dl mg/dL (Negative) 03/04/19 13:13 Neg mg/dL (Negative) 03/04/19 13:13 Tr mg/dL (Negative) 03/04/19 13:13 Neg (Negative) 03/04/19 13:13 Neg (Negative) 03/04/19 13:13 Neg (Negative) 03/04/19 13:13 < 2.0 mg/dL (<2.0) 03/04/19 13:13 Ur Leukocyte Esterase Tr (Negative) 03/04/19 13:13 5.0 /HPF (0.0-6.0) 03/04/19 13:13 4.0 /HPF (0.0-6.0) 03/04/19 13:13 U Epithel Cells (Auto) 8.0 /HPF (0-13.0) 03/04/19 13:13 1+ /HPF (Negative) 03/04/19 13:13 Few /HPF 03/04/19 13:13 Blood Type O NEGATIVE 03/08/19 14:25 Antibody Screen Negative 03/08/19 14:25 [place] Antibody Screen Negative 03/04/19 15:56 Crossmatch See Detail 03/04/19 15:56 Active Medications - Current Medications Current Medications: Generic Name Dose Route Start Last Admin Trade Name Freq PRN Reason Stop Dose Admin Acetaminophen/Hydrocodone Bitart 2 each 03/08/19 17:17 03/15/19 22:30 [place] 5/325 PO 2 each Q6H PRN Administration Pain, Moderate (4-6) Albuterol 2.5 mg 03/04/19 15:40 Proventil IH Q3HRT PRN Shortness Of Breath Heparin Sodium (Porcine) 5,000 unit 03/04/19 22:00 03/15/19 22:31 Heparin SUB-Q 5,000 unit Q12HR AUDREY Administration Hydralazine HCl 10 mg 03/08/19 11:10 Apresoline IV Q4HR PRN Hypertension Levofloxacin/Dextrose 500 mg in 100 mls @ 100 mls/hr 03/06/19 10:00 03/15/19 10:19 Levaquin 500mg/100ml IV 03/16/19 09:59 100 mls/hr Q24HR AUDREY Administration Metronidazole 500 mg in 100 mls @ 100 mls/hr 03/04/19 22:00 03/15/19 22:30 Flagyl 500 Mg/100 Ml IV 100 mls/hr Q8HR AUDREY Administration Protocol Lactated Ringer's 1,000 mls @ 75 mls/hr 03/08/19 15:00 03/15/19 05:18 Lactated Ringers IV 75 mls/hr DIRECT AUDREY Administration Sodium Chloride 1,000 mls @ 42 mls/hr 03/15/19 09:00 03/15/19 14:47 Nacl 0.9% 1000 Ml IV 03/16/19 04:00 42 mls/hr DIRECT AUDREY Administration Lorazepam 1 mg 03/08/19 11:10 03/15/19 16:26 Ativan IV 1 mg Q4H PRN Administration Agitation Morphine Sulfate 2 mg 03/07/19 17:58 03/15/19 10:19 Morphine IV 2 mg Q4H PRN Administration Pain, Moderate (4-6) Ondansetron HCl 4 mg 03/08/19 15:00 Zofran IV ONCE PRN Nausea And Vomiting Sodium Chloride 10 ml 03/04/19 22:00 03/15/19 22:31 Sodium Chloride Flush Syringe 10 Ml IV 10 ml BID AUDREY Administration Sodium Chloride 10 ml 03/04/19 15:40 03/07/19 05:33 Sodium Chloride Flush Syringe 10 Ml IV 10 ml PRN PRN Administration LINE FLUSH Nutrition/Malnutrition Assess - Dietary Evaluation Nutrition/Malnutrition Findings: Nutrition Notes Start: 03/05/19 13:19 Freq: Status: Active Protocol: Document 03/14/19 14:54 MARLYBLAIRE (Rec: 03/14/19 15:02 CHELSEA SRW- [email or web address]) Nutrition Notes Initial or Follow up Reassessment Other Pertinent Diagnosis ? metastatic colon CA, SBO s/p diverting ileostomy Current Diet Mech soft + Ensure Enlive daily Labs/Tests Reviewed Pertinent Medications Reviewed Height 5 ft 7 in Weight 59.2 kg [place] Body Weight (kg) 61.36 BMI 20.4 Subjective/Other Information Pt reports eating <25% of meals sec to not liking taste of the food. 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 She wants ONS on each meal tray. Percent of energy/protein needs met: 58% energy 63% pro (includes ONS) Burn Absent Trauma Absent #1 Nutrition Diagnosis Inadequate oral intake Diagnosis Progress(for reassessment Continues documentation) Is patient on ventilator? No Is Patient Ambulatory and/or Out of Bed Yes REE-([place]-ambulatory/OOB) [ 1520.519 [id number]] Kcal/Kg value to use for calculation 30 Approximate Energy Requirements Using 1776 kcal/Kg Calculation Used for Recommendations Kcal/kg Additional Notes Pro needs 1.2-1.5g/k-89g/ day Fluid needs 1ml/kcal Nutrition Intervention Change Diet Order: Continue diet order; dietary staff to contact pt to collect meal preferences daily Add Supplement/Snack (indicate name/kcal Ensure Enlive TID (strawberry) /protein ) Provides kCal: 1,050 Provides Protein (gm) 60 Goal #1 PO intake of meals plus ONS to meet at least 75% energy and pro needs Goal #2 Wt maintenance Follow-Up By: 03/20/19 Additional Comments F/U: intakes, wt
[2019-03-16] MEDS: NORCO 5/325 PO PRN ×2 (03:46→10:11)
[2019-03-16 05:07] LABS: Hematocrit 25.2 % (30.3-42.9); Hemoglobin 8.5 gm/dl (10.1-14.3); Mean Corpuscular HGB Conc 34 % (30-34); Mean Corpuscular Volume 70 fl (79-97); Platelet Count 786 K/mm3 (140-440)
[2019-03-16 05:12] LABS: Red Cell Distribution Width 26.2 % (13.2-15.2)
[2019-03-16] MEDS: FLAGYL 500 MG/100 ML 500 MG/100 ML BAG IV SCH ×2 (05:56→13:04)
[2019-03-16 06:00] LABS: BUN/Creatinine Ratio 16; Blood Urea Nitrogen 11 mg/dL (7-17); Hemolysis Index 0
[2019-03-16] MEDS: ATIVAN IV PRN ×3 (07:27→18:13)
[2019-03-16] MEDS: LACTATED RINGERS 1,000 ML IV SCH (07:33)
--- NOTE | 2019-03-16 07:34 | Hem/Onc Progress Note ---
Assessment and Plan # colon cancer with mass in the ascending colon and based on surgical notes metastatic process in the abdomen. The patient has a diverting ileostomy. the disease is advanced stage 4 with mets in the abdomen, chemotherapy will be the first line. # Tumor markers elevated CEA # Anemia, MCV low, likely secondary to iron deficiency. # h/o Electrolyte issues. # h/o Creatinine abn. # Social issues, the patient lives with friends. I will follow the patient during inpatient stay. 03/16 d/w pt that referal to sx for colon sx an option - but due to her age - chemo - immunotherapy/chemo preferred path - report - + for colon ca CEA 50s low iron - s/p IV iron trial pt has social issues - housing etc - OP f/u for chemo high plt - likely reactive - IV iron trial d/w dr hawley on 03/14 for OP follow up - once wound healed - will look into Rx options CT chest - d/w dr hawley - Patient Problems (1) Colonic mass Current Visit: Yes Status: Acute Subjective Date of service: 03/16/19 Principal diagnosis: colon ca Interval history: feeling better Objective - Constitutional Vitals: Last Vital Signs Temp 98.0 F 03/16/19 04:35 Pulse 72 03/16/19 04:35 Resp 18 03/16/19 04:46 BP 135/69 03/16/19 04:35 Pulse Ox 98 03/16/19 04:35 Pain Intensity (0-10): denies any pain General appearance: no acute distress Performance status: 3-limited selfcare - EENT Eyes: EOM intact ENT: hearing intact Lymph node exam: negative cervical - Neck Neck: normal ROM - Respiratory Respiratory effort: Positive: normal Respiratory: bilateral: CTA - Cardiovascular Heart Sounds: Present: S1 & S2 Extremities: No edema, normal temperature - Gastrointestinal General gastrointestinal: Present: soft, other (stomy+) Rectal Exam: deferred - Genitourinary Female genitourinary: Present: deferred - Integumentary Integumentary: warm - Musculoskeletal Musculoskeletal: strength equal bilaterally, generalized weakness - Neurologic Neurologic: moves all extremities - Labs Lab Results: Laboratory Results - last 24 hr 03/16/19 03/16/19 04:18 04:18 WBC 12.5 H RBC 3.60 L Hgb 8.5 L Hct 25.2 L MCV 70 L MCH 24 L MCHC 34 RDW 26.2 H Plt Count 786 H Sodium 136 L Potassium 4.1 Chloride 101.7 Carbon Dioxide 24 Anion Gap 14 BUN 11 Creatinine 0.7 Estimated GFR > 60 BUN/Creatinine Ratio 16 Glucose 99 Calcium 9.0 Medications & Allergies - Medications Allergies/Adverse Reactions: Allergies Penicillins Allergy (Verified 03/04/19 08:51) Itching Home Medications: Home Medications Medication Instructions Recorded Confirmed Last Taken Type ALBUTEROL Inhaler (OR & NICU) 2 puff IH QID PRN #1 inhalation 11/24/18 03/04/19 Unknown Rx [ProAir HFA Inhaler] Azithromycin [Zithromax Z-LONNY] 250 mg PO DAILY #6 tablet 11/24/18 03/04/19 Unknown Rx predniSONE [Deltasone] 20 mg PO QDAY #5 tab 11/24/18 03/04/19 Unknown Rx Amitriptyline 10 mg PO HS 03/08/19 03/08/19 Unknown History Chlorthalidone 25 mg PO QDAY 03/08/19 03/08/19 Unknown History Mirtazapine 45 mg PO HS 03/08/19 03/08/19 Unknown History RisperiDONE 1 mg HS 03/08/19 03/08/19 03/03/19 History amLODIPine 10 mg PO QDAY 03/08/19 03/08/19 Unknown History Active Medications: Generic Name Dose Route Start Last Admin Trade Name Freq PRN Reason Stop Dose Admin Acetaminophen/Hydrocodone Bitart 2 each 03/08/19 17:17 03/16/19 03:46 [place] 5/325 PO 2 each Q6H PRN Administration Pain, Moderate (4-6) Albuterol 2.5 mg 03/04/19 15:40 Proventil IH Q3HRT PRN Shortness Of Breath Heparin Sodium (Porcine) 5,000 unit 03/04/19 22:00 03/15/19 22:31 Heparin SUB-Q 5,000 unit Q12HR AUDREY Administration Hydralazine HCl 10 mg 03/08/19 11:10 Apresoline IV Q4HR PRN Hypertension Levofloxacin/Dextrose 500 mg in 100 mls @ 100 mls/hr 03/06/19 10:00 03/15/19 10:19 Levaquin 500mg/100ml IV 03/16/19 09:59 100 mls/hr Q24HR AUDREY Administration Metronidazole 500 mg in 100 mls @ 100 mls/hr 03/04/19 22:00 03/16/19 05:56 Flagyl 500 Mg/100 Ml IV 100 mls/hr Q8HR AUDREY Administration Protocol Lactated Ringer's 1,000 mls @ 75 mls/hr 03/08/19 15:00 03/15/19 05:18 Lactated Ringers IV 75 mls/hr DIRECT AUDREY Administration Lorazepam 1 mg 03/08/19 11:10 03/16/19 07:27 Ativan IV 1 mg Q4H PRN Administration Agitation Morphine Sulfate 2 mg 03/07/19 17:58 03/15/19 10:19 Morphine IV 2 mg Q4H PRN Administration Pain, Moderate (4-6) Ondansetron HCl 4 mg 03/08/19 15:00 Zofran IV ONCE PRN Nausea And Vomiting Sodium Chloride 10 ml 03/04/19 22:00 03/15/19 22:31 Sodium Chloride Flush Syringe 10 Ml IV 10 ml BID AUDREY Administration Sodium Chloride 10 ml 03/04/19 15:40 03/07/19 05:33 Sodium Chloride Flush Syringe 10 Ml IV 10 ml PRN PRN Administration LINE FLUSH
--- NOTE | 2019-03-16 08:35 | Progress Note ---
Assessment and Plan Assessment and plan: 63-year-old female patient admitted through emergency room with nausea vomiting generalized weakness, initiated workup is consistent with anemia, small bowel obstruction Patient received 2 units of PRBC, surgery evaluated the patient. Possible colonic mass suspicion for malignancy, patient stabilized Underwent exploratory laparotomy, diverting loop ileostomy, omental biopsies.Large firm mass right lower quadrant, presumed malignancy Patient was evaluated by oncology, pending pathology report , metastatic colon cancer consider different treatment plans. CT abdomen and pelvis/abdominal mass CT abdomen and pelvis findings possible mass in the ascending colon. CT chest: Bilateral Pulmonary Nodules consistent with Metastatic Disease. Emphysema, Right lobar Pna vs subsegmental atalectasis. Tiny Right pleural Effusion --Possible metastases colon cancer- Metastatic Moderately Differentiated adenocarcinoma consistent with colorectal primary Surgery, oncology following, pathology report of omental biopsy noted as above --Small bowel obstruction /Status post diverting ileostomy; with mets to the chest Expl Lap:large, firm mass in RLQ involving presumed malignancy, large bowel and small bowel. multiple implants in mesentery, omentum, peritoneum, liver, iliac LNs. s/p omental biopsies x 2, diverting loop ileostomy creation. Continue supportive care, follow histopathology Oncology evaluation noted appreciated --Hypomagnesemia;Hypokalemia/Hypophosphatemia: corrected , monitor electrolytes Replace --Anemia: Received 2 units PRBC, hemoglobin level improved -- Sepsis/leukocytosis Sepsis Protocol: IV ABx therapy Levaquin and Flagyl, IVF resuscitation therapy, lactate levels within normal limits, No growth in cultures Monitor resolution of leukocytosis --ARF (acute renal failure) with tubular necrosis Resolved , avoid nephrotoxins , IV fluids needed --Severe malnutrition/hypoalbuminemia Due to her underlying disease process, nutrition consult nutrition supplements when able to take oral --REACTIVE Thrombocytosis Secondary to Metastatic disease --Ilesotmy intact- WOUND MANAGEMENT ---DVT prophylaxis SCD to BLE while in bed. Prophylactic heparin. Plan of care reviewed with the patient and her nurse Consults and recommendations noted and appreciated Disposition; follow biopsy report, follow oncology and surgical recommendations Pending placement to SNF/rehabilitation Discharge Planning History Interval history: Patient seen and examined, Resting comfortably, in good spirits Hospitalist Physical - Physical exam Narrative exam: VITAL SIGNS: Reviewed. GENERAL: The patient appeared cachectic, uncomfortable, Vital signs as documented. ambulating HEAD: No signs of head trauma. EYES: Pupils are equal. Extraocular motions intact. EARS: Hearing grossly intact. MOUTH: Oropharynx is normal. NECK: No adenopathy, no JVD. CHEST: Chest with diminished breath sounds bilaterally. No wheezes, rales, or rhonchi. CARDIAC: Regular rate and rhythm. S1 and S2, without murmurs, gallops, or rubs. VASCULAR: No Edema. Peripheral pulses normal and equal in all extremities. ABDOMEN: Soft, non tender and non distended. dressing in place, ileostomy noted, high output, No rebound or guarding, and no masses palpated. Bowel Sounds normal. MUSCULOSKELETAL: Good range of motion of all major joints. Extremities without clubbing, cyanosis or edema. NEUROLOGIC EXAM: Alert and oriented x 3 No focal sensory or strength deficits. Speech normal. Follows commands. PSYCHIATRIC: Mood normal. SKIN: abdominal wound with dressing. - Constitutional Vitals: Temp Pulse Resp BP Pulse Ox 97.8 F 82 18 128/63 97 03/16/19 07:48 03/16/19 07:48 03/16/19 07:48 03/16/19 07:48 03/16/19 07:48 General appearance: Present: no acute distress, cachectic, disheveled Results - Labs CBC & Chem 7: 03/16/19 04:18 03/16/19 04:18 Labs: Laboratory Last Values WBC 12.5 K/mm3 (4.5-11.0) H 03/16/19 04:18 RBC 3.60 M/mm3 (3.65-5.03) L 03/16/19 04:18 Hgb 8.5 gm/dl (10.1-14.3) L 03/16/19 04:18 Hct 25.2 % (30.3-42.9) L 03/16/19 04:18 MCV 70 fl (79-97) L 03/16/19 04:18 MCH 24 pg (28-32) L 03/16/19 04:18 MCHC 34 % (30-34) 03/16/19 04:18 RDW 26.2 % (13.2-15.2) H 03/16/19 04:18 Plt Count 786 K/mm3 (140-440) H 03/16/19 04:18 Lymph % (Auto) 13.1 % (13.4-35.0) L 03/11/19 05:10 Saline % (Auto) 7.2 % (0.0-7.3) 03/11/19 05:10 Eos % (Auto) 0.9 % (0.0-4.3) 03/11/19 05:10 Baso % (Auto) 0.4 % (0.0-1.8) 03/11/19 05:10 Lymph # 2.5 K/mm3 (1.2-5.4) 03/11/19 05:10 Saline # 1.4 K/mm3 (0.0-0.8) H 03/11/19 05:10 Eos # 0.2 K/mm3 (0.0-0.4) 03/11/19 05:10 Baso # 0.1 K/mm3 (0.0-0.1) 03/11/19 05:10 Add Manual Diff Complete 03/13/19 08:19 Total Counted 100 03/13/19 08:19 Seg Neutrophils % 78.4 % (40.0-70.0) H 03/11/19 05:10 Seg Neuts % (Manual) 95.0 % (40.0-70.0) H 03/13/19 08:19 0 % 03/13/19 08:19 4.0 % (13.4-35.0) L 03/13/19 08:19 Reactive Lymphs % (Man) 0 % 03/13/19 08:19 1.0 % (0.0-7.3) 03/13/19 08:19 0 % (0.0-4.3) 03/13/19 08:19 0 % (0.0-1.8) 03/13/19 08:19 0 % 03/13/19 08:19 0 % 03/13/19 08:19 0 % 03/13/19 08:19 0 % 03/13/19 08:19 Nucleated RBC % Not Reportable 03/13/19 08:19 Seg Neutrophils # 15.0 K/mm3 (1.8-7.7) H 03/11/19 05:10 Seg Neutrophils # Man 22.3 K/mm3 (1.8-7.7) H 03/13/19 08:19 Band Neutrophils # 0.0 K/mm3 03/13/19 08:19 0.9 K/mm3 (1.2-5.4) L 03/13/19 08:19 Abs React Lymphs (Man) 0.0 K/mm3 03/13/19 08:19 0.2 K/mm3 (0.0-0.8) 03/13/19 08:19 0.0 K/mm3 (0.0-0.4) 03/13/19 08:19 0.0 K/mm3 (0.0-0.1) 03/13/19 08:19 0.0 K/mm3 03/13/19 08:19 0.0 K/mm3 03/13/19 08:19 0.0 K/mm3 03/13/19 08:19 Blast Cells # 0.0 K/mm3 03/13/19 08:19 WBC Morphology Not Reportable 03/13/19 08:19 Hypersegmented Neuts Not Reportable 03/13/19 08:19 Hyposegmented Neuts Not Reportable 03/13/19 08:19 Hypogranular Neuts Not Reportable 03/13/19 08:19 Not Reportable 03/13/19 08:19 Not Reportable 03/13/19 08:19 Not Reportable 03/13/19 08:19 Not Reportable 03/13/19 08:19 Not Reportable 03/13/19 08:19 Not Reportable 03/13/19 08:19 Consistent w auto 03/13/19 08:19 Not Reportable 03/13/19 08:19 Plt Clumps, EDTA Not Reportable 03/13/19 08:19 Not Reportable 03/13/19 08:19 Not Reportable 03/13/19 08:19 Not Reportable 03/13/19 08:19 Plt Morphology Comment Not Reportable 03/13/19 08:19 RBC Morphology Not Reportable 03/13/19 08:19 Dimorphic RBCs Not Reportable 03/13/19 08:19 Not Reportable 03/13/19 08:19 1+ 03/13/19 08:19 Not Reportable 03/13/19 08:19 2+ 03/13/19 08:19 Few 03/13/19 08:19 Not Reportable 03/13/19 08:19 Not Reportable 03/13/19 08:19 Not Reportable 03/13/19 08:19 Not Reportable 03/13/19 08:19 Few 03/13/19 08:19 Not Reportable 03/13/19 08:19 Not Reportable 03/13/19 08:19 Not Reportable 03/13/19 08:19 Not Reportable 03/13/19 08:19 Not Reportable 03/13/19 08:19 Not Reportable 03/13/19 08:19 Not Reportable 03/13/19 08:19 Not Reportable 03/13/19 08:19 Not Reportable 03/13/19 08:19 Acanthocytes (Spur) Rare 03/13/19 08:19 Rouleaux Not Reportable 03/13/19 08:19 Not Reportable 03/13/19 08:19 Not Reportable 03/13/19 08:19 Not Reportable 03/13/19 08:19 Not Reportable 03/13/19 08:19 Hem Pathologist Commnt No 03/13/19 08:19 Sodium 136 mmol/L (137-145) L 03/16/19 04:18 Potassium 4.1 mmol/L (3.6-5.0) 03/16/19 04:18 Chloride 101.7 mmol/L (98-107) 03/16/19 04:18 Carbon Dioxide 24 mmol/L (22-30) 03/16/19 04:18 14 mmol/L 03/16/19 04:18 BUN 11 mg/dL (7-17) 03/16/19 04:18 0.7 mg/dL (0.7-1.2) 03/16/19 04:18 Estimated GFR > 60 ml/min 03/16/19 04:18 16 % 03/16/19 04:18 Glucose 99 mg/dL (65-100) 03/16/19 04:18 Lactic Acid 0.80 mmol/L (0.7-2.0) 03/05/19 05:23 Calcium 9.0 mg/dL (8.4-10.2) 03/16/19 04:18 Phosphorus 2.90 mg/dL (2.5-4.5) 03/13/19 08:19 Magnesium 1.70 mg/dL (1.7-2.3) 03/15/19 05:32 Iron 11 ug/dL (37-170) L 03/10/19 04:31 TIBC 201 mcg/dL (250-450) L 03/10/19 04:31 87.9 ng/mL (13.0-400.0) 03/10/19 04:31 0.20 mg/dL (0.1-1.2) 03/09/19 04:52 AST 12 units/L (5-40) 03/09/19 04:52 ALT < 5 units/L (7-56) L 03/09/19 04:52 65 units/L (35-129) 03/09/19 04:52 5.5 g/dL (6.3-8.2) L 03/09/19 04:52 2.2 g/dL (3.9-5) L 03/09/19 04:52 0.7 % 03/09/19 04:52 Carcinoembryonic Ag 58.8 ng/mL (0.0-2.4) H 03/10/19 04:31 96 U/mL (<35) H 03/10/19 04:31 Vitamin B12 1622 pg/mL (211-911) H 03/10/19 04:31 8.04 ng/mL (7.3-26.0) 03/10/19 04:31 Yellow (Yellow) 03/04/19 13:13 Cloudy (Clear) 03/04/19 13:13 5.0 (5.0-7.0) 03/04/19 13:13 Ur Specific [place] 1.018 (1.003-1.030) 03/04/19 13:13 30 mg/dl mg/dL (Negative) 03/04/19 13:13 Neg mg/dL (Negative) 03/04/19 13:13 Tr mg/dL (Negative) 03/04/19 13:13 Neg (Negative) 03/04/19 13:13 Neg (Negative) 03/04/19 13:13 Neg (Negative) 03/04/19 13:13 < 2.0 mg/dL (<2.0) 03/04/19 13:13 Ur Leukocyte Esterase Tr (Negative) 03/04/19 13:13 5.0 /HPF (0.0-6.0) 03/04/19 13:13 4.0 /HPF (0.0-6.0) 03/04/19 13:13 U Epithel Cells (Auto) 8.0 /HPF (0-13.0) 03/04/19 13:13 1+ /HPF (Negative) 03/04/19 13:13 Few /HPF 03/04/19 13:13 Blood Type O NEGATIVE 03/08/19 14:25 Antibody Screen Negative 03/08/19 14:25 [place] Antibody Screen Negative 03/04/19 15:56 Crossmatch See Detail 03/04/19 15:56 Active Medications - Current Medications Current Medications: Generic Name Dose Route Start Last Admin Trade Name Freq PRN Reason Stop Dose Admin Acetaminophen/Hydrocodone Bitart 2 each 03/08/19 17:17 03/16/19 03:46 [place] 5/325 PO 2 each Q6H PRN Administration Pain, Moderate (4-6) Albuterol 2.5 mg 03/04/19 15:40 Proventil IH Q3HRT PRN Shortness Of Breath Heparin Sodium (Porcine) 5,000 unit 03/04/19 22:00 03/15/19 22:31 Heparin SUB-Q 5,000 unit Q12HR AUDREY Administration Hydralazine HCl 10 mg 03/08/19 11:10 Apresoline IV Q4HR PRN Hypertension Levofloxacin/Dextrose 500 mg in 100 mls @ 100 mls/hr 03/06/19 10:00 03/15/19 10:19 Levaquin 500mg/100ml IV 03/16/19 09:59 100 mls/hr Q24HR AUDREY Administration Metronidazole 500 mg in 100 mls @ 100 mls/hr 03/04/19 22:00 03/16/19 05:56 Flagyl 500 Mg/100 Ml IV 100 mls/hr Q8HR AUDREY Administration Protocol Lactated Ringer's 1,000 mls @ 75 mls/hr 03/08/19 15:00 03/16/19 07:33 Lactated Ringers IV 75 mls/hr DIRECT AUDREY Administration Lorazepam 1 mg 03/08/19 11:10 03/16/19 07:27 Ativan IV 1 mg Q4H PRN Administration Agitation Morphine Sulfate 2 mg 03/07/19 17:58 03/15/19 10:19 Morphine IV 2 mg Q4H PRN Administration Pain, Moderate (4-6) Ondansetron HCl 4 mg 03/08/19 15:00 Zofran IV ONCE PRN Nausea And Vomiting Sodium Chloride 10 ml 03/04/19 22:00 03/15/19 22:31 Sodium Chloride Flush Syringe 10 Ml IV 10 ml BID AUDREY Administration Sodium Chloride 10 ml 03/04/19 15:40 03/07/19 05:33 Sodium Chloride Flush Syringe 10 Ml IV 10 ml PRN PRN Administration LINE FLUSH Nutrition/Malnutrition Assess - Dietary Evaluation Nutrition/Malnutrition Findings: Nutrition Notes Start: 03/05/19 13:19 Freq: Status: Active Protocol: Document 03/14/19 14:54 MARLYBLAIRE (Rec: 03/14/19 15:02 CHELSEA [email or web address]) Nutrition Notes Initial or Follow up Reassessment Other Pertinent Diagnosis ? metastatic colon CA, SBO s/p diverting ileostomy Current Diet Mech soft + Ensure Enlive daily Labs/Tests Reviewed Pertinent Medications Reviewed Height 5 ft 7 in Weight 59.2 kg [place] Body Weight (kg) 61.36 BMI 20.4 Subjective/Other Information Pt reports eating <25% of meals sec to not liking taste of the food. Says she had good appetite [employer]. She wants ONS on each meal tray. Percent of energy/protein needs met: 58% energy 63% pro (includes ONS) Burn Absent Trauma Absent #1 Nutrition Diagnosis Inadequate oral intake Diagnosis Progress(for reassessment Continues documentation) Is patient on ventilator? No Is Patient Ambulatory and/or Out of Bed Yes REE-([place]-ambulatory/OOB) [ 1520.519 [id number]] Kcal/Kg value to use for calculation 30 Approximate Energy Requirements Using 1776 kcal/Kg Calculation Used for Recommendations Kcal/kg Additional Notes Pro needs 1.2-1.5g/k-89g/ day Fluid needs 1ml/kcal Nutrition Intervention Change Diet Order: Continue diet order; dietary staff to contact pt to collect meal preferences daily Add Supplement/Snack (indicate name/kcal Ensure Enlive TID (strawberry) /protein ) Provides kCal: 1,050 Provides Protein (gm) 60 Goal #1 PO intake of meals plus ONS to meet at least 75% energy and pro needs Goal #2 Wt maintenance Follow-Up By: 03/20/19 Additional Comments F/U: intakes, wt
[2019-03-16] MEDS: HEPARIN SUB-Q SCH ×2 (10:11→21:03)
--- NOTE | 2019-03-16 16:06 | Progress Note ---
Assessment and Plan - Patient Problems (1) SBO (small bowel obstruction) Current Visit: Yes Status: Acute Plan to address problem: Pt stable. Metastatic Colon Ca. s/p ex lap and loop ileostomy - 03/08/19 - POD#8 Cleared from surgical standpoint for discharge/transfer. Will remove catheter under ileostomy and damon in 1 week. Please call with questions. Subjective Date of service: 03/16/19 Patient Reports: Positive: tolerating a regular diet, flatus, bowel movement, other (feels a lot of anxiety). Negative: nausea, vomiting Objective Vital Signs - 12hr 03/16/19 03/16/19 03/16/19 04:35 04:46 07:48 Temperature 98.0 F 97.8 F Pulse Rate 72 82 Respiratory 16 18 18 Rate Blood Pressure 135/69 128/63 O2 Sat by Pulse 98 97 Oximetry 03/16/19 12:55 Temperature 98.2 F Pulse Rate 88 Respiratory 18 Rate Blood Pressure 139/73 O2 Sat by Pulse 98 Oximetry - General physical appearance no distress, no pain, other (appears sad) - Eyes normal occular movement - Respiratory normal expansion, normal respiratory effort - Abdomen soft, tender (mild), not distended, surgical scars (C/D/I), other (ostomy patent with air in the bag) - Integumentary no rash, no growths, no abnormal pigmentation - Psychiatric oriented to time, oriented to person, oriented to place, speech is normal, memory intact - Labs 03/16/19 04:18 03/16/19 04:18 Diabetes panel 03/16/19 Range/Units 04:18 Sodium 136 L (137-145) mmol/L Potassium 4.1 (3.6-5.0) mmol/L Chloride 101.7 (98-107) mmol/L Carbon Dioxide 24 (22-30) mmol/L BUN 11 (7-17) mg/dL Creatinine 0.7 (0.7-1.2) mg/dL Glucose 99 (65-100) mg/dL Calcium 9.0 (8.4-10.2) mg/dL Calcium panel 03/16/19 Range/Units 04:18 Calcium 9.0 (8.4-10.2) mg/dL Pituitary panel 03/16/19 Range/Units 04:18 Sodium 136 L (137-145) mmol/L Potassium 4.1 (3.6-5.0) mmol/L Chloride 101.7 (98-107) mmol/L Carbon Dioxide 24 (22-30) mmol/L BUN 11 (7-17) mg/dL Creatinine 0.7 (0.7-1.2) mg/dL Glucose 99 (65-100) mg/dL Calcium 9.0 (8.4-10.2) mg/dL Adrenal panel 03/16/19 Range/Units 04:18 Sodium 136 L (137-145) mmol/L Potassium 4.1 (3.6-5.0) mmol/L Chloride 101.7 (98-107) mmol/L Carbon Dioxide 24 (22-30) mmol/L BUN 11 (7-17) mg/dL Creatinine 0.7 (0.7-1.2) mg/dL Glucose 99 (65-100) mg/dL Calcium 9.0 (8.4-10.2) mg/dL
[2019-03-16] MEDS: SODIUM CHLORIDE FLUSH SYRINGE 10 ML IV SCH (21:05)
[2019-03-16] MEDS: MORPHINE IV PRN (21:10)
[2019-03-17] MEDS: ATIVAN IV PRN ×4 (00:47→19:57)
[2019-03-17] MEDS: MORPHINE IV PRN ×4 (03:48→22:20)
[2019-03-17] MEDS: HEPARIN SUB-Q SCH ×2 (09:39→22:20)
[2019-03-17] MEDS: SODIUM CHLORIDE FLUSH SYRINGE 10 ML IV SCH ×3 (09:40→22:26)
--- NOTE | 2019-03-17 12:19 | Progress Note ---
Assessment and Plan Assessment and plan: 63-year-old female patient admitted through emergency room with nausea vomiting generalized weakness, initiated workup is consistent with anemia, small bowel obstruction Patient received 2 units of PRBC, surgery evaluated the patient. Possible colonic mass suspicion for malignancy, patient stabilized Underwent exploratory laparotomy, diverting loop ileostomy, omental biopsies.Large firm mass right lower quadrant, presumed malignancy Patient was evaluated by oncology, pending pathology report , metastatic colon cancer consider different treatment plans. CT abdomen and pelvis/abdominal mass CT abdomen and pelvis findings possible mass in the ascending colon. CT chest: Bilateral Pulmonary Nodules consistent with Metastatic Disease. Emphysema, Right lobar Pna vs subsegmental atalectasis. Tiny Right pleural Effusion --Possible metastases colon cancer- Metastatic Moderately Differentiated adenocarcinoma consistent with colorectal primary Surgery, oncology following, pathology report of omental biopsy noted as above surgery cleared for discharge, will remove damon from ileostomy site next week --Small bowel obstruction /Status post diverting ileostomy; with mets to the chest Expl Lap:large, firm mass in RLQ involving presumed malignancy, large bowel and small bowel. multiple implants in mesentery, omentum, peritoneum, liver, iliac LNs. s/p omental biopsies x 2, diverting loop ileostomy creation. Continue supportive care, follow histopathology Oncology evaluation noted appreciated --Hypomagnesemia;Hypokalemia/Hypophosphatemia: corrected , monitor electrolytes Replace --Anemia: Received 2 units PRBC, hemoglobin level improved -- Sepsis/leukocytosis Sepsis Protocol: IV ABx therapy Levaquin and Flagyl, IVF resuscitation therapy, lactate levels within normal limits, No growth in cultures Monitor resolution of leukocytosis --ARF (acute renal failure) with tubular necrosis Resolved , avoid nephrotoxins , IV fluids needed --Severe malnutrition/hypoalbuminemia Due to her underlying disease process, nutrition consult nutrition supplements when able to take oral --REACTIVE Thrombocytosis Secondary to Metastatic disease --Ilesotmy intact- WOUND MANAGEMENT ---DVT prophylaxis SCD to BLE while in bed. Prophylactic heparin. Plan of care reviewed with the patient and her nurse Consults and recommendations noted and appreciated Disposition; follow biopsy report, follow oncology and surgical recommendations Pending placement to SNF/rehabilitation Discharge Planning History Interval history: Patient seen and examined, Resting comfortably, in good spirits, no new complaints, although ileostomy site still draining Hospitalist Physical - Physical exam Narrative exam: VITAL SIGNS: Reviewed. GENERAL: The patient appeared cachectic, uncomfortable, Vital signs as documented. ambulating HEAD: No signs of head trauma. EYES: Pupils are equal. Extraocular motions intact. EARS: Hearing grossly intact. MOUTH: Oropharynx is normal. NECK: No adenopathy, no JVD. CHEST: Chest with diminished breath sounds bilaterally. No wheezes, rales, or rhonchi. CARDIAC: Regular rate and rhythm. S1 and S2, without murmurs, gallops, or rubs. VASCULAR: No Edema. Peripheral pulses normal and equal in all extremities. ABDOMEN: Soft, non tender and non distended. dressing in place, ileostomy noted, high output, No rebound or guarding, and no masses palpated. Bowel Sounds normal. MUSCULOSKELETAL: Good range of motion of all major joints. Extremities without clubbing, cyanosis or edema. NEUROLOGIC EXAM: Alert and oriented x 3 No focal sensory or strength deficits. Speech normal. Follows commands. PSYCHIATRIC: Mood normal. SKIN: abdominal wound with dressing. - Constitutional Vitals: Temp Pulse Resp BP Pulse Ox 98.3 F 78 18 108/64 96 03/17/19 12:08 03/17/19 12:08 03/17/19 12:08 03/17/19 12:08 03/17/19 12:08 General appearance: Present: no acute distress, cachectic, disheveled Results - Labs CBC & Chem 7: 03/16/19 04:18 03/16/19 04:18 Labs: Laboratory Last Values WBC 12.5 K/mm3 (4.5-11.0) H 03/16/19 04:18 RBC 3.60 M/mm3 (3.65-5.03) L 03/16/19 04:18 Hgb 8.5 gm/dl (10.1-14.3) L 03/16/19 04:18 Hct 25.2 % (30.3-42.9) L 03/16/19 04:18 MCV 70 fl (79-97) L 03/16/19 04:18 MCH 24 pg (28-32) L 03/16/19 04:18 MCHC 34 % (30-34) 03/16/19 04:18 RDW 26.2 % (13.2-15.2) H 03/16/19 04:18 Plt Count 786 K/mm3 (140-440) H 03/16/19 04:18 Lymph % (Auto) 13.1 % (13.4-35.0) L 03/11/19 05:10 [place] % (Auto) 7.2 % (0.0-7.3) 03/11/19 05:10 Eos % (Auto) 0.9 % (0.0-4.3) 03/11/19 05:10 Baso % (Auto) 0.4 % (0.0-1.8) 03/11/19 05:10 Lymph # 2.5 K/mm3 (1.2-5.4) 03/11/19 05:10 [place] # 1.4 K/mm3 (0.0-0.8) H 03/11/19 05:10 Eos # 0.2 K/mm3 (0.0-0.4) 03/11/19 05:10 Baso # 0.1 K/mm3 (0.0-0.1) 03/11/19 05:10 Add Manual Diff Complete 03/13/19 08:19 Total Counted 100 03/13/19 08:19 Seg Neutrophils % 78.4 % (40.0-70.0) H 03/11/19 05:10 Seg Neuts % (Manual) 95.0 % (40.0-70.0) H 03/13/19 08:19 0 % 03/13/19 08:19 4.0 % (13.4-35.0) L 03/13/19 08:19 Reactive Lymphs % (Man) 0 % 03/13/19 08:19 1.0 % (0.0-7.3) 03/13/19 08:19 0 % (0.0-4.3) 03/13/19 08:19 0 % (0.0-1.8) 03/13/19 08:19 0 % 03/13/19 08:19 0 % 03/13/19 08:19 0 % 03/13/19 08:19 0 % 03/13/19 08:19 Nucleated RBC % Not Reportable 03/13/19 08:19 Seg Neutrophils # 15.0 K/mm3 (1.8-7.7) H 03/11/19 05:10 Seg Neutrophils # Man 22.3 K/mm3 (1.8-7.7) H 03/13/19 08:19 Band Neutrophils # 0.0 K/mm3 03/13/19 08:19 0.9 K/mm3 (1.2-5.4) L 03/13/19 08:19 Abs React Lymphs (Man) 0.0 K/mm3 03/13/19 08:19 0.2 K/mm3 (0.0-0.8) 03/13/19 08:19 0.0 K/mm3 (0.0-0.4) 03/13/19 08:19 0.0 K/mm3 (0.0-0.1) 03/13/19 08:19 0.0 K/mm3 03/13/19 08:19 0.0 K/mm3 03/13/19 08:19 0.0 K/mm3 03/13/19 08:19 Blast Cells # 0.0 K/mm3 03/13/19 08:19 WBC Morphology Not Reportable 03/13/19 08:19 Hypersegmented Neuts Not Reportable 03/13/19 08:19 Hyposegmented Neuts Not Reportable 03/13/19 08:19 Hypogranular Neuts Not Reportable 03/13/19 08:19 Not Reportable 03/13/19 08:19 Not Reportable 03/13/19 08:19 Not Reportable 03/13/19 08:19 Not Reportable 03/13/19 08:19 Not Reportable 03/13/19 08:19 Not Reportable 03/13/19 08:19 Consistent w auto 03/13/19 08:19 Not Reportable 03/13/19 08:19 Plt Clumps, EDTA Not Reportable 03/13/19 08:19 Not Reportable 03/13/19 08:19 Not Reportable 03/13/19 08:19 Not Reportable 03/13/19 08:19 Plt Morphology Comment Not Reportable 03/13/19 08:19 RBC Morphology Not Reportable 03/13/19 08:19 Dimorphic RBCs Not Reportable 03/13/19 08:19 Not Reportable 03/13/19 08:19 1+ 03/13/19 08:19 Not Reportable 03/13/19 08:19 2+ 03/13/19 08:19 Few 03/13/19 08:19 Not Reportable 03/13/19 08:19 Not Reportable 03/13/19 08:19 Not Reportable 03/13/19 08:19 Not Reportable 03/13/19 08:19 Few 03/13/19 08:19 Not Reportable 03/13/19 08:19 Not Reportable 03/13/19 08:19 Not Reportable 03/13/19 08:19 Not Reportable 03/13/19 08:19 Not Reportable 03/13/19 08:19 Not Reportable 03/13/19 08:19 Not Reportable 03/13/19 08:19 Not Reportable 03/13/19 08:19 Not Reportable 03/13/19 08:19 Acanthocytes (Spur) Rare 03/13/19 08:19 Rouleaux Not Reportable 03/13/19 08:19 Not Reportable 03/13/19 08:19 Not Reportable 03/13/19 08:19 Not Reportable 03/13/19 08:19 Not Reportable 03/13/19 08:19 Hem Pathologist Commnt No 03/13/19 08:19 Sodium 136 mmol/L (137-145) L 03/16/19 04:18 Potassium 4.1 mmol/L (3.6-5.0) 03/16/19 04:18 Chloride 101.7 mmol/L (98-107) 03/16/19 04:18 Carbon Dioxide 24 mmol/L (22-30) 03/16/19 04:18 14 mmol/L 03/16/19 04:18 BUN 11 mg/dL (7-17) 03/16/19 04:18 0.7 mg/dL (0.7-1.2) 03/16/19 04:18 Estimated GFR > 60 ml/min 03/16/19 04:18 16 % 03/16/19 04:18 Glucose 99 mg/dL (65-100) 03/16/19 04:18 Lactic Acid 0.80 mmol/L (0.7-2.0) 03/05/19 05:23 Calcium 9.0 mg/dL (8.4-10.2) 03/16/19 04:18 Phosphorus 2.90 mg/dL (2.5-4.5) 03/13/19 08:19 Magnesium 1.70 mg/dL (1.7-2.3) 03/15/19 05:32 Iron 11 ug/dL (37-170) L 03/10/19 04:31 TIBC 201 mcg/dL (250-450) L 03/10/19 04:31 87.9 ng/mL (13.0-400.0) 03/10/19 04:31 0.20 mg/dL (0.1-1.2) 03/09/19 04:52 AST 12 units/L (5-40) 03/09/19 04:52 ALT < 5 units/L (7-56) L 03/09/19 04:52 65 units/L (35-129) 03/09/19 04:52 5.5 g/dL (6.3-8.2) L 03/09/19 04:52 2.2 g/dL (3.9-5) L 03/09/19 04:52 0.7 % 03/09/19 04:52 Carcinoembryonic Ag 58.8 ng/mL (0.0-2.4) H 03/10/19 04:31 96 U/mL (<35) H 03/10/19 04:31 Vitamin B12 1622 pg/mL (211-911) H 03/10/19 04:31 8.04 ng/mL (7.3-26.0) 03/10/19 04:31 Yellow (Yellow) 03/04/19 13:13 Cloudy (Clear) 03/04/19 13:13 5.0 (5.0-7.0) 03/04/19 13:13 Ur Specific [place] 1.018 (1.003-1.030) 03/04/19 13:13 30 mg/dl mg/dL (Negative) 03/04/19 13:13 Neg mg/dL (Negative) 03/04/19 13:13 Tr mg/dL (Negative) 03/04/19 13:13 Neg (Negative) 03/04/19 13:13 Neg (Negative) 03/04/19 13:13 Neg (Negative) 03/04/19 13:13 < 2.0 mg/dL (<2.0) 03/04/19 13:13 Ur Leukocyte Esterase Tr (Negative) 03/04/19 13:13 5.0 /HPF (0.0-6.0) 03/04/19 13:13 4.0 /HPF (0.0-6.0) 03/04/19 13:13 U Epithel Cells (Auto) 8.0 /HPF (0-13.0) 03/04/19 13:13 1+ /HPF (Negative) 03/04/19 13:13 Few /HPF 03/04/19 13:13 Blood Type O NEGATIVE 03/08/19 14:25 Antibody Screen Negative 03/08/19 14:25 [place] Antibody Screen Negative 03/04/19 15:56 Crossmatch See Detail 03/04/19 15:56 Active Medications - Current Medications Current Medications: Generic Name Dose Route Start Last Admin Trade Name Freq PRN Reason Stop Dose Admin Acetaminophen/Hydrocodone Bitart 2 each 03/08/19 17:17 03/16/19 10:11 [place] 5/325 PO 2 each Q6H PRN Administration Pain, Moderate (4-6) Albuterol 2.5 mg 03/04/19 15:40 Proventil IH Q3HRT PRN Shortness Of Breath Heparin Sodium (Porcine) 5,000 unit 03/04/19 22:00 03/17/19 09:39 Heparin SUB-Q 5,000 unit Q12HR AUDREY Administration Hydralazine HCl 10 mg 03/08/19 11:10 Apresoline IV Q4HR PRN Hypertension Lactated Ringer's 1,000 mls @ 75 mls/hr 03/08/19 15:00 03/16/19 07:33 Lactated Ringers IV 75 mls/hr DIRECT AUDREY Administration Lorazepam 1 mg 03/08/19 11:10 03/17/19 09:39 Ativan IV 1 mg Q4H PRN Administration Agitation Morphine Sulfate 2 mg 03/07/19 17:58 03/17/19 09:40 Morphine IV 2 mg Q4H PRN Administration Pain, Moderate (4-6) Sodium Chloride 10 ml 03/04/19 22:00 03/17/19 09:40 Sodium Chloride Flush Syringe 10 Ml IV 10 ml BID AUDREY Administration Sodium Chloride 10 ml 03/04/19 15:40 03/07/19 05:33 Sodium Chloride Flush Syringe 10 Ml IV 10 ml PRN PRN Administration LINE FLUSH Nutrition/Malnutrition Assess - Dietary Evaluation Nutrition/Malnutrition Findings: Nutrition Notes Start: 03/05/19 13:19 Freq: Status: Active Protocol: Document 03/14/19 14:54 CHELSEA (Rec: 03/14/19 15:02 CHELSEA [email or web address] [email or web address]) Nutrition Notes Initial or Follow up Reassessment Other Pertinent Diagnosis ? metastatic colon CA, SBO s/p diverting ileostomy Current Diet Mech soft + Ensure Enlive daily Labs/Tests Reviewed Pertinent Medications Reviewed Height 5 ft 7 in Weight 59.2 kg [place] Body Weight (kg) 61.36 BMI 20.4 Subjective/Other Information Pt reports eating <25% of meals sec to not liking taste of the food. 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 She wants ONS on each meal tray. Percent of energy/protein needs met: 58% energy 63% pro (includes ONS) Burn Absent Trauma Absent #1 Nutrition Diagnosis Inadequate oral intake Diagnosis Progress(for reassessment Continues documentation) Is patient on ventilator? No Is Patient Ambulatory and/or Out of Bed Yes REE-([place]-St. Jeor-ambulatory/OOB) [ 1520.519 [id number]] Kcal/Kg value to use for calculation 30 Approximate Energy Requirements Using 1776 kcal/Kg Calculation Used for Recommendations Kcal/kg Additional Notes Pro needs 1.2-1.5g/k-89g/ day Fluid needs 1ml/kcal Nutrition Intervention Change Diet Order: Continue diet order; dietary staff to contact pt to collect meal preferences daily Add Supplement/Snack (indicate name/kcal Ensure Enlive TID (strawberry) /protein ) Provides kCal: 1,050 Provides Protein (gm) 60 Goal #1 PO intake of meals plus ONS to meet at least 75% energy and pro needs Goal #2 Wt maintenance Follow-Up By: 03/20/19 Additional Comments F/U: intakes, wt
--- NOTE | 2019-03-17 15:18 | Hem/Onc Progress Note ---
Assessment and Plan # colon cancer with mass in the ascending colon and based on surgical notes metastatic process in the abdomen. The patient has a diverting ileostomy. the disease is advanced stage 4 with mets in the abdomen, chemotherapy will be the first line. # Tumor markers elevated CEA # Anemia, MCV low, likely secondary to iron deficiency. # h/o Electrolyte issues. # h/o Creatinine abn. # Social issues, the patient lives with friends. I will follow the patient during inpatient stay. 03/17 d/w pt that referal to sx for colon sx an option - but due to her age - chemo - immunotherapy/chemo preferred path - report - + for colon ca CEA 50s low iron - s/p IV iron trial pt has social issues - housing etc - OP f/u for chemo high plt - likely reactive - IV iron trial d/w dr hawley on 03/14 for OP follow up - once wound healed - will look into Rx options CT chest - liver mets+ - Patient Problems (1) Colonic mass Current Visit: Yes Status: Acute Subjective Date of service: 03/17/19 Principal diagnosis: colon ca Interval history: feeling better plcement eval ongoing Objective - Constitutional Vitals: Last Vital Signs Temp 98.3 F 03/17/19 12:08 Pulse 78 03/17/19 12:08 Resp 18 03/17/19 12:08 BP 108/64 03/17/19 12:08 Pulse Ox 96 03/17/19 12:08 Pain Intensity (0-10): denies any pain General appearance: no acute distress Performance status: 3-limited selfcare - EENT Eyes: EOM intact ENT: hearing intact Lymph node exam: negative cervical - Neck Neck: normal ROM - Respiratory Respiratory effort: Positive: normal Respiratory: bilateral: CTA - Cardiovascular Heart Sounds: Present: S1 & S2 Extremities: normal temperature - Gastrointestinal General gastrointestinal: Present: soft, other (stomy) Rectal Exam: deferred - Genitourinary Female genitourinary: Present: deferred - Integumentary Integumentary: warm - Musculoskeletal Musculoskeletal: generalized weakness - Neurologic Neurologic: moves all extremities Medications & Allergies - Medications Allergies/Adverse Reactions: Allergies Penicillins Allergy (Verified 03/04/19 08:51) Itching Home Medications: Home Medications Medication Instructions Recorded Confirmed Last Taken Type ALBUTEROL Inhaler (OR & NICU) 2 puff IH QID PRN #1 inhalation 11/24/18 03/04/19 Unknown Rx [ProAir HFA Inhaler] Azithromycin [Zithromax Z-LONNY] 250 mg PO DAILY #6 tablet 11/24/18 03/04/19 Unknown Rx predniSONE [Deltasone] 20 mg PO QDAY #5 tab 11/24/18 03/04/19 Unknown Rx Amitriptyline 10 mg PO HS 03/08/19 03/08/19 Unknown History Chlorthalidone 25 mg PO QDAY 03/08/19 03/08/19 Unknown History Mirtazapine 45 mg PO HS 03/08/19 03/08/19 Unknown History RisperiDONE 1 mg HS 03/08/19 03/08/19 03/03/19 History amLODIPine 10 mg PO QDAY 03/08/19 03/08/19 Unknown History Active Medications: Generic Name Dose Route Start Last Admin Trade Name Freq PRN Reason Stop Dose Admin Acetaminophen/Hydrocodone Bitart 2 each 03/08/19 17:17 03/16/19 10:11 [place] 5/325 PO 2 each Q6H PRN Administration Pain, Moderate (4-6) Albuterol 2.5 mg 03/04/19 15:40 Proventil IH Q3HRT PRN Shortness Of Breath Heparin Sodium (Porcine) 5,000 unit 03/04/19 22:00 03/17/19 09:39 Heparin SUB-Q 5,000 unit Q12HR AUDREY Administration Hydralazine HCl 10 mg 03/08/19 11:10 Apresoline IV Q4HR PRN Hypertension Lactated Ringer's 1,000 mls @ 75 mls/hr 03/08/19 15:00 03/16/19 07:33 Lactated Ringers IV 75 mls/hr DIRECT AUDREY Administration Lorazepam 1 mg 03/08/19 11:10 03/17/19 14:35 Ativan IV 1 mg Q4H PRN Administration Agitation Morphine Sulfate 2 mg 03/07/19 17:58 03/17/19 14:35 Morphine IV 2 mg Q4H PRN Administration Pain, Moderate (4-6) Sodium Chloride 10 ml 03/04/19 22:00 03/17/19 09:40 Sodium Chloride Flush Syringe 10 Ml IV 10 ml BID AUDREY Administration Sodium Chloride 10 ml 03/04/19 15:40 03/07/19 05:33 Sodium Chloride Flush Syringe 10 Ml IV 10 ml PRN PRN Administration LINE FLUSH
[2019-03-17] MEDS: LACTATED RINGERS 1,000 ML IV SCH (15:27)
[2019-03-17] MEDS: NORCO 5/325 PO PRN (19:57)
[2019-03-18] MEDS: NORCO 5/325 PO PRN ×3 (01:42→21:26)
[2019-03-18] MEDS: ATIVAN IV PRN ×4 (06:45→21:25)
--- NOTE | 2019-03-18 08:24 | Progress Note ---
Assessment and Plan Assessment and plan: 63-year-old female patient admitted through emergency room with nausea vomiting generalized weakness, initiated workup is consistent with anemia, small bowel obstruction Patient received 2 units of PRBC, surgery evaluated the patient. Possible colonic mass suspicion for malignancy, patient stabilized Underwent exploratory laparotomy, diverting loop ileostomy, omental biopsies.Large firm mass right lower quadrant, presumed malignancy Patient was evaluated by oncology, pending pathology report , metastatic colon cancer consider different treatment plans. CT abdomen and pelvis/abdominal mass CT abdomen and pelvis findings possible mass in the ascending colon. CT chest: Bilateral Pulmonary Nodules consistent with Metastatic Disease. Emphysema, Right lobar Pna vs subsegmental atalectasis. Tiny Right pleural Effusion --Possible metastases colon cancer- Metastatic Moderately Differentiated adenocarcinoma consistent with colorectal primary Surgery, oncology following, pathology report of omental biopsy noted as above surgery cleared for discharge, will remove damon from ileostomy site next week still draining, will await woundcare to revise bag, may need a different bag --Small bowel obstruction /Status post diverting ileostomy; with mets to the chest Expl Lap:large, firm mass in RLQ involving presumed malignancy, large bowel and small bowel. multiple implants in mesentery, omentum, peritoneum, liver, iliac LNs. s/p omental biopsies x 2, diverting loop ileostomy creation. Continue supportive care, follow histopathology Oncology evaluation noted appreciated --Hypomagnesemia;Hypokalemia/Hypophosphatemia: corrected , monitor electrolytes Replace --Anemia: Received 2 units PRBC, hemoglobin level improved -- Sepsis/leukocytosis Sepsis Protocol: IV ABx therapy Levaquin and Flagyl, IVF resuscitation therapy, lactate levels within normal limits, No growth in cultures Monitor resolution of leukocytosis --ARF (acute renal failure) with tubular necrosis Resolved , avoid nephrotoxins , IV fluids needed --Severe malnutrition/hypoalbuminemia Due to her underlying disease process, nutrition consult nutrition supplements when able to take oral --REACTIVE Thrombocytosis Secondary to Metastatic disease --Ilesotmy intact- WOUND MANAGEMENT ---DVT prophylaxis SCD to BLE while in bed. Prophylactic heparin. Plan of care reviewed with the patient and her nurse Consults and recommendations noted and appreciated Disposition; follow biopsy report, follow oncology and surgical recommendations Pending placement to SNF/rehabilitation Discharge Planning History Interval history: Patient seen and examined, Resting comfortably, in good spirits, no new complaints, although ileostomy site still draining Hospitalist Physical - Physical exam Narrative exam: VITAL SIGNS: Reviewed. GENERAL: The patient appeared cachectic, uncomfortable, Vital signs as docum ented. ambulating HEAD: No signs of head trauma. EYES: Pupils are equal. Extraocular motions intact. EARS: Hearing grossly intact. MOUTH: Oropharynx is normal. NECK: No adenopathy, no JVD. CHEST: Chest with diminished breath sounds bilaterally. No wheezes, rales, or rhonchi. CARDIAC: Regular rate and rhythm. S1 and S2, without murmurs, gallops, or rubs. VASCULAR: No Edema. Peripheral pulses normal and equal in all extremities. ABDOMEN: Soft, non tender and non distended. dressing in place, ileostomy noted, high output, No rebound or guarding, and no masses palpated. Bowel Sounds normal. MUSCULOSKELETAL: Good range of motion of all major joints. Extremities without clubbing, cyanosis or edema. NEUROLOGIC EXAM: Alert and oriented x 3 No focal sensory or strength deficits. Speech normal. Follows commands. PSYCHIATRIC: Mood normal. SKIN: abdominal wound with dressing. - Constitutional Vitals: Temp Pulse Resp BP Pulse Ox 98.4 F 75 20 156/70 97 03/18/19 04:24 03/18/19 04:24 03/18/19 04:24 03/18/19 04:24 03/18/19 04:24 General appearance: Present: no acute distress, cachectic, disheveled Results - Labs CBC & Chem 7: 03/16/19 04:18 03/16/19 04:18 Labs: Laboratory Last Values WBC 12.5 K/mm3 (4.5-11.0) H 03/16/19 04:18 RBC 3.60 M/mm3 (3.65-5.03) L 03/16/19 04:18 Hgb 8.5 gm/dl (10.1-14.3) L 03/16/19 04:18 Hct 25.2 % (30.3-42.9) L 03/16/19 04:18 MCV 70 fl (79-97) L 03/16/19 04:18 MCH 24 pg (28-32) L 03/16/19 04:18 MCHC 34 % (30-34) 03/16/19 04:18 RDW 26.2 % (13.2-15.2) H 03/16/19 04:18 Plt Count 786 K/mm3 (140-440) H 03/16/19 04:18 Lymph % (Auto) 13.1 % (13.4-35.0) L 03/11/19 05:10 [place] % (Auto) 7.2 % (0.0-7.3) 03/11/19 05:10 Eos % (Auto) 0.9 % (0.0-4.3) 03/11/19 05:10 Baso % (Auto) 0.4 % (0.0-1.8) 03/11/19 05:10 Lymph # 2.5 K/mm3 (1.2-5.4) 03/11/19 05:10 [place] # 1.4 K/mm3 (0.0-0.8) H 03/11/19 05:10 Eos # 0.2 K/mm3 (0.0-0.4) 03/11/19 05:10 Baso # 0.1 K/mm3 (0.0-0.1) 03/11/19 05:10 Add Manual Diff Complete 03/13/19 08:19 Total Counted 100 03/13/19 08:19 Seg Neutrophils % 78.4 % (40.0-70.0) H 03/11/19 05:10 Seg Neuts % (Manual) 95.0 % (40.0-70.0) H 03/13/19 08:19 0 % 03/13/19 08:19 4.0 % (13.4-35.0) L 03/13/19 08:19 Reactive Lymphs % (Man) 0 % 03/13/19 08:19 1.0 % (0.0-7.3) 03/13/19 08:19 0 % (0.0-4.3) 03/13/19 08:19 0 % (0.0-1.8) 03/13/19 08:19 0 % 03/13/19 08:19 0 % 03/13/19 08:19 0 % 03/13/19 08:19 0 % 03/13/19 08:19 Nucleated RBC % Not Reportable 03/13/19 08:19 Seg Neutrophils # 15.0 K/mm3 (1.8-7.7) H 03/11/19 05:10 Seg Neutrophils # Man 22.3 K/mm3 (1.8-7.7) H 03/13/19 08:19 Band Neutrophils # 0.0 K/mm3 03/13/19 08:19 0.9 K/mm3 (1.2-5.4) L 03/13/19 08:19 Abs React Lymphs (Man) 0.0 K/mm3 03/13/19 08:19 0.2 K/mm3 (0.0-0.8) 03/13/19 08:19 0.0 K/mm3 (0.0-0.4) 03/13/19 08:19 0.0 K/mm3 (0.0-0.1) 03/13/19 08:19 0.0 K/mm3 03/13/19 08:19 0.0 K/mm3 03/13/19 08:19 0.0 K/mm3 03/13/19 08:19 Blast Cells # 0.0 K/mm3 03/13/19 08:19 WBC Morphology Not Reportable 03/13/19 08:19 Hypersegmented Neuts Not Reportable 03/13/19 08:19 Hyposegmented Neuts Not Reportable 03/13/19 08:19 Hypogranular Neuts Not Reportable 03/13/19 08:19 Not Reportable 03/13/19 08:19 Not Reportable 03/13/19 08:19 Not Reportable 03/13/19 08:19 Not Reportable 03/13/19 08:19 Not Reportable 03/13/19 08:19 Not Reportable 03/13/19 08:19 Consistent w auto 03/13/19 08:19 Not Reportable 03/13/19 08:19 Plt Clumps, EDTA Not Reportable 03/13/19 08:19 Not Reportable 03/13/19 08:19 Not Reportable 03/13/19 08:19 Not Reportable 03/13/19 08:19 Plt Morphology Comment Not Reportable 03/13/19 08:19 RBC Morphology Not Reportable 03/13/19 08:19 Dimorphic RBCs Not Reportable 03/13/19 08:19 Not Reportable 03/13/19 08:19 1+ 03/13/19 08:19 Not Reportable 03/13/19 08:19 2+ 03/13/19 08:19 Few 03/13/19 08:19 Not Reportable 03/13/19 08:19 Not Reportable 03/13/19 08:19 Not Reportable 03/13/19 08:19 Not Reportable 03/13/19 08:19 Few 03/13/19 08:19 Not Reportable 03/13/19 08:19 Not Reportable 03/13/19 08:19 Not Reportable 03/13/19 08:19 Not Reportable 03/13/19 08:19 Not Reportable 03/13/19 08:19 Not Reportable 03/13/19 08:19 Not Reportable 03/13/19 08:19 Not Reportable 03/13/19 08:19 Not Reportable 03/13/19 08:19 Acanthocytes (Spur) Rare 03/13/19 08:19 Rouleaux Not Reportable 03/13/19 08:19 Not Reportable 03/13/19 08:19 Not Reportable 03/13/19 08:19 Not Reportable 03/13/19 08:19 Not Reportable 03/13/19 08:19 Hem Pathologist Commnt No 03/13/19 08:19 Sodium 136 mmol/L (137-145) L 03/16/19 04:18 Potassium 4.1 mmol/L (3.6-5.0) 03/16/19 04:18 Chloride 101.7 mmol/L (98-107) 03/16/19 04:18 Carbon Dioxide 24 mmol/L (22-30) 03/16/19 04:18 14 mmol/L 03/16/19 04:18 BUN 11 mg/dL (7-17) 03/16/19 04:18 0.7 mg/dL (0.7-1.2) 03/16/19 04:18 Estimated GFR > 60 ml/min 03/16/19 04:18 16 % 03/16/19 04:18 Glucose 99 mg/dL (65-100) 03/16/19 04:18 Lactic Acid 0.80 mmol/L (0.7-2.0) 03/05/19 05:23 Calcium 9.0 mg/dL (8.4-10.2) 03/16/19 04:18 Phosphorus 2.90 mg/dL (2.5-4.5) 03/13/19 08:19 Magnesium 1.70 mg/dL (1.7-2.3) 03/15/19 05:32 Iron 11 ug/dL (37-170) L 03/10/19 04:31 TIBC 201 mcg/dL (250-450) L 03/10/19 04:31 87.9 ng/mL (13.0-400.0) 03/10/19 04:31 0.20 mg/dL (0.1-1.2) 03/09/19 04:52 AST 12 units/L (5-40) 03/09/19 04:52 ALT < 5 units/L (7-56) L 03/09/19 04:52 65 units/L (35-129) 03/09/19 04:52 5.5 g/dL (6.3-8.2) L 03/09/19 04:52 2.2 g/dL (3.9-5) L 03/09/19 04:52 0.7 % 03/09/19 04:52 Carcinoembryonic Ag 58.8 ng/mL (0.0-2.4) H 03/10/19 04:31 96 U/mL (<35) H 03/10/19 04:31 Vitamin B12 1622 pg/mL (211-911) H 03/10/19 04:31 8.04 ng/mL (7.3-26.0) 03/10/19 04:31 Yellow (Yellow) 03/04/19 13:13 Cloudy (Clear) 03/04/19 13:13 5.0 (5.0-7.0) 03/04/19 13:13 Ur Specific [place] 1.018 (1.003-1.030) 03/04/19 13:13 30 mg/dl mg/dL (Negative) 03/04/19 13:13 Neg mg/dL (Negative) 03/04/19 13:13 Tr mg/dL (Negative) 03/04/19 13:13 Neg (Negative) 03/04/19 13:13 Neg (Negative) 03/04/19 13:13 Neg (Negative) 03/04/19 13:13 < 2.0 mg/dL (<2.0) 03/04/19 13:13 Ur Leukocyte Esterase Tr (Negative) 03/04/19 13:13 5.0 /HPF (0.0-6.0) 03/04/19 13:13 4.0 /HPF (0.0-6.0) 03/04/19 13:13 U Epithel Cells (Auto) 8.0 /HPF (0-13.0) 03/04/19 13:13 1+ /HPF (Negative) 03/04/19 13:13 Few /HPF 03/04/19 13:13 Blood Type O NEGATIVE 03/08/19 14:25 Antibody Screen Negative 03/08/19 14:25 [place] Antibody Screen Negative 03/04/19 15:56 Crossmatch See Detail 03/04/19 15:56 Active Medications - Current Medications Current Medications: Generic Name Dose Route Start Last Admin Trade Name Freq PRN Reason Stop Dose Admin Acetaminophen/Hydrocodone Bitart 2 each 03/08/19 17:17 03/18/19 01:42 [place] 5/325 PO 2 each Q6H PRN Administration Pain, Moderate (4-6) Albuterol 2.5 mg 03/04/19 15:40 Proventil IH Q3HRT PRN Shortness Of Breath Heparin Sodium (Porcine) 5,000 unit 03/04/19 22:00 03/17/19 22:20 Heparin SUB-Q 5,000 unit Q12HR AUDREY Administration Hydralazine HCl 10 mg 03/08/19 11:10 Apresoline IV Q4HR PRN Hypertension Lactated Ringer's 1,000 mls @ 75 mls/hr 03/08/19 15:00 03/17/19 15:27 Lactated Ringers IV 75 mls/hr DIRECT AUDREY Administration Lorazepam 1 mg 03/08/19 11:10 03/18/19 06:45 Ativan IV 1 mg Q4H PRN Administration Agitation Morphine Sulfate 2 mg 03/07/19 17:58 03/17/19 22:20 Morphine IV 2 mg Q4H PRN Administration Pain, Moderate (4-6) Sodium Chloride 10 ml 03/04/19 22:00 03/17/19 22:26 Sodium Chloride Flush Syringe 10 Ml IV 10 ml BID AUDREY Administration Sodium Chloride 10 ml 03/04/19 15:40 03/07/19 05:33 Sodium Chloride Flush Syringe 10 Ml IV 10 ml PRN PRN Administration LINE FLUSH Nutrition/Malnutrition Assess - Dietary Evaluation Nutrition/Malnutrition Findings: Nutrition Notes Start: 03/05/19 13:19 Freq: Status: Active Protocol: Document 03/14/19 14:54 CHELSEA (Rec: 03/14/19 15:02 CHELSEA [email or web address] [email or web address]) Nutrition Notes Initial or Follow up Reassessment Other Pertinent Diagnosis ? metastatic colon CA, SBO s/p diverting ileostomy Current Diet Mech soft + Ensure Enlive daily Labs/Tests Reviewed Pertinent Medications Reviewed Height 5 ft 7 in Weight 59.2 kg [place] Body Weight (kg) 61.36 BMI 20.4 Subjective/Other Information Pt reports eating <25% of meals sec to not liking taste of the food. 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 She wants ONS on each meal tray. Percent of energy/protein needs met: 58% energy 63% pro (includes ONS) Burn Absent Trauma Absent #1 Nutrition Diagnosis Inadequate oral intake Diagnosis Progress(for reassessment Continues documentation) Is patient on ventilator? No Is Patient Ambulatory and/or Out of Bed Yes REE-([place]. Jeor-ambulatory/OOB) [ 1520.519 [id number]] Kcal/Kg value to use for calculation 30 Approximate Energy Requirements Using 1776 kcal/Kg Calculation Used for Recommendations Kcal/kg Additional Notes Pro needs 1.2-1.5g/k-89g/ day Fluid needs 1ml/kcal Nutrition Intervention Change Diet Order: Continue diet order; dietary staff to contact pt to collect meal preferences daily Add Supplement/Snack (indicate name/kcal Ensure Enlive TID (strawberry) /protein ) Provides kCal: 1,050 Provides Protein (gm) 60 Goal #1 PO intake of meals plus ONS to meet at least 75% energy and pro needs Goal #2 Wt maintenance Follow-Up By: 03/20/19 Additional Comments F/U: intakes, wt
[2019-03-18] MEDS: HEPARIN SUB-Q SCH ×2 (11:24→21:26)
[2019-03-18] MEDS: MORPHINE IV PRN (11:24)
[2019-03-18] MEDS: SODIUM CHLORIDE FLUSH SYRINGE 10 ML IV SCH ×2 (11:28→21:25)
[2019-03-18] MEDS: LACTATED RINGERS 1,000 ML IV SCH (20:02)
[2019-03-19] MEDS: ATIVAN IV PRN ×5 (02:05→22:33)
[2019-03-19] MEDS: NORCO 5/325 PO PRN ×2 (03:37→18:38)
--- NOTE | 2019-03-19 07:44 | Hem/Onc Progress Note ---
Assessment and Plan # colon cancer with mass in the ascending colon and based on surgical notes metastatic process in the abdomen. The patient has a diverting ileostomy. the disease is advanced stage 4 with mets in the abdomen, chemotherapy will be the first line. # Tumor markers elevated CEA # Anemia, MCV low, likely secondary to iron deficiency. # h/o Electrolyte issues. # h/o Creatinine abn. # Social issues, the patient lives with friends. I will follow the patient during inpatient stay. 03/19 d/w pt that referal to sx for colon sx an option - but due to her age - chemo - immunotherapy/chemo preferred path - report - + for colon ca CEA 50s low iron - s/p IV iron trial pt has social issues - housing etc - OP f/u for chemo high plt - likely reactive - IV iron trial d/w dr hawley on 03/14 for OP follow up - once wound healed - will look into Rx options CT chest - lung mets+ - not liver ( was an error) - Patient Problems (1) Colonic mass Current Visit: Yes Status: Acute Subjective Date of service: 03/19/19 Principal diagnosis: colon ca Interval history: eating waiting for placement Objective - Constitutional Vitals: Last Vital Signs Temp 98.1 F 03/19/19 04:12 Pulse 78 03/19/19 04:12 Resp 17 03/19/19 04:12 BP 124/66 03/19/19 04:12 Pulse Ox 96 03/19/19 04:12 Pain Intensity (0-10): denies any pain General appearance: no acute distress Performance status: 3-limited selfcare - EENT Eyes: EOM intact ENT: hearing intact Lymph node exam: negative cervical - Neck Neck: normal ROM - Respiratory Respiratory effort: Positive: normal Respiratory: bilateral: CTA - Cardiovascular Heart Sounds: Present: S1 & S2 Extremities: No edema, normal temperature - Gastrointestinal General gastrointestinal: Present: soft, other (stomy+) Rectal Exam: deferred - Genitourinary Female genitourinary: Present: deferred - Integumentary Integumentary: warm - Musculoskeletal Musculoskeletal: generalized weakness - Neurologic Neurologic: moves all extremities Medications & Allergies - Medications Allergies/Adverse Reactions: Allergies Penicillins Allergy (Verified 03/04/19 08:51) Itching Home Medications: Home Medications Medication Instructions Recorded Confirmed Last Taken Type ALBUTEROL Inhaler (OR & NICU) 2 puff IH QID PRN #1 inhalation 11/24/18 03/04/19 Unknown Rx [ProAir HFA Inhaler] Azithromycin [Zithromax Z-LONNY] 250 mg PO DAILY #6 tablet 11/24/18 03/04/19 Unknown Rx predniSONE [Deltasone] 20 mg PO QDAY #5 tab 11/24/18 03/04/19 Unknown Rx Amitriptyline 10 mg PO HS 03/08/19 03/08/19 Unknown History Chlorthalidone 25 mg PO QDAY 03/08/19 03/08/19 Unknown History Mirtazapine 45 mg PO HS 03/08/19 03/08/19 Unknown History RisperiDONE 1 mg HS 03/08/19 03/08/19 03/03/19 History amLODIPine 10 mg PO QDAY 03/08/19 03/08/19 Unknown History Active Medications: Generic Name Dose Route Start Last Admin Trade Name Freq PRN Reason Stop Dose Admin Acetaminophen/Hydrocodone Bitart 2 each 03/08/19 17:17 03/19/19 03:37 [place] 5/325 PO 2 each Q6H PRN Administration Pain, Moderate (4-6) Albuterol 2.5 mg 03/04/19 15:40 Proventil IH Q3HRT PRN Shortness Of Breath Heparin Sodium (Porcine) 5,000 unit 03/04/19 22:00 03/18/19 21:26 Heparin SUB-Q 5,000 unit Q12HR AUDREY Administration Hydralazine HCl 10 mg 03/08/19 11:10 Apresoline IV Q4HR PRN Hypertension Lactated Ringer's 1,000 mls @ 75 mls/hr 03/08/19 15:00 03/18/19 20:02 Lactated Ringers IV 75 mls/hr DIRECT AUDREY Administration Lorazepam 1 mg 03/08/19 11:10 03/19/19 06:15 Ativan IV 1 mg Q4H PRN Administration Agitation Morphine Sulfate 2 mg 03/07/19 17:58 03/18/19 11:24 Morphine IV 2 mg Q4H PRN Administration Pain, Moderate (4-6) Sodium Chloride 10 ml 03/04/19 22:00 03/18/19 21:25 Sodium Chloride Flush Syringe 10 Ml IV 10 ml BID AUDREY Administration Sodium Chloride 10 ml 03/04/19 15:40 03/07/19 05:33 Sodium Chloride Flush Syringe 10 Ml IV 10 ml PRN PRN Administration LINE FLUSH
[2019-03-19] MEDS: HEPARIN SUB-Q SCH ×2 (10:12→21:29)
[2019-03-19] MEDS: SODIUM CHLORIDE FLUSH SYRINGE 10 ML IV SCH ×2 (10:18→22:37)
[2019-03-19] MEDS: MORPHINE IV PRN ×3 (10:22→21:15)
--- NOTE | 2019-03-19 15:25 | Progress Note ---
Assessment and Plan Assessment and plan: Patient is a 63-year-old female patient admitted through emergency room with nausea vomiting generalized weakness, initiated workup is consistent with anemia, small bowel obstruction. Patient received 2 units of PRBC, surgery evaluated the patient. Patient stabilized Underwent exploratory laparotomy, diverting loop ileostomy, omental biopsies.Large firm mass right lower quadrant, presumed malignancy. Patient was evaluated by oncology, pending pathology report , metastatic colon cancer consider different treatment plans. 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 h/o Creatinine abn. imaging studies shows bilateral pulmonary Nodules. CT abdomen and pelvis/abdominal mass CT abdomen and pelvis findings possible mass in the ascending colon. CT chest: Bilateral Pulmonary Nodules consistent with Metastatic Disease. Emphysema, Right lobar Pna vs subsegmental atalectasis. Tiny Right pleural Effusion --Possible metastases colon cancer- Metastatic Moderately Differentiated adenocarcinoma consistent with colorectal primary Surgery, oncology following, pathology report of omental biopsy noted as above surgery cleared for discharge, will remove damon from ileostomy site next week still draining, wound care following --Small bowel obstruction /Status post diverting ileostomy; with mets to the chest Expl Lap:large, firm mass in RLQ involving presumed malignancy, large bowel and small bowel. multiple implants in mesentery, omentum, peritoneum, liver, iliac LNs. s/p omental biopsies x 2, diverting loop ileostomy creation. Continue supportive care, follow histopathology Oncology evaluation noted appreciated --Hypomagnesemia;Hypokalemia/Hypophosphatemia: corrected , monitor electrolytes Replace --Anemia: Received 2 units PRBC, hemoglobin level improved -- Sepsis/leukocytosis Sepsis Protocol: IV ABx therapy Levaquin and Flagyl, IVF resuscitation therapy, lactate levels within normal limits, No growth in cultures Monitor resolution of leukocytosis --ARF (acute renal failure) with tubular necrosis Resolved , avoid nephrotoxins , IV fluids needed --Severe malnutrition/hypoalbuminemia Due to her underlying disease process, nutrition consult nutrition supplements when able to take oral --REACTIVE Thrombocytosis Secondary to Metastatic disease --Ilesotmy intact- WOUND MANAGEMENT ---DVT prophylaxis SCD to BLE while in bed. Prophylactic heparin. Plan of care reviewed with the patient and her nurse Consults and recommendations noted and appreciated Disposition; follow biopsy report, follow oncology and surgical recommendations Pending placement to SNF/rehabilitation Discharge Planning History Interval history: Patient seen and examined, No new complaints except pain in the abdomen. Hospitalist Physical - Physical exam Narrative exam: VITAL SIGNS: Reviewed. GENERAL: The patient appeared cachectic, uncomfortable, Vital signs as documented. ambulating HEAD: No signs of head trauma. EYES: Pupils are equal. Extraocular motions intact. EARS: Hearing grossly intact. MOUTH: Oropharynx is normal. NECK: No adenopathy, no JVD. CHEST: Chest with diminished breath sounds bilaterally. No wheezes, rales, or rhonchi. CARDIAC: Regular rate and rhythm. S1 and S2, without murmurs, gallops, or rubs. VASCULAR: No Edema. Peripheral pulses normal and equal in all extremities. ABDOMEN: Soft, non tender and non distended. dressing in place, ileostomy noted, high output, No rebound or guarding, and no masses palpated. Bowel Sounds normal. MUSCULOSKELETAL: Good range of motion of all major joints. Extremities without clubbing, cyanosis or edema. NEUROLOGIC EXAM: Alert and oriented x 3 No focal sensory or strength deficits. Speech normal. Follows commands. PSYCHIATRIC: Mood normal. SKIN: abdominal wound with dressing. - Constitutional Vitals: Temp Pulse Resp BP Pulse Ox 98.7 F 74 18 120/64 94 03/19/19 11:00 03/19/19 11:00 03/19/19 11:00 03/19/19 11:00 03/19/19 11:00 General appearance: Present: no acute distress, cachectic, disheveled Results - Labs CBC & Chem 7: 03/16/19 04:18 03/16/19 04:18 Labs: Laboratory Last Values WBC 12.5 K/mm3 (4.5-11.0) H 03/16/19 04:18 RBC 3.60 M/mm3 (3.65-5.03) L 03/16/19 04:18 Hgb 8.5 gm/dl (10.1-14.3) L 03/16/19 04:18 Hct 25.2 % (30.3-42.9) L 03/16/19 04:18 MCV 70 fl (79-97) L 03/16/19 04:18 MCH 24 pg (28-32) L 03/16/19 04:18 MCHC 34 % (30-34) 03/16/19 04:18 RDW 26.2 % (13.2-15.2) H 03/16/19 04:18 Plt Count 786 K/mm3 (140-440) H 03/16/19 04:18 Lymph % (Auto) 13.1 % (13.4-35.0) L 03/11/19 05:10 Butts % (Auto) 7.2 % (0.0-7.3) 03/11/19 05:10 Eos % (Auto) 0.9 % (0.0-4.3) 03/11/19 05:10 Baso % (Auto) 0.4 % (0.0-1.8) 03/11/19 05:10 Lymph # 2.5 K/mm3 (1.2-5.4) 03/11/19 05:10 Butts # 1.4 K/mm3 (0.0-0.8) H 03/11/19 05:10 Eos # 0.2 K/mm3 (0.0-0.4) 03/11/19 05:10 Baso # 0.1 K/mm3 (0.0-0.1) 03/11/19 05:10 Add Manual Diff Complete 03/13/19 08:19 Total Counted 100 03/13/19 08:19 Seg Neutrophils % 78.4 % (40.0-70.0) H 03/11/19 05:10 Seg Neuts % (Manual) 95.0 % (40.0-70.0) H 03/13/19 08:19 0 % 03/13/19 08:19 4.0 % (13.4-35.0) L 03/13/19 08:19 Reactive Lymphs % (Man) 0 % 03/13/19 08:19 1.0 % (0.0-7.3) 03/13/19 08:19 0 % (0.0-4.3) 03/13/19 08:19 0 % (0.0-1.8) 03/13/19 08:19 0 % 03/13/19 08:19 0 % 03/13/19 08:19 0 % 03/13/19 08:19 0 % 03/13/19 08:19 Nucleated RBC % Not Reportable 03/13/19 08:19 Seg Neutrophils # 15.0 K/mm3 (1.8-7.7) H 03/11/19 05:10 Seg Neutrophils # Man 22.3 K/mm3 (1.8-7.7) H 03/13/19 08:19 Band Neutrophils # 0.0 K/mm3 03/13/19 08:19 0.9 K/mm3 (1.2-5.4) L 03/13/19 08:19 Abs React Lymphs (Man) 0.0 K/mm3 03/13/19 08:19 0.2 K/mm3 (0.0-0.8) 03/13/19 08:19 0.0 K/mm3 (0.0-0.4) 03/13/19 08:19 0.0 K/mm3 (0.0-0.1) 03/13/19 08:19 0.0 K/mm3 03/13/19 08:19 0.0 K/mm3 03/13/19 08:19 0.0 K/mm3 03/13/19 08:19 Blast Cells # 0.0 K/mm3 03/13/19 08:19 WBC Morphology Not Reportable 03/13/19 08:19 Hypersegmented Neuts Not Reportable 03/13/19 08:19 Hyposegmented Neuts Not Reportable 03/13/19 08:19 Hypogranular Neuts Not Reportable 03/13/19 08:19 Not Reportable 03/13/19 08:19 Not Reportable 03/13/19 08:19 Not Reportable 03/13/19 08:19 Not Reportable 03/13/19 08:19 Not Reportable 03/13/19 08:19 Not Reportable 03/13/19 08:19 Consistent w auto 03/13/19 08:19 Not Reportable 03/13/19 08:19 Plt Clumps, EDTA Not Reportable 03/13/19 08:19 Not Reportable 03/13/19 08:19 Not Reportable 03/13/19 08:19 Not Reportable 03/13/19 08:19 Plt Morphology Comment Not Reportable 03/13/19 08:19 RBC Morphology Not Reportable 03/13/19 08:19 Dimorphic RBCs Not Reportable 03/13/19 08:19 Not Reportable 03/13/19 08:19 1+ 03/13/19 08:19 Not Reportable 03/13/19 08:19 2+ 03/13/19 08:19 Few 03/13/19 08:19 Not Reportable 03/13/19 08:19 Not Reportable 03/13/19 08:19 Not Reportable 03/13/19 08:19 Not Reportable 03/13/19 08:19 Few 03/13/19 08:19 Not Reportable 03/13/19 08:19 Not Reportable 03/13/19 08:19 Not Reportable 03/13/19 08:19 Not Reportable 03/13/19 08:19 Not Reportable 03/13/19 08:19 Not Reportable 03/13/19 08:19 Not Reportable 03/13/19 08:19 Not Reportable 03/13/19 08:19 Not Reportable 03/13/19 08:19 Acanthocytes (Spur) Rare 03/13/19 08:19 Rouleaux Not Reportable 03/13/19 08:19 Not Reportable 03/13/19 08:19 Not Reportable 03/13/19 08:19 Not Reportable 03/13/19 08:19 Not Reportable 03/13/19 08:19 Hem Pathologist Commnt No 03/13/19 08:19 Sodium 136 mmol/L (137-145) L 03/16/19 04:18 Potassium 4.1 mmol/L (3.6-5.0) 03/16/19 04:18 Chloride 101.7 mmol/L (98-107) 03/16/19 04:18 Carbon Dioxide 24 mmol/L (22-30) 03/16/19 04:18 14 mmol/L 03/16/19 04:18 BUN 11 mg/dL (7-17) 03/16/19 04:18 0.7 mg/dL (0.7-1.2) 03/16/19 04:18 Estimated GFR > 60 ml/min 03/16/19 04:18 16 % 03/16/19 04:18 Glucose 99 mg/dL (65-100) 03/16/19 04:18 Lactic Acid 0.80 mmol/L (0.7-2.0) 03/05/19 05:23 Calcium 9.0 mg/dL (8.4-10.2) 03/16/19 04:18 Phosphorus 2.90 mg/dL (2.5-4.5) 03/13/19 08:19 Magnesium 1.70 mg/dL (1.7-2.3) 03/15/19 05:32 Iron 11 ug/dL (37-170) L 03/10/19 04:31 TIBC 201 mcg/dL (250-450) L 03/10/19 04:31 87.9 ng/mL (13.0-400.0) 03/10/19 04:31 0.20 mg/dL (0.1-1.2) 03/09/19 04:52 AST 12 units/L (5-40) 03/09/19 04:52 ALT < 5 units/L (7-56) L 03/09/19 04:52 65 units/L (35-129) 03/09/19 04:52 5.5 g/dL (6.3-8.2) L 03/09/19 04:52 2.2 g/dL (3.9-5) L 03/09/19 04:52 0.7 % 03/09/19 04:52 Carcinoembryonic Ag 58.8 ng/mL (0.0-2.4) H 03/10/19 04:31 96 U/mL (<35) H 03/10/19 04:31 Vitamin B12 1622 pg/mL (211-911) H 03/10/19 04:31 8.04 ng/mL (7.3-26.0) 03/10/19 04:31 Yellow (Yellow) 03/04/19 13:13 Cloudy (Clear) 03/04/19 13:13 5.0 (5.0-7.0) 03/04/19 13:13 Ur Specific [place] 1.018 (1.003-1.030) 03/04/19 13:13 30 mg/dl mg/dL (Negative) 03/04/19 13:13 Neg mg/dL (Negative) 03/04/19 13:13 Tr mg/dL (Negative) 03/04/19 13:13 Neg (Negative) 03/04/19 13:13 Neg (Negative) 03/04/19 13:13 Neg (Negative) 03/04/19 13:13 < 2.0 mg/dL (<2.0) 03/04/19 13:13 Ur Leukocyte Esterase Tr (Negative) 03/04/19 13:13 5.0 /HPF (0.0-6.0) 03/04/19 13:13 4.0 /HPF (0.0-6.0) 03/04/19 13:13 U Epithel Cells (Auto) 8.0 /HPF (0-13.0) 03/04/19 13:13 1+ /HPF (Negative) 03/04/19 13:13 Few /HPF 03/04/19 13:13 Blood Type O NEGATIVE 03/08/19 14:25 Antibody Screen Negative 03/08/19 14:25 [place] Antibody Screen Negative 03/04/19 15:56 Crossmatch See Detail 03/04/19 15:56 Active Medications - Current Medications Current Medications: Generic Name Dose Route Start Last Admin Trade Name Freq PRN Reason Stop Dose Admin Acetaminophen/Hydrocodone Bitart 2 each 03/08/19 17:17 03/19/19 03:37 [place] 5/325 PO 2 each Q6H PRN Administration Pain, Moderate (4-6) Albuterol 2.5 mg 03/04/19 15:40 Proventil IH Q3HRT PRN Shortness Of Breath Heparin Sodium (Porcine) 5,000 unit 03/04/19 22:00 03/19/19 10:12 Heparin SUB-Q 5,000 unit Q12HR AUDREY Administration Hydralazine HCl 10 mg 03/08/19 11:10 Apresoline IV Q4HR PRN Hypertension Lactated Ringer's 1,000 mls @ 75 mls/hr 03/08/19 15:00 03/18/19 20:02 Lactated Ringers IV 75 mls/hr DIRECT AUDREY Administration Lorazepam 1 mg 03/08/19 11:10 03/19/19 13:42 Ativan IV 1 mg Q4H PRN Administration Agitation Morphine Sulfate 2 mg 03/07/19 17:58 03/19/19 10:22 Morphine IV 2 mg Q4H PRN Administration Pain, Moderate (4-6) Sodium Chloride 10 ml 03/04/19 22:00 03/19/19 10:18 Sodium Chloride Flush Syringe 10 Ml IV 10 ml BID AUDREY Administration Sodium Chloride 10 ml 03/04/19 15:40 03/07/19 05:33 Sodium Chloride Flush Syringe 10 Ml IV 10 ml PRN PRN Administration LINE FLUSH Nutrition/Malnutrition Assess - Dietary Evaluation Nutrition/Malnutrition Findings: Nutrition Notes Start: 03/05/19 13:19 Freq: Status: Active Protocol: Document 03/14/19 14:54 CHELSEA (Rec: 03/14/19 15:02 CHELSEA [email or web address] S1) Nutrition Notes Initial or Follow up Reassessment Other Pertinent Diagnosis ? metastatic colon CA, SBO s/p diverting ileostomy Current Diet Mech soft + Ensure Enlive daily Labs/Tests Reviewed Pertinent Medications Reviewed Height 5 ft 7 in Weight 59.2 kg [place] Body Weight (kg) 61.36 BMI 20.4 Subjective/Other Information Pt reports eating <25% of meals sec to not liking taste of the food. 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 She wants ONS on each meal tray. Percent of energy/protein needs met: 58% energy 63% pro (includes ONS) Burn Absent Trauma Absent #1 Nutrition Diagnosis Inadequate oral intake Diagnosis Progress(for reassessment Continues documentation) Is patient on ventilator? No Is Patient Ambulatory and/or Out of Bed Yes REE-([place]-ambulatory/OOB) [ 1520.519 [id number]] Kcal/Kg value to use for calculation 30 Approximate Energy Requirements Using 1776 kcal/Kg Calculation Used for Recommendations Kcal/kg Additional Notes Pro needs 1.2-1.5g/k-89g/ day Fluid needs 1ml/kcal Nutrition Intervention Change Diet Order: Continue diet order; dietary staff to contact pt to collect meal preferences daily Add Supplement/Snack (indicate name/kcal Ensure Enlive TID (strawberry) /protein ) Provides kCal: 1,050 Provides Protein (gm) 60 Goal #1 PO intake of meals plus ONS to meet at least 75% energy and pro needs Goal #2 Wt maintenance Follow-Up By: 03/20/19 Additional Comments F/U: intakes, wt
[2019-03-19] MEDS: LACTATED RINGERS 1,000 ML IV SCH (18:39)
[2019-03-20] MEDS: MORPHINE IV PRN ×3 (01:03→14:40)
[2019-03-20] MEDS: ATIVAN IV PRN ×4 (04:21→21:16)
[2019-03-20] MEDS: NORCO 5/325 PO PRN (09:17)
[2019-03-20] MEDS: HEPARIN SUB-Q SCH ×2 (09:18→21:15)
[2019-03-20] MEDS: SODIUM CHLORIDE FLUSH SYRINGE 10 ML IV SCH (09:27)
--- NOTE | 2019-03-20 12:55 | Hem/Onc Progress Note ---
Assessment and Plan # colon cancer with mass in the ascending colon and based on surgical notes metastatic process in the abdomen. The patient has a diverting ileostomy. the disease is advanced stage 4 with mets in the abdomen, chemotherapy will be the first line. # Tumor markers elevated CEA # Anemia, MCV low, likely secondary to iron deficiency. # h/o Electrolyte issues. # h/o Creatinine abn. # Social issues, the patient lives with friends. I will follow the patient during inpatient stay. 03/20 d/w pt that referal to sx for colon sx an option - but due to her age - chemo - immunotherapy/chemo preferred path - report - + for colon ca CEA 50s low iron - s/p IV iron trial pt has social issues - housing etc - OP f/u for chemo high plt - likely reactive - IV iron trial d/w dr hawley on 03/14 for OP follow up - once wound healed - will look into Rx options CT chest - lung mets+ - Patient Problems (1) Colonic mass Current Visit: Yes Status: Acute Subjective Date of service: 03/20/19 Principal diagnosis: colon ca Interval history: pending placement Objective - Constitutional Vitals: Last Vital Signs Temp 98.5 F 03/20/19 08:47 Pulse 89 03/20/19 08:47 Resp 18 03/20/19 08:47 BP 148/73 03/20/19 08:47 Pulse Ox 96 03/20/19 08:47 Pain Intensity (0-10): denies any pain General appearance: no acute distress Performance status: 3-limited selfcare - EENT Eyes: EOM intact ENT: clear oral mucosa Lymph node exam: negative cervical - Neck Neck: normal ROM - Respiratory Respiratory effort: Positive: normal Respiratory: bilateral: CTA - Cardiovascular Heart Sounds: Present: S1 & S2 Extremities: normal temperature - Gastrointestinal General gastrointestinal: Present: soft, other (stomy) Rectal Exam: deferred - Genitourinary Female genitourinary: Present: deferred - Integumentary Integumentary: warm - Musculoskeletal Musculoskeletal: strength equal bilaterally - Neurologic Neurologic: moves all extremities Medications & Allergies - Medications Allergies/Adverse Reactions: Allergies Penicillins Allergy (Verified 03/04/19 08:51) Itching Home Medications: Home Medications Medication Instructions Recorded Confirmed Last Taken Type ALBUTEROL Inhaler (OR & NICU) 2 puff IH QID PRN #1 inhalation 11/24/18 03/04/19 Unknown Rx [ProAir HFA Inhaler] Azithromycin [Zithromax Z-LONNY] 250 mg PO DAILY #6 tablet 11/24/18 03/04/19 Unknown Rx predniSONE [Deltasone] 20 mg PO QDAY #5 tab 11/24/18 03/04/19 Unknown Rx Amitriptyline 10 mg PO HS 03/08/19 03/08/19 Unknown History Chlorthalidone 25 mg PO QDAY 03/08/19 03/08/19 Unknown History Mirtazapine 45 mg PO HS 03/08/19 03/08/19 Unknown History RisperiDONE 1 mg HS 03/08/19 03/08/19 03/03/19 History amLODIPine 10 mg PO QDAY 03/08/19 03/08/19 Unknown History Active Medications: Generic Name Dose Route Start Last Admin Trade Name Freq PRN Reason Stop Dose Admin Acetaminophen/Hydrocodone Bitart 2 each 03/08/19 17:17 03/20/19 09:17 [place] 5/325 PO 2 each Q6H PRN Administration Pain, Moderate (4-6) Albuterol 2.5 mg 03/04/19 15:40 Proventil IH Q3HRT PRN Shortness Of Breath Heparin Sodium (Porcine) 5,000 unit 03/04/19 22:00 03/20/19 09:18 Heparin SUB-Q 5,000 unit Q12HR AUDERY Administration Hydralazine HCl 10 mg 03/08/19 11:10 Apresoline IV Q4HR PRN Hypertension Lactated Ringer's 1,000 mls @ 75 mls/hr 03/08/19 15:00 03/19/19 18:39 Lactated Ringers IV 75 mls/hr DIRECT AUDREY Administration Lorazepam 1 mg 03/08/19 11:10 03/20/19 09:18 Ativan IV 1 mg Q4H PRN Administration Agitation Morphine Sulfate 2 mg 03/07/19 17:58 03/20/19 06:03 Morphine IV 2 mg Q4H PRN Administration Pain, Moderate (4-6) Sodium Chloride 10 ml 03/04/19 22:00 03/20/19 09:27 Sodium Chloride Flush Syringe 10 Ml IV 10 ml BID AUDREY Administration Sodium Chloride 10 ml 03/04/19 15:40 03/07/19 05:33 Sodium Chloride Flush Syringe 10 Ml IV 10 ml PRN PRN Administration LINE FLUSH
--- NOTE | 2019-03-20 15:08 | Progress Note ---
Assessment and Plan Assessment and plan: Patient is a 63-year-old female patient admitted through emergency room with nausea vomiting generalized weakness, initiated workup is consistent with anemia, small bowel obstruction. Patient received 2 units of PRBC, surgery evaluated the patient. Patient stabilized Underwent exploratory laparotomy, di verting loop ileostomy, omental biopsies.Large firm mass right lower quadrant, presumed malignancy. Patient was evaluated by oncology, pending pathology report , metastatic colon cancer consider different treatment plans. 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 h/o Creatinine abn. imaging studies shows bilateral pulmonary Nodules. CT abdomen and pelvis/abdominal mass CT abdomen and pelvis findings possible mass in the ascending colon. CT chest: Bilateral Pulmonary Nodules consistent with Metastatic Disease. Emphysema, Right lobar Pna vs subsegmental atalectasis. Tiny Right pleural Effusion -Possible metastases colon cancer- Metastatic Moderately Differentiated adenocarcinoma consistent with colorectal primary Surgery, oncology following, pathology report of omental biopsy noted as above surgery cleared for discharge, will remove damon from ileostomy site next week still draining, wound care following --Small bowel obstruction /Status post diverting ileostomy; with mets to the chest Expl Lap:large, firm mass in RLQ involving presumed malignancy, large bowel and small bowel. multiple implants in mesentery, omentum, peritoneum, liver, iliac LNs. s/p omental biopsies x 2, diverting loop ileostomy creation. Continue supportive care, follow histopathology Oncology evaluation noted appreciated -Hypomagnesemia;Hypokalemia/Hypophosphatemia: corrected , monitor electrolytes Replace --Anemia: Received 2 units PRBC, hemoglobin level improved -- Sepsis/leukocytosis Sepsis Protocol: IV ABx therapy Levaquin and Flagyl, IVF resuscitation therapy, lactate levels within normal limits, No growth in cultures Monitor resolution of leukocytosis --ARF (acute renal failure) with tubular necrosis Resolved , avoid nephrotoxins , IV fluids needed --Severe malnutrition/hypoalbuminemia Due to her underlying disease process, nutrition consult nutrition supplements when able to take oral --REACTIVE Thrombocytosis Secondary to Metastatic disease --Ilesotmy intact- WOUND MANAGEMENT ---DVT prophylaxis SCD to BLE while in bed. Prophylactic heparin. Plan of care reviewed with the patient and her nurse Consults and recommendations noted and appreciated Disposition; follow biopsy report, follow oncology and surgical recommendations Pending placement to SNF/rehabilitation History Interval history: Patient was seen and evaluated this morning. No nursing issues overnight. Hospitalist Physical - Physical exam Narrative exam: Not in cardiopulmonary distress. The patient appeared well nourished and normally developed. Vital signs as documented. Head exam is unremarkable. No scleral icterus . Neck is without jugular venous distension, thyromegaly, or carotid bruits. Lungs are clear to auscultation. Cardiac exam reveals regular rate and Rhythm. First and second heart sounds normal. No murmurs, rubs or gallops. Abdominal exam reveals normal ileostomy in place. Extremities are nonedematous and both femoral and pedal pulses are normal. SOLAR SYSTEM DESIGNER: Alert and oriented 3. No focal weakness. - Constitutional Vitals: Temp Pulse Resp BP Pulse Ox 98.6 F 77 20 123/65 97 03/20/19 12:18 03/20/19 12:18 03/20/19 14:40 03/20/19 12:18 03/20/19 12:18 General appearance: Present: no acute distress, cachectic, disheveled Results - Labs CBC & Chem 7: 03/16/19 04:18 03/16/19 04:18 Labs: Laboratory Last Values WBC 12.5 K/mm3 (4.5-11.0) H 03/16/19 04:18 RBC 3.60 M/mm3 (3.65-5.03) L 03/16/19 04:18 Hgb 8.5 gm/dl (10.1-14.3) L 03/16/19 04:18 Hct 25.2 % (30.3-42.9) L 03/16/19 04:18 MCV 70 fl (79-97) L 03/16/19 04:18 MCH 24 pg (28-32) L 03/16/19 04:18 MCHC 34 % (30-34) 03/16/19 04:18 RDW 26.2 % (13.2-15.2) H 03/16/19 04:18 Plt Count 786 K/mm3 (140-440) H 03/16/19 04:18 Lymph % (Auto) 13.1 % (13.4-35.0) L 03/11/19 05:10 [place] % (Auto) 7.2 % (0.0-7.3) 03/11/19 05:10 Eos % (Auto) 0.9 % (0.0-4.3) 03/11/19 05:10 Baso % (Auto) 0.4 % (0.0-1.8) 03/11/19 05:10 Lymph # 2.5 K/mm3 (1.2-5.4) 03/11/19 05:10 [place] # 1.4 K/mm3 (0.0-0.8) H 03/11/19 05:10 Eos # 0.2 K/mm3 (0.0-0.4) 03/11/19 05:10 Baso # 0.1 K/mm3 (0.0-0.1) 03/11/19 05:10 Add Manual Diff Complete 03/13/19 08:19 Total Counted 100 03/13/19 08:19 Seg Neutrophils % 78.4 % (40.0-70.0) H 03/11/19 05:10 Seg Neuts % (Manual) 95.0 % (40.0-70.0) H 03/13/19 08:19 0 % 03/13/19 08:19 4.0 % (13.4-35.0) L 03/13/19 08:19 Reactive Lymphs % (Man) 0 % 03/13/19 08:19 1.0 % (0.0-7.3) 03/13/19 08:19 0 % (0.0-4.3) 03/13/19 08:19 0 % (0.0-1.8) 03/13/19 08:19 0 % 03/13/19 08:19 0 % 03/13/19 08:19 0 % 03/13/19 08:19 0 % 03/13/19 08:19 Nucleated RBC % Not Reportable 03/13/19 08:19 Seg Neutrophils # 15.0 K/mm3 (1.8-7.7) H 03/11/19 05:10 Seg Neutrophils # Man 22.3 K/mm3 (1.8-7.7) H 03/13/19 08:19 Band Neutrophils # 0.0 K/mm3 03/13/19 08:19 0.9 K/mm3 (1.2-5.4) L 03/13/19 08:19 Abs React Lymphs (Man) 0.0 K/mm3 03/13/19 08:19 0.2 K/mm3 (0.0-0.8) 03/13/19 08:19 0.0 K/mm3 (0.0-0.4) 03/13/19 08:19 0.0 K/mm3 (0.0-0.1) 03/13/19 08:19 0.0 K/mm3 03/13/19 08:19 0.0 K/mm3 03/13/19 08:19 0.0 K/mm3 03/13/19 08:19 Blast Cells # 0.0 K/mm3 03/13/19 08:19 WBC Morphology Not Reportable 03/13/19 08:19 Hypersegmented Neuts Not Reportable 03/13/19 08:19 Hyposegmented Neuts Not Reportable 03/13/19 08:19 Hypogranular Neuts Not Reportable 03/13/19 08:19 Not Reportable 03/13/19 08:19 Not Reportable 03/13/19 08:19 Not Reportable 03/13/19 08:19 Not Reportable 03/13/19 08:19 Not Reportable 03/13/19 08:19 Not Reportable 03/13/19 08:19 Consistent w auto 03/13/19 08:19 Not Reportable 03/13/19 08:19 Plt Clumps, EDTA Not Reportable 03/13/19 08:19 Not Reportable 03/13/19 08:19 Not Reportable 03/13/19 08:19 Not Reportable 03/13/19 08:19 Plt Morphology Comment Not Reportable 03/13/19 08:19 RBC Morphology Not Reportable 03/13/19 08:19 Dimorphic RBCs Not Reportable 03/13/19 08:19 Not Reportable 03/13/19 08:19 1+ 03/13/19 08:19 Not Reportable 03/13/19 08:19 2+ 03/13/19 08:19 Few 03/13/19 08:19 Not Reportable 03/13/19 08:19 Not Reportable 03/13/19 08:19 Not Reportable 03/13/19 08:19 Not Reportable 06/11/19 08:19 Few 03/13/19 08:19 Not Reportable 03/13/19 08:19 Not Reportable 03/13/19 08:19 Not Reportable 03/13/19 08:19 Not Reportable 03/13/19 08:19 Not Reportable 03/13/19 08:19 Not Reportable 03/13/19 08:19 Not Reportable 03/13/19 08:19 Not Reportable 03/13/19 08:19 Not Reportable 03/13/19 08:19 Acanthocytes (Spur) Rare 03/13/19 08:19 Rouleaux Not Reportable 03/13/19 08:19 Not Reportable 03/13/19 08:19 Not Reportable 03/13/19 08:19 Not Reportable 03/13/19 08:19 Not Reportable 03/13/19 08:19 Hem Pathologist Commnt No 03/13/19 08:19 Sodium 136 mmol/L (137-145) L 03/16/19 04:18 Potassium 4.1 mmol/L (3.6-5.0) 03/16/19 04:18 Chloride 101.7 mmol/L (98-107) 03/16/19 04:18 Carbon Dioxide 24 mmol/L (22-30) 03/16/19 04:18 14 mmol/L 03/16/19 04:18 BUN 11 mg/dL (7-17) 03/16/19 04:18 0.7 mg/dL (0.7-1.2) 03/16/19 04:18 Estimated GFR > 60 ml/min 03/16/19 04:18 16 % 03/16/19 04:18 Glucose 99 mg/dL (65-100) 03/16/19 04:18 Lactic Acid 0.80 mmol/L (0.7-2.0) 03/05/19 05:23 Calcium 9.0 mg/dL (8.4-10.2) 03/16/19 04:18 Phosphorus 2.90 mg/dL (2.5-4.5) 03/13/19 08:19 Magnesium 1.70 mg/dL (1.7-2.3) 03/15/19 05:32 Iron 11 ug/dL (37-170) L 03/10/19 04:31 TIBC 201 mcg/dL (250-450) L 03/10/19 04:31 87.9 ng/mL (13.0-400.0) 03/10/19 04:31 0.20 mg/dL (0.1-1.2) 03/09/19 04:52 AST 12 units/L (5-40) 03/09/19 04:52 ALT < 5 units/L (7-56) L 03/09/19 04:52 65 units/L (35-129) 03/09/19 04:52 5.5 g/dL (6.3-8.2) L 03/09/19 04:52 2.2 g/dL (3.9-5) L 03/09/19 04:52 0.7 % 03/09/19 04:52 Carcinoembryonic Ag 58.8 ng/mL (0.0-2.4) H 03/10/19 04:31 96 U/mL (<35) H 03/10/19 04:31 Vitamin B12 1622 pg/mL (211-911) H 03/10/19 04:31 8.04 ng/mL (7.3-26.0) 03/10/19 04:31 Yellow (Yellow) 03/04/19 13:13 Cloudy (Clear) 03/04/19 13:13 5.0 (5.0-7.0) 03/04/19 13:13 Ur Specific [place] 1.018 (1.003-1.030) 03/04/19 13:13 30 mg/dl mg/dL (Negative) 03/04/19 13:13 Neg mg/dL (Negative) 03/04/19 13:13 Tr mg/dL (Negative) 03/04/19 13:13 Neg (Negative) 03/04/19 13:13 Neg (Negative) 03/04/19 13:13 Neg (Negative) 03/04/19 13:13 < 2.0 mg/dL (<2.0) 03/04/19 13:13 Ur Leukocyte Esterase Tr (Negative) 03/04/19 13:13 5.0 /HPF (0.0-6.0) 03/04/19 13:13 4.0 /HPF (0.0-6.0) 03/04/19 13:13 U Epithel Cells (Auto) 8.0 /HPF (0-13.0) 03/04/19 13:13 1+ /HPF (Negative) 03/04/19 13:13 Few /HPF 03/04/19 13:13 Blood Type O NEGATIVE 03/08/19 14:25 Antibody Screen Negative 03/08/19 14:25 [place] Antibody Screen Negative 03/04/19 15:56 Crossmatch See Detail 03/04/19 15:56 Active Medications - Current Medications Current Medications: Generic Name Dose Route Start Last Admin Trade Name Freq PRN Reason Stop Dose Admin Acetaminophen/Hydrocodone Bitart 2 each 03/08/19 17:17 03/20/19 09:17 [place] 5/325 PO 2 each Q6H PRN Administration Pain, Moderate (4-6) Albuterol 2.5 mg 03/04/19 15:40 Proventil IH Q3HRT PRN Shortness Of Breath Heparin Sodium (Porcine) 5,000 unit 03/04/19 22:00 03/20/19 09:18 Heparin SUB-Q 5,000 unit Q12HR AUDREY Administration Hydralazine HCl 10 mg 03/08/19 11:10 Apresoline IV Q4HR PRN Hypertension Lactated Ringer's 1,000 mls @ 75 mls/hr 03/08/19 15:00 03/19/19 18:39 Lactated Ringers IV 75 mls/hr DIRECT UADREY Administration Lorazepam 1 mg 03/08/19 11:10 03/20/19 09:18 Ativan IV 1 mg Q4H PRN Administration Agitation Morphine Sulfate 2 mg 03/07/19 17:58 03/20/19 14:40 Morphine IV 2 mg Q4H PRN Administration Pain, Moderate (4-6) Sodium Chloride 10 ml 03/04/19 22:00 03/20/19 09:27 Sodium Chloride Flush Syringe 10 Ml IV 10 ml BID AUDREY Administration Sodium Chloride 10 ml 03/04/19 15:40 03/07/19 05:33 Sodium Chloride Flush Syringe 10 Ml IV 10 ml PRN PRN Administration LINE FLUSH Nutrition/Malnutrition Assess - Dietary Evaluation Nutrition/Malnutrition Findings: Nutrition Notes Start: 03/05/19 13:19 Freq: Status: Active Protocol: Document 03/14/19 14:54 CHELSEA (Rec: 03/14/19 15:02 CHELSEA [email or web address]) Nutrition Notes Initial or Follow up Reassessment Other Pertinent Diagnosis ? metastatic colon CA, SBO s/p diverting ileostomy Current Diet Mech soft + Ensure Enlive daily Labs/Tests Reviewed Pertinent Medications Reviewed Height 5 ft 7 in Weight 59.2 kg [place] Body Weight (kg) 61.36 BMI 20.4 Subjective/Other Information Pt reports eating <25% of meals sec to not liking taste of the food. Says she had good appetite DIRECTOR OF STUDENT SERVICES. She wants ONS on each meal tray. Percent of energy/protein needs met: 58% energy 63% pro (includes ONS) Burn Absent Trauma Absent #1 Nutrition Diagnosis Inadequate oral intake Diagnosis Progress(for reassessment Continues documentation) Is patient on ventilator? No Is Patient Ambulatory and/or Out of Bed Yes REE-([facility]-ambulatory/OOB) [ 1520.519 [id number]] Kcal/Kg value to use for calculation 30 Approximate Energy Requirements Using 1776 kcal/Kg Calculation Used for Recommendations Kcal/kg Additional Notes Pro needs 1.2-1.5g/k-89g/ day Fluid needs 1ml/kcal Nutrition Intervention Change Diet Order: Continue diet order; dietary staff to contact pt to collect meal preferences daily Add Supplement/Snack (indicate name/kcal Ensure Enlive TID (strawberry) /protein ) Provides kCal: 1,050 Provides Protein (gm) 60 Goal #1 PO intake of meals plus ONS to meet at least 75% energy and pro needs Goal #2 Wt maintenance Follow-Up By: 03/20/19 Additional Comments F/U: intakes, wt
[2019-03-20] MEDS: LACTATED RINGERS 1,000 ML IV SCH (17:16)
[2019-03-21] MEDS: MORPHINE IV PRN ×2 (00:12→13:01)
[2019-03-21] MEDS: NORCO 5/325 PO PRN ×2 (01:58→19:58)
[2019-03-21] MEDS: ATIVAN IV PRN ×5 (05:06→23:54)
--- NOTE | 2019-03-21 07:39 | Hem/Onc Progress Note ---
Assessment and Plan # colon cancer with mass in the ascending colon and based on surgical notes metastatic process in the abdomen. The patient has a diverting ileostomy. the disease is advanced stage 4 with mets in the abdomen, chemotherapy will be the first line. # Tumor markers elevated CEA # Anemia, MCV low, likely secondary to iron deficiency. # h/o Electrolyte issues. # h/o Creatinine abn. # Social issues, the patient lives with friends. I will follow the patient during inpatient stay. 03/21 d/w pt that referal to sx for colon sx an option - but due to her age - chemo - immunotherapy/chemo preferred path - report - + for colon ca CEA 50s low iron - s/p IV iron trial pt has social issues - housing etc - OP f/u for chemo high plt - likely reactive - IV iron trial d/w dr hawley on 03/14 for OP follow up - once wound healed - will look into Rx options CT chest - lung mets+ pt emotional reg her treatment - Patient Problems (1) Colonic mass Current Visit: Yes Status: Acute Subjective Date of service: 03/21/19 Principal diagnosis: colon ca Interval history: placement eval Objective - Constitutional Vitals: Last Vital Signs Temp 98.2 F 03/21/19 05:22 Pulse 94 H 03/21/19 05:22 Resp 18 03/21/19 05:22 BP 148/80 03/21/19 05:22 Pulse Ox 99 03/21/19 05:22 Pain Intensity (0-10): 1/10 (colostomy site discomfort) General appearance: mild distress Performance status: 3-limited selfcare - EENT Eyes: EOM intact ENT: hearing intact Lymph node exam: negative cervical - Neck Neck: normal ROM - Respiratory Respiratory effort: Positive: normal Respiratory: bilateral: CTA (anteriorly) - Cardiovascular Heart Sounds: Present: S1 & S2 Extremities: normal temperature - Gastrointestinal General gastrointestinal: Present: soft, other (stomy+) Rectal Exam: deferred - Genitourinary Female genitourinary: Present: deferred - Integumentary Integumentary: warm - Musculoskeletal Musculoskeletal: generalized weakness - Neurologic Neurologic: moves all extremities Medications & Allergies - Medications Allergies/Adverse Reactions: Allergies Penicillins Allergy (Verified 03/04/19 08:51) Itching Home Medications: Home Medications Medication Instructions Recorded Confirmed Last Taken Type ALBUTEROL Inhaler (OR & NICU) 2 puff IH QID PRN #1 inhalation 11/24/18 03/04/19 Unknown Rx [ProAir HFA Inhaler] Azithromycin [Zithromax Z-LONNY] 250 mg PO DAILY #6 tablet 11/24/18 03/04/19 Un known Rx predniSONE [Deltasone] 20 mg PO QDAY #5 tab 11/24/18 03/04/19 Unknown Rx Amitriptyline 10 mg PO HS 03/08/19 03/08/19 Unknown History Chlorthalidone 25 mg PO QDAY 03/08/19 03/08/19 Unknown History Mirtazapine 45 mg PO HS 03/08/19 03/08/19 Unknown History RisperiDONE 1 mg HS 03/08/19 03/08/19 03/03/19 History amLODIPine 10 mg PO QDAY 03/08/19 03/08/19 Unknown History Active Medications: Generic Name Dose Route Start Last Admin Trade Name Freq PRN Reason Stop Dose Admin Acetaminophen/Hydrocodone Bitart 2 each 03/08/19 17:17 03/21/19 01:58 [place] 5/325 PO 2 each Q6H PRN Administration Pain, Moderate (4-6) Albuterol 2.5 mg 03/04/19 15:40 Proventil IH Q3HRT PRN Shortness Of Breath Heparin Sodium (Porcine) 5,000 unit 03/04/19 22:00 03/20/19 21:15 Heparin SUB-Q 5,000 unit Q12HR AUDREY Administration Hydralazine HCl 10 mg 03/08/19 11:10 Apresoline IV Q4HR PRN Hypertension Lactated Ringer's 1,000 mls @ 75 mls/hr 03/08/19 15:00 03/20/19 17:16 Lactated Ringers IV 75 mls/hr DIRECT AUDREY Administration Lorazepam 1 mg 03/08/19 11:10 03/21/19 05:06 Ativan IV 1 mg Q4H PRN Administration Agitation Morphine Sulfate 2 mg 03/07/19 17:58 03/21/19 00:12 Morphine IV 2 mg Q4H PRN Administration Pain, Moderate (4-6) Sodium Chloride 10 ml 03/04/19 22:00 03/20/19 09:27 Sodium Chloride Flush Syringe 10 Ml IV 10 ml BID AUDREY Administration Sodium Chloride 10 ml 03/04/19 15:40 03/07/19 05:33 Sodium Chloride Flush Syringe 10 Ml IV 10 ml PRN PRN Administration LINE FLUSH
[2019-03-21] MEDS: SODIUM CHLORIDE FLUSH SYRINGE 10 ML IV SCH ×3 (08:12→21:36)
[2019-03-21] MEDS: HEPARIN SUB-Q SCH ×2 (09:15→21:35)
--- NOTE | 2019-03-21 15:06 | Progress Note ---
Assessment and Plan Assessment and plan: Patient is a 63-year-old female patient admitted through emergency room with nausea vomiting generalized weakness, initiated workup is consistent with anemia, small bowel obstruction. Patient received 2 units of PRBC, surgery evaluated the patient. Patient stabilized Underwent exploratory laparotomy, di verting loop ileostomy, omental biopsies.Large firm mass right lower quadrant, presumed malignancy. Patient was evaluated by oncology, pending pathology report , metastatic colon cancer consider different treatment plans. 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 h/o Creatinine abn. imaging studies shows bilateral pulmonary Nodules. CT abdomen and pelvis/abdominal mass CT abdomen and pelvis findings possible mass in the ascending colon. CT chest: Bilateral Pulmonary Nodules consistent with Metastatic Disease. Emphysema, Right lobar Pna vs subsegmental atalectasis. Tiny Right pleural Effusion -Possible metastases colon cancer- Metastatic Moderately Differentiated adenocarcinoma consistent with colorectal primary Surgery, oncology following, pathology report of omental biopsy noted as above surgery cleared for discharge, will remove damon from ileostomy site next week still draining, wound care following --Small bowel obstruction /Status post diverting ileostomy; with mets to the chest Expl Lap:large, firm mass in RLQ involving presumed malignancy, large bowel and small bowel. multiple implants in mesentery, omentum, peritoneum, liver, iliac LNs. s/p omental biopsies x 2, diverting loop ileostomy creation. Continue supportive care, follow histopathology Oncology evaluation noted appreciated -Hypomagnesemia;Hypokalemia/Hypophosphatemia: corrected , monitor electrolytes Replace --Anemia: Received 2 units PRBC, hemoglobin level improved -- Sepsis/leukocytosis Sepsis Protocol: IV ABx therapy Levaquin and Flagyl, IVF resuscitation therapy, lactate levels within normal limits, No growth in cultures Monitor resolution of leukocytosis --ARF (acute renal failure) with tubular necrosis Resolved , avoid nephrotoxins , IV fluids needed --Severe malnutrition/hypoalbuminemia Due to her underlying disease process, nutrition consult nutrition supplements when able to take oral --REACTIVE Thrombocytosis Secondary to Metastatic disease --Ilesotmy intact- WOUND MANAGEMENT ---DVT prophylaxis SCD to BLE while in bed. Prophylactic heparin. Plan of care reviewed with the patient and her nurse Consults and recommendations noted and appreciated Disposition; follow biopsy report, follow oncology and surgical recommendations Pending placement to SNF/rehabilitation History Interval history: Patient was seen and evaluated this morning. No nursing issues overnight. Hospitalist Physical - Physical exam Narrative exam: Not in cardiopulmonary distress. The patient appeared well nourished and normally developed. Vital signs as documented. Head exam is unremarkable. No scleral icterus . Neck is without jugular venous distension, thyromegaly, or carotid bruits. Lungs are clear to auscultation. Cardiac exam reveals regular rate and Rhythm. First and second heart sounds normal. No murmurs, rubs or gallops. Abdominal exam reveals normal ileostomy in place. Extremities are nonedematous and both femoral and pedal pulses are normal. FLOAT OPERATOR: Alert and oriented 3. No focal weakness. - Constitutional Vitals: Temp Pulse Resp BP Pulse Ox 98.5 F 89 18 151/89 95 03/21/19 10:49 03/21/19 10:49 03/21/19 10:49 03/21/19 10:49 03/21/19 10:49 General appearance: Present: no acute distress, cachectic, disheveled Results - Labs CBC & Chem 7: 03/16/19 04:18 03/16/19 04:18 Labs: Laboratory Last Values WBC 12.5 K/mm3 (4.5-11.0) H 03/16/19 04:18 RBC 3.60 M/mm3 (3.65-5.03) L 03/16/19 04:18 Hgb 8.5 gm/dl (10.1-14.3) L 03/16/19 04:18 Hct 25.2 % (30.3-42.9) L 03/16/19 04:18 MCV 70 fl (79-97) L 03/16/19 04:18 MCH 24 pg (28-32) L 03/16/19 04:18 MCHC 34 % (30-34) 03/16/19 04:18 RDW 26.2 % (13.2-15.2) H 03/16/19 04:18 Plt Count 786 K/mm3 (140-440) H 03/16/19 04:18 Lymph % (Auto) 13.1 % (13.4-35.0) L 03/11/19 05:10 [place] % (Auto) 7.2 % (0.0-7.3) 03/11/19 05:10 Eos % (Auto) 0.9 % (0.0-4.3) 03/11/19 05:10 Baso % (Auto) 0.4 % (0.0-1.8) 03/11/19 05:10 Lymph # 2.5 K/mm3 (1.2-5.4) 03/11/19 05:10 [place] # 1.4 K/mm3 (0.0-0.8) H 03/11/19 05:10 Eos # 0.2 K/mm3 (0.0-0.4) 03/11/19 05:10 Baso # 0.1 K/mm3 (0.0-0.1) 03/11/19 05:10 Add Manual Diff Complete 03/13/19 08:19 Total Counted 100 03/13/19 08:19 Seg Neutrophils % 78.4 % (40.0-70.0) H 03/11/19 05:10 Seg Neuts % (Manual) 95.0 % (40.0-70.0) H 03/13/19 08:19 0 % 03/13/19 08:19 4.0 % (13.4-35.0) L 03/13/19 08:19 Reactive Lymphs % (Man) 0 % 03/13/19 08:19 1.0 % (0.0-7.3) 03/13/19 08:19 0 % (0.0-4.3) 03/13/19 08:19 0 % (0.0-1.8) 03/13/19 08:19 0 % 03/13/19 08:19 0 % 03/13/19 08:19 0 % 03/13/19 08:19 0 % 03/13/19 08:19 Nucleated RBC % Not Reportable 03/13/19 08:19 Seg Neutrophils # 15.0 K/mm3 (1.8-7.7) H 03/11/19 05:10 Seg Neutrophils # Man 22.3 K/mm3 (1.8-7.7) H 03/13/19 08:19 Band Neutrophils # 0.0 K/mm3 03/13/19 08:19 0.9 K/mm3 (1.2-5.4) L 03/13/19 08:19 Abs React Lymphs (Man) 0.0 K/mm3 03/13/19 08:19 0.2 K/mm3 (0.0-0.8) 03/13/19 08:19 0.0 K/mm3 (0.0-0.4) 03/13/19 08:19 0.0 K/mm3 (0.0-0.1) 03/13/19 08:19 0.0 K/mm3 03/13/19 08:19 0.0 K/mm3 03/13/19 08:19 0.0 K/mm3 03/13/19 08:19 Blast Cells # 0.0 K/mm3 03/13/19 08:19 WBC Morphology Not Reportable 03/13/19 08:19 Hypersegmented Neuts Not Reportable 03/13/19 08:19 Hyposegmented Neuts Not Reportable 03/13/19 08:19 Hypogranular Neuts Not Reportable 03/13/19 08:19 Not Reportable 03/13/19 08:19 Not Reportable 03/13/19 08:19 Not Reportable 03/13/19 08:19 Not Reportable 03/13/19 08:19 Not Reportable 03/13/19 08:19 Not Reportable 03/13/19 08:19 Consistent w auto 03/13/19 08:19 Not Reportable 03/13/19 08:19 Plt Clumps, EDTA Not Reportable 03/13/19 08:19 Not Reportable 03/13/19 08:19 Not Reportable 03/13/19 08:19 Not Reportable 03/13/19 08:19 Plt Morphology Comment Not Reportable 03/13/19 08:19 RBC Morphology Not Reportable 03/13/19 08:19 Dimorphic RBCs Not Reportable 03/13/19 08:19 Not Reportable 03/13/19 08:19 1+ 03/13/19 08:19 Not Reportable 03/13/19 08:19 2+ 03/13/19 08:19 Few 03/13/19 08:19 Not Reportable 03/13/19 08:19 Not Reportable 03/13/19 08:19 Not Reportable 03/13/19 08:19 Not Reportable 06/11/19 08:19 Few 03/13/19 08:19 Not Reportable 03/13/19 08:19 Not Reportable 03/13/19 08:19 Not Reportable 03/13/19 08:19 Not Reportable 03/13/19 08:19 Not Reportable 03/13/19 08:19 Not Reportable 03/13/19 08:19 Not Reportable 03/13/19 08:19 Not Reportable 03/13/19 08:19 Not Reportable 03/13/19 08:19 Acanthocytes (Spur) Rare 03/13/19 08:19 Rouleaux Not Reportable 03/13/19 08:19 Not Reportable 03/13/19 08:19 Not Reportable 03/13/19 08:19 Not Reportable 03/13/19 08:19 Not Reportable 03/13/19 08:19 Hem Pathologist Commnt No 03/13/19 08:19 Sodium 136 mmol/L (137-145) L 03/16/19 04:18 Potassium 4.1 mmol/L (3.6-5.0) 03/16/19 04:18 Chloride 101.7 mmol/L (98-107) 03/16/19 04:18 Carbon Dioxide 24 mmol/L (22-30) 03/16/19 04:18 14 mmol/L 03/16/19 04:18 BUN 11 mg/dL (7-17) 03/16/19 04:18 0.7 mg/dL (0.7-1.2) 03/16/19 04:18 Estimated GFR > 60 ml/min 03/16/19 04:18 16 % 03/16/19 04:18 Glucose 99 mg/dL (65-100) 03/16/19 04:18 Lactic Acid 0.80 mmol/L (0.7-2.0) 03/05/19 05:23 Calcium 9.0 mg/dL (8.4-10.2) 03/16/19 04:18 Phosphorus 2.90 mg/dL (2.5-4.5) 03/13/19 08:19 Magnesium 1.70 mg/dL (1.7-2.3) 03/15/19 05:32 Iron 11 ug/dL (37-170) L 03/10/19 04:31 TIBC 201 mcg/dL (250-450) L 03/10/19 04:31 87.9 ng/mL (13.0-400.0) 03/10/19 04:31 0.20 mg/dL (0.1-1.2) 03/09/19 04:52 AST 12 units/L (5-40) 03/09/19 04:52 ALT < 5 units/L (7-56) L 03/09/19 04:52 65 units/L (35-129) 03/09/19 04:52 5.5 g/dL (6.3-8.2) L 03/09/19 04:52 2.2 g/dL (3.9-5) L 03/09/19 04:52 0.7 % 03/09/19 04:52 Carcinoembryonic Ag 58.8 ng/mL (0.0-2.4) H 03/10/19 04:31 96 U/mL (<35) H 03/10/19 04:31 Vitamin B12 1622 pg/mL (211-911) H 03/10/19 04:31 8.04 ng/mL (7.3-26.0) 03/10/19 04:31 Yellow (Yellow) 03/04/19 13:13 Cloudy (Clear) 03/04/19 13:13 5.0 (5.0-7.0) 03/04/19 13:13 Ur Specific [place] 1.018 (1.003-1.030) 03/04/19 13:13 30 mg/dl mg/dL (Negative) 03/04/19 13:13 Neg mg/dL (Negative) 03/04/19 13:13 Tr mg/dL (Negative) 03/04/19 13:13 Neg (Negative) 03/04/19 13:13 Neg (Negative) 03/04/19 13:13 Neg (Negative) 03/04/19 13:13 < 2.0 mg/dL (<2.0) 03/04/19 13:13 Ur Leukocyte Esterase Tr (Negative) 03/04/19 13:13 5.0 /HPF (0.0-6.0) 03/04/19 13:13 4.0 /HPF (0.0-6.0) 03/04/19 13:13 U Epithel Cells (Auto) 8.0 /HPF (0-13.0) 03/04/19 13:13 1+ /HPF (Negative) 03/04/19 13:13 Few /HPF 03/04/19 13:13 Blood Type O NEGATIVE 03/08/19 14:25 Antibody Screen Negative 03/08/19 14:25 [place] Antibody Screen Negative 03/04/19 15:56 Crossmatch See Detail 03/04/19 15:56 Active Medications - Current Medications Current Medications: Generic Name Dose Route Start Last Admin Trade Name Freq PRN Reason Stop Dose Admin Acetaminophen/Hydrocodone Bitart 2 each 03/08/19 17:17 03/21/19 01:58 [place] 5/325 PO 2 each Q6H PRN Administration Pain, Moderate (4-6) Albuterol 2.5 mg 03/04/19 15:40 Proventil IH Q3HRT PRN Shortness Of Breath Heparin Sodium (Porcine) 5,000 unit 03/04/19 22:00 03/21/19 09:15 Heparin SUB-Q 5,000 unit Q12HR AUDREY Administration Hydralazine HCl 10 mg 03/08/19 11:10 Apresoline IV Q4HR PRN Hypertension Lactated Ringer's 1,000 mls @ 75 mls/hr 03/08/19 15:00 03/20/19 17:16 Lactated Ringers IV 75 mls/hr DIRECT AUDREY Administration Lorazepam 1 mg 03/08/19 11:10 03/21/19 09:15 Ativan IV 1 mg Q4H PRN Administration Agitation Morphine Sulfate 2 mg 03/07/19 17:58 03/21/19 13:01 Morphine IV 2 mg Q4H PRN Administration Pain, Moderate (4-6) Sodium Chloride 10 ml 03/04/19 22:00 03/21/19 13:05 Sodium Chloride Flush Syringe 10 Ml IV 10 ml BID AUDREY Administration Sodium Chloride 10 ml 03/04/19 15:40 03/07/19 05:33 Sodium Chloride Flush Syringe 10 Ml IV 10 ml PRN PRN Administration LINE FLUSH Nutrition/Malnutrition Assess - Dietary Evaluation Nutrition/Malnutrition Findings: Nutrition Notes Start: 03/05/19 13:19 Freq: Status: Active Protocol: Document 03/20/19 16:33 RM (Rec: 03/20/19 16:37 RM [id number]) Nutrition Notes Initial or Follow up Reassessment Current Diagnosis Acute Kidney Injury,Sepsis, Hypertension,Small Bowel Obstruction Other Pertinent Diagnosis ? metastatic colon CA, SBO s/p diverting ileostomy Current Diet Mec soft + Ensure Enlive TID Labs/Tests Reviewed Pertinent Medications Reviewed Height 5 ft 7 in Weight 59.2 kg [place] Body Weight (kg) 61.36 BMI 20.4 Subjective/Other Information Noted lunch at bedside w/25% eaten and 2 unopened Ensure Enlive. Pt stated that she drinks 2 to 3 of the Ensure Enlive daily. Percent of energy/protein needs met: 70%/92% Burn Absent Trauma Absent #1 Nutrition Diagnosis Inadequate oral intake As Evidenced by Signs and Symptoms pt meeting 70% of calorie and 92% of protein needs Diagnosis Progress(for reassessment Improved documentation) Is patient on ventilator? No Is Patient Ambulatory and/or Out of Bed Yes REE-([facility]-ambulatory/OOB) [ 1520.519 [id number]] Kcal/Kg value to use for calculation 30 Approximate Energy Requirements Using 1776 kcal/Kg Calculation Used for Recommendations Kcal/kg Additional Notes Pro needs 1.2-1.5g/k-89g/ day Fluid needs 1ml/kcal Nutrition Intervention Change Diet Order: Continue diet order; dietary staff to contact pt to collect meal preferences daily Add Supplement/Snack (indicate name/kcal Ensure Enlive BID (strawberry) /protein ) Provides kCal: 700 Provides Protein (gm) 40 Goal #1 PO intake of meals plus ONS to meet at least 75% energy and pro needs Goal #2 Wt maintenance Anticipated Discharge Needs: Mech soft Follow-Up By: 03/23/19 Additional Comments Follow for PO and ONS intakes
[2019-03-21] MEDS: MS CONTIN ER PO SCH (21:35)
[2019-03-22] MEDS: NORCO 5/325 PO PRN ×2 (02:09→17:30)
[2019-03-22] MEDS: ATIVAN IV PRN ×4 (05:29→22:06)
--- NOTE | 2019-03-22 07:28 | Hem/Onc Progress Note ---
Assessment and Plan # colon cancer with mass in the ascending colon and based on surgical notes metastatic process in the abdomen. The patient has a diverting ileostomy. the disease is advanced stage 4 with mets in the abdomen, chemotherapy will be the first line. # Tumor markers elevated CEA # Anemia, MCV low, likely secondary to iron deficiency. # h/o Electrolyte issues. # h/o Creatinine abn. # Social issues, the patient lives with friends. I will follow the patient during inpatient stay. 03/22 d/w pt that referal to sx for colon sx an option - but due to her age - chemo - immunotherapy/chemo preferred path - report - + for colon ca CEA 50s low iron - s/p IV iron trial pt has social issues - housing etc - OP f/u for chemo high plt - likely reactive - IV iron trial d/w dr hawley on 03/14 for OP follow up - once wound healed - will look into Rx options CT chest - lung mets+ as per RN -pt confused d/w dr pelayo - Patient Problems (1) Colonic mass Current Visit: Yes Status: Acute Subjective Date of service: 03/22/19 Principal diagnosis: colon ca Interval history: has BM as per Nurse - pt confused Objective - Constitutional Vitals: Last Vital Signs Temp 98.2 F 03/22/19 03:52 Pulse 84 03/22/19 03:52 Resp 17 03/22/19 03:52 BP 129/61 03/22/19 03:52 Pulse Ox 97 03/22/19 03:52 Pain Intensity (0-10): denies any pain General appearance: other (sitting - clothes half removed) Performance status: 3-limited selfcare - EENT Eyes: EOM intact ENT: hearing intact Lymph node exam: negative cervical - Neck Neck: normal ROM - Respiratory Respiratory effort: Positive: normal Respiratory: bilateral: CTA (anteriorly) - Cardiovascular Heart Sounds: Present: S1 & S2 Extremities: normal temperature - Gastrointestinal General gastrointestinal: Present: soft, other (stomy) Rectal Exam: deferred - Genitourinary Female genitourinary: Present: deferred - Integumentary Integumentary: warm - Musculoskeletal Musculoskeletal: strength equal bilaterally - Neurologic Neurologic: moves all extremities - Psychiatric Psychiatric: agitated Medications & Allergies - Medications Allergies/Adverse Reactions: Allergies Penicillins Allergy (Verified 03/04/19 08:51) Itching Home Medications: Home Medications Medication Instructions Recorded Confirmed Last Taken Type ALBUTEROL Inhaler (OR & NICU) 2 puff IH QID PRN #1 inhalation 11/24/18 03/04/19 Unknown Rx [ProAir HFA Inhaler] Azithromycin [Zithromax Z-LONNY] 250 mg PO DAILY #6 tablet 11/24/18 03/04/19 Unknown Rx predniSONE [Deltasone] 20 mg PO QDAY #5 tab 11/24/18 03/04/19 Unknown Rx Amitriptyline 10 mg PO HS 03/08/19 03/08/19 Unknown History Chlorthalidone 25 mg PO QDAY 03/08/19 03/08/19 Unknown History Mirtazapine 45 mg PO HS 03/08/19 03/08/19 Unknown History RisperiDONE 1 mg HS 03/08/19 03/08/19 03/03/19 History amLODIPine 10 mg PO QDAY 03/08/19 03/08/19 Unknown History Active Medications: Generic Name Dose Route Start Last Admin Trade Name Freq PRN Reason Stop Dose Admin Acetaminophen/Hydrocodone Bitart 2 each 03/08/19 17:17 03/22/19 02:09 [place] 5/325 PO 2 each Q6H PRN Administration Pain, Moderate (4-6) Albuterol 2.5 mg 03/04/19 15:40 Proventil IH Q3HRT PRN Shortness Of Breath Heparin Sodium (Porcine) 5,000 unit 03/04/19 22:00 03/21/19 21:35 Heparin SUB-Q 5,000 unit Q12HR AUDREY Administration Hydralazine HCl 10 mg 03/08/19 11:10 Apresoline IV Q4HR PRN Hypertension Lactated Ringer's 1,000 mls @ 75 mls/hr 03/08/19 15:00 03/20/19 17:16 Lactated Ringers IV 75 mls/hr DIRECT AUDREY Administration Lorazepam 1 mg 03/08/19 11:10 03/22/19 05:29 Ativan IV 1 mg Q4H PRN Administration Agitation Morphine Sulfate 15 mg 03/21/19 22:00 03/21/19 21:35 Ms Contin Er PO 15 mg Q12HR AUDREY Administration Sodium Chloride 10 ml 03/04/19 22:00 03/21/19 21:36 Sodium Chloride Flush Syringe 10 Ml IV 10 ml BID AUDREY Administration Sodium Chloride 10 ml 03/04/19 15:40 03/07/19 05:33 Sodium Chloride Flush Syringe 10 Ml IV 10 ml PRN PRN Administration LINE FLUSH
[2019-03-22] MEDS: MS CONTIN ER PO SCH ×2 (10:26→21:52)
[2019-03-22] MEDS: HEPARIN SUB-Q SCH ×2 (10:28→21:53)
[2019-03-22] MEDS: SODIUM CHLORIDE FLUSH SYRINGE 10 ML IV SCH ×2 (10:29→21:58)
--- NOTE | 2019-03-22 12:30 | Cat Scan Report ---
PROCEDURE: CT HEAD/BRAIN WO CON TECHNIQUE: Computerized tomography of the head was performed without contrast material. CT DOSE LENGTH PRODUCT: 1047.9 mGy-cm. HISTORY: confusion, metastatic cancer COMPARISONS: CT head March 04, 2019. FINDINGS: There is no evidence for acute ischemia. There is no hemorrhage. There is no midline shift. There is no hydrocephalus. There is no mass. Age appropriate dunn-white matter attenuation is noted. There is no calvarial fracture. The temporal bones demonstrate aerated mastoid air cells. The middle ears appear unremarkable. Paranasal sinuses are unremarkable. Globes are intact. IMPRESSION: * No acute intracranial findings. This document is electronically signed by Red Mendez MD., March 22 2019 12:27:58 PM ET
--- NOTE | 2019-03-22 16:52 | Progress Note ---
Assessment and Plan Assessment and plan: Patient is a 63-year-old female patient admitted through emergency room with nausea vomiting generalized weakness, initiated workup is consistent with anemia, small bowel obstruction. Patient received 2 units of PRBC, surgery evaluated the patient. Patient stabilized Underwent exploratory laparotomy, di verting loop ileostomy, omental biopsies.Large firm mass right lower quadrant, presumed malignancy. Patient was evaluated by oncology, pending pathology report , metastatic colon cancer consider different treatment plans. 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 h/o Creatinine abn. imaging studies shows bilateral pulmonary Nodules. CT abdomen and pelvis/abdominal mass CT abdomen and pelvis findings possible mass in the ascending colon. CT chest: Bilateral Pulmonary Nodules consistent with Metastatic Disease. Emphysema, Right lobar Pna vs subsegmental atalectasis. Tiny Right pleural Effusion -Possible metastases colon cancer- Metastatic Moderately Differentiated adenocarcinoma consistent with colorectal primary Surgery, oncology following, pathology report of omental biopsy noted as above surgery cleared for discharge, will remove damon from ileostomy site next week still draining, wound care following --Small bowel obstruction /Status post diverting ileostomy; with mets to the chest Expl Lap:large, firm mass in RLQ involving presumed malignancy, large bowel and small bowel. multiple implants in mesentery, omentum, peritoneum, liver, iliac LNs. s/p omental biopsies x 2, diverting loop ileostomy creation. Continue supportive care, follow histopathology Oncology evaluation noted appreciated -Hypomagnesemia;Hypokalemia/Hypophosphatemia: corrected , monitor electrolytes Replace --Anemia: Received 2 units PRBC, hemoglobin level improved -- Sepsis/leukocytosis Sepsis Protocol: IV ABx therapy Levaquin and Flagyl, IVF resuscitation therapy, lactate levels within normal limits, No growth in cultures Monitor resolution of leukocytosis --ARF (acute renal failure) with tubular necrosis Resolved , avoid nephrotoxins , IV fluids needed --Severe malnutrition/hypoalbuminemia Due to her underlying disease process, nutrition consult nutrition supplements when able to take oral --REACTIVE Thrombocytosis Secondary to Metastatic disease --Ilesotmy intact- WOUND MANAGEMENT CT head - Negative for acute Intracranial findings ---DVT prophylaxis SCD to BLE while in bed. Prophylactic heparin. Plan of care reviewed with the patient and her nurse Consults and recommendations noted and appreciated Disposition; follow biopsy report, follow oncology and surgical recommendations Pending placement to SNF/rehabilitation History Interval history: Patient was seen and evaluated this morning. patient was confused. Hospitalist Physical - Physical exam Narrative exam: Not in cardiopulmonary distress. The patient appeared well nourished and normally developed. Vital signs as documented. Head exam is unremarkable. No scleral icterus . Neck is without jugular venous distension, thyromegaly, or carotid bruits. Lungs are clear to auscultation. Cardiac exam reveals regular rate and Rhythm. First and second heart sounds normal. No murmurs, rubs or gallops. Abdominal exam reveals normal ileostomy in place. Extremities are nonedematous and both femoral and pedal pulses are normal. SAMPLE PULLER: Alert and not oriented to time. - Constitutional Vitals: Temp Pulse Resp BP Pulse Ox 98.3 F 89 18 105/68 98 03/22/19 08:01 03/22/19 08:02 03/22/19 08:01 03/22/19 08:01 03/22/19 08:02 General appearance: Present: no acute distress, cachectic, disheveled Results - Labs CBC & Chem 7: 03/16/19 04:18 03/16/19 04:18 Labs: Laboratory Last Values WBC 12.5 K/mm3 (4.5-11.0) H 03/16/19 04:18 RBC 3.60 M/mm3 (3.65-5.03) L 03/16/19 04:18 Hgb 8.5 gm/dl (10.1-14.3) L 03/16/19 04:18 Hct 25.2 % (30.3-42.9) L 03/16/19 04:18 MCV 70 fl (79-97) L 03/16/19 04:18 MCH 24 pg (28-32) L 03/16/19 04:18 MCHC 34 % (30-34) 03/16/19 04:18 RDW 26.2 % (13.2-15.2) H 03/16/19 04:18 Plt Count 786 K/mm3 (140-440) H 03/16/19 04:18 Lymph % (Auto) 13.1 % (13.4-35.0) L 03/11/19 05:10 [place] % (Auto) 7.2 % (0.0-7.3) 03/11/19 05:10 Eos % (Auto) 0.9 % (0.0-4.3) 03/11/19 05:10 Baso % (Auto) 0.4 % (0.0-1.8) 03/11/19 05:10 Lymph # 2.5 K/mm3 (1.2-5.4) 03/11/19 05:10 [place] # 1.4 K/mm3 (0.0-0.8) H 03/11/19 05:10 Eos # 0.2 K/mm3 (0.0-0.4) 03/11/19 05:10 Baso # 0.1 K/mm3 (0.0-0.1) 03/11/19 05:10 Add Manual Diff Complete 03/13/19 08:19 Total Counted 100 03/13/19 08:19 Seg Neutrophils % 78.4 % (40.0-70.0) H 03/11/19 05:10 Seg Neuts % (Manual) 95.0 % (40.0-70.0) H 03/13/19 08:19 0 % 03/13/19 08:19 4.0 % (13.4-35.0) L 03/13/19 08:19 Reactive Lymphs % (Man) 0 % 03/13/19 08:19 1.0 % (0.0-7.3) 03/13/19 08:19 0 % (0.0-4.3) 03/13/19 08:19 0 % (0.0-1.8) 03/13/19 08:19 0 % 03/13/19 08:19 0 % 03/13/19 08:19 0 % 03/13/19 08:19 0 % 03/13/19 08:19 Nucleated RBC % Not Reportable 03/13/19 08:19 Seg Neutrophils # 15.0 K/mm3 (1.8-7.7) H 03/11/19 05:10 Seg Neutrophils # Man 22.3 K/mm3 (1.8-7.7) H 03/13/19 08:19 Band Neutrophils # 0.0 K/mm3 03/13/19 08:19 0.9 K/mm3 (1.2-5.4) L 03/13/19 08:19 Abs React Lymphs (Man) 0.0 K/mm3 03/13/19 08:19 0.2 K/mm3 (0.0-0.8) 03/13/19 08:19 0.0 K/mm3 (0.0-0.4) 03/13/19 08:19 0.0 K/mm3 (0.0-0.1) 03/13/19 08:19 0.0 K/mm3 03/13/19 08:19 0.0 K/mm3 03/13/19 08:19 0.0 K/mm3 03/13/19 08:19 Blast Cells # 0.0 K/mm3 03/13/19 08:19 WBC Morphology Not Reportable 03/13/19 08:19 Hypersegmented Neuts Not Reportable 03/13/19 08:19 Hyposegmented Neuts Not Reportable 03/13/19 08:19 Hypogranular Neuts Not Reportable 03/13/19 08:19 Not Reportable 03/13/19 08:19 Not Reportable 03/13/19 08:19 Not Reportable 03/13/19 08:19 Not Reportable 03/13/19 08:19 Not Reportable 03/13/19 08:19 Not Reportable 03/13/19 08:19 Consistent w auto 03/13/19 08:19 Not Reportable 03/13/19 08:19 Plt Clumps, EDTA Not Reportable 03/13/19 08:19 Not Reportable 03/13/19 08:19 Not Reportable 03/13/19 08:19 Not Reportable 03/13/19 08:19 Plt Morphology Comment Not Reportable 03/13/19 08:19 RBC Morphology Not Reportable 03/13/19 08:19 Dimorphic RBCs Not Reportable 03/13/19 08:19 Not Reportable 03/13/19 08:19 1+ 03/13/19 08:19 Not Reportable 03/13/19 08:19 2+ 03/13/19 08:19 Few 03/13/19 08:19 Not Reportable 03/13/19 08:19 Not Reportable 03/13/19 08:19 Not Reportable 03/13/19 08:19 Not Reportable 03/13/19 08:19 Few 03/13/19 08:19 Not Reportable 03/13/19 08:19 Not Reportable 03/13/19 08:19 Not Reportable 03/13/19 08:19 Not Reportable 03/13/19 08:19 Not Reportable 03/13/19 08:19 Not Reportable 03/13/19 08:19 Not Reportable 03/13/19 08:19 Not Reportable 03/13/19 08:19 Not Reportable 03/13/19 08:19 Acanthocytes (Spur) Rare 03/13/19 08:19 Rouleaux Not Reportable 03/13/19 08:19 Not Reportable 03/13/19 08:19 Not Reportable 03/13/19 08:19 Not Reportable 03/13/19 08:19 Not Reportable 03/13/19 08:19 Hem Pathologist Commnt No 03/13/19 08:19 Sodium 136 mmol/L (137-145) L 03/16/19 04:18 Potassium 4.1 mmol/L (3.6-5.0) 03/16/19 04:18 Chloride 101.7 mmol/L (98-107) 03/16/19 04:18 Carbon Dioxide 24 mmol/L (22-30) 03/16/19 04:18 14 mmol/L 03/16/19 04:18 BUN 11 mg/dL (7-17) 03/16/19 04:18 0.7 mg/dL (0.7-1.2) 03/16/19 04:18 Estimated GFR > 60 ml/min 03/16/19 04:18 16 % 03/16/19 04:18 Glucose 99 mg/dL (65-100) 03/16/19 04:18 Lactic Acid 0.80 mmol/L (0.7-2.0) 03/05/19 05:23 Calcium 9.0 mg/dL (8.4-10.2) 03/16/19 04:18 Phosphorus 2.90 mg/dL (2.5-4.5) 03/13/19 08:19 Magnesium 1.70 mg/dL (1.7-2.3) 03/15/19 05:32 Iron 11 ug/dL (37-170) L 03/10/19 04:31 TIBC 201 mcg/dL (250-450) L 03/10/19 04:31 87.9 ng/mL (13.0-400.0) 03/10/19 04:31 0.20 mg/dL (0.1-1.2) 03/09/19 04:52 AST 12 units/L (5-40) 03/09/19 04:52 ALT < 5 units/L (7-56) L 03/09/19 04:52 65 units/L (35-129) 03/09/19 04:52 5.5 g/dL (6.3-8.2) L 03/09/19 04:52 2.2 g/dL (3.9-5) L 03/09/19 04:52 0.7 % 03/09/19 04:52 Carcinoembryonic Ag 58.8 ng/mL (0.0-2.4) H 03/10/19 04:31 96 U/mL (<35) H 03/10/19 04:31 Vitamin B12 1622 pg/mL (211-911) H 03/10/19 04:31 8.04 ng/mL (7.3-26.0) 03/10/19 04:31 Yellow (Yellow) 03/04/19 13:13 Cloudy (Clear) 03/04/19 13:13 5.0 (5.0-7.0) 03/04/19 13:13 Ur Specific [place] 1.018 (1.003-1.030) 03/04/19 13:13 30 mg/dl mg/dL (Negative) 03/04/19 13:13 Neg mg/dL (Negative) 03/04/19 13:13 Tr mg/dL (Negative) 03/04/19 13:13 Neg (Negative) 03/04/19 13:13 Neg (Negative) 03/04/19 13:13 Neg (Negative) 03/04/19 13:13 < 2.0 mg/dL (<2.0) 03/04/19 13:13 Ur Leukocyte Esterase Tr (Negative) 03/04/19 13:13 5.0 /HPF (0.0-6.0) 03/04/19 13:13 4.0 /HPF (0.0-6.0) 03/04/19 13:13 U Epithel Cells (Auto) 8.0 /HPF (0-13.0) 03/04/19 13:13 1+ /HPF (Negative) 03/04/19 13:13 Few /HPF 03/04/19 13:13 Blood Type O NEGATIVE 03/08/19 14:25 Antibody Screen Negative 03/08/19 14:25 [place] Antibody Screen Negative 03/04/19 15:56 Crossmatch See Detail 03/04/19 15:56 Active Medications - Current Medications Current Medications: Generic Name Dose Route Start Last Admin Trade Name Freq PRN Reason Stop Dose Admin Acetaminophen/Hydrocodone Bitart 2 each 03/08/19 17:17 03/22/19 02:09 [place] 5/325 PO 2 each Q6H PRN Administration Pain, Moderate (4-6) Albuterol 2.5 mg 03/04/19 15:40 Proventil IH Q3HRT PRN Shortness Of Breath Heparin Sodium (Porcine) 5,000 unit 03/04/19 22:00 03/22/19 10:28 Heparin SUB-Q 5,000 unit Q12HR AUDREY Administration Hydralazine HCl 10 mg 03/08/19 11:10 Apresoline IV Q4HR PRN Hypertension Lactated Ringer's 1,000 mls @ 75 mls/hr 03/08/19 15:00 03/20/19 17:16 Lactated Ringers IV 75 mls/hr DIRECT AUDREY Administration Lorazepam 1 mg 03/08/19 11:10 03/22/19 15:35 Ativan IV 1 mg Q4H PRN Administration Agitation Morphine Sulfate 15 mg 03/21/19 22:00 03/22/19 10:26 Ms Contin Er PO 15 mg Q12HR AUDREY Administration Sodium Chloride 10 ml 03/04/19 22:00 03/22/19 10:29 Sodium Chloride Flush Syringe 10 Ml IV 10 ml BID AUDREY Administration Sodium Chloride 10 ml 03/04/19 15:40 03/07/19 05:33 Sodium Chloride Flush Syringe 10 Ml IV 10 ml PRN PRN Administration LINE FLUSH Nutrition/Malnutrition Assess - Dietary Evaluation Nutrition/Malnutrition Findings: Nutrition Notes Start: 03/05/19 13:19 Freq: Status: Active Protocol: Document 03/20/19 16:33 RM (Rec: 03/20/19 16:37 RM [id number]) Nutrition Notes Initial or Follow up Reassessment Current Diagnosis Acute Kidney Injury,Sepsis, Hypertension,Small Bowel Obstruction Other Pertinent Diagnosis ? metastatic colon CA, SBO s/p diverting ileostomy Current Diet Mech soft + Ensure Enlive TID Labs/Tests Reviewed Pertinent Medications Reviewed Height 5 ft 7 in Weight 59.2 kg [place] Body Weight (kg) 61.36 BMI 20.4 Subjective/Other Information Noted lunch at bedside w/25% eaten and 2 unopened Ensure Enlive. Pt stated that she drinks 2 to 3 of the Ensure Enlive daily. Percent of energy/protein needs met: 70%/92% Burn Absent Trauma Absent #1 Nutrition Diagnosis Inadequate oral intake As Evidenced by Signs and Symptoms pt meeting 70% of calorie and 92% of protein needs Diagnosis Progress(for reassessment Improved documentation) Is patient on ventilator? No Is Patient Ambulatory and/or Out of Bed Yes REE-([facility]-ambulatory/OOB) [ 1520.519 [id number]] Kcal/Kg value to use for calculation 30 Approximate Energy Requirements Using 1776 kcal/Kg Calculation Used for Recommendations Kcal/kg Additional Notes Pro needs 1.2-1.5g/k-89g/ day Fluid needs 1ml/kcal Nutrition Intervention Change Diet Order: Continue diet order; dietary staff to contact pt to collect meal preferences daily Add Supplement/Snack (indicate name/kcal Ensure Enlive BID (strawberry) /protein ) Provides kCal: 700 Provides Protein (gm) 40 Goal #1 PO intake of meals plus ONS to meet at least 75% energy and pro needs Goal #2 Wt maintenance Anticipated Discharge Needs: Mech soft Follow-Up By: 03/23/19 Additional Comments Follow for PO and ONS intakes
--- NOTE | 2019-03-22 17:49 | Consultation ---
History of Present Illness Consult date: 03/22/19 Chief complaint: confused History of present illness: this is a 63 YO F who presented to the hospital with SBO found to have colon malignancy wit h mets. Noted by nurse to be "confused". Also anxious, requiring scheduled Ativan. Pt is oriented to self, place, time and situation. Nurse says she says things that don't make sense. Seemed appropriate during my encounter but it was brief. Past History Past Medical History: hypertension, other (nicotine Dependence, colon adenocarcinoma with mets) Past Surgical History: hysterectomy Social history: smoking Family history: hypertension Medications and Allergies Allergies Allergy/AdvReac Type Severity Reaction Status Date / Time Penicillins Allergy Itching Verified 03/04/19 08:51 Home Medications Medication Instructions Recorded Confirmed Last Taken Type ALBUTEROL Inhaler (OR & NICU) 2 puff IH QID PRN #1 inhalation 11/24/18 03/04/19 Unknown Rx [ProAir HFA Inhaler] Azithromycin [Zithromax Z-LONNY] 250 mg PO DAILY #6 tablet 11/24/18 03/04/19 Unknown Rx predniSONE [Deltasone] 20 mg PO QDAY #5 tab 11/24/18 03/04/19 Unknown Rx Amitriptyline 10 mg PO HS 03/08/19 03/08/19 Unknown History Chlorthalidone 25 mg PO QDAY 03/08/19 03/08/19 Unknown History Mirtazapine 45 mg PO HS 03/08/19 03/08/19 Unknown History RisperiDONE 1 mg HS 03/08/19 03/08/19 03/03/19 History amLODIPine 10 mg PO QDAY 03/08/19 03/08/19 Unknown History Active Meds: Active Medications Acetaminophen/Hydrocodone Bitart ([place] 5/325) 2 each PO Q6H PRN PRN Reason: Pain, Moderate (4-6) Last Admin: 03/22/19 17:30 Dose: 2 each Documented by: Albuterol (Proventil) 2.5 mg IH Q3HRT PRN PRN Reason: Shortness Of Breath Heparin Sodium (Porcine) (Heparin) 5,000 unit SUB-Q Q12HR AUDREY Last Admin: 03/22/19 10:28 Dose: 5,000 unit Documented by: Hydralazine HCl (Apresoline) 10 mg IV Q4HR PRN PRN Reason: Hypertension Lactated Ringer's (Lactated Ringers) 1,000 mls @ 75 mls/hr IV DIRECT [facility] Last Admin: 03/20/19 17:16 Dose: 75 mls/hr Documented by: Lorazepam (Ativan) 1 mg IV Q4H PRN PRN Reason: Agitation Last Admin: 03/22/19 15:35 Dose: 1 mg Documented by: Morphine Sulfate (Ms Contin Er) 15 mg PO Q12HR [facility] Last Admin: 03/22/19 10:26 Dose: 15 mg Documented by: Sodium Chloride (Sodium Chloride Flush Syringe 10 Ml) 10 ml IV BID [facility] Last Admin: 03/22/19 10:29 Dose: 10 ml Documented by: Sodium Chloride (Sodium Chloride Flush Syringe 10 Ml) 10 ml IV PRN PRN PRN Reason: LINE FLUSH Last Admin: 03/07/19 05:33 Dose: 10 ml Documented by: Review of Systems Neurological: confusion Physical Examination - Vital Signs Vital Signs: Vital Signs Temp Pulse Resp BP Pulse Ox 98.7 F 110 H 18 99/57 100 03/04/19 08:51 03/04/19 08:51 03/04/19 08:51 03/04/19 08:51 03/04/19 08:51 - Constitutional General appearance: comfortable - EENT EENT: Present: mucous membranes moist - Respiratory Respiratory: Present: lungs clear - Cardiovascular Cardiovascular: Present: regular rate - Gastrointestinal Gastrointestinal: Present: normoactive bowel sounds - Integumentary Integumentary: Present: normal - Neurologic Cranial nerve examination: PERRL, EOMI, V1/V2/V3 grossly intact, face symmetric, tongue midline Sensorimotor examination: intact Motor examination - right side: 5/5: biceps, triceps, wrist flexion, wrist extension, warehouse driver, hip flexors, knee extensors, dorsiflexion, toe extension (EHL), plantarflexion Motor examination - left side: 5/5: biceps, triceps, wrist flexion, wrist extension, warehouse driver, hip flexors, knee extensors, dorsiflexion, toe extension (EHL), plantarflexion Detailed sensory examination: intact Reflexes: 1+: ankle, bicep, knee, tricep Results - Laboratory Findings CBC and BMP: 03/16/19 04:18 03/16/19 04:18 Abnormal Lab Findings: Abnormal Labs 03/04/19 03/04/19 03/04/19 09:06 09:06 15:56 WBC 27.2 H RBC Hgb 8.1 L Hct 25.1 L MCV 65 L MCH 21 L RDW 20.5 H Plt Count 607 H Lymph % (Auto) [place] % (Auto) Payne # Seg Neutrophils % Seg Neuts % (Manual) 88.0 H Lymphocytes % (Manual) 3.0 L Monocytes % (Manual) Seg Neutrophils # Seg Neutrophils # Man 23.9 H Lymphocytes # (Manual) 0.8 L Monocytes # (Manual) 1.1 H Sodium 131 L Potassium 3.0 L Chloride 83.9 L BUN 41 H Creatinine 4.6 H Glucose 219 H Calcium Phosphorus Magnesium Iron TIBC ALT Total Protein Albumin 3.4 L Carcinoembryonic Ag [place] 125 Antigen Vitamin B12 Crossmatch See Detail 03/05/19 03/05/19 03/06/19 05:23 05:23 05:46 WBC 19.1 H 18.7 H RBC 3.30 L Hgb 6.9 L 9.2 L Hct 21.6 L 27.7 L D MCV 66 L 70 L MCH 21 L 23 L RDW 20.2 H 22.8 H Plt Count 560 H 627 H Lymph % (Auto) [place] % (Auto) Payne # Seg Neutrophils % Seg Neuts % (Manual) 96.0 H 96.0 H Lymphocytes % (Manual) 2.0 L 2.0 L Monocytes % (Manual) Seg Neutrophils # Seg Neutrophils # Man 18.3 H 18.0 H Lymphocytes # (Manual) 0.4 L 0.4 L Monocytes # (Manual) Sodium Potassium 3.0 L Chloride BUN 36 H Creatinine 1.5 H D Glucose 115 H Calcium Phosphorus Magnesium Iron TIBC ALT 5 L Total Protein 6.1 L Albumin 2.7 L Carcinoembryonic Ag [place] 125 Antigen Vitamin B12 Crossmatch 03/06/19 03/06/19 03/07/19 05:46 05:46 04:55 WBC 15.9 H RBC Hgb 9.8 L Hct 29.6 L MCV 69 L MCH 23 L RDW 23.3 H Plt Count 687 H Lymph % (Auto) [place] % (Auto) [place] # Seg Neutrophils % Seg Neuts % (Manual) 89.0 H Lymphocytes % (Manual) 5.0 L Monocytes % (Manual) Seg Neutrophils # Seg Neutrophils # Man 14.2 H Lymphocytes # (Manual) 0.8 L Monocytes # (Manual) Sodium Potassium 3.4 L Chloride BUN 32 H Creatinine Glucose 117 H Calcium Phosphorus 2.10 L Magnesium Iron TIBC ALT Total Protein Albumin 2.8 L Carcinoembryonic Ag 14.1 H CA 125 Antigen Vitamin B12 Crossmatch 03/07/19 03/08/19 03/08/19 04:55 05:25 05:25 WBC 17.8 H RBC Hgb 9.8 L Hct 29.5 L MCV 70 L MCH 23 L RDW 24.0 H Plt Count 731 H Lymph % (Auto) [place] % (Auto) 8.8 H Payne # 1.6 H Seg Neutrophils % 76.6 H Seg Neuts % (Manual) Lymphocytes % (Manual) Monocytes % (Manual) Seg Neutrophils # 13.7 H Seg Neutrophils # Man Lymphocytes # (Manual) Monocytes # (Manual) Sodium 146 H 147 H Potassium Chloride BUN 25 H 20 H Creatinine Glucose 118 H 106 H Calcium Phosphorus 2.30 L Magnesium 1.40 L Iron TIBC ALT Total Protein Albumin Carcinoembryonic Ag [place] 125 Antigen Vitamin B12 Crossmatch 03/09/19 03/09/19 03/10/19 04:52 04:52 04:31 WBC 13.1 H 23.3 H RBC Hgb 9.4 L 9.0 L Hct 29.1 L 27.9 L MCV 71 L 70 L MCH 23 L 23 L RDW 25.0 H 25.4 H Plt Count 683 H 703 H Lymph % (Auto) [place] % (Auto) Payne # Seg Neutrophils % Seg Neuts % (Manual) 85.0 H 74.0 H Lymphocytes % (Manual) 9.0 L 6.0 L Monocytes % (Manual) Seg Neutrophils # Seg Neutrophils # Man 11.1 H 17.2 H Lymphocytes # (Manual) Monocytes # (Manual) 1.6 H Sodium 146 H Potassium Chloride 108.4 H BUN 28 H Creatinine Glucose Calcium 8.0 L Phosphorus Magnesium Iron TIBC ALT < 5 L Total Protein 5.5 L Albumin 2.2 L Carcinoembryonic Ag [place] 125 Antigen Vitamin B12 Crossmatch 03/10/19 03/10/19 03/10/19 04:31 04:31 04:31 WBC RBC Hgb Hct MCV MCH RDW Plt Count Lymph % (Auto) [place] % (Auto) [place] # Seg Neutrophils % Seg Neuts % (Manual) Lymphocytes % (Manual) Monocytes % (Manual) Seg Neutrophils # Seg Neutrophils # Man Lymphocytes # (Manual) Monocytes # (Manual) Sodium Potassium Chloride BUN 18 H Creatinine Glucose 148 H Calcium 8.1 L Phosphorus Magnesium Iron 11 L TIBC 201 L ALT Total Protein Albumin Carcinoembryonic Ag 58.8 H CA 125 Antigen 96 H Vitamin B12 Crossmatch 03/10/19 03/11/19 03/11/19 04:31 05:10 05:10 WBC 19.2 H RBC Hgb 8.4 L Hct 25.5 L MCV 70 L MCH 23 L RDW 25.0 H Plt Count 669 H Lymph % (Auto) 13.1 L [place] % (Auto) Payne # 1.4 H Seg Neutrophils % 78.4 H Seg Neuts % (Manual) Lymphocytes % (Manual) Monocytes % (Manual) Seg Neutrophils # 15.0 H Seg Neutrophils # Man Lymphocytes # (Manual) Monocytes # (Manual) Sodium 136 L Potassium Chloride BUN Creatinine Glucose 109 H Calcium 8.2 L Phosphorus Magnesium Iron TIBC ALT Total Protein Albumin Carcinoembryonic Ag [place] 125 Antigen Vitamin B12 1622 H Crossmatch 03/12/19 03/13/19 03/13/19 04:18 08:19 08:19 WBC 14.4 H 23.5 H RBC Hgb 8.8 L 9.3 L Hct 26.6 L 28.2 L MCV 69 L 70 L MCH 23 L 23 L RDW 25.3 H 25.1 H Plt Count 688 H 777 H Lymph % (Auto) [place] % (Auto) [place] # Seg Neutrophils % Seg Neuts % (Manual) 73.0 H 95.0 H Lymphocytes % (Manual) 4.0 L Monocytes % (Manual) 9.0 H Seg Neutrophils # Seg Neutrophils # Man 10.5 H 22.3 H Lymphocytes # (Manual) 0.9 L Monocytes # (Manual) 1.3 H Sodium 134 L Potassium Chloride 97.4 L BUN Creatinine Glucose 123 H Calcium Phosphorus Magnesium 1.20 L Iron TIBC ALT Total Protein Albumin Carcinoembryonic Ag [place] 125 Antigen Vitamin B12 Crossmatch 03/14/19 03/15/19 03/16/19 05:06 05:32 04:18 WBC 17.3 H 15.1 H 12.5 H RBC 3.63 L 3.60 L Hgb 8.8 L 8.5 L 8.5 L Hct 26.2 L 25.5 L 25.2 L MCV 70 L 70 L 70 L MCH 24 L 24 L 24 L RDW 25.2 H 25.7 H 26.2 H Plt Count 804 H 810 H 786 H Lymph % (Auto) [place] % (Auto) [place] # Seg Neutrophils % Seg Neuts % (Manual) Lymphocytes % (Manual) Monocytes % (Manual) Seg Neutrophils # Seg Neutrophils # Man Lymphocytes # (Manual) Monocytes # (Manual) Sodium Potassium Chloride BUN Creatinine Glucose Calcium Phosphorus Magnesium Iron TIBC ALT Total Protein Albumin Carcinoembryonic Ag [place] 125 Antigen Vitamin B12 Crossmatch 03/16/19 04:18 WBC RBC Hgb Hct MCV MCH RDW Plt Count Lymph % (Auto) [place] % (Auto) [place] # Seg Neutrophils % Seg Neuts % (Manual) Lymphocytes % (Manual) Monocytes % (Manual) Seg Neutrophils # Seg Neutrophils # Man Lymphocytes # (Manual) Monocytes # (Manual) Sodium 136 L Potassium Chloride BUN Creatinine Glucose Calcium Phosphorus Magnesium Iron TIBC ALT Total Protein Albumin Carcinoembryonic Ag [place] 125 Antigen Vitamin B12 Crossmatch - Diagnostic Findings Additional findings: Leukocytosis but improving, 73% neut Assessment and Plan This is a 63 YO F with metabolic encephalopathy likely. Recommend: MRI Brain w/wo UA [place] B12 pending TSH Would limit sedating meds when possible IF no clear source for leukocytosis consider work up POC discussed with pt and nurse at bedside. Call with questions.
[2019-03-23] MEDS: NORCO 5/325 PO PRN ×2 (02:53→21:09)
[2019-03-23 06:25] LABS: Bilirubin,Urine NEG (Negative); Blood,Urine NEG (Negative); Color,Urine Amber (Yellow); Mucus,Urine FEW /HPF; Protein,Urine <15 mg/dL mg/dL (Negative); Urobilinogen,Urine < 2.0 mg/dL (<2.0)
[2019-03-23] MEDS: ATIVAN IV PRN ×2 (06:33→17:42)
[2019-03-23] MEDS: MS CONTIN ER PO SCH ×2 (09:24→21:58)
[2019-03-23] MEDS: HEPARIN SUB-Q SCH ×2 (10:16→21:59)
--- NOTE | 2019-03-23 12:21 | Magnetic Resonance Report ---
MRI BRAIN WITH/WITHOUT CONTRAST: History: Encephalopathy. Technique: Multiple T1 and T2 weighted images were obtained in multiple planes. Axial diffusion and gradient imaging was performed. Post contrast T1 images in two planes were obtained following IV gadolinium. Findings: Compared to the CT dated 03/22/19. Minimal nonspecific T2 signal abnormalities are identified in the white matter bilaterally. This probably represents chronic microvascular ischemic disease. Otherwise, the brain parenchyma signal intensity and its dunn-white interface are normal on all sequences. No diffusion restriction, hemorrhage, mass effect or extra-axial fluid collection. Ventricular size is normal and symmetric. The basal cisterns are clear. The brainstem and cerebellar hemispheres are within normal limits. The fourth ventricle is midline. The paranasal sinuses and mastoid air cells are well aerated. Normal flow voids are identified in the appropriate vessels at the little traverse of [place]. No abnormal enhancement is identified following IV gadolinium. Impression: Mild nonspecific chronic white matter changes. No acute intracranial process or abnormal enhancement is identified.
--- NOTE | 2019-03-23 14:28 | Progress Note ---
Assessment and Plan - Patient Problems (1) SBO (small bowel obstruction) Current Visit: Yes Status: Acute Plan to address problem: Pt stable. Metastatic Colon Ca. s/p ex lap and loop ileostomy - 03/08/19 - POD#15 Cleared from surgical standpoint for discharge/transfer. Came to remove damon, but patient would like it done tomorrow. Will leave red rubber catheter for another week. Please call with questions. Subjective Date of service: 03/23/19 Patient Reports: Positive: other (only issue is that she wants a walker with a seat) Objective Vital Signs - 12hr 03/23/19 03:36 Temperature 98.6 F Pulse Rate 83 Respiratory 20 Rate Blood Pressure 117/63 O2 Sat by Pulse 97 Oximetry - General physical appearance no distress, no pain, other (does not appear toxic) - Respiratory normal expansion, normal respiratory effort - Abdomen soft, surgical scars (Part of the incision that is visible is C/D/I), other (ostomy is pink and completely viable. stool in bag. ) - Integumentary no rash, no growths, no abnormal pigmentation - Psychiatric oriented to time, oriented to person, oriented to place, speech is normal, memory intact - Labs 03/16/19 04:18 03/16/19 04:18 Thyroid panel 03/22/19 Range/Units 20:01 TSH 0.925 (0.270-4.200) mlU/mL Pituitary panel 03/22/19 Range/Units 20:01 TSH 0.925 (0.270-4.200) mlU/mL
--- NOTE | 2019-03-23 16:05 | Progress Note ---
Assessment and Plan Assessment and plan: Patient is a 63-year-old female patient admitted through emergency room with nausea vomiting generalized weakness, initiated workup is consistent with anemia, small bowel obstruction. Patient received 2 units of PRBC, surgery evaluated the patient. Patient stabilized Underwent exploratory laparotomy, di verting loop ileostomy, omental biopsies.Large firm mass right lower quadrant, presumed malignancy. Patient was evaluated by oncology, pending pathology report , metastatic colon cancer consider different treatment plans. 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 h/o Creatinine abn. imaging studies shows bilateral pulmonary Nodules. CT abdomen and pelvis/abdominal mass CT abdomen and pelvis findings possible mass in the ascending colon. CT chest: Bilateral Pulmonary Nodules consistent with Metastatic Disease. Emphysema, Right lobar Pna vs subsegmental atalectasis. Tiny Right pleural Effusion -Possible metastases colon cancer- Metastatic Moderately Differentiated adenocarcinoma consistent with colorectal primary Surgery, oncology following, pathology report of omental biopsy noted as above surgery cleared for discharge, will remove damon from ileostomy site next week still draining, wound care following --Small bowel obstruction /Status post diverting ileostomy; with mets to the chest Expl Lap:large, firm mass in RLQ involving presumed malignancy, large bowel and small bowel. multiple implants in mesentery, omentum, peritoneum, liver, iliac LNs. s/p omental biopsies x 2, diverting loop ileostomy creation. Continue supportive care, follow histopathology Oncology evaluation noted appreciated -Hypomagnesemia;Hypokalemia/Hypophosphatemia: corrected , monitor electrolytes Replace --Anemia: Received 2 units PRBC, hemoglobin level improved -- Sepsis/leukocytosis Sepsis Protocol: IV ABx therapy Levaquin and Flagyl, IVF resuscitation therapy, lactate levels within normal limits, No growth in cultures Monitor resolution of leukocytosis --ARF (acute renal failure) with tubular necrosis Resolved , avoid nephrotoxins , IV fluids needed --Severe malnutrition/hypoalbuminemia Due to her underlying disease process, nutrition consult nutrition supplements when able to take oral --REACTIVE Thrombocytosis Secondary to Metastatic disease --Ilesotmy intact- WOUND MANAGEMENT CT head - Negative for acute Intracranial findings Suicidal Ideation - Mental health consulted - patient didn't mention Suicidal ideation for me ---DVT prophylaxis SCD to BLE while in bed. Prophylactic heparin. Plan of care reviewed with the patient and her nurse Consults and recommendations noted and appreciated Disposition; patient's insurance declined her rehab service and patient will go back home once cleared by psych. History Interval history: Patient was seen and evaluated this morning. patient was confused and her sister was in the room during discussion. Patient didn't mention sucidal ideation. The deburr operator said she has suicidal ideation. Hospitalist Physical - Physical exam Narrative exam: Not in cardiopulmonary distress. The patient appeared well nourished and normally developed. Vital signs as documented. Head exam is unremarkable. No scleral icterus . Neck is without jugular venous distension, thyromegaly, or carotid bruits. Lungs are clear to auscultation. Cardiac exam reveals regular rate and Rhythm. First and second heart sounds normal. No murmurs, rubs or gallops. Abdominal exam reveals normal ileostomy in place. Extremities are nonedematous and both femoral and pedal pulses are normal. ENGINE HOSTLER: Alert and not oriented to time. - Constitutional Vitals: Temp Pulse Resp BP Pulse Ox 98.6 F 83 20 117/63 97 03/23/19 03:36 03/23/19 03:36 03/23/19 03:36 03/23/19 03:36 03/23/19 03:36 General appearance: Present: no acute distress, cachectic, disheveled Results - Labs CBC & Chem 7: 03/16/19 04:18 03/16/19 04:18 Labs: Laboratory Last Values WBC 12.5 K/mm3 (4.5-11.0) H 03/16/19 04:18 RBC 3.60 M/mm3 (3.65-5.03) L 03/16/19 04:18 Hgb 8.5 gm/dl (10.1-14.3) L 03/16/19 04:18 Hct 25.2 % (30.3-42.9) L 03/16/19 04:18 MCV 70 fl (79-97) L 03/16/19 04:18 MCH 24 pg (28-32) L 03/16/19 04:18 MCHC 34 % (30-34) 03/16/19 04:18 RDW 26.2 % (13.2-15.2) H 03/16/19 04:18 Plt Count 786 K/mm3 (140-440) H 03/16/19 04:18 Lymph % (Auto) 13.1 % (13.4-35.0) L 03/11/19 05:10 [place] % (Auto) 7.2 % (0.0-7.3) 03/11/19 05:10 Eos % (Auto) 0.9 % (0.0-4.3) 03/11/19 05:10 Baso % (Auto) 0.4 % (0.0-1.8) 03/11/19 05:10 Lymph # 2.5 K/mm3 (1.2-5.4) 03/11/19 05:10 [place] # 1.4 K/mm3 (0.0-0.8) H 03/11/19 05:10 Eos # 0.2 K/mm3 (0.0-0.4) 03/11/19 05:10 Baso # 0.1 K/mm3 (0.0-0.1) 03/11/19 05:10 Add Manual Diff Complete 03/13/19 08:19 Total Counted 100 03/13/19 08:19 Seg Neutrophils % 78.4 % (40.0-70.0) H 03/11/19 05:10 Seg Neuts % (Manual) 95.0 % (40.0-70.0) H 03/13/19 08:19 0 % 03/13/19 08:19 4.0 % (13.4-35.0) L 03/13/19 08:19 Reactive Lymphs % (Man) 0 % 03/13/19 08:19 1.0 % (0.0-7.3) 03/13/19 08:19 0 % (0.0-4.3) 03/13/19 08:19 0 % (0.0-1.8) 03/13/19 08:19 0 % 03/13/19 08:19 0 % 03/13/19 08:19 0 % 03/13/19 08:19 0 % 03/13/19 08:19 Nucleated RBC % Not Reportable 03/13/19 08:19 Seg Neutrophils # 15.0 K/mm3 (1.8-7.7) H 03/11/19 05:10 Seg Neutrophils # Man 22.3 K/mm3 (1.8-7.7) H 03/13/19 08:19 Band Neutrophils # 0.0 K/mm3 03/13/19 08:19 0.9 K/mm3 (1.2-5.4) L 03/13/19 08:19 Abs React Lymphs (Man) 0.0 K/mm3 03/13/19 08:19 0.2 K/mm3 (0.0-0.8) 03/13/19 08:19 0.0 K/mm3 (0.0-0.4) 03/13/19 08:19 0.0 K/mm3 (0.0-0.1) 03/13/19 08:19 0.0 K/mm3 03/13/19 08:19 0.0 K/mm3 03/13/19 08:19 0.0 K/mm3 03/13/19 08:19 Blast Cells # 0.0 K/mm3 03/13/19 08:19 WBC Morphology Not Reportable 03/13/19 08:19 Hypersegmented Neuts Not Reportable 03/13/19 08:19 Hyposegmented Neuts Not Reportable 03/13/19 08:19 Hypogranular Neuts Not Reportable 03/13/19 08:19 Not Reportable 03/13/19 08:19 Not Reportable 03/13/19 08:19 Not Reportable 03/13/19 08:19 Not Reportable 03/13/19 08:19 Not Reportable 03/13/19 08:19 Not Reportable 03/13/19 08:19 Consistent w auto 03/13/19 08:19 Not Reportable 03/13/19 08:19 Plt Clumps, EDTA Not Reportable 03/13/19 08:19 Not Reportable 03/13/19 08:19 Not Reportable 03/13/19 08:19 Not Reportable 03/13/19 08:19 Plt Morphology Comment Not Reportable 03/13/19 08:19 RBC Morphology Not Reportable 03/13/19 08:19 Dimorphic RBCs Not Reportable 03/13/19 08:19 Not Reportable 03/13/19 08:19 1+ 03/13/19 08:19 Not Reportable 03/13/19 08:19 2+ 06/11/19 08:19 Few 03/13/19 08:19 Not Reportable 03/13/19 08:19 Not Reportable 03/13/19 08:19 Not Reportable 03/13/19 08:19 Not Reportable 03/13/19 08:19 Few 03/13/19 08:19 Not Reportable 03/13/19 08:19 Not Reportable 03/13/19 08:19 Not Reportable 03/13/19 08:19 Not Reportable 03/13/19 08:19 Not Reportable 03/13/19 08:19 Not Reportable 03/13/19 08:19 Not Reportable 03/13/19 08:19 Not Reportable 03/13/19 08:19 Not Reportable 03/13/19 08:19 Acanthocytes (Spur) Rare 03/13/19 08:19 Rouleaux Not Reportable 03/13/19 08:19 Not Reportable 03/13/19 08:19 Not Reportable 03/13/19 08:19 Not Reportable 03/13/19 08:19 Not Reportable 03/13/19 08:19 Hem Pathologist Commnt No 03/13/19 08:19 Sodium 136 mmol/L (137-145) L 03/16/19 04:18 Potassium 4.1 mmol/L (3.6-5.0) 03/16/19 04:18 Chloride 101.7 mmol/L (98-107) 03/16/19 04:18 Carbon Dioxide 24 mmol/L (22-30) 03/16/19 04:18 14 mmol/L 03/16/19 04:18 BUN 11 mg/dL (7-17) 03/16/19 04:18 0.7 mg/dL (0.7-1.2) 03/16/19 04:18 Estimated GFR > 60 ml/min 03/16/19 04:18 16 % 03/16/19 04:18 Glucose 99 mg/dL (65-100) 03/16/19 04:18 Lactic Acid 0.80 mmol/L (0.7-2.0) 03/05/19 05:23 Calcium 9.0 mg/dL (8.4-10.2) 03/16/19 04:18 Phosphorus 2.90 mg/dL (2.5-4.5) 03/13/19 08:19 Magnesium 1.70 mg/dL (1.7-2.3) 03/15/19 05:32 Iron 11 ug/dL (37-170) L 03/10/19 04:31 TIBC 201 mcg/dL (250-450) L 03/10/19 04:31 87.9 ng/mL (13.0-400.0) 03/10/19 04:31 0.20 mg/dL (0.1-1.2) 03/09/19 04:52 AST 12 units/L (5-40) 03/09/19 04:52 ALT < 5 units/L (7-56) L 03/09/19 04:52 65 units/L (35-129) 03/09/19 04:52 41.0 umol/L (25-60) 03/22/19 20:01 5.5 g/dL (6.3-8.2) L 03/09/19 04:52 2.2 g/dL (3.9-5) L 03/09/19 04:52 0.7 % 03/09/19 04:52 Carcinoembryonic Ag 58.8 ng/mL (0.0-2.4) H 03/10/19 04:31 96 U/mL (<35) H 03/10/19 04:31 Vitamin B12 1622 pg/mL (211-911) H 03/10/19 04:31 8.04 ng/mL (7.3-26.0) 03/10/19 04:31 TSH 0.925 mlU/mL (0.270-4.200) 03/22/19 20:01 [place] (Yellow) 03/23/19 Unknown Hazy (Clear) 03/23/19 Unknown 5.0 (5.0-7.0) 03/23/19 Unknown Ur Specific [place] 1.028 (1.003-1.030) 03/23/19 Unknown <15 mg/dl mg/dL (Negative) 03/23/19 Unknown Neg mg/dL (Negative) 03/23/19 Unknown Neg mg/dL (Negative) 03/23/19 Unknown Neg (Negative) 03/23/19 Unknown Neg (Negative) 03/23/19 Unknown Neg (Negative) 03/23/19 Unknown < 2.0 mg/dL (<2.0) 03/23/19 Unknown Ur Leukocyte Esterase Neg (Negative) 03/23/19 Unknown 6.0 /HPF (0.0-6.0) 03/23/19 Unknown 1.0 /HPF (0.0-6.0) 03/23/19 Unknown U Epithel Cells (Auto) 4.0 /HPF (0-13.0) 03/23/19 Unknown 1+ /HPF (Negative) 03/04/19 13:13 Few /HPF 03/23/19 Unknown Blood Type O NEGATIVE 03/08/19 14:25 Antibody Screen Negative 03/08/19 14:25 [place] Antibody Screen Negative 03/04/19 15:56 Crossmatch See Detail 03/04/19 15:56 Active Medications - Current Medications Current Medications: Generic Name Dose Route Start Last Admin Trade Name Freq PRN Reason Stop Dose Admin Acetaminophen/Hydrocodone Bitart 2 each 03/08/19 17:17 03/23/19 02:53 [place] 5/325 PO 2 each Q6H PRN Administration Pain, Moderate (4-6) Albuterol 2.5 mg 03/04/19 15:40 Proventil IH Q3HRT PRN Shortness Of Breath Heparin Sodium (Porcine) 5,000 unit 03/04/19 22:00 03/23/19 10:16 Heparin SUB-Q 5,000 unit Q12HR AUDREY Administration Hydralazine HCl 10 mg 03/08/19 11:10 Apresoline IV Q4HR PRN Hypertension Lactated Ringer's 1,000 mls @ 75 mls/hr 03/08/19 15:00 03/20/19 17:16 Lactated Ringers IV 75 mls/hr DIRECT AUDREY Administration Lorazepam 0.5 mg 03/23/19 09:00 Ativan IV Q6H PRN Agitation Morphine Sulfate 15 mg 03/21/19 22:00 03/23/19 09:24 Ms Contin Er PO 15 mg Q12HR AUDREY Administration Sodium Chloride 10 ml 03/04/19 22:00 03/22/19 21:58 Sodium Chloride Flush Syringe 10 Ml IV 10 ml BID AUDREY Administration Sodium Chloride 10 ml 03/04/19 15:40 03/07/19 05:33 Sodium Chloride Flush Syringe 10 Ml IV 10 ml PRN PRN Administration LINE FLUSH Nutrition/Malnutrition Assess - Dietary Evaluation Nutrition/Malnutrition Findings: Nutrition Notes Start: 03/05/19 13:19 Freq: Status: Active Protocol: Document 03/20/19 16:33 RM (Rec: 03/20/19 16:37 RM [id number]) Nutrition Notes Initial or Follow up Reassessment Current Diagnosis Acute Kidney Injury,Sepsis, Hypertension,Small Bowel Obstruction Other Pertinent Diagnosis ? metastatic colon CA, SBO s/p diverting ileostomy Current Diet Mech soft + Ensure Enlive TID Labs/Tests Reviewed Pertinent Medications Reviewed Height 5 ft 7 in Weight 59.2 kg [place] Body Weight (kg) 61.36 BMI 20.4 Subjective/Other Information Noted lunch at bedside w/25% eaten and 2 unopened Ensure Enlive. Pt stated that she drinks 2 to 3 of the Ensure Enlive daily. Percent of energy/protein needs met: 70%/92% Burn Absent Trauma Absent #1 Nutrition Diagnosis Inadequate oral intake As Evidenced by Signs and Symptoms pt meeting 70% of calorie and 92% of protein needs Diagnosis Progress(for reassessment Improved documentation) Is patient on ventilator? No Is Patient Ambulatory and/or Out of Bed Yes REE-([place]-ambulatory/OOB) [ 1520.519 [id number]] Kcal/Kg value to use for calculation 30 Approximate Energy Requirements Using 1776 kcal/Kg Calculation Used for Recommendations Kcal/kg Additional Notes Pro needs 1.2-1.5g/k-89g/ day Fluid needs 1ml/kcal Nutrition Intervention Change Diet Order: Continue diet order; dietary staff to contact pt to collect meal preferences daily Add Supplement/Snack (indicate name/kcal Ensure Enlive BID (strawberry) /protein ) Provides kCal: 700 Provides Protein (gm) 40 Goal #1 PO intake of meals plus ONS to meet at least 75% energy and pro needs Goal #2 Wt maintenance Anticipated Discharge Needs: Mech soft Follow-Up By: 03/23/19 Additional Comments Follow for PO and ONS intakes
[2019-03-23] MEDS: SODIUM CHLORIDE FLUSH SYRINGE 10 ML IV SCH (22:00)
--- NOTE | 2019-03-23 23:52 | Hem/Onc Progress Note ---
Assessment and Plan # colon cancer with mass in the ascending colon and based on surgical notes metastatic process in the abdomen. The patient has a diverting ileostomy. the disease is advanced stage 4 with mets in the abdomen, chemotherapy will be the first line. # Tumor markers elevated CEA # Anemia, MCV low, likely secondary to iron deficiency. # h/o Electrolyte issues. # h/o Creatinine abn. # Social issues, the patient lives with friends. I will follow the patient during inpatient stay. 03/23 d/w pt that referal to sx for colon sx an option - but due to her age - chemo - immunotherapy/chemo preferred path - report - + for colon ca CEA 50s low iron - s/p IV iron trial pt has social issues - housing etc - OP f/u for chemo high plt - likely reactive - s/p IV iron trial CT chest - lung mets+ I had d/w dr pelayo psych consult it appears - placement was refused by insurance OP follow up an option - Patient Problems (1) Colonic mass Current Visit: Yes Status: Acute Subjective Date of service: 03/23/19 Principal diagnosis: colon ca Interval history: pt using walker - psych consulted Objective - Constitutional Vitals: Last Vital Signs Temp 98.5 F 03/23/19 19:42 Pulse 102 H 03/23/19 19:42 Resp 20 03/23/19 21:58 BP 135/68 03/23/19 19:42 Pulse Ox 98 03/23/19 19:42 Pain Intensity (0-10): denies any pain General appearance: no acute distress Performance status: 3-limited selfcare - EENT Eyes: EOM intact ENT: hearing intact Lymph node exam: negative cervical - Neck Neck: normal ROM - Respiratory Respiratory effort: Positive: normal Respiratory: bilateral: CTA - Cardiovascular Heart Sounds: Present: S1 & S2 Extremities: normal temperature - Gastrointestinal General gastrointestinal: Present: soft, other (stomy+) Rectal Exam: deferred - Genitourinary Female genitourinary: Present: deferred - Integumentary Integumentary: warm - Musculoskeletal Musculoskeletal: strength equal bilaterally - Neurologic Neurologic: moves all extremities - Labs Lab Results: Laboratory Results - last 24 hr 03/23/19 Unknown Urine Color [place] Urine Turbidity Hazy Urine pH 5.0 Ur Specific [place] 1.028 Urine Protein <15 mg/dl Urine Glucose (UA) Neg Urine Ketones Neg Urine Blood Neg Urine Nitrite Neg Urine Bilirubin Neg Urine Urobilinogen < 2.0 Ur Leukocyte Esterase Neg Urine WBC (Auto) 6.0 Urine RBC (Auto) 1.0 U Epithel Cells (Auto) 4.0 Urine Mucus Few Medications & Allergies - Medications Allergies/Adverse Reactions: Allergies Penicillins Allergy (Verified 03/04/19 08:51) Itching Home Medications: Home Medications Medication Instructions Recorded Confirmed Last Taken Type ALBUTEROL Inhaler (OR & NICU) 2 puff IH QID PRN #1 inhalation 11/24/18 03/04/19 Unknown Rx [ProAir HFA Inhaler] Azithromycin [Zithromax Z-LONNY] 250 mg PO DAILY #6 tablet 11/24/18 03/04/19 Unknown Rx predniSONE [Deltasone] 20 mg PO QDAY #5 tab 11/24/18 03/04/19 Unknown Rx Amitriptyline 10 mg PO HS 03/08/19 03/08/19 Unknown History Chlorthalidone 25 mg PO QDAY 03/08/19 03/08/19 Unknown History Mirtazapine 45 mg PO HS 03/08/19 03/08/19 Unknown History RisperiDONE 1 mg HS 03/08/19 03/08/19 03/03/19 History amLODIPine 10 mg PO QDAY 03/08/19 03/08/19 Unknown History Active Medications: Generic Name Dose Route Start Last Admin Trade Name Freq PRN Reason Stop Dose Admin Acetaminophen/Hydrocodone Bitart 2 each 03/08/19 17:17 03/23/19 21:09 [place] 5/325 PO 2 each Q6H PRN Administration Pain, Moderate (4-6) Albuterol 2.5 mg 03/04/19 15:40 Proventil IH Q3HRT PRN Shortness Of Breath Heparin Sodium (Porcine) 5,000 unit 03/04/19 22:00 03/23/19 21:59 Heparin SUB-Q 5,000 unit Q12HR AUDREY Administration Hydralazine HCl 10 mg 03/08/19 11:10 Apresoline IV Q4HR PRN Hypertension Lactated Ringer's 1,000 mls @ 75 mls/hr 03/08/19 15:00 03/20/19 17:16 Lactated Ringers IV 75 mls/hr DIRECT AUDREY Administration Lorazepam 0.5 mg 03/23/19 09:00 03/23/19 17:42 Ativan IV 0.5 mg Q6H PRN Administration Agitation Morphine Sulfate 15 mg 03/21/19 22:00 03/23/19 21:58 Ms Contin Er PO 15 mg Q12HR AUDREY Administration Sodium Chloride 10 ml 03/04/19 22:00 03/22/19 21:58 Sodium Chloride Flush Syringe 10 Ml IV 10 ml BID AUDREY Administration Sodium Chloride 10 ml 03/04/19 15:40 03/07/19 05:33 Sodium Chloride Flush Syringe 10 Ml IV 10 ml PRN PRN Administration LINE FLUSH
[2019-03-24] MEDS: ATIVAN IV PRN ×3 (00:02→17:23)
[2019-03-24] MEDS: NORCO 5/325 PO PRN ×2 (06:20→14:46)
[2019-03-24] MEDS: MS CONTIN ER PO SCH ×2 (10:40→21:58)
[2019-03-24] MEDS: HEPARIN SUB-Q SCH (10:52)
[2019-03-24] MEDS: SODIUM CHLORIDE FLUSH SYRINGE 10 ML IV SCH (10:55)
--- NOTE | 2019-03-24 15:13 | Progress Note ---
Assessment and Plan Assessment and plan: Patient is a 63-year-old female patient admitted through emergency room with nausea vomiting generalized weakness, initiated workup is consistent with anemia, small bowel obstruction. Patient received 2 units of PRBC, surgery evaluated the patient. Patient stabilized Underwent exploratory laparotomy, di verting loop ileostomy, omental biopsies.Large firm mass right lower quadrant, presumed malignancy. Patient was evaluated by oncology, pending pathology report , metastatic colon cancer consider different treatment plans. 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 h/o Creatinine abn. imaging studies shows bilateral pulmonary Nodules. The plan was to discharge home with HH on 03/24/19, but the patient expressed sucidal ideation to the mental health sales ledger clerk yesterday and patient was placed on 1013 CT abdomen and pelvis/abdominal mass CT abdomen and pelvis findings possible mass in the ascending colon. CT chest: Bilateral Pulmonary Nodules consistent with Metastatic Disease. Emphysema, Right lobar Pna vs subsegmental atalectasis. Tiny Right pleural Effusion -Possible metastases colon cancer- Metastatic Moderately Differentiated adenoca rcinoma consistent with colorectal primary Surgery, oncology following, pathology report of omental biopsy noted as above surgery cleared for discharge, will remove damon from ileostomy site next week still draining, wound care following --Small bowel obstruction /Status post diverting ileostomy; with mets to the chest Expl Lap:large, firm mass in RLQ involving presumed malignancy, large bowel and small bowel. multiple implants in mesentery, omentum, peritoneum, liver, iliac LNs. s/p omental biopsies x 2, diverting loop ileostomy creation. Continue supportive care, follow histopathology Oncology evaluation noted appreciated -Hypomagnesemia;Hypokalemia/Hypophosphatemia: corrected , monitor electrolytes Replace --Anemia: Received 2 units PRBC, hemoglobin level improved -- Sepsis/leukocytosis Sepsis Protocol: IV ABx therapy Levaquin and Flagyl, IVF resuscitation therapy, lactate levels within normal limits, No growth in cultures Monitor resolution of leukocytosis --ARF (acute renal failure) with tubular necrosis Resolved , avoid nephrotoxins , IV fluids needed --Severe malnutrition/hypoalbuminemia Due to her underlying disease process, nutrition consult nutrition supplements when able to take oral --REACTIVE Thrombocytosis Secondary to Metastatic disease --Ilesotmy intact- WOUND MANAGEMENT CT head - Negative for acute Intracranial findings Suicidal Ideation - Mental health consulted - patient expressed sucidal ideation this morning. patient doesn't want to go home. ---DVT prophylaxis SCD to BLE while in bed. Prophylactic heparin. Plan of care reviewed with the patient and her nurse Consults and recommendations noted and appreciated Disposition; patient's insurance declined her rehab service and patient will go back home once cleared by psych. Patient is on 1013. History Interval history: Patient was seen and evaluated this morning. patient was has suicidal ideation, but no plans. Patient is confused. Hospitalist Physical - Physical exam Narrative exam: Not in cardiopulmonary distress. The patient appeared well nourished and normally developed. Vital signs as documented. Head exam is unremarkable. No scleral icterus . Neck is without jugular venous distension, thyromegaly, or carotid bruits. Lungs are clear to auscultation. Cardiac exam reveals regular rate and Rhythm. First and second heart sounds normal. No murmurs, rubs or gallops. Abdominal exam reveals normal ileostomy in place. Extremities are nonedematous and both femoral and pedal pulses are normal. 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 - Constitutional Vitals: Temp Pulse Resp BP Pulse Ox 97.8 F 107 H 19 141/82 100 03/24/19 10:50 03/24/19 10:50 03/24/19 10:50 03/24/19 10:50 03/24/19 11:00 General appearance: Present: no acute distress, cachectic, disheveled Results - Labs CBC & Chem 7: 03/16/19 04:18 03/16/19 04:18 Labs: Laboratory Last Values WBC 12.5 K/mm3 (4.5-11.0) H 03/16/19 04:18 RBC 3.60 M/mm3 (3.65-5.03) L 03/16/19 04:18 Hgb 8.5 gm/dl (10.1-14.3) L 03/16/19 04:18 Hct 25.2 % (30.3-42.9) L 03/16/19 04:18 MCV 70 fl (79-97) L 03/16/19 04:18 MCH 24 pg (28-32) L 03/16/19 04:18 MCHC 34 % (30-34) 03/16/19 04:18 RDW 26.2 % (13.2-15.2) H 03/16/19 04:18 Plt Count 786 K/mm3 (140-440) H 03/16/19 04:18 Lymph % (Auto) 13.1 % (13.4-35.0) L 03/11/19 05:10 [place] % (Auto) 7.2 % (0.0-7.3) 03/11/19 05:10 Eos % (Auto) 0.9 % (0.0-4.3) 03/11/19 05:10 Baso % (Auto) 0.4 % (0.0-1.8) 03/11/19 05:10 Lymph # 2.5 K/mm3 (1.2-5.4) 03/11/19 05:10 [place] # 1.4 K/mm3 (0.0-0.8) H 03/11/19 05:10 Eos # 0.2 K/mm3 (0.0-0.4) 03/11/19 05:10 Baso # 0.1 K/mm3 (0.0-0.1) 03/11/19 05:10 Add Manual Diff Complete 03/13/19 08:19 Total Counted 100 03/13/19 08:19 Seg Neutrophils % 78.4 % (40.0-70.0) H 03/11/19 05:10 Seg Neuts % (Manual) 95.0 % (40.0-70.0) H 03/13/19 08:19 0 % 03/13/19 08:19 4.0 % (13.4-35.0) L 03/13/19 08:19 Reactive Lymphs % (Man) 0 % 03/13/19 08:19 1.0 % (0.0-7.3) 03/13/19 08:19 0 % (0.0-4.3) 03/13/19 08:19 0 % (0.0-1.8) 03/13/19 08:19 0 % 03/13/19 08:19 0 % 03/13/19 08:19 0 % 03/13/19 08:19 0 % 03/13/19 08:19 Nucleated RBC % Not Reportable 03/13/19 08:19 Seg Neutrophils # 15.0 K/mm3 (1.8-7.7) H 03/11/19 05:10 Seg Neutrophils # Man 22.3 K/mm3 (1.8-7.7) H 03/13/19 08:19 Band Neutrophils # 0.0 K/mm3 03/13/19 08:19 0.9 K/mm3 (1.2-5.4) L 03/13/19 08:19 Abs React Lymphs (Man) 0.0 K/mm3 03/13/19 08:19 0.2 K/mm3 (0.0-0.8) 03/13/19 08:19 0.0 K/mm3 (0.0-0.4) 03/13/19 08:19 0.0 K/mm3 (0.0-0.1) 03/13/19 08:19 0.0 K/mm3 03/13/19 08:19 0.0 K/mm3 03/13/19 08:19 0.0 K/mm3 03/13/19 08:19 Blast Cells # 0.0 K/mm3 03/13/19 08:19 WBC Morphology Not Reportable 03/13/19 08:19 Hypersegmented Neuts Not Reportable 03/13/19 08:19 Hyposegmented Neuts Not Reportable 03/13/19 08:19 Hypogranular Neuts Not Reportable 03/13/19 08:19 Not Reportable 03/13/19 08:19 Not Reportable 03/13/19 08:19 Not Reportable 03/13/19 08:19 Not Reportable 03/13/19 08:19 Not Reportable 03/13/19 08:19 Not Reportable 03/13/19 08:19 Consistent w auto 03/13/19 08:19 Not Reportable 03/13/19 08:19 Plt Clumps, EDTA Not Reportable 03/13/19 08:19 Not Reportable 03/13/19 08:19 Not Reportable 03/13/19 08:19 Not Reportable 03/13/19 08:19 Plt Morphology Comment Not Reportable 03/13/19 08:19 RBC Morphology Not Reportable 03/13/19 08:19 Dimorphic RBCs Not Reportable 03/13/19 08:19 Not Reportable 03/13/19 08:19 1+ 03/13/19 08:19 Not Reportable 03/13/19 08:19 2+ 03/13/19 08:19 Few 03/13/19 08:19 Not Reportable 03/13/19 08:19 Not Reportable 03/13/19 08:19 Not Reportable 03/13/19 08:19 Not Reportable 03/13/19 08:19 Few 03/13/19 08:19 Not Reportable 03/13/19 08:19 Not Reportable 03/13/19 08:19 Not Reportable 03/13/19 08:19 Not Reportable 03/13/19 08:19 Not Reportable 03/13/19 08:19 Not Reportable 03/13/19 08:19 Not Reportable 03/13/19 08:19 Not Reportable 03/13/19 08:19 Not Reportable 03/13/19 08:19 Acanthocytes (Spur) Rare 03/13/19 08:19 Rouleaux Not Reportable 03/13/19 08:19 Not Reportable 03/13/19 08:19 Not Reportable 03/13/19 08:19 Not Reportable 03/13/19 08:19 Not Reportable 03/13/19 08:19 Hem Pathologist Commnt No 03/13/19 08:19 Sodium 136 mmol/L (137-145) L 03/16/19 04:18 Potassium 4.1 mmol/L (3.6-5.0) 03/16/19 04:18 Chloride 101.7 mmol/L (98-107) 03/16/19 04:18 Carbon Dioxide 24 mmol/L (22-30) 03/16/19 04:18 14 mmol/L 03/16/19 04:18 BUN 11 mg/dL (7-17) 03/16/19 04:18 0.7 mg/dL (0.7-1.2) 03/16/19 04:18 Estimated GFR > 60 ml/min 03/16/19 04:18 16 % 03/16/19 04:18 Glucose 99 mg/dL (65-100) 03/16/19 04:18 Lactic Acid 0.80 mmol/L (0.7-2.0) 03/05/19 05:23 Calcium 9.0 mg/dL (8.4-10.2) 03/16/19 04:18 Phosphorus 2.90 mg/dL (2.5-4.5) 03/13/19 08:19 Magnesium 1.70 mg/dL (1.7-2.3) 03/15/19 05:32 Iron 11 ug/dL (37-170) L 03/10/19 04:31 TIBC 201 mcg/dL (250-450) L 03/10/19 04:31 87.9 ng/mL (13.0-400.0) 03/10/19 04:31 0.20 mg/dL (0.1-1.2) 03/09/19 04:52 AST 12 units/L (5-40) 03/09/19 04:52 ALT < 5 units/L (7-56) L 03/09/19 04:52 65 units/L (35-129) 03/09/19 04:52 41.0 umol/L (25-60) 03/22/19 20:01 5.5 g/dL (6.3-8.2) L 03/09/19 04:52 2.2 g/dL (3.9-5) L 03/09/19 04:52 0.7 % 03/09/19 04:52 Carcinoembryonic Ag 58.8 ng/mL (0.0-2.4) H 03/10/19 04:31 96 U/mL (<35) H 03/10/19 04:31 Vitamin B12 1622 pg/mL (211-911) H 03/10/19 04:31 8.04 ng/mL (7.3-26.0) 03/10/19 04:31 TSH 0.925 mlU/mL (0.270-4.200) 03/22/19 20:01 Marli (Yellow) 03/23/19 Unknown Hazy (Clear) 03/23/19 Unknown 5.0 (5.0-7.0) 03/23/19 Unknown Ur Specific [place] 1.028 (1.003-1.030) 03/23/19 Unknown <15 mg/dl mg/dL (Negative) 03/23/19 Unknown Neg mg/dL (Negative) 03/23/19 Unknown Neg mg/dL (Negative) 03/23/19 Unknown Neg (Negative) 03/23/19 Unknown Neg (Negative) 03/23/19 Unknown Neg (Negative) 03/23/19 Unknown < 2.0 mg/dL (<2.0) 03/23/19 Unknown Ur Leukocyte Esterase Neg (Negative) 03/23/19 Unknown 6.0 /HPF (0.0-6.0) 03/23/19 Unknown 1.0 /HPF (0.0-6.0) 03/23/19 Unknown U Epithel Cells (Auto) 4.0 /HPF (0-13.0) 03/23/19 Unknown 1+ /HPF (Negative) 03/04/19 13:13 Few /HPF 03/23/19 Unknown Blood Type O NEGATIVE 03/08/19 14:25 Antibody Screen Negative 03/08/19 14:25 [place] Antibody Screen Negative 03/04/19 15:56 Crossmatch See Detail 03/04/19 15:56 Active Medications - Current Medications Current Medications: Generic Name Dose Route Start Last Admin Trade Name Freq PRN Reason Stop Dose Admin Acetaminophen/Hydrocodone Bitart 2 each 03/08/19 17:17 03/24/19 14:46 [place] 5/325 PO 2 each Q6H PRN Administration Pain, Moderate (4-6) Albuterol 2.5 mg 03/04/19 15:40 Proventil IH Q3HRT PRN Shortness Of Breath Heparin Sodium (Porcine) 5,000 unit 03/04/19 22:00 03/24/19 10:52 Heparin SUB-Q 5,000 unit Q12HR AUDREY Administration Hydralazine HCl 10 mg 03/08/19 11:10 03/24/19 07:53 Apresoline IV 10 mg Q4HR PRN Administration Hypertension Lactated Ringer's 1,000 mls @ 75 mls/hr 03/08/19 15:00 03/20/19 17:16 Lactated Ringers IV 75 mls/hr DIRECT AUDREY Administration Lorazepam 0.5 mg 03/23/19 09:00 03/24/19 00:02 Ativan IV 0.5 mg Q6H PRN Administration Agitation Morphine Sulfate 15 mg 03/21/19 22:00 03/24/19 10:40 Ms Contin Er PO 15 mg Q12HR AUDREY Administration Sodium Chloride 10 ml 03/04/19 22:00 03/24/19 10:55 Sodium Chloride Flush Syringe 10 Ml IV 10 ml BID AUDREY Administration Sodium Chloride 10 ml 03/04/19 15:40 03/07/19 05:33 Sodium Chloride Flush Syringe 10 Ml IV 10 ml PRN PRN Administration LINE FLUSH Nutrition/Malnutrition Assess - Dietary Evaluation Nutrition/Malnutrition Findings: Nutrition Notes Start: 03/05/19 13: 19 Freq: Status: Active Protocol: Document 03/23/19 18:12 RM (Rec: 03/23/19 18:15 RM [id number]) Nutrition Notes Initial or Follow up Reassessment Current Diagnosis Acute Kidney Injury,Sepsis, Hypertension,Small Bowel Obstruction Other Pertinent Diagnosis ? metastatic colon CA, SBO s/p diverting ileostomy Current Diet [facility] soft + Ensure Enlive TID Labs/Tests Reviewed Pertinent Medications Reviewed Height 5 ft 7 in Weight 59.2 kg [place] Body Weight (kg) 61.36 BMI 20.4 Subjective/Other Information Pt stated that she eats 25% of her meals and drinks the Ensure Enlive. Noted lunch at bedside w/none eaten. Noted preferences. Percent of energy/protein needs met: 39%/56% (from ONS) Burn Absent Trauma Absent #1 Nutrition Diagnosis Inadequate oral intake Diagnosis Progress(for reassessment Continues documentation) Is patient on ventilator? No Is Patient Ambulatory and/or Out of Bed Yes REE-([place]-ambulatory/OOB) [ 1520.519 [id number]] Kcal/Kg value to use for calculation 30 Approximate Energy Requirements Using 1776 kcal/Kg Calculation Used for Recommendations Kcal/kg Additional Notes Pro needs 1.2-1.5g/k-89g/ day Fluid needs 1ml/kcal Nutrition Intervention Change Diet Order: Continue diet order; dietary staff to contact pt to collect meal preferences daily Add Supplement/Snack (indicate name/kcal Ensure Enlive BID (strawberry) /protein ) Provides kCal: 700 Provides Protein (gm) 40 Goal #1 PO intake of meals plus ONS to meet at least 75% energy and pro needs Goal #2 Wt maintenance Anticipated Discharge Needs: Mech soft Follow-Up By: 03/27/19 Additional Comments Follow for PO and ONS intakes
--- NOTE | 2019-03-24 15:49 | Progress Note ---
Assessment and Plan - Patient Problems (1) SBO (small bowel obstruction) Current Visit: Yes Status: Acute Plan to address problem: Pt stable. Metastatic Colon Ca. s/p ex lap and loop ileostomy - 03/08/19 - POD#16 Cleared from surgical standpoint for discharge/transfer. Corona removed today. Will leave red rubber catheter for another week. Please call with questions. Subjective Date of service: 03/24/19 Patient Reports: Positive: feels better (got news that she is going home soon), tolerating a regular diet Objective Vital Signs - 12hr 03/24/19 03/24/19 03/24/19 04:43 06:20 06:37 Temperature 98.3 F 98.3 F Pulse Rate 97 H 96 H Respiratory 16 22 16 Rate Blood Pressure 139/83 Blood Pressure 139/83 [Left] O2 Sat by Pulse 95 97 Oximetry 03/24/19 03/24/19 03/24/19 07:27 07:53 10:50 Temperature 98.4 F 97.8 F Pulse Rate 111 H 113 H 106 H Respiratory 20 Rate Blood Pressure 193/112 193/112 141/82 Blood Pressure 141/82 [Left] O2 Sat by Pulse 100 100 Oximetry 03/24/19 11:00 Temperature Pulse Rate Respiratory Rate Blood Pressure Blood Pressure [Left] O2 Sat by Pulse 100 Oximetry - General physical appearance no distress, no pain, other (smiling) - Eyes normal occular movement - Respiratory normal expansion, normal respiratory effort - Abdomen soft, not tender, not distended, surgical scars (C/D/I - damon easily rem apoorva), other (ostomy pink and functioning) - Psychiatric oriented to time, oriented to person, oriented to place, speech is normal, memory intact - Labs 03/16/19 04:18 03/16/19 04:18
--- NOTE | 2019-03-24 15:56 | Consultation ---
History of Present Illness - Reason for Consult Consult date: 03/24/19 Reason for consult: psychiatric evaluation for confusion and suicidal ideation - Chief Complaint Chief complaint: "I was treated so badly." - History of Present Psychiatric Illness 63 year old AAF seen for psychiatric evaluation on the medical floor. She und erwent surgery 03/08/2019 which identified metastatic colon cancer with mets to abdomen. She states she told the deputy general counsel she was wanted to kill herself. She was also confused at the time. She says she was being mistreated because she needed her medication for anxiety and was not getting it. "I have a nervous condition." The record indicates she takes risperdal 1mg hs, remeron 45mg hs, and amitriptyline 10mg hs. She was at [facility] 6 months ago for depression. She denies substance abuse. She currently denies suicidal ideation and says she was just upset. She is A&Ox 4 currently. "I want to live." She states she lost a lot of sleep and this contributed to her saying she wanted to kill herself. She sees Dr. Rose once a month and reports having an appointment 04/20/19. Medications and Allergies Allergies Allergy/AdvReac Type Severity Reaction Status Date / Time Penicillins Allergy Itching Verified 03/04/19 08:51 Home Medications Medication Instructions Recorded Confirmed Last Taken Type ALBUTEROL Inhaler (OR & NICU) 2 puff IH QID PRN #1 inhalation 11/24/18 03/04/19 Unknown Rx [ProAir HFA Inhaler] Azithromycin [Zithromax Z-LONNY] 250 mg PO DAILY #6 tablet 11/24/18 03/04/19 Unknown Rx predniSONE [Deltasone] 20 mg PO QDAY #5 tab 11/24/18 03/04/19 Unknown Rx Amitriptyline 10 mg PO HS 03/08/19 03/08/19 Unknown History Chlorthalidone 25 mg PO QDAY 03/08/19 03/08/19 Unknown History Mirtazapine 45 mg PO HS 03/08/19 03/08/19 Unknown History RisperiDONE 1 mg HS 03/08/19 03/08/19 03/03/19 History amLODIPine 10 mg PO QDAY 03/08/19 03/08/19 Unknown History Active Meds: Active Medications Acetaminophen/Hydrocodone Bitart ([place] 5/325) 2 each PO Q6H PRN PRN Reason: Pain, Moderate (4-6) Last Admin: 03/24/19 14:46 Dose: 2 each Documented by: Albuterol (Proventil) 2.5 mg IH Q3HRT PRN PRN Reason: Shortness Of Breath Heparin Sodium (Porcine) (Heparin) 5,000 unit SUB-Q Q12HR [facility] Last Admin: 03/24/19 10:52 Dose: 5,000 unit Documented by: Hydralazine HCl (Apresoline) 10 mg IV Q4HR PRN PRN Reason: Hypertension Last Admin: 03/24/19 07:53 Dose: 10 mg Documented by: Lactated Ringer's (Lactated Ringers) 1,000 mls @ 75 mls/hr IV DIRECT [facility] Last Admin: 03/20/19 17:16 Dose: 75 mls/hr Documented by: Lorazepam (Ativan) 0.5 mg IV Q6H PRN PRN Reason: Agitation Last Admin: 03/24/19 00:02 Dose: 0.5 mg Documented by: Morphine Sulfate (Ms Contin Er) 15 mg PO Q12HR AUDREY Last Admin: 03/24/19 10:40 Dose: 15 mg Documented by: Sodium Chloride (Sodium Chloride Flush Syringe 10 Ml) 10 ml IV BID [facility] Last Admin: 03/24/19 10:55 Dose: 10 ml Documented by: Sodium Chloride (Sodium Chloride Flush Syringe 10 Ml) 10 ml IV PRN PRN PRN Reason: LINE FLUSH Last Admin: 03/07/19 05:33 Dose: 10 ml Documented by: Past psychiatric history - past Psychiatric treatment and history Psych: Anxiety, Depression psychiatric treatment history: see HPI - Social History Social history: other (lives with a friend, Tricia Smith) Mental Status Exam - Vital signs Last Vital Signs Temp 97.8 F 03/24/19 10:50 Pulse 107 H 03/24/19 10:50 Resp 19 03/24/19 10:50 BP 141/82 03/24/19 10:50 Pulse Ox 100 03/24/19 11:00 - Exam Orientation: time, place, person Affect: depressed, anxious Mood: congruent with affect (tearful) Thought content: other (denies suicidal ideation. No HI) Thought Process: Intact Perceptions: none Speech: normal rate and pattern Concentration: focused Motor activity: normal Level of consciousness: alert Memory: Intact Sleep Symptoms: Difficulty Falling Asleep Appetite: decreased Interaction: cooperative Results Result Diagrams: 03/16/19 04:18 03/16/19 04:18 All other labs normal. Assessment and Plan Assessment and plan: Impression: major depression generalized anxiety disorder Recommendation: continue 1013 1. Will reassess in 24 hours. 2. Attempt to gain collateral to determine proper disposition. Disposition: Will reassess in 24 hours to determine if she meets criteria for 1013 or PHP. Will staff with Dr. Lyly Dwyer. staffed with Dr. Dwyer
[2019-03-24] MEDS: RisperDAL PO SCH (21:57)
[2019-03-24] MEDS: REMERON PO SCH (21:57)
[2019-03-25] MEDS: ATIVAN IV PRN ×2 (07:50→19:57)
[2019-03-25] MEDS: HEPARIN SUB-Q SCH ×4 (08:03→22:28)
[2019-03-25] MEDS: MS CONTIN ER PO SCH ×2 (10:10→22:23)
[2019-03-25] MEDS: SODIUM CHLORIDE FLUSH SYRINGE 10 ML IV SCH ×3 (11:17→22:28)
--- NOTE | 2019-03-25 13:16 | Discharge Summary ---
Providers - Providers Date of Admission: 03/04/19 15:40 Attending physician: GILDA PRITCHARD MD 03/04/19 15:15 Consult to Physician [CONS] Routine Comment: DR SHARON VIGIL W/ DR SALINAS @[id number] Consulting Provider: FANNY SALINAS Physician Instructions: Reason For Exam: SBO 03/04/19 17:14 Consult to Physician [CONS] Routine Comment: Consulting Provider: MARILEE GARCIA Physician Instructions: Reason For Exam: ARF 03/08/19 17:23 Consult to Physician [CONS] Routine Comment: Consulting Provider: PAULY DESIR Physician Instructions: Reason For Exam: abdominal metastatic disease 03/08/19 18:59 Consult to Wound/ET Nurse [CONS] Routine Reason For Exam: ileostomy teaching 03/09/19 10:40 Physical Therapy Evaluation and Treat [CONS] Routine Comment: Reason For Exam: Deonditioniong 03/09/19 11:44 Occupational Therapy Evaluate and Treat [CONS] Routine Comment: Reason For Exam: Debility 03/21/19 09:00 Consult to Wound/ET Nurse [CONS] Routine Reason For Exam: wound eval colstomy 03/22/19 11:48 Consult to Mental Health [CONS] Routine Reason For Exam: confusion Place consult to:: mental health Notified:: yes Was contact made?: Yes Time called:: 11:00 03/22/19 11:49 Consult to Physician [CONS] Routine Comment: Consulting Provider: LANCE MORSE Physician Instructions: Reason For Exam: confusion [facility] Condition: Fair Hospital course: Patient is a 63-year-old female patient admitted through emergency room with nausea vomiting generalized weakness, initiated workup is consistent with anemia, small bowel obstruction. Patient received 2 units of PRBC, surgery evaluated the patient. Patient stabilized Underwent exploratory laparotomy, diverting loop ileostomy, omental biopsies.Large firm mass right lower quadrant, presumed malignancy. Patient was evaluated by oncology, pending pathology report , metastatic colon cancer consider different treatment plans. 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 h/o Creatinine abn. imaging studies shows bilateral pulmonary Nodules. The plan was to discharge home with on 03/24/19, but the patient expressed sucidal ideation to the mental health spinning and winding supervisor yesterday and patient was placed on 1013 CT abdomen and pelvis/abdominal mass CT abdomen and pelvis findings possible mass in the ascending colon. CT chest: Bilateral Pulmonary Nodules consistent with Metastatic Disease. Emphysema, Right lobar Pna vs subsegmental atalectasis. Tiny Right pleural Effusion -Possible metastases colon cancer- Metastatic Moderately Differentiated adenocarcinoma consistent with colorectal primary Surgery, oncology following, pathology report of omental biopsy noted as above surgery cleared for discharge, will remove damon from ileostomy site next week still draining, wound care following --Small bowel obstruction /Status post diverting ileostomy; with mets to the chest Expl Lap:large, firm mass in RLQ involving presumed malignancy, large bowel and small bowel. multiple implants in mesentery, omentum, peritoneum, liver, iliac LNs. s/p omental biopsies x 2, diverting loop ileostomy creation. Continue supportive care, follow histopathology Oncology evaluation noted appreciated -Hypomagnesemia;Hypokalemia/Hypophosphatemia: corrected , monitor electrolytes Replaced --Anemia: Received 2 units PRBC, hemoglobin level improved -- Sepsis/leukocytosis The patient was treated with empiric antibiotics --ARF (acute renal failure) with tubular necrosis Resolved , avoid nephrotoxins , IV fluids needed --Severe malnutrition/hypoalbuminemia Due to her underlying disease process, nutrition consult nutrition supplements when able to take oral Pt stable. Metastatic Colon Ca. s/p ex lap and loop ileostomy - 03/08/19 - POD#16 --REACTIVE Thrombocytosis Secondary to Metastatic disease --Ilesotmy intact- WOUND MANAGEMENT CT head - Negative for acute Intracranial findings Suicidal Ideation Patient was seen by mental health, her medications were optimized, she was taken off. She was deemed to the longer be suicidal and was referred to outpatient psychiatry follow-up Patient was planned for SNIF placement, but her insurance did not approve it, therefore she was discharged home Disposition: [id number] HOME UNDER HOME [facility] Time spent for discharge: 33 mins Core Measure Documentation - Palliative Care Palliative Care/ Comfort Measures: Not Applicable - Core Measures Any of the following diagnoses?: none Exam - Constitutional Vitals: Temp Pulse Resp BP Pulse Ox 98.0 F 97 H 16 108/64 96 03/25/19 11:42 03/25/19 11:42 03/25/19 11:42 03/25/19 11:42 03/25/19 11:42 General appearance: Present: no acute distress, well-nourished - EENT Eyes: Present: PERRL ENT: hearing intact, clear oral mucosa - Neck Neck: Present: supple, normal ROM - Respiratory Respiratory effort: normal Respiratory: bilateral: CTA - Cardiovascular Heart Sounds: Present: S1 & S2. Absent: rub, click - Extremities Extremities: pulses symmetrical, No edema Peripheral Pulses: within normal limits - Abdominal General gastrointestinal: Present: soft, non-tender, non-distended, normal bowel sounds Female genitourinary: Present: normal - Integumentary Integumentary: Present: clear, warm, dry - Musculoskeletal Musculoskeletal: gait normal, strength equal bilaterally - Psychiatric Psychiatric: appropriate mood/affect, intact judgment & insight - Neurologic Neurologic: CNII-XII intact, moves all extremities Plan Follow up with: KEVIN FORD MD [Primary Care Provider] - 3-5 Days Prescriptions: Morphine ER [Ms Contin ER] 15 mg PO Q12HR #30 tablet HYDROcodone/APAP 5-325 [[place] 5-325 mg TAB] 2 each PO Q6H PRN #30 tablet PRN Reason: Pain, Moderate (4-6)
[2019-03-25] MEDS: NORCO 5/325 PO PRN (13:20)
--- NOTE | 2019-03-25 19:10 | Progress Note ---
Subjective - Reason for Consult Consult date: 03/25/19 Reason for consult: follow up - Chief Complaint Chief complaint: "I've been nervous." 63 year old AAF seen for psychiatric evaluation on the medical floor. She underwent surgery 03/08/2019 which identified metastatic colon cancer with mets to abdomen. She states she told the spanish interpreter she was wanted to kill herself. She was also confused at the time. She says she was being mistreated because she ne eded her medication for anxiety and was not getting it. "I have a nervous condition." The record indicates she takes risperdal 1mg hs, remeron 45mg hs, and amitriptyline 10mg hs. She was at [facility] 6 months ago for depression. She denies substance abuse. Remeron and risperdal was restarted yesterday. She maintains she does not want to harm herself. She reports having the support of her friend, Tricia Smith. She will be returning home with her. She asks about getting home health services. She is aware of her medical conditions and plans to seek treatment as recommended. For psychiatry, she sees Dr. Rose once a month and reports having an appointment 04/20/19. Friend, Tricia Smith at bedside. Mental Status Exam - Exam Orientation: time, place, person Affect: depressed, anxious Mood: congruent with affect Thought content: other (denies suicidal ideation. No HI) Thought Process: Intact Perceptions: none Speech: normal rate and pattern Concentration: focused Motor activity: normal Level of consciousness: alert Memory: Intact Sleep Symptoms: Difficulty Falling Asleep Appetite: decreased Interaction: cooperative Mental Status Exam - Vital signs Last Vital Signs Temp 98.8 F 03/25/19 16:02 Pulse 89 03/25/19 16:02 Resp 18 03/25/19 16:02 BP 110/67 03/25/19 16:02 Pulse Ox 99 03/25/19 16:02 Assessment and Plan Impression: major depression generalized anxiety disorder no acute safety concerns identified Recommendation: rescind 1013 Disposition: follow up with Dr. Rose, outpatient psychiatric provider staffed with Dr. Dwyer
[2019-03-25] MEDS: REMERON PO SCH (22:23)
[2019-03-25] MEDS: RisperDAL PO SCH (22:24)
[2019-03-26 04:46] VITALS: BP 112/62
[2019-03-26] MEDS: ATIVAN IV PRN ×4 (04:59→18:07)
--- NOTE | 2019-03-26 08:12 | Hem/Onc Progress Note ---
Assessment and Plan # colon cancer with mass in the ascending colon and based on surgical notes metastatic process in the abdomen. The patient has a diverting ileostomy. the disease is advanced stage 4 with mets in the abdomen, chemotherapy will be the first line. # Tumor markers elevated CEA # Anemia, MCV low, likely secondary to iron deficiency. # h/o Electrolyte issues. # h/o Creatinine abn. # Social issues, the patient lives with friends. I will follow the patient during inpatient stay. 03/24 d/w pt that referal to sx for colon sx an option - but due to her age - chemo - immunotherapy/chemo preferred path - report - + for colon ca CEA 50s low iron - s/p IV iron trial pt has social issues - housing etc - OP f/u for chemo high plt - likely reactive - s/p IV iron trial CT chest - lung mets+ psych following OP follow up an option - Patient Problems (1) Colonic mass Current Visit: Yes Status: Acute Subjective Date of service: 03/26/19 Principal diagnosis: colon ca Interval history: colostomy issues Objective - Constitutional Vitals: Last Vital Signs Temp 97.8 F 03/26/19 04:27 Pulse 100 H 03/26/19 04:27 Resp 18 03/26/19 04:27 BP 112/62 03/26/19 04:27 Pulse Ox 94 03/26/19 04:27 Pain Intensity (0-10): denies any pain General appearance: no acute distress Performance status: 3-limited selfcare - EENT Eyes: EOM intact ENT: hearing intact Lymph node exam: negative cervical - Neck Neck: normal ROM - Respiratory Respiratory effort: Positive: normal Respiratory: negative: CTA - Cardiovascular Heart Sounds: Present: S1 & S2 Extremities: No edema, normal temperature - Gastrointestinal General gastrointestinal: Present: soft, other (stomy) Rectal Exam: deferred - Genitourinary Female genitourinary: Present: deferred - Integumentary Integumentary: warm - Musculoskeletal Musculoskeletal: strength equal bilaterally - Neurologic Neurologic: moves all extremities Medications & Allergies - Medications Allergies/Adverse Reactions: Allergies Penicillins Allergy (Verified 03/04/19 08:51) Itching Home Medications: Home Medications Medication Instructions Recorded Confirmed Last Taken Type ALBUTEROL Inhaler (OR & NICU) 2 puff IH QID PRN #1 inhalation 11/24/18 03/04/19 Unknown Rx [ProAir HFA Inhaler] Amitriptyline 10 mg PO HS 03/08/19 03/08/19 Unknown History Mirtazapine 45 mg PO HS 03/08/19 03/08/19 Unknown History RisperiDONE 1 mg HS 03/08/19 03/08/19 03/03/19 History HYDROcodone/APAP 5-325 [[place] 2 each PO Q6H PRN #30 tablet 03/25/19 Unknown Rx 5-325 mg TAB] Morphine ER [Ms Contin ER] 15 mg PO Q12HR #30 tablet 03/25/19 Unknown Rx Active Medications: Generic Name Dose Route Start Last Admin Trade Name Freq PRN Reason Stop Dose Admin Acetaminophen/Hydrocodone Bitart 2 each 03/08/19 17:17 03/25/19 13:20 [place] 5/325 PO 2 each Q6H PRN Administration Pain, Moderate (4-6) Albuterol 2.5 mg 03/04/19 15:40 Proventil IH Q3HRT PRN Shortness Of Breath Heparin Sodium (Porcine) 5,000 unit 03/04/19 22:00 03/25/19 22:28 Heparin SUB-Q 5,000 unit Q12HR AUDREY Administration Hydralazine HCl 10 mg 03/08/19 11:10 03/24/19 07:53 Apresoline IV 10 mg Q4HR PRN Administration Hypertension Lactated Ringer's 1,000 mls @ 75 mls/hr 03/08/19 15:00 03/20/19 17:16 Lactated Ringers IV 75 mls/hr DIRECT AUDREY Administration Lorazepam 0.5 mg 03/23/19 09:00 03/26/19 04:59 Ativan IV 0.5 mg Q6H PRN Administration Agitation Mirtazapine 15 mg 03/24/19 22:00 03/25/19 22:23 Remeron PO 15 mg QHS AUDREY Administration Morphine Sulfate 15 mg 03/21/19 22:00 03/25/19 22:23 Ms Contin Er PO 15 mg Q12HR AUDREY Administration Risperidone 1 mg 03/24/19 22:00 03/25/19 22:24 Risperdal PO 1 mg HS AUDREY Administration Sodium Chloride 10 ml 03/04/19 22:00 03/25/19 22:28 Sodium Chloride Flush Syringe 10 Ml IV 10 ml BID AUDREY Administration Sodium Chloride 10 ml 03/04/19 15:40 03/07/19 05:33 Sodium Chloride Flush Syringe 10 Ml IV 10 ml PRN PRN Administration LINE FLUSH
[2019-03-26] MEDS: MS CONTIN ER PO SCH (09:51)
[2019-03-26] MEDS: HEPARIN SUB-Q SCH (09:51)
[2019-03-26] MEDS: SODIUM CHLORIDE FLUSH SYRINGE 10 ML IV SCH (09:51)
--- NOTE | 2019-03-26 10:29 | Progress Note ---
Subjective - Reason for Consult Consult date: 03/26/19 Reason for consult: Psychiatry Follow-up - Chief Complaint Chief complaint: "I feel better" 63 year old AAF seen for psychiatric evaluation on the medical floor. She underwent surgery 03/08/2019 which identified metastatic colon cancer with mets to abdomen. She states she told the outside energy sales representatives she was wanted to kill herself. She was also confused at the time. Today the patient is calm and cooperative during the assessment. She stated that she does not want to kill herself and plan to follow up with all her "doctors" when discharged. She denies SI/HI's and AVH's. She denies any side effects of her medications. She confirmed that he psychiatrist is Dr Rose. Mental Status Exam - Vital signs Last Vital Signs Temp 97.8 F 03/26/19 04:27 Pulse 100 H 03/26/19 04:27 Resp 18 03/26/19 04:27 BP 112/62 03/26/19 04:27 Pulse Ox 94 03/26/19 04:27 - Exam Narrative exam: MSE: Appearance: calm, cooperative Behavior: regular eye contact Speech: regular rate and tone Mood: "better" Affect: congruent to mood Thought Process: linear Thought Content: denies SI/HI's and AVH's Motor Activity: sitting up in the bed Cognition: A/O x 3 Insight: appropriate Judgment: appropriate Assessment and Plan Impression: MDD. MARIANNE. Today the patient is calm and cooperative during the assessment. The patient is no threat to self. Recommendation/Plan: The patient's 1013 was rescinded yesterday. Continue Prozac 20 mg PO daily for depression and Risperdal 1 mg PO HS for mood. Discussed possible side effects of medications with the patient, she verbalized understanding. Psy sign off. Dispo: The patient can follow up with her psychiatrist Dr. Rose for outpatient psy services. Will staff to Dr Jenna Dwyer.
[2019-03-26] MEDS: NORCO 5/325 PO PRN (14:02)
--- NOTE | 2019-03-26 14:30 | Progress Note ---
Assessment and Plan Assessment and plan: Patient is a 63-year-old female patient admitted through emergency room with nausea vomiting generalized weakness, initiated workup is consistent with anemia, small bowel obstruction. Patient received 2 units of PRBC, surgery evaluated the patient. Patient stabilized Underwent exploratory laparotomy, di verting loop ileostomy, omental biopsies.Large firm mass right lower quadrant, presumed malignancy. Patient was evaluated by oncology, pending pathology report , metastatic colon cancer consider different treatment plans. 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 h/o Creatinine abn. imaging studies shows bilateral pulmonary Nodules. 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 CT chest: Bilateral Pulmonary Nodules consistent with Metastatic Disease. Emphysema, Right lobar Pna vs subsegmental atalectasis. Tiny Right pleural Effusion -Possible metastases colon cancer- Metastatic Moderately Differentiated adenoca rcinoma consistent with colorectal primary Surgery, oncology following, pathology report of omental biopsy noted as above surgery cleared for discharge, will remove damon from ileostomy site next week still draining, wound care following --Small bowel obstruction /Status post diverting ileostomy; with mets to the chest Expl Lap:large, firm mass in RLQ involving presumed malignancy, large bowel and small bowel. multiple implants in mesentery, omentum, peritoneum, liver, iliac LNs. s/p omental biopsies x 2, diverting loop ileostomy creation. Continue supportive care, follow histopathology Oncology evaluation noted appreciated -Hypomagnesemia;Hypokalemia/Hypophosphatemia: corrected , monitor electrolytes Replace --Anemia: Received 2 units PRBC, hemoglobin level improved -- Sepsis/leukocytosis Sepsis Protocol: IV ABx therapy Levaquin and Flagyl, IVF resuscitation therapy, lactate levels within normal limits, No growth in cultures Monitor resolution of leukocytosis --ARF (acute renal failure) with tubular necrosis Resolved , avoid nephrotoxins , IV fluids needed --Severe malnutrition/hypoalbuminemia Due to her underlying disease process, nutrition consult nutrition supplements when able to take oral --REACTIVE Thrombocytosis Secondary to Metastatic disease --Ilesotmy intact- WOUND MANAGEMENT CT head - Negative for acute Intracranial findings Suicidal Ideation - Mental health consulted - patient expressed sucidal ideation this morning. patient doesn't want to go home. ---DVT prophylaxis SCD to BLE while in bed. Prophylactic heparin. Plan of care reviewed with the patient and her nurse Consults and recommendations noted and appreciated Disposition; patient's insurance declined her rehab service and patient will go back home once cleared by psych. Patient is on 1013. History Interval history: remains confused no vomiting, no fever, no agitation, no seizure, no sob Hospitalist Physical - Physical exam Narrative exam: Not in cardiopulmonary distress. The patient appeared well nourished and normally developed. Vital signs as documented. Head exam is unremarkable. No scleral icterus . Neck is without jugular venous distension, thyromegaly, or carotid bruits. Lungs are clear to auscultation. Cardiac exam reveals regular rate and Rhythm. First and second heart sounds normal. No murmurs, rubs or gallops. Abdominal exam reveals normal ileostomy in place. Extremities are nonedematous and both femoral and pedal pulses are normal. CAT SWAMPER: alert but confused. Hospitalist Physical - Constitutional Vitals: Temp Pulse Resp BP Pulse Ox 97.8 F 100 H 18 112/62 94 03/26/19 04:27 03/26/19 04:27 03/26/19 04:27 03/26/19 04:27 03/26/19 04:27 General appearance: Present: no acute distress, well-nourished Results - Labs CBC & Chem 7: 03/16/19 04:18 03/16/19 04:18 Labs: Laboratory Last Values WBC 12.5 K/mm3 (4.5-11.0) H 03/16/19 04:18 RBC 3.60 M/mm3 (3.65-5.03) L 03/16/19 04:18 Hgb 8.5 gm/dl (10.1-14.3) L 03/16/19 04:18 Hct 25.2 % (30.3-42.9) L 03/16/19 04:18 MCV 70 fl (79-97) L 03/16/19 04:18 MCH 24 pg (28-32) L 03/16/19 04:18 MCHC 34 % (30-34) 03/16/19 04:18 RDW 26.2 % (13.2-15.2) H 03/16/19 04:18 Plt Count 786 K/mm3 (140-440) H 03/16/19 04:18 Lymph % (Auto) 13.1 % (13.4-35.0) L 03/11/19 05:10 Desha % (Auto) 7.2 % (0.0-7.3) 03/11/19 05:10 Eos % (Auto) 0.9 % (0.0-4.3) 03/11/19 05:10 Baso % (Auto) 0.4 % (0.0-1.8) 03/11/19 05:10 Lymph # 2.5 K/mm3 (1.2-5.4) 03/11/19 05:10 Desha # 1.4 K/mm3 (0.0-0.8) H 03/11/19 05:10 Eos # 0.2 K/mm3 (0.0-0.4) 03/11/19 05:10 Baso # 0.1 K/mm3 (0.0-0.1) 03/11/19 05:10 Add Manual Diff Complete 03/13/19 08:19 Total Counted 100 03/13/19 08:19 Seg Neutrophils % 78.4 % (40.0-70.0) H 03/11/19 05:10 Seg Neuts % (Manual) 95.0 % (40.0-70.0) H 03/13/19 08:19 0 % 03/13/19 08:19 4.0 % (13.4-35.0) L 03/13/19 08:19 Reactive Lymphs % (Man) 0 % 03/13/19 08:19 1.0 % (0.0-7.3) 03/13/19 08:19 0 % (0.0-4.3) 03/13/19 08:19 0 % (0.0-1.8) 03/13/19 08:19 0 % 03/13/19 08:19 0 % 03/13/19 08:19 0 % 03/13/19 08:19 0 % 03/13/19 08:19 Nucleated RBC % Not Reportable 03/13/19 08:19 Seg Neutrophils # 15.0 K/mm3 (1.8-7.7) H 03/11/19 05:10 Seg Neutrophils # Man 22.3 K/mm3 (1.8-7.7) H 03/13/19 08:19 Band Neutrophils # 0.0 K/mm3 03/13/19 08:19 0.9 K/mm3 (1.2-5.4) L 03/13/19 08:19 Abs React Lymphs (Man) 0.0 K/mm3 03/13/19 08:19 0.2 K/mm3 (0.0-0.8) 03/13/19 08:19 0.0 K/mm3 (0.0-0.4) 03/13/19 08:19 0.0 K/mm3 (0.0-0.1) 03/13/19 08:19 0.0 K/mm3 03/13/19 08:19 0.0 K/mm3 03/13/19 08:19 0.0 K/mm3 03/13/19 08:19 Blast Cells # 0.0 K/mm3 03/13/19 08:19 WBC Morphology Not Reportable 03/13/19 08:19 Hypersegmented Neuts Not Reportable 03/13/19 08:19 Hyposegmented Neuts Not Reportable 03/13/19 08:19 Hypogranular Neuts Not Reportable 03/13/19 08:19 Not Reportable 03/13/19 08:19 Not Reportable 03/13/19 08:19 Not Reportable 03/13/19 08:19 Not Reportable 03/13/19 08:19 Not Reportable 03/13/19 08:19 Not Reportable 03/13/19 08:19 Consistent w auto 03/13/19 08:19 Not Reportable 03/13/19 08:19 Plt Clumps, EDTA Not Reportable 03/13/19 08:19 Not Reportable 03/13/19 08:19 Not Reportable 03/13/19 08:19 Not Reportable 03/13/19 08:19 Plt Morphology Comment Not Reportable 03/13/19 08:19 RBC Morphology Not Reportable 03/13/19 08:19 Dimorphic RBCs Not Reportable 03/13/19 08:19 Not Reportable 03/13/19 08:19 1+ 03/13/19 08:19 Not Reportable 03/13/19 08:19 2+ 03/13/19 08:19 Few 03/13/19 08:19 Not Reportable 03/13/19 08:19 Not Reportable 03/13/19 08:19 Not Reportable 03/13/19 08:19 Not Reportable 03/13/19 08:19 Few 03/13/19 08:19 Not Reportable 03/13/19 08:19 Not Reportable 03/13/19 08:19 Not Reportable 03/13/19 08:19 Not Reportable 03/13/19 08:19 Not Reportable 03/13/19 08:19 Not Reportable 03/13/19 08:19 Not Reportable 03/13/19 08:19 Not Reportable 03/13/19 08:19 Not Reportable 03/13/19 08:19 Acanthocytes (Spur) Rare 03/13/19 08:19 Rouleaux Not Reportable 03/13/19 08:19 Not Reportable 03/13/19 08:19 Not Reportable 03/13/19 08:19 Not Reportable 03/13/19 08:19 Not Reportable 03/13/19 08:19 Hem Pathologist Commnt No 03/13/19 08:19 Sodium 136 mmol/L (137-145) L 03/16/19 04:18 Potassium 4.1 mmol/L (3.6-5.0) 03/16/19 04:18 Chloride 101.7 mmol/L (98-107) 03/16/19 04:18 Carbon Dioxide 24 mmol/L (22-30) 03/16/19 04:18 14 mmol/L 03/16/19 04:18 BUN 11 mg/dL (7-17) 03/16/19 04:18 0.7 mg/dL (0.7-1.2) 03/16/19 04:18 Estimated GFR > 60 ml/min 03/16/19 04:18 16 % 03/16/19 04:18 Glucose 99 mg/dL (65-100) 03/16/19 04:18 Lactic Acid 0.80 mmol/L (0.7-2.0) 03/05/19 05:23 Calcium 9.0 mg/dL (8.4-10.2) 03/16/19 04:18 Phosphorus 2.90 mg/dL (2.5-4.5) 03/13/19 08:19 Magnesium 1.70 mg/dL (1.7-2.3) 03/15/19 05:32 Iron 11 ug/dL (37-170) L 03/10/19 04:31 TIBC 201 mcg/dL (250-450) L 03/10/19 04:31 87.9 ng/mL (13.0-400.0) 03/10/19 04:31 0.20 mg/dL (0.1-1.2) 03/09/19 04:52 AST 12 units/L (5-40) 03/09/19 04:52 ALT < 5 units/L (7-56) L 03/09/19 04:52 65 units/L (35-129) 03/09/19 04:52 41.0 umol/L (25-60) 03/22/19 20:01 5.5 g/dL (6.3-8.2) L 03/09/19 04:52 2.2 g/dL (3.9-5) L 03/09/19 04:52 0.7 % 03/09/19 04:52 Carcinoembryonic Ag 58.8 ng/mL (0.0-2.4) H 03/10/19 04:31 96 U/mL (<35) H 03/10/19 04:31 Vitamin B12 1622 pg/mL (211-911) H 03/10/19 04:31 8.04 ng/mL (7.3-26.0) 03/10/19 04:31 TSH 0.925 mlU/mL (0.270-4.200) 03/22/19 20:01 Marli (Yellow) 03/23/19 Unknown Hazy (Clear) 03/23/19 Unknown 5.0 (5.0-7.0) 03/23/19 Unknown Ur Specific [place] 1.028 (1.003-1.030) 03/23/19 Unknown <15 mg/dl mg/dL (Negative) 03/23/19 Unknown Neg mg/dL (Negative) 03/23/19 Unknown Neg mg/dL (Negative) 03/23/19 Unknown Neg (Negative) 03/23/19 Unknown Neg (Negative) 03/23/19 Unknown Neg (Negative) 03/23/19 Unknown < 2.0 mg/dL (<2.0) 03/23/19 Unknown Ur Leukocyte Esterase Neg (Negative) 03/23/19 Unknown 6.0 /HPF (0.0-6.0) 03/23/19 Unknown 1.0 /HPF (0.0-6.0) 03/23/19 Unknown U Epithel Cells (Auto) 4.0 /HPF (0-13.0) 03/23/19 Unknown 1+ /HPF (Negative) 03/04/19 13:13 Few /HPF 03/23/19 Unknown Blood Type O NEGATIVE 03/08/19 14:25 Antibody Screen Negative 03/08/19 14:25 [place] Antibody Screen Negative 03/04/19 15:56 Crossmatch See Detail 03/04/19 15:56 Active Medications - Current Medications Current Medications: Generic Name Dose Route Start Last Admin Trade Name Freq PRN Reason Stop Dose Admin Acetaminophen/Hydrocodone Bitart 2 each 03/08/19 17:17 03/26/19 14:02 [place] 5/325 PO 2 each Q6H PRN Administration Pain, Moderate (4-6) Albuterol 2.5 mg 03/04/19 15:40 Proventil IH Q3HRT PRN Shortness Of Breath Heparin Sodium (Porcine) 5,000 unit 03/04/19 22:00 03/26/19 09:51 Heparin SUB-Q 5,000 unit Q12HR AUDREY Administration Hydralazine HCl 10 mg 03/08/19 11:10 03/24/19 07:53 Apresoline IV 10 mg Q4HR PRN Administration Hypertension Lactated Ringer's 1,000 mls @ 75 mls/hr 03/08/19 15:00 03/20/19 17:16 Lactated Ringers IV 75 mls/hr DIRECT AUDREY Administration Lorazepam 0.5 mg 03/23/19 09:00 03/26/19 10:12 Ativan IV 0.5 mg Q6H PRN Administration Agitation Mirtazapine 15 mg 03/24/19 22:00 03/25/19 22:23 Remeron PO 15 mg QHS AUDREY Administration Morphine Sulfate 15 mg 03/21/19 22:00 03/26/19 09:51 Ms Contin Er PO 15 mg Q12HR AUDREY Administration Risperidone 1 mg 03/24/19 22:00 03/25/19 22:24 Risperdal PO 1 mg HS AUDREY Administration Sodium Chloride 10 ml 03/04/19 22:00 03/26/19 09:51 Sodium Chloride Flush Syringe 10 Ml IV 10 ml BID AUDREY Administration Sodium Chloride 10 ml 03/04/19 15:40 03/07/19 05:33 Sodium Chloride Flush Syringe 10 Ml IV 10 ml PRN PRN Administration LINE FLUSH Nutrition/Malnutrition Assess - Dietary Evaluation Nutrition/Malnutrition Findings: Nutrition Notes Start: 03/05/19 13:19 Freq: Status: Active Protocol: Document 03/23/19 18:12 RM (Rec: 03/23/19 18:15 RM [email or web address]) Nutrition Notes Initial or Follow up Reassessment Current Diagnosis Acute Kidney Injury,Sepsis, Hypertension,Small Bowel Obstruction Other Pertinent Diagnosis ? metastatic colon CA, SBO s/p diverting ileostomy Current Diet Mech soft + Ensure Enlive TID Labs/Tests Reviewed Pertinent Medications Reviewed Height 5 ft 7 in Weight 59.2 kg [place] Body Weight (kg) 61.36 BMI 20.4 Subjective/Other Information Pt stated that she eats 25% of her meals and drinks the Ensure Enlive. Noted lunch at bedside w/none eaten. Noted preferences. Percent of energy/protein needs met: 39%/56% (from ONS) Burn Absent Trauma Absent #1 Nutrition Diagnosis Inadequate oral intake Diagnosis Progress(for reassessment Continues documentation) Is patient on ventilator? No Is Patient Ambulatory and/or Out of Bed Yes REE-([facility]-ambulatory/OOB) [ 1520.519 [id number]] Kcal/Kg value to use for calculation 30 Approximate Energy Requirements Using 1776 kcal/Kg Calculation Used for Recommendations Kcal/kg Additional Notes Pro needs 1.2-1.5g/k-89g/ day Fluid needs 1ml/kcal Nutrition Intervention Change Diet Order: Continue diet order; dietary staff to contact pt to collect meal preferences daily Add Supplement/Snack (indicate name/kcal Ensure Enlive BID (strawberry) /protein ) Provides kCal: 700 Provides Protein (gm) 40 Goal #1 PO intake of meals plus ONS to meet at least 75% energy and pro needs Goal #2 Wt maintenance Anticipated Discharge Needs: Mech soft Follow-Up By: 03/27/19 Additional Comments Follow for PO and ONS intakes
[2019-03-26] MEDS ORDERED: FEOSOL PO SCH (16:00)
== END 2019-03-26 18:45 | disposition home health service (06) | DRG 853 ==
LOC: ED 08:50 → IMCU 15:40 → 3B-SURG 03-12 20:42
PROVIDERS: ADMIT Internal Medicine; ATTEND Internal Medicine
PROC: 30233N1 Transfusion of Nonautologous Red Blood Cells into Peripheral Vein, Percutaneous Approach (ICD-10-PCS; 2019-03-05)
PROC: 0D1B0Z4 Bypass Ileum to Cutaneous, Open Approach (ICD-10-PCS; principal; 2019-03-08)
PROC: 0DBU0ZX Excision of Omentum, Open Approach, Diagnostic (ICD-10-PCS; 2019-03-08)
DX: A41.9 Sepsis, unspecified organism (principal); E43 Unspecified severe protein-calorie malnutrition; N17.0 Acute kidney failure with tubular necrosis; K56.609 Unspecified intestinal obstruction, unspecified as to partial versus complete obstruction; R45.851 Suicidal ideations; C18.2 Malignant neoplasm of ascending colon; E83.42 Hypomagnesemia; E83.39 Other disorders of phosphorus metabolism; E87.6 Hypokalemia; D47.3 Essential (hemorrhagic) thrombocythemia; I10 Essential (primary) hypertension; F17.200 Nicotine dependence, unspecified, uncomplicated; F32.9 Major depressive disorder, single episode, unspecified; F41.1 Generalized anxiety disorder; Z68.20 Body mass index [BMI] 20.0-20.9, adult; Z90.710 Acquired absence of both cervix and uterus; Z82.49 Family history of ischemic heart disease and other diseases of the circulatory system; Z88.0 Allergy status to penicillin
CPT/HCPCS: 36415; 70450; 70553; 71045; 71260; 74176; 74177; 76770; 80048; 80053; 81001; 82140; 82378; 82607; 82728; 82747; 83550; 83735; 84100; 84443; 85007; 85025; 85027; 86304; 86850; 86900; 86901; 86920; 87040; 88305; 88341; 88342; 93005; 93010; 99406; G0378; A9577; J0330; J0360; J1170; J1580; J1644; J1956; J2060; J2270; J2405; J2704; J2710; J2916; J3475; J3480; J7030; J7040; J7120; P9016; Q9967

== ENCOUNTER 2019-03-27 14:54 | Emergency (ER) | payer MEDICARE ==
--- NOTE | 2019-03-27 16:30 | Emergency Department Report ---
HPI - General Chief Complaint: Abdominal Pain Time Seen by Provider: 03/27/19 16:17 - HPI HPI: Room 5 The patient is a 63-year-old female presenting with chief complaint of ileostomy bag leaking. Patient was discharged yesterday after an extensive stay wishes diagnosis metastatic colon CA and had a diverting ileostomy placed. The patient states her ileostomy bag is leaking. Patient states she was not instructed on how to change the ostomy bags in her bag has been leaking onto her skin. Patient also states she does not have any medication for anxiety. Location: [See above] Duration: [See above] Quality: [See above] Severity: [See above] Modifying factors: [see above] Context: [see above] Mode of transportation: [not driving] ED Past Medical Hx - Past Medical History Hx Hypertension: Yes Hx Psychiatric Treatment: Yes (anxiety) Additional medical history: Metastatic colon CA - Surgical History Additional Surgical History: hysterectomy, diverting loop ileostomy - Family History Family history: no significant - Social History Smoking Status: Former Smoker Substance Use Type: None - Medications Home Medications: Home Medications Medication Instructions Recorded Confirmed Last Taken Type ALBUTEROL Inhaler (OR & NICU) 2 puff IH QID PRN #1 inhalation 11/24/18 03/04/19 Unknown Rx [ProAir HFA Inhaler] Amitriptyline 10 mg PO HS 03/08/19 03/08/19 Unknown History Mirtazapine 45 mg PO HS 03/08/19 03/08/19 Unknown History RisperiDONE 1 mg HS 03/08/19 03/08/19 03/03/19 History HYDROcodone/APAP 5-325 [[place] 2 each PO Q6H PRN #30 tablet 03/25/19 Unknown Rx 5-325 mg TAB] Morphine ER [Ms Contin ER] 15 mg PO Q12HR #30 tablet 03/25/19 Unknown Rx hydrOXYzine HCL [Atarax] 25 mg PO Q6HR PRN #20 tablet 03/27/19 Unknown Rx ED Review of Systems ROS: Stated complaint: ABD PAIN/VAGINAL PAIN Other details as noted in HPI Constitutional: no symptoms reported Eyes: denies: eye pain ENT: denies: throat pain Respiratory: no symptoms reported Cardiovascular: denies: chest pain Endocrine: no symptoms reported Gastrointestinal: denies: abdominal pain Genitourinary: denies: dysuria Musculoskeletal: denies: back pain Neurological: denies: headache Psychiatric: anxiety Physical Exam - Physical Exam Vital Signs: Vital Signs 03/27/19 03/27/19 16:45 16:49 Temperature 98.4 F Pulse Rate 80 Respiratory 16 12 Rate Blood Pressure 117/54 [Left] O2 Sat by Pulse 99 Oximetry Physical Exam: GENERAL: The patient is well-developed well-nourished female lying on stretcher not appearing to be in acute distress. [] HEENT: Normocephalic. Atraumatic. Extraocular motions are intact. Patient has moist mucous membranes. NECK: Supple. Trachea midline CHEST/LUNGS: Clear to auscultation. There is no respiratory distress noted. HEART/CARDIOVASCULAR: Regular. There is no tachycardia. There is no gallop rub or murmur. ABDOMEN: Ostomy patent. There is no abdominal distention. SKIN: There is no rash. There is no edema. There is no diaphoresis. NEURO: The patient is awake, alert, and oriented. The patient is cooperative. The patient has normal speech MUSCULOSKELETAL: There is no evidence of acute injury. ED Medical Decision Making - Differential Diagnosis ostomy education, anxiety Critical care attestation.: If time is entered above; I have spent that time in minutes in the direct care of this critically ill patient, excluding procedure time. ED Disposition Clinical Impression: Encounter for ostomy care education, Anxiety Disposition: DC-01 TO HOME OR SELFCARE Is pt being admited?: No Does the pt Need Aspirin: No Condition: Stable Instructions: Abdominal Pain (ED) Additional Instructions: Return to the emergency department immediately should you develop worsening symptoms, fever, inability to tolerate food or liquid or any other concerns. Prescriptions: hydrOXYzine HCL [Atarax] 25 mg PO Q6HR PRN #20 tablet PRN Reason: Anxiety Referrals: PRIMARY MD AGNES [Referring] - 3-5 Days FANNY SALINAS MD [Staff Physician] - 3-5 Days Time of Disposition: 16:31
[2019-03-27 16:49] VITALS: BP 117/54
== END 2019-03-27 18:51 | disposition home or self-care (01) ==
LOC: ED 14:54
DX: Z43.2 Encounter for attention to ileostomy (principal); F41.9 Anxiety disorder, unspecified; I10 Essential (primary) hypertension; Z88.0 Allergy status to penicillin; Z90.710 Acquired absence of both cervix and uterus; Z87.891 Personal history of nicotine dependence; Z79.899 Other long term (current) drug therapy
CPT/HCPCS: 99283

== ENCOUNTER 2019-03-30 19:41 | Emergency (ER) | payer MEDICARE ==
--- NOTE | 2019-03-30 20:17 | Event Note ---
ED Screening Note Date of service: 03/30/19 Time: 20:13 ED Screening Note: This is a 63 y.o. F. that presents to the ER because her ileostomy bags at home are not the correct size. She currently don't have bag attached to stoma. Hx of stage 4 colon cancer. This initial assessment/diagnostic orders/clinical plan/treatment(s) is/are subject to change based on patients health status, clinical progression and re- assessment by fellow clinical providers in the ED. Further treatment and workup at subsequent clinical providers discretion. Patient/guardian urged not to elope from the ED as their condition may be serious if not clinically assessed and managed. Initial orders include: Main ED
--- NOTE | 2019-03-30 22:33 | Emergency Department Report ---
ED General Adult HPI - General Chief complaint: Tube Replacement Stated complaint: COLOSTOMY BAG FELL OUT Time Seen by Provider: 03/30/19 20:13 Source: patient, RN notes reviewed, old records reviewed Mode of arrival: Ambulatory Limitations: No Limitations - History of Present Illness Initial comments: This is a 63-year-old female. The patient is not known to this provider previously. Past medical history includes recent small bowel obstruction, anemia, recent diagnosis of presumed metastatic colon cancer, status post diverting loop ileostomy. The patient presents today with a complaint of leaking ileostomy bag. This is constant. This is improved with placement of a new bag. The patient denies other new or different complaints. She reports that she was not instructed how to apply the bag while she was here. -: Sudden Consistency: now resolved Improves with: other Worsens with: none - Related Data Home Medications Medication Instructions Recorded Confirmed Last Taken Amitriptyline 10 mg PO HS 03/08/19 03/08/19 Unknown Mirtazapine 45 mg PO HS 03/08/19 03/08/19 Unknown RisperiDONE 1 mg HS 03/08/19 03/08/19 03/03/19 Previous Rx's Medication Instructions Recorded Last Taken Type ALBUTEROL Inhaler (OR & NICU) 2 puff IH QID PRN #1 inhalation 11/24/18 Unknown Rx [ProAir HFA Inhaler] HYDROcodone/APAP 5-325 [[place] 2 each PO Q6H PRN #30 tablet 03/25/19 Unknown Rx 5-325 mg TAB] Morphine ER [Ms Contin ER] 15 mg PO Q12HR #30 tablet 03/25/19 Unknown Rx hydrOXYzine HCL [Atarax] 25 mg PO Q6HR PRN #20 tablet 03/27/19 Unknown Rx Allergies Allergy/AdvReac Type Severity Reaction Status Date / Time Penicillins Allergy Itching Verified 03/04/19 08:51 ED Review of Systems ROS: Stated complaint: COLOSTOMY BAG FELL OUT Other details as noted in HPI Constitutional: denies: fever Eyes: denies: eye discharge ENT: denies: epistaxis Respiratory: denies: cough Gastrointestinal: other (leaky ileostomy bag) Psychiatric: anxiety ED Past Medical Hx - Past Medical History Previous Medical History?: Yes Hx Hypertension: Yes Hx of Cancer: Yes (Stage 4 Colon Cancer) Hx Psychiatric Treatment: Yes (anxiety) Additional medical history: Metastatic colon CA - Surgical History Past Surgical History?: Yes Additional Surgical History: hysterectomy, diverting loop ileostomy - Social History Smoking Status: Former Smoker Substance Use Type: None - Medications Home Medications: Home Medications Medication Instructions Recorded Confirmed Last Taken Type ALBUTEROL Inhaler (OR & NICU) 2 puff IH QID PRN #1 inhalation 11/24/18 03/04/19 Unknown Rx [ProAir HFA Inhaler] Amitriptyline 10 mg PO HS 03/08/19 03/08/19 Unknown History Mirtazapine 45 mg PO HS 03/08/19 03/08/19 Unknown History RisperiDONE 1 mg HS 03/08/19 03/08/19 03/03/19 History HYDROcodone/APAP 5-325 [[place] 2 each PO Q6H PRN #30 tablet 03/25/19 Unknown Rx 5-325 mg TAB] Morphine ER [Ms Contin ER] 15 mg PO Q12HR #30 tablet 03/25/19 Unknown Rx hydrOXYzine HCL [Atarax] 25 mg PO Q6HR PRN #20 tablet 03/27/19 Unknown Rx ED Physical Exam - General Limitations: No Limitations General appearance: alert, anxious - Head Head exam: Present: atraumatic, normocephalic - Eye Eye exam: Present: normal appearance, EOMI - ENT ENT exam: Present: normal exam, normal orophraynx, mucous membranes moist, normal external ear exam - Neck Neck exam: Present: normal inspection, full ROM. Absent: tenderness, meningismus - Respiratory Respiratory exam: Present: normal lung sounds bilaterally. Absent: respiratory distress - Cardiovascular Cardiovascular Exam: Present: regular rate, normal rhythm, normal heart sounds. Absent: bradycardia, irregular rhythm, systolic murmur, diastolic murmur, rubs, gallop - GI/Abdominal GI/Abdominal exam: Present: soft, other (there is an ostomy noted in the left lower quadrant with a diverting loop. There is no redness, pus or streaking. Feculent matter is appreciated.). Absent: distended, tenderness, guarding, rebound, rigid, pulsatile mass - Extremities Exam Extremities exam: Present: normal inspection, full ROM, other (2+ pulses noted in the bilateral upper, lower extremities. Compartments soft. No long bony tenderness. The pelvis is stable.). Absent: calf tenderness - Back Exam Back exam: Present: normal inspection, full ROM. Absent: tenderness, CVA tenderness (R), CVA tenderness (L), paraspinal tenderness, vertebral tenderness - Neurological Exam Neurological exam: Present: alert, normal gait, other (Extraocular movements intact. Tongue midline. No facial droop. Facial sensation intact to light touch in the V1, V2, V3 distribution bilaterally. 5 and 5 strength in 4 extremities.. Sensation is intact to light touch in 4 extremities.). Absent: motor sensory deficit - Psychiatric Psychiatric exam: Present: anxious - Skin Skin exam: Present: warm, dry, intact, normal color. Absent: rash ED Course Vital Signs 03/30/19 03/30/19 19:58 23:42 Temperature 97.3 F L Pulse Rate 106 H 94 H Respiratory 19 16 Rate Blood Pressure 96/60 Blood Pressure 114/73 [Left] O2 Sat by Pulse 100 98 Oximetry ED Medical Decision Making - Lab Data Vital Signs 03/30/19 03/30/19 19:58 23:42 Temperature 97.3 F L Pulse Rate 106 H 94 H Respiratory 19 16 Rate Blood Pressure 96/60 Blood Pressure 114/73 [Left] O2 Sat by Pulse 100 98 Oximetry - Medical Decision Making Differential diagnosis, including but not limited to: Ileostomy bag replacement Assessment and plan: 63-year-old female who is here for ileostomy bag replacement. It was replaced by nursing team, and the patient's skin was cleaned appropriately. Nursing team reviewed how to apply bags. Placed a case management consult to make certain that the patient could receive appropriate home training. Does not appear to have an emergent medical condition at this time otherwise, vital signs have normalized, medically appropriate for discharge at this point in time. Critical care attestation.: If time is entered above; I have spent that time in minutes in the direct care of this critically ill patient, excluding procedure time. ED Disposition Clinical Impression: Encounter for ostomy care education Disposition: DC-01 TO HOME OR SELFCARE Is pt being admited?: No Does the pt Need Aspirin: No Condition: Stable Additional Instructions: Continue outpatient medications. Follow up with her general surgeon of record within the next 2 weeks. Follow-up with your oncologist when scheduled. Return to the emergency room right away with it, worsens or different symptoms, or symptoms not present on the initial emergency room evaluation. Referrals: KEVIN FORD MD [Primary Care Provider] - 3-5 Days RITA,JINU, MD [Staff Physician] - 3-5 Days PAULY DESIR MD [Staff Physician] - 3-5 Days
[2019-03-30 23:43] VITALS: BP 114/73
== END 2019-03-31 00:48 | disposition home or self-care (01) ==
LOC: ED 19:41
DX: K94.13 Enterostomy malfunction (principal); I10 Essential (primary) hypertension; F41.9 Anxiety disorder, unspecified; Z90.710 Acquired absence of both cervix and uterus; Z87.891 Personal history of nicotine dependence; Z85.038 Personal history of other malignant neoplasm of large intestine; Z88.0 Allergy status to penicillin; Y84.9 Medical procedure, unspecified as the cause of abnormal reaction of the patient, or of later complication, without mention of misadventure at the time of the procedure; Y92.89 Other specified places as the place of occurrence of the external cause

== ENCOUNTER 2019-04-07 17:24 | Inpatient (IN) | payer MEDICARE ==
[2019-04-07] MEDS ORDERED: NACL 0.9% 1000 ML 1,000 ML IV ONE ×3 (18:28→20:11)
--- NOTE | 2019-04-07 19:02 | Emergency Department Report ---
HPI - General Chief Complaint: Weakness Time Seen by Provider: 04/07/19 18:10 - HPI HPI: Room 6 The patient is 63-year-old female presenting with a chief complaint of dizziness with standing. The patient states the past 2-3 days she gets dizzy whenever she stands. Patient initially denied pain of any type attending neurologist she has her abdominal pain related to her metastatic colon CA. Patient denies nausea vomiting or diarrhea. Patient states she's had decreased po intake secondary to a poor appetite. Patient denies history of fever. Patient admits to cough but will not say if it's been productive. Location: [See above] Duration: [See above] Quality: [See above] Severity: [See above] Modifying factors: [see above] Context: [see above] Mode of transportation: [not driving] ED Past Medical Hx - Past Medical History Previous Medical History?: Yes Hx Hypertension: Yes Hx Psychiatric Treatment: Yes (anxiety) Additional medical history: Metastatic colon CA - Surgical History Past Surgical History?: Yes Additional Surgical History: hysterectomy, diverting loop ileostomy - Family History Family history: no significant - Social History Smoking Status: Former Smoker (none 2 months) Substance Use Type: None - Medications Home Medications: Home Medications Medication Instructions Recorded Confirmed Last Taken Type ALBUTEROL Inhaler (OR & NICU) 2 puff IH QID PRN #1 inhalation 11/24/18 03/04/19 Unknown Rx [ProAir HFA Inhaler] Amitriptyline 10 mg PO HS 03/08/19 03/08/19 Unknown History Mirtazapine 45 mg PO HS 03/08/19 03/08/19 Unknown History RisperiDONE 1 mg HS 03/08/19 03/08/19 03/03/19 History HYDROcodone/APAP 5-325 [[place] 2 each PO Q6H PRN #30 tablet 03/25/19 Unknown Rx 5-325 mg TAB] Morphine ER [Ms Contin ER] 15 mg PO Q12HR #30 tablet 03/25/19 Unknown Rx hydrOXYzine HCL [Atarax] 25 mg PO Q6HR PRN #20 tablet 03/27/19 Unknown Rx ED Review of Systems ROS: Stated complaint: WEAKNESS Other details as noted in HPI Constitutional: weakness. denies: fever Eyes: denies: eye pain ENT: denies: throat pain Respiratory: cough Cardiovascular: denies: chest pain Endocrine: no symptoms reported Gastrointestinal: abdominal pain. denies: nausea, vomiting, diarrhea Genitourinary: denies: dysuria Neurological: denies: headache Physical Exam - Physical Exam Vital Signs: Vital Signs 04/07/19 04/07/19 17:42 18:18 Pulse Rate 100 H 74 Respiratory 20 16 Rate Blood Pressure 86/62 [Left] O2 Sat by Pulse 96 Oximetry Physical Exam: GENERAL: The patient is a thin female lying on stretcher appearing lethargic HEENT: Normocephalic. Atraumatic. Extraocular motions are intact. Patient has moist mucous membranes. NECK: Supple. Trachea midline CHEST/LUNGS: Clear to auscultation. There is no respiratory distress noted. HEART/CARDIOVASCULAR: Regular. There is no tachycardia. There is no gallop rub or murmur. ABDOMEN: Abdomen is soft, nontender. Patient has normal bowel sounds. There is no abdominal distention. SKIN: There is no rash. There is no edema. There is no diaphoresis. NEURO: The patient is awake and oriented. The patient is cooperative. The patient has no focal neurologic deficits. The patient has normal speech MUSCULOSKELETAL: There is no evidence of acute injury. ED Course Vital Signs 04/07/19 04/07/19 17:42 18:18 Pulse Rate 100 H 74 Respiratory 20 16 Rate Blood Pressure 86/62 [Left] O2 Sat by Pulse 96 Oximetry - Consultations Consultation #1: 04/07/19 22:47 Surgery paged- case discussed with Dr. Castanon Consultation #2: 04/07/19 23:[address] Castanon - Central Line Placement Right Femoral Consent Obtained: verbal consent Time Out Performed: Yes Patient Placed on Monitor/Pulse Ox: Yes MD Prep: mask, gown, gloves Central Line Prep: Chlorhexidine scrub Local Anesthesia Used: Lidocaine 1% Amount of Anesthesia Used (mls): 5 Ultrasound Used for Placement: No Central Line Lumen Inserted: triple Bloods Obtained for Lab: Yes Central Line Position: good blood return, all ports aspirated, flus, other (secured with adhesive) Dressing Applied: Tegaderm Patient Tolerated Procedure: well, no complications Complications: none ED Medical Decision Making - Lab Data Result diagrams: 04/07/19 Unknown 04/07/19 Unknown Laboratory Tests 04/07/19 04/07/19 04/07/19 19:00 Unknown Unknown WBC 15.1 H RBC 4.89 Hgb 12.2 Hct 35.9 MCV 74 L MCH 25 L MCHC 34 RDW 30.3 H Plt Count 655 H Add Manual Diff Complete Total Counted 100 Seg Neutrophils % Hand Painter Seg Neuts % (Manual) 84.0 H Band Neutrophils % 9.0 Lymphocytes % (Manual) 4.0 L Reactive Lymphs % (Man) 0 Monocytes % (Manual) 3.0 Eosinophils % (Manual) 0 Basophils % (Manual) 0 Metamyelocytes % 0 Myelocytes % 0 Promyelocytes % 0 Blast Cells % 0 Nucleated RBC % Not Reportable Seg Neutrophils # Man 12.7 H Band Neutrophils # 1.4 Lymphocytes # (Manual) 0.6 L Abs React Lymphs (Man) 0.0 Monocytes # (Manual) 0.5 Eosinophils # (Manual) 0.0 Basophils # (Manual) 0.0 Metamyelocytes # 0.0 Myelocytes # 0.0 Promyelocytes # 0.0 Blast Cells # 0.0 WBC Morphology Not Reportable Hypersegmented Neuts Not Reportable Hyposegmented Neuts Not Reportable Hypogranular Neuts Not Reportable Smudge Cells Not Reportable Toxic Granulation Not Reportable Toxic Vacuolation Not Reportable Dohle Bodies Not Reportable Pelger-Huet Anomaly Not Reportable Eliezer Rods Not Reportable Platelet Estimate Appears increased Clumped Platelets Not Reportable Plt Clumps, EDTA Not Reportable Large Platelets Not Reportable Giant Platelets Not Reportable Platelet Satelliting Not Reportable Plt Morphology Comment Not Reportable RBC Morphology Not Reportable Dimorphic RBCs Not Reportable Polychromasia Not Reportable Hypochromasia Few Poikilocytosis 1+ Anisocytosis 1+ Microcytosis 1+ Macrocytosis Not Reportable Spherocytes Not Reportable Pappenheimer Bodies Not Reportable Sickle Cells Not Reportable Target Cells Few Tear Drop Cells Not Reportable Ovalocytes Few Helmet Cells Not Reportable Ramírez-[place] Bodies Not Reportable M[place]en[place] Rings Not Reportable [place] Cells Not Reportable Bite Cells Not Reportable Crenated Cell Few Elliptocytes Rare Acanthocytes (Spur) Few Rouleaux Not Reportable Hemoglobin C Crystals Not Reportable Schistocytes Rare Malaria parasites Not Reportable Brendan Bodies Not Reportable Hem Pathologist Commnt No PT 15.6 H INR 1.27 H APTT 35.4 Sodium Potassium Chloride Carbon Dioxide Anion Gap BUN Creatinine Estimated GFR BUN/Creatinine Ratio Glucose Lactic Acid Calcium Magnesium 1.50 L Total Bilirubin AST ALT Alkaline Phosphatase Ammonia Total Creatine Kinase CK-MB (CK-2) CK-MB (CK-2) Rel Index Troponin T Total Protein Albumin Albumin/Globulin Ratio Lipase TSH Free T4 Plasma/Serum Alcohol 04/07/19 04/07/19 04/07/19 Unknown Unknown Unknown WBC RBC Hgb Hct MCV MCH MCHC RDW Plt Count Add Manual Diff Total Counted Seg Neutrophils % Seg Neuts % (Manual) Band Neutrophils % Lymphocytes % (Manual) Reactive Lymphs % (Man) Monocytes % (Manual) Eosinophils % (Manual) Basophils % (Manual) Metamyelocytes % Myelocytes % Promyelocytes % Blast Cells % Nucleated RBC % Seg Neutrophils # Man Band Neutrophils # Lymphocytes # (Manual) Abs React Lymphs (Man) Monocytes # (Manual) Eosinophils # (Manual) Basophils # (Manual) Metamyelocytes # Myelocytes # Promyelocytes # Blast Cells # WBC Morphology Hypersegmented Neuts Hyposegmented Neuts Hypogranular Neuts Smudge Cells Toxic Granulation Toxic Vacuolation Dohle Bodies Pelger-Huet Anomaly Eliezer Rods Platelet Estimate Clumped Platelets Plt Clumps, EDTA Large Platelets Giant Platelets Platelet Satelliting Plt Morphology Comment RBC Morphology Dimorphic RBCs Polychromasia Hypochromasia Poikilocytosis Anisocytosis Microcytosis Macrocytosis Spherocytes Pappenheimer Bodies Sickle Cells Target Cells Tear Drop Cells Ovalocytes Helmet Cells Ramírez-[place] Bodies Mckenney Rings Ralf Cells Bite Cells Crenated Cell Elliptocytes Acanthocytes (Spur) Rouleaux Hemoglobin C Crystals Schistocytes Malaria parasites Brendan Bodies Hem Pathologist Commnt PT INR APTT Sodium 117 L* Potassium 6.4 H* Chloride 64.7 L Carbon Dioxide 13 L Anion Gap 46 BUN 176 H Creatinine 10.9 H Estimated GFR 4 BUN/Creatinine Ratio 16 Glucose 309 H Lactic Acid 6.90 H* Calcium 8.7 Magnesium Total Bilirubin 0.20 AST 11 ALT 8 Alkaline Phosphatase 131 H Ammonia 54.0 Total Creatine Kinase 43 CK-MB (CK-2) 1.3 CK-MB (CK-2) Rel Index 3.0 Troponin T 0.032 H Total Protein 8.2 Albumin 3.8 L Albumin/Globulin Ratio 0.9 Lipase 45 TSH Free T4 Plasma/Serum Alcohol 04/07/19 04/07/19 Unknown Unknown WBC RBC Hgb Hct MCV MCH MCHC RDW Plt Count Add Manual Diff Total Counted Seg Neutrophils % Seg Neuts % (Manual) Band Neutrophils % Lymphocytes % (Manual) Reactive Lymphs % (Man) Monocytes % (Manual) Eosinophils % (Manual) Basophils % (Manual) Metamyelocytes % Myelocytes % Promyelocytes % Blast Cells % Nucleated RBC % Seg Neutrophils # Man Band Neutrophils # Lymphocytes # (Manual) Abs React Lymphs (Man) Monocytes # (Manual) Eosinophils # (Manual) Basophils # (Manual) Metamyelocytes # Myelocytes # Promyelocytes # Blast Cells # WBC Morphology Hypersegmented Neuts Hyposegmented Neuts Hypogranular Neuts Smudge Cells Toxic Granulation Toxic Vacuolation Dohle Bodies Pelger-Huet Anomaly Eliezer Rods Platelet Estimate Clumped Platelets Plt Clumps, EDTA Large Platelets Giant Platelets Platelet Satelliting Plt Morphology Comment RBC Morphology Dimorphic RBCs Polychromasia Hypochromasia Poikilocytosis Anisocytosis Microcytosis Macrocytosis Spherocytes Pappenheimer Bodies Sickle Cells Target Cells Tear Drop Cells Ovalocytes Helmet Cells Ramírez-[place] Bodies Mckenney Rings [place] Cells Bite Cells Crenated Cell Elliptocytes Acanthocytes (Spur) Rouleaux Hemoglobin C Crystals Schistocytes Malaria parasites Brendan Bodies Hem Pathologist Commnt PT INR APTT Sodium Potassium Chloride Carbon Dioxide Anion Gap BUN Creatinine Estimated GFR BUN/Creatinine Ratio Glucose Lactic Acid Calcium Magnesium Total Bilirubin AST ALT Alkaline Phosphatase Ammonia Total Creatine Kinase CK-MB (CK-2) CK-MB (CK-2) Rel Index Troponin T Total Protein Albumin Albumin/Globulin Ratio Lipase TSH 1.700 Free T4 1.37 Plasma/Serum Alcohol < 0.01 - EKG Data -: EKG Interpreted by Me EKG shows normal: sinus rhythm Rate: normal - EKG Data When compared to previous EKG there are: previous EKG unavailable Interpretation: nonspecific ST-T wave lucy (T-wave inversions in leads aVL and V2) - Radiology Data Radiology results: report reviewed (chest x-ray, CT abdomen and pelvis), image reviewed (chest x-ray, CT abdomen and pelvis) interpreted by me: Chest x-ray-no pneumothorax [facility] [address] [place] [address] Cat Scan Report Signed Patient: CAMRYN HITCHCOCK MR#: [id number] 9 : 1955 Acct:[id number] Age/Sex: 63 / F ADM Date: 04/07/19 Loc: ED Attending Dr: Ordering Physician: SALOMON SALEH MD Date of Service: 04/07/19 Procedure(s): CT abdomen pelvis wo con Accession Number(s): [id number] cc: SALOMON SALEH MD CT ABDOMEN AND PELVIS WITHOUT CONTRAST HISTORY: acute renal failure, hypotension, metastatic colon cancer. COMPARISON: CT abdomen/pelvis from 03/06/[address] chest from 03/15/2019 TECHNIQUE: CT images of the abdomen and pelvis were obtained without administration of intravenous contrast. All CT scans at this location are performed using CT dose reduction for ALARA by means of automated exposure control. FINDINGS: Lungs/bones: There is a 6 mm noncalcified pulmonary nodule in the right lower lobe on image #1 of series #2 and a 3 mm nodule adjacent in the right lower lobe on image #3. A small calcified granuloma is present in the right lung base and there is an additional subpleural nodule in the left lower lobe which is 5 mm which is essentially unchanged. There are degenerative changes within the spine and pelvis with no acute osseous abnormality. Abdomen/pelvis: There is masslike area within the cecum with associated bowel perforation, including air and fluid within the abdomen. The patient has a left lower quadrant ostomy, as well. The exam is very limited without the use of intravenous or oral contrast and the site of perforation is not identified on this examination. The liver appears heterogeneous with a few areas of apparent low attenuation and metastatic disease cannot be excluded. There is also what appears to be retroperitoneal and some peritoneal adenopathy. The pancreas, gallbladder, kidneys, and adrenals show no gross abnormality given noncontrast technique. There is a stable small cyst in the spleen. Urinary bladder is unremarkable. Reproductive organs appear to be surgically absent. There is retained contrast within the colon. IMPRESSION: 1. Bowel perforation with air and fluid within the abdomen in this patient with reported metastatic colon cancer. The site of perforation is not clearly identified given limited noncontrast technique, but prime consideration would be from what appears to be a cecal mass. 2. Probable metastatic disease within the lung bases and the liver. Critical result discovered at 2[address] hours and called to Dr. Saleh at 2143 hours on 04/07/2019. A read back was performed. Signer Name: Pito Post MD Signed: 04/07/2019 10:44 PM Workstation Name: [id number] Transcribed By: GLORIA Dictated By: Pito Post MD Electronically Authenticated By: Pito Post MD Signed Date/Time: 04/07/192243 DD/ 28 TD/TT: [facility] [address] [place] [address] XRay Report Signed Patient: CAMRYN HITCHCOCK MR#: [id number] 9 : 1955 Acct:[id number] Age/Sex: 63 / F ADM Date: 04/07/19 Loc: ED Attending Dr: Ordering Physician: SALOMON SALEH MD Date of Service: 04/07/19 Procedure(s): XR chest 1V ap Accession Number(s): [id number] cc: SALOMON SALEH MD Fluoro Time In Minutes: CHEST 1 VIEW INDICATION: MAIN: cough, hypotension,weakness. COMPARISON: CT chest from 03/15/2019 FINDINGS: Support devices: None. Heart: Within normal limits. Lungs/Pleura: Multiple pulmonary nodules are again seen bilaterally, much more conspicuous on the previous CT examination. There is no airspace disease or effusion. Additional findings: None. IMPRESSION: 1. No acute findings. Probable metastatic disease again noted with several pulmonary nodules. Signer Name: Pito Post MD Signed: 04/07/2019 7:22 PM Workstation Name: [id number] Transcribed By: GLORIA Dictated By: Pito Post MD Electronically Authenticated By: Pito Post MD Signed Date/Time: 04/07/191921 DD/ 20 TD/TT: - Differential Diagnosis sepsis, dehydration, pneumonia, anemia Critical Care Time: Yes Critical care time in (mins) excluding proc time.: 60 Critical care attestation.: If time is entered above; I have spent that time in minutes in the direct care of this critically ill patient, excluding procedure time. ED Disposition Clinical Impression: Bowel perforation, Acute renal failure, Hyperkalemia, Metastatic colon cancer in female Disposition: OP ADMIT IP TO THIS HOSP Is pt being admited?: Yes Does the pt Need Aspirin: No Condition: Serious Referrals: KEVIN FORD MD [Primary Care Provider] - 3-5 Days Time of Disposition: 23:10 (hospitalist notified (Dr Cyn Concepcion))
--- NOTE | 2019-04-07 19:26 | XRay Report ---
CHEST 1 VIEW INDICATION: MAIN: cough, hypotension,weakness. COMPARISON: CT chest from 03/15/2019 FINDINGS: Support devices: None. Heart: Within normal limits. Lungs/Pleura: Multiple pulmonary nodules are again seen bilaterally, much more conspicuous on the pre vious CT examination. There is no airspace disease or effusion. Additional findings: None. IMPRESSION: 1. No acute findings. Probable metastatic disease again noted with several pulmonary nodules. Signer Name: Pito Post MD Signed: 04/07/2019 7:22 PM Workstation Name: [id number]
[2019-04-07 19:32] LABS: Hematocrit 35.9 % (30.3-42.9); Hemoglobin 12.2 gm/dl (10.1-14.3); Mean Corpuscular HGB Conc 34 % (30-34); Mean Corpuscular Volume 74 fl (79-97); Platelet Count 655 K/mm3 (140-440); Red Blood Count 4.89 M/mm3 (3.65-5.03)
[2019-04-07 19:34] LABS: Red Cell Distribution Width 30.3 % (13.2-15.2)
[2019-04-07 19:41] LABS: INR 1.27 (0.87-1.13)
[2019-04-07 19:42] LABS: Partial Thromboplastin Time 35.4 Sec. (24.2-36.6)
[2019-04-07 20:02] LABS: Albumin 3.8 g/dL (3.9-5); Calcium 8.7 mg/dL (8.4-10.2); Creatine Kinase MB 1.3 ng/mL (0.0-4.0)
[2019-04-07 20:06] LABS: Band Neutrophils # (Manual) 1.4 K/mm3; Basophils % (Manual) 0 % (0.0-1.8); Eosinophils % (Manual) 0 % (0.0-4.3); Free T4 (Free Thyroxine) 1.37 ng/dL (0.76-1.46); Total Cells Counted 100
[2019-04-07 20:07] LABS: Anisocytosis 1+; Crenated RBC Few; Hypochromasia Few; Ovalocytes Few; Platelet Estimate Appears Increased; Poikilocytosis 1+; Schistocytes Rare; Target Cells Few
[2019-04-07] MEDS ORDERED: CALCIUM GLUCONATE 1,000 MG in NACL 0.9% 100 ML IV ONE (20:11)
[2019-04-07] MEDS ORDERED: LEVAQUIN 250MG/50ML 250 MG/50 ML BAG IV ONE (20:14)
[2019-04-07] MEDS ORDERED: PROVENTIL IH ONE (20:19)
[2019-04-07] MEDS ORDERED: SODIUM BICARBONATE 150 MEQ in D5W 1,000 ML IV ONE (20:32)
[2019-04-07] MEDS ORDERED: HumuLIN R IV ONE (20:35)
[2019-04-07] MEDS ORDERED: D50W (25GM) Syringe IV ONE (20:35)
[2019-04-07] MEDS: LEVOPHED DRIP 4 MG/NS 250 ML 4 MG/250 ML BAG IV SCH (20:40)
--- NOTE | 2019-04-07 22:48 | Cat Scan Report ---
CT ABDOMEN AND PELVIS WITHOUT CONTRAST HISTORY: acute renal failure, hypotension, metastatic colon cancer. COMPARISON: CT abdomen/pelvis from 03/06/[address] chest from 03/15/2019 TECHNIQUE: CT images of the abdomen and pelvis were obtained without administration of intravenous co ntrast. All CT scans at this location are performed using CT dose reduction for ALARA by means of au tomated exposure control. FINDINGS: Lungs/bones: There is a 6 mm noncalcified pulmonary nodule in the right lower lobe on image #1 of se tory #2 and a 3 mm nodule adjacent in the right lower lobe on image #3. A small calcified granuloma i s present in the right lung base and there is an additional subpleural nodule in the left lower lobe which is 5 mm which is essentially unchanged. There are degenerative changes within the spine and pel vis with no acute osseous abnormality. Abdomen/pelvis: There is masslike area within the cecum with associated bowel perforation, including air and fluid within the abdomen. The patient has a left lower quadrant ostomy, as well. The exam is very limited without the use of intravenous or oral contrast and the site of perforation is not ident ified on this examination. The liver appears heterogeneous with a few areas of apparent low attenuation and metastatic disease c annot be excluded. There is also what appears to be retroperitoneal and some peritoneal adenopathy. The pancreas, gallbladder, kidneys, and adrenals show no gross abnormality given noncontrast techniqu e. There is a stable small cyst in the spleen. Urinary bladder is unremarkable. Reproductive organs appear to be surgically absent. There is retaine d contrast within the colon. IMPRESSION: 1. Bowel perforation with air and fluid within the abdomen in this patient with reported metastatic c olon cancer. The site of perforation is not clearly identified given limited noncontrast technique, b ut prime consideration would be from what appears to be a cecal mass. 2. Probable metastatic disease within the lung bases and the liver. Critical result discovered at 2[address] and called to Dr. Juares at 2143 hours on 04/07/2019. A read ba ck was performed. Signer Name: Pito Post MD Signed: 04/07/2019 10:44 PM Workstation Name: [id number]
[2019-04-07] MEDS ORDERED: MAXIPIME/NS 2 GM/100 ML 2 GM/100 ML BAG IV ONE (23:10)
[2019-04-07] MEDS ORDERED: FLAGYL 500 MG/100 ML 500 MG/100 ML BAG IV ONE (23:10)
[2019-04-07] MEDS ORDERED: ZOFRAN IV PRN (23:30)
[2019-04-07] MEDS ORDERED: SODIUM CHLORIDE FLUSH SYRINGE 10 ML IV PRN (23:30)
[2019-04-07] MEDS ORDERED: VANCOMYCIN/NS 1 GM/250 ML 1 GM/250 ML BAG IV ONE (23:36)
[2019-04-07] MEDS ORDERED: DIFLUCAN 200 MG/100 ML BAG IV ONE (23:37)
[2019-04-07] MEDS ORDERED: D50W (25GM) Syringe IV PRN (23:37)
--- NOTE | 2019-04-07 23:47 | History and Physical Report ---
History of Present Illness Date of examination: 04/08/19 History of present illness: 63-year-old with a history of metastatic colon cancer comes emergency room complaining of feeling dizzy with standing state that she is been vomiting fecal matter, its unclear how long this has been going on. She has chronic abdominal pain secondary to cancer which is not worsened. Patient was given IV fluids, started on the levophed drip Review of systems Constitutional: no chills, fever Ears, eyes, nose, mouth and throat: no nasal congestion, no nasal discharge, no sinus pressure, no vision change, no red eye. Neck: No neck pain or rigidity. Cardiovascular: no palpitations, chest pain Respiratory: no cough, shortness of breath Gastrointestinal: no hematochezia Genitourinary : no frequency , no hematuria Musculoskeletal: no joint swelling or muscle ache Integumentary: no rash, no pruritis Neurological: no parathesias, no focal weakness Endocrine: no cold or heat intolerance, no polyuria or polydipsia Hematologic/Lymphatic: no easy bruising, no easy bleeding, no gland swelling Allergic/Immunologic: no urticaria, no angioedema. PAST MEDICAL HISTORY:metastatic colon cancer PAST SURGICAL HISTORY: Hysterectomy, ileostomy SOCIAL HISTORY: Quit alcohol, tobacco, no drugs, FAMILY HISTORY: Hypertension Medications and Allergies Allergies Allergy/AdvReac Type Severity Reaction Status Date / Time Penicillins Allergy Itching Verified 03/04/19 08:51 Home Medications Medication Instructions Recorded Confirmed Last Taken Type ALBUTEROL Inhaler (OR & NICU) 2 puff IH QID PRN #1 inhalation 11/24/18 03/04/19 Unknown Rx [ProAir HFA Inhaler] Amitriptyline 10 mg PO HS 03/08/19 03/08/19 Unknown History Mirtazapine 45 mg PO HS 03/08/19 03/08/19 Unknown History RisperiDONE 1 mg HS 03/08/19 03/08/19 03/03/19 History HYDROcodone/APAP 5-325 [[place] 2 each PO Q6H PRN #30 tablet 03/25/19 Unknown Rx 5-325 mg TAB] Morphine ER [Ms Contin ER] 15 mg PO Q12HR #30 tablet 03/25/19 Unknown Rx hydrOXYzine HCL [Atarax] 25 mg PO Q6HR PRN #20 tablet 03/27/19 Unknown Rx Active Meds: Active Medications Dextrose (D50w (25gm) Syringe) 50 ml IV PRN PRN PRN Reason: Hypoglycemia Enoxaparin Sodium (Lovenox) 30 mg SUB-Q QDAY AUDREY Norepinephrine (Levophed Drip 4 Mg/Ns 250 Ml) 4 mg in 250 mls @ 7.5 mls/hr IV TITR AUDREY; Protocol Last Titration: 04/07/19 22:50 Dose: 17 mcg/min, 63.75 mls/hr Documented by: Sodium Bicarbonate 150 meq/ (Dextrose) 1,150 mls @ 100 mls/hr IV DIRECT ONE Stop: 04/08/19 08:01 Last Admin: 04/07/19 21:25 Dose: 100 mls/hr Documented by: Aztreonam (Azactam/Ns 1 Gm/50 Ml) 1 gm in 50 mls @ 50 mls/hr IV Q12H AUDREY Vancomycin HCl (Vancomycin/Ns 1 Gm/250 Ml) 1 gm in 250 mls @ 167.007 mls/hr IV ONCE ONE; Protocol Stop: 04/08/19 01:05 Fluconazole (Diflucan) 200 mg in 100 mls @ 100 mls/hr IV DAILY ONE; Protocol Stop: 04/08/19 00:36 Ondansetron HCl (Zofran) 4 mg IV Q4H PRN PRN Reason: Nausea And Vomiting Sodium Chloride (Sodium Chloride Flush Syringe 10 Ml) 10 ml IV BID AUDREY Sodium Chloride (Sodium Chloride Flush Syringe 10 Ml) 10 ml IV PRN PRN PRN Reason: LINE FLUSH Exam - Physical Exam Narrative exam: General Apperance: The patient lying in bed, breathing comfortable HEENT: Normocephalic, atraumatic. Pupils equally round and reactive to light, EOMI, no sclericterus or JVD or thyromegaly or nodule. , no carotid bruit, mucous membranes moist, no exudate or erythema Heart: S1-S2, regular is rhythm Lungs: Clear to auscultation bilaterally, breathing comfortable Abdomen: decrease bowel sounds, soft, mild tenderness in mid abdomen, distended, no organomegaly Extremities: No edema cyanosis clubbing Skin: no rash, nodule, warm and dry Neuro: cranial nerves 2-12 intact, speech is fluent, motor/sensory intact - Constitutional Vitals: Temp Pulse Resp BP Pulse Ox 97.7 F 111 H 27 H 75/43 99 07/06/19 19:29 04/07/19 22:40 04/07/19 22:40 04/07/19 22:40 04/07/19 22:40 Results - Labs CBC & Chem 7: 04/07/19 Unknown 04/07/19 Unknown Labs: Abnormal lab results 04/07/19 04/07/19 04/07/19 Range/Units 19:00 21:15 22:38 WBC (4.5-11.0) K/mm3 MCV (79-97) fl MCH (28-32) pg RDW (13.2-15.2) % Plt Count (140-440) K/mm3 Seg Neuts % (Manual) (40.0-70.0) % Lymphocytes % (Manual) (13.4-35.0) % Seg Neutrophils # Man (1.8-7.7) K/mm3 Lymphocytes # (Manual) (1.2-5.4) K/mm3 PT (12.2-14.9) Sec. INR (0.87-1.13) Sodium (137-145) mmol/L Potassium (3.6-5.0) mmol/L Chloride (98-107) mmol/L Carbon Dioxide (22-30) mmol/L BUN (7-17) mg/dL Creatinine (0.7-1.2) mg/dL Glucose (65-100) mg/dL Lactic Acid 7.10 H* 6.10 H* (0.7-2.0) mmol/L Magnesium 1.50 L (1.7-2.3) mg/dL Alkaline Phosphatase (35-129) units/L Troponin T (0.00-0.029) ng/mL Albumin (3.9-5) g/dL 04/07/19 04/07/19 04/07/19 Range/Units Unknown Unknown Unknown WBC 15.1 H (4.5-11.0) K/mm3 MCV 74 L (79-97) fl MCH 25 L (28-32) pg RDW 30.3 H (13.2-15.2) % Plt Count 655 H (140-440) K/mm3 Seg Neuts % (Manual) 84.0 H (40.0-70.0) % Lymphocytes % (Manual) 4.0 L (13.4-35.0) % Seg Neutrophils # Man 12.7 H (1.8-7.7) K/mm3 Lymphocytes # (Manual) 0.6 L (1.2-5.4) K/mm3 PT 15.6 H (12.2-14.9) Sec. INR 1.27 H (0.87-1.13) Sodium 117 L* (137-145) mmol/L Potassium 6.4 H* (3.6-5.0) mmol/L Chloride 64.7 L (98-107) mmol/L Carbon Dioxide 13 L (22-30) mmol/L BUN 176 H (7-17) mg/dL Creatinine 10.9 H (0.7-1.2) mg/dL Glucose 309 H (65-100) mg/dL Lactic Acid (0.7-2.0) mmol/L Magnesium (1.7-2.3) mg/dL Alkaline Phosphatase 131 H (35-129) units/L Troponin T 0.032 H (0.00-0.029) ng/mL Albumin 3.8 L (3.9-5) g/dL /03/21 Range/Units Unknown WBC (4.5-11.0) K/mm3 MCV (79-97) fl MCH (28-32) pg RDW (13.2-15.2) % Plt Count (140-440) K/mm3 Seg Neuts % (Manual) (40.0-70.0) % Lymphocytes % (Manual) (13.4-35.0) % Seg Neutrophils # Man (1.8-7.7) K/mm3 Lymphocytes # (Manual) (1.2-5.4) K/mm3 PT (12.2-14.9) Sec. INR (0.87-1.13) Sodium (137-145) mmol/L Potassium (3.6-5.0) mmol/L Chloride (98-107) mmol/L Carbon Dioxide (22-30) mmol/L BUN (7-17) mg/dL Creatinine (0.7-1.2) mg/dL Glucose (65-100) mg/dL Lactic Acid 6.90 H* (0.7-2.0) mmol/L Magnesium (1.7-2.3) mg/dL Alkaline Phosphatase (35-129) units/L Troponin T (0.00-0.029) ng/mL Albumin (3.9-5) g/dL - Imaging and Cardiology CT scan - abdomen: report reviewed CT scan - pelvis: report reviewed Assessment and Plan Assessment Septic shock Perforated viscus Acute renal failure Hyperkalemia Hyponatremia, rule out SIADH Hypomagnesia Metabolic acidosis Metastatic colon cancer Plan Admit to medicine Start IV fluids, continue levophed drip, start also vasopressin Start empiric IV vancomycin, aztreonam, Flagyl and fluconazole as recommended by infectious disease Case discussed with ID, renal and surgery, all are consulted to see patient Patient is not a surgical candidate, consult critical care Follow serial BMP, check urine electrolytes, replete magnesium Continue bicarbonate drip, dose. Hyperkalemia cocktail Discussed with patient gravity of the situation, prognosis is poor Several attempts made to contact family, patient does not want us to contact the family at this time DVT prophalaxis Does not want to discuss code status at this time The high probability of a clinically significant, sudden or life threatening deterioration of the [CV, GI, respiratory] system(s) required my full and direct attention, intervention and personal management. The aggregate critical care time was [40] minutes. This time is in addition to time spent performing reported procedures but includes the following: x] Data Review and interpretation [x] Patient assessment and monitoring of vital signs [x] Documentation [x] Medication orders and management
[2019-04-08] MEDS ORDERED: FLAGYL 500 MG/100 ML 500 MG/100 ML BAG IV ONE ×2 (00:08→07:00)
[2019-04-08] MEDS: Vasostrict 20 UNIT in NACL 0.9% 100 ML IV SCH ×3 (00:10→21:03)
[2019-04-08] MEDS ORDERED: ATIVAN ONE (00:12)
[2019-04-08] MEDS ORDERED: ATIVAN IV ONE (00:18)
[2019-04-08] MEDS ORDERED: LEVOPHED DRIP 4 MG/NS 250 ML 4 MG/250 ML BAG IV ONE (00:33)
[2019-04-08] MEDS ORDERED: NACL 0.9% 1000 ML 1,000 ML IV SCH (01:00)
[2019-04-08] MEDS ORDERED: SODIUM BICARBONATE 150 MEQ in STERILE WATER 1,000 ML IV SCH (01:00)
[2019-04-08] MEDS ORDERED: MAGNESIUM SULFATE 1 GM in WATER FOR INJ (PF) 23 ML IV ONE (01:08)
[2019-04-08] MEDS: AZACTAM/NS 1 GM/50 ML 1 GM/50 ML VIAL IV SCH ×2 (01:31→13:30)
[2019-04-08 02:07] LABS: Calcium 7.2 mg/dL (8.4-10.2)
[2019-04-08 02:09] LABS: Creatine Kinase MB 1.6 ng/mL (0.0-4.0)
[2019-04-08] MEDS: LEVOPHED DRIP 4 MG/NS 250 ML 4 MG/250 ML BAG IV SCH ×6 (02:19→18:41)
[2019-04-08 02:50] LABS: Chol/HDL Ratio 2.62 %
[2019-04-08] MEDS: NACL 0.9% 1000 ML 1,000 ML IV SCH ×4 (02:54→19:22)
[2019-04-08 05:06] LABS: Hematocrit 30.5 % (30.3-42.9); Hemoglobin 10.4 gm/dl (10.1-14.3); Mean Corpuscular HGB Conc 34 % (30-34); Mean Corpuscular Volume 73 fl (79-97); Platelet Count 574 K/mm3 (140-440); Red Blood Count 4.22 M/mm3 (3.65-5.03)
[2019-04-08 05:09] LABS: Red Cell Distribution Width 30.5 % (13.2-15.2)
[2019-04-08 05:23] LABS: Calcium 6.5 mg/dL (8.4-10.2)
[2019-04-08 05:24] LABS: Creatine Kinase MB 1.5 ng/mL (0.0-4.0)
--- NOTE | 2019-04-08 07:08 | Consultation ---
HISTORY OF PRESENT ILLNESS: The patient is a 63-year-old terminal cancer patient with diffuse metastatic disease who arrived to the Emergency Room with a perforation. A CT has been discussed with the radiologist. There is a huge right cecal mass, which was involving the entire right lower quadrant of the abdomen, seems like extensive cancer throughout. Frozen pelvis and essentially unresectable. Also, diffuse metastatic disease including possibly lungs and liver. The patient is becoming hypotensive and is on pressors. Blood pressure currently is 75/43 and heart rate is 111. LABORATORY DATA: Numbers are noted in her lab work including a sodium of 117, potassium was 6.4. Lactic acid is 6.1. PT is 15.6, INR is 1.27. ASSESSMENT AND PLAN: The patient essentially is a terminal cancer patient unresectable and in critical condition. The patient understands this and does not want any surgical intervention at this time. She just wants supportive care. Also, I have discussed the case with the hospitalist who is admitting the patient to ICU for supportive care. We will follow up p.r.n. as the patient does not wish for any surgical intervention at this time and I completely agree with her. JOB# [id number] MALA/SATYA
[2019-04-08 07:27] LABS: Band Neutrophils # (Manual) 3.2 K/mm3; Basophils % (Manual) 0 % (0.0-1.8); Eosinophils % (Manual) 0 % (0.0-4.3); Total Cells Counted 100
[2019-04-08 07:28] LABS: Anisocytosis 2+; Hypochromasia 1+; Platelet Clumps Rare; Platelet Estimate Consistent w Auto; Poikilocytosis 1+
--- NOTE | 2019-04-08 07:53 | Consultation ---
History of Present Illness - Reason for Consult Consult date: 04/08/19 - History of Present Illness This is an unfortunate 63-year-old -German female with recently diagnosed metastatic colon cancer who presented to the emergency department secondary to progressive weakness, lightheadedness, decreased appetite over the past 2-3 weeks. She presented to emergency department with labs concerning for significant acute renal injury likely prerenal state. Take Out Waiter/Waitress consult for further evaluation and management. She is now in the ICU and onto pressors with vasopressin and norepinephrine. She was also started on bicarbonate drip with D5 water and 3 A of bicarbonate running at 100 mL an hour. She was also started on normal saline 150 mL an hour. She is incontinent but he is wetting the bed and seems to have good urine output. Labs noted this morning and there is a response in regards to her kidney function. She is unaware of any previous kidney injury. As mentioned she was recently diagnosed approximately 9 weeks ago. She has never received treatment for the aforementioned colon cancer. This morning upon examination patient is awake alert and is just complaining of generalized pain. Otherwise no other acute issues this morning. Patient had CT abdomen done which mentioned evidence of metastatic colon cancer and evidence of free fluid in the colon concerning for bowel perforation. Pending general surgery evaluation this morning. Past History Past Medical History: cancer (metastatic colon cancer), other Past Surgical History: hysterectomy, Other (ileostomy) Social history: no significant social history Family history: hypertension Medications and Allergies Allergies Allergy/AdvReac Type Severity Reaction Status Date / Time Penicillins Allergy Itching Verified 03/04/19 08:51 Home Medications Medication Instructions Recorded Confirmed Last Taken Type ALBUTEROL Inhaler (OR & NICU) 2 puff IH QID PRN #1 inhalation 11/24/18 03/04/19 Unknown Rx [ProAir HFA Inhaler] Amitriptyline 10 mg PO HS 03/08/19 03/08/19 Unknown History Mirtazapine 45 mg PO HS 03/08/19 03/08/19 Unknown History RisperiDONE 1 mg HS 03/08/19 03/08/19 03/03/19 History HYDROcodone/APAP 5-325 [[place] 2 each PO Q6H PRN #30 tablet 03/25/19 Unknown Rx 5-325 mg TAB] Morphine ER [Ms Contin ER] 15 mg PO Q12HR #30 tablet 03/25/19 Unknown Rx hydrOXYzine HCL [Atarax] 25 mg PO Q6HR PRN #20 tablet 03/27/19 Unknown Rx Active Meds: Active Medications Dextrose (D50w (25gm) Syringe) 50 ml IV PRN PRN PRN Reason: Hypoglycemia Enoxaparin Sodium (Lovenox) 30 mg SUB-Q QDAY AUDREY Norepinephrine (Levophed Drip 4 Mg/Ns 250 Ml) 4 mg in 250 mls @ 7.5 mls/hr IV TITR AUDREY; Protocol Last Admin: 04/08/19 07:00 Dose: 30 mcg/min, 112.5 mls/hr Documented by: Aztreonam (Azactam/Ns 1 Gm/50 Ml) 1 gm in 50 mls @ 50 mls/hr IV Q12H AUDREY Last Admin: 04/08/19 01:31 Dose: 50 mls/hr Documented by: Vasopressin 20 unit/ Sodium (Chloride) 101 mls @ 9.09 mls/hr IV TITR AUDREY; Protocol Last Admin: 04/08/19 00:10 Dose: 0.03 units/min, 9.09 mls/hr Documented by: Sodium Chloride (Nacl 0.9% 1000 Ml) 1,000 mls @ 150 mls/hr IV DIRECT AUDREY Last Admin: 04/08/19 02:54 Dose: 150 mls/hr Documented by: Sodium Bicarbonate 150 meq/ (Sterile Water) 1,150 mls @ 100 mls/hr IV DIRECT AUDREY Last Admin: 04/08/19 02:09 Dose: 100 mls/hr Documented by: Ondansetron HCl (Zofran) 4 mg IV Q4H PRN PRN Reason: Nausea And Vomiting Sodium Chloride (Sodium Chloride Flush Syringe 10 Ml) 10 ml IV BID AUDREY Sodium Chloride (Sodium Chloride Flush Syringe 10 Ml) 10 ml IV PRN PRN PRN Reason: LINE FLUSH Review of Systems All systems: negative Constitutional: weight loss, fatigue, weakness Gastrointestinal: abdominal pain, nausea, vomiting, loss of appetite Exam - Vital Signs Vital signs: Vital Signs Pulse Resp 100 H 20 04/07/19 17:42 04/07/19 17:42 - General Appearance General appearance: cachectic, chronically ill, frail EENT: ATNC, PERRL Neck: Present: neck supple, trachea midline Respiratory: Clear to Ascultation Heart: regular, S1S2 Gastrointestinal: Present: normal Integumentary: no rash, warm and dry Neurologic: no focal deficit, alert and oriented x3 Musculoskeletal: Present: other (negative edema) Psychiatric: mood/affect appropriate, cooperative Results - Lab Results 04/08/19 05:00 04/08/19 05:00 Most recent lab results Calcium 6.5 mg/dL (8.4-10.2) L 04/08/19 05:00 Magnesium 1.50 mg/dL (1.7-2.3) L 04/07/19 19:00 Assessment and Plan - Patient Problems (1) Acute renal failure Current Visit: Yes Status: Acute Plan to address problem: Pending urinalysis and urine electrolytes. This is likely acute renal injury in the setting of severe prerenal state. We'll also obtain a renal ultrasound for further evaluation. We will continue her on IV fluids. I will discontinue her sodium bicarbonate drip and just continue on normal saline which I'll increase to 200 mL/hour at this time. Elena to be placed for strict I's and O's. No acute indications for replacement therapy at this time. We'll continue to monitor. (2) Metabolic acidosis Current Visit: Yes Status: Acute Plan to address problem: Appropriate correction noted with bicarbonate drip that was started overnight. With her improvement in the serum bicarbonate and also rise in serum sodium will discontinue sodium bicarbonate drip and continue patient on normal saline which we will increase to 200 mL an hour. (3) Hyperkalemia Current Visit: Yes Status: Acute Plan to address problem: Potassium levels improving at this time. We'll continue with IV fluid hydration to increase distal sodium delivery. As patient continues to urinate her clearance and potassium secretion will also increase as well. We'll closely monitor at this time. No acute changes on telemetry. (4) Hyponatremia Current Visit: Yes Status: Acute Plan to address problem: Likely in the setting of hypovolemic state. It is correcting with appropriate fluid hydration. We'll continue normal saline which we will increase to 200 mL an hour. We'll discontinue sodium bicarbonate drip at this time. We'll continue to monitor closely. (5) Bowel perforation Current Visit: Yes Status: Acute Plan to address problem: Pending general surgery evaluation at this time. Will follow up with further recommendations. (6) Sepsis Current Visit: No Status: Acute Qualifiers: Sepsis type: sepsis due to unspecified organism Qualified Code(s): A41.9 - Sepsis, unspecified organism Plan to address problem: Patient on broad-spectrum antibiotics. Please ensure that antibiotics are dosed appropriately for her decreased renal function. Sepsis workup under way. Pending cultures at this time.
--- NOTE | 2019-04-08 07:59 | Consultation ---
History of Present Illness Reason for consult: dyspnea History of present illness: This is a 63 yo aaf w hx of metastaic colon cancer admitted with nausea vomiting and abd pain. She reports dizziness. Since admission she has been on pressors and also has been noted to have acute renal failure. Also had ct of abd which showed possible perforation Presently she is awake and responsive. Answering questions appropriately. She does have a hx of tobacco use Also of note she has not recieved any treatment for her cancer Past History Past Medical History: cancer (metastatic colon cancer), COPD Past Surgical History: hysterectomy, Other (ileostomy) Social history: smoking Family history: hypertension Medications and Allergies Allergies Allergy/AdvReac Type Severity Reaction Status Date / Time Penicillins Allergy Itching Verified 03/04/19 08:51 Home Medications Medication Instructions Recorded Confirmed Last Taken Type ALBUTEROL Inhaler (OR & NICU) 2 puff IH QID PRN #1 inhalation 11/24/18 03/04/19 Unknown Rx [ProAir HFA Inhaler] Amitriptyline 10 mg PO HS 03/08/19 03/08/19 Unknown History Mirtazapine 45 mg PO HS 03/08/19 03/08/19 Unknown History RisperiDONE 1 mg HS 03/08/19 03/08/19 03/03/19 History HYDROcodone/APAP 5-325 [[place] 2 each PO Q6H PRN #30 tablet 03/25/19 Unknown Rx 5-325 mg TAB] Morphine ER [Ms Contin ER] 15 mg PO Q12HR #30 tablet 03/25/19 Unknown Rx hydrOXYzine HCL [Atarax] 25 mg PO Q6HR PRN #20 tablet 03/27/19 Unknown Rx Active Meds: Active Medications Dextrose (D50w (25gm) Syringe) 50 ml IV PRN PRN PRN Reason: Hypoglycemia Enoxaparin Sodium (Lovenox) 30 mg SUB-Q QDAY AUDREY Norepinephrine (Levophed Drip 4 Mg/Ns 250 Ml) 4 mg in 250 mls @ 7.5 mls/hr IV TITR AUDREY; Protocol Last Admin: 04/08/19 07:00 Dose: 30 mcg/min, 112.5 mls/hr Documented by: Aztreonam (Azactam/Ns 1 Gm/50 Ml) 1 gm in 50 mls @ 50 mls/hr IV Q12H AUDREY Last Admin: 04/08/19 01:31 Dose: 50 mls/hr Documented by: Vasopressin 20 unit/ Sodium (Chloride) 101 mls @ 9.09 mls/hr IV TITR AUDREY; Protocol Last Admin: 04/08/19 00:10 Dose: 0.03 units/min, 9.09 mls/hr Documented by: Sodium Chloride (Nacl 0.9% 1000 Ml) 1,000 mls @ 150 mls/hr IV DIRECT AUDREY Last Admin: 04/08/19 02:54 Dose: 150 mls/hr Documented by: Sodium Bicarbonate 150 meq/ (Sterile Water) 1,150 mls @ 100 mls/hr IV DIRECT AUDREY Last Admin: 04/08/19 02:09 Dose: 100 mls/hr Documented by: Ondansetron HCl (Zofran) 4 mg IV Q4H PRN PRN Reason: Nausea And Vomiting Sodium Chloride (Sodium Chloride Flush Syringe 10 Ml) 10 ml IV BID AUDREY Sodium Chloride (Sodium Chloride Flush Syringe 10 Ml) 10 ml IV PRN PRN PRN Reason: LINE FLUSH Review of Systems Constitutional: weight loss, fatigue, weakness, poor appetite Breasts: deferred Cardiovascular: lightheadedness Gastrointestinal: nausea, vomiting Musculoskeletal: arthritis Physical Examination Vital signs: Vital Signs Pulse Resp 100 H 20 04/07/19 17:42 04/07/19 17:42 General appearance: no acute distress, alert Eyes: non-icteric ENT: oropharynx moist Neck: supple Ascultation: Bilateral: diminished breath sounds Cardiovascular: regular rate and rhythm Gastrointestinal: hypoactive bowel sounds normal mental status, non-focal exam Results - Laboratory Findings CBC and BMP: 04/08/19 05:00 04/08/19 07:30 PT/INR, D-dimer PT 15.6 Sec. (12.2-14.9) H 04/07/19 Unknown INR 1.27 (0.87-1.13) H 04/07/19 Unknown Abnormal lab findings: Abnormal Labs 04/07/19 04/07/19 04/07/19 19:00 21:15 22:38 WBC MCV MCH RDW Plt Count Seg Neuts % (Manual) Lymphocytes % (Manual) Monocytes % (Manual) Seg Neutrophils # Man Lymphocytes # (Manual) Monocytes # (Manual) PT INR Sodium Potassium Chloride Carbon Dioxide BUN Creatinine Glucose POC Glucose Lactic Acid 7.10 H* 6.10 H* Calcium Magnesium 1.50 L Alkaline Phosphatase Troponin T Albumin 04/07/19 04/07/19 04/07/19 23:33 Unknown Unknown WBC 15.1 H MCV 74 L MCH 25 L RDW 30.3 H Plt Count 655 H Seg Neuts % (Manual) 84.0 H Lymphocytes % (Manual) 4.0 L Monocytes % (Manual) Seg Neutrophils # Man 12.7 H Lymphocytes # (Manual) 0.6 L Monocytes # (Manual) PT 15.6 H INR 1.27 H Sodium Potassium Chloride Carbon Dioxide BUN Creatinine Glucose POC Glucose Lactic Acid 3.10 H* Calcium Magnesium Alkaline Phosphatase Troponin T Albumin 04/07/19 04/07/19 04/08/19 Unknown Unknown 01:30 WBC MCV MCH RDW Plt Count Seg Neuts % (Manual) Lymphocytes % (Manual) Monocytes % (Manual) Seg Neutrophils # Man Lymphocytes # (Manual) Monocytes # (Manual) PT INR Sodium 117 L* 127 L D Potassium 6.4 H* 5.3 H Chloride 64.7 L 81.7 L Carbon Dioxide 13 L 16 L BUN 176 H 160 H Creatinine 10.9 H 8.9 H Glucose 309 H 104 H POC Glucose Lactic Acid 6.90 H* Calcium 7.2 L D Magnesium Alkaline Phosphatase 131 H Troponin T 0.032 H Albumin 3.8 L 04/08/19 04/08/19 04/08/19 01:30 02:12 03:16 WBC MCV MCH RDW Plt Count Seg Neuts % (Manual) Lymphocytes % (Manual) Monocytes % (Manual) Seg Neutrophils # Man Lymphocytes # (Manual) Monocytes # (Manual) PT INR Sodium Potassium Chloride Carbon Dioxide BUN Creatinine Glucose POC Glucose 130 H 132 H Lactic Acid Calcium Magnesium Alkaline Phosphatase Troponin T 0.031 H Albumin 04/08/19 04/08/19 04/08/19 04:18 05:00 05:00 WBC 13.2 H MCV 73 L MCH 25 L RDW 30.5 H Plt Count 574 H Seg Neuts % (Manual) Lymphocytes % (Manual) 1.0 L Monocytes % (Manual) 10.0 H Seg Neutrophils # Man 8.6 H Lymphocytes # (Manual) 0.1 L Monocytes # (Manual) 1.3 H PT INR Sodium 128 L Potassium 5.4 H Chloride 83.2 L Carbon Dioxide 19 L BUN 157 H Creatinine 8.6 H Glucose 162 H POC Glucose 161 H Lactic Acid Calcium 6.5 L Magnesium Alkaline Phosphatase Troponin T Albumin 04/08/19 05:00 WBC MCV MCH RDW Plt Count Seg Neuts % (Manual) Lymphocytes % (Manual) Monocytes % (Manual) Seg Neutrophils # Man Lymphocytes # (Manual) Monocytes # (Manual) PT INR Sodium Potassium Chloride Carbon Dioxide BUN Creatinine Glucose POC Glucose Lactic Acid Calcium Magnesium Alkaline Phosphatase Troponin T 0.031 H Albumin - Diagnostic Findings Chest x-ray: report reviewed, image reviewed Assessment and Plan - Patient Problems (1) Acute renal failure Current Visit: Yes Status: Acute (2) Bowel perforation Current Visit: Yes Status: Acute (3) Hyperkalemia Current Visit: Yes Status: Acute (4) Metastatic colon cancer in female Current Visit: Yes Status: Acute (5) Anxiety Current Visit: No Status: Acute (6) Sepsis Current Visit: No Status: Acute Qualifiers: Sepsis type: sepsis due to unspecified organism Qualified Code(s): A41.9 - Sepsis, unspecified organism
[2019-04-08 08:06] LABS: Calcium 6.6 mg/dL (8.4-10.2)
[2019-04-08] MEDS: MORPHINE IV PRN ×2 (08:33→19:45)
--- NOTE | 2019-04-08 09:17 | Progress Note ---
Assessment and Plan Assessment and plan: Patient is a 63 yo woman with a history of metastatic colon cancer who presented to ED with dizziness, n/v of fecal matter and acute on chronic abdominal pains. Patien was recently admitted/discharge from [facility] on 03/04/2019-03/26/2019 due to nausea, weight loss and abdominal pain; she was found to have small bowel obstruction s/p exploratory laparotomy, diverting loop ileostomy, omental biopsies on 03/08/2019, pathology reported - metastatic moderately differentiated adenocarcinoma consistent with colorectal primary, advanced stage 4 with mets in the liver and lungs. * CT abd/pelvis without contrast IMPRESSION: 1. Bowel perforation with air and fluid within the abdomen in this patient with reported metastatic colon cancer. The site of perforation is not clearly identified given limited noncontrast technique, but prime consideration would be from what appears to be a cecal mass. 2. Probable metastatic disease within the lung bases and the liver. Critical result discovered at 2140 hours and called to Dr. Juares at 2143 hours on 04/07/2019. Metastatic colon cancer to liver and lung causing perforated viscus and this acute illness: supportive care, poor prognosis, except her to not me it. Septic shock + hypovolemic shock: on 24 mcg of Levophed and Vasopressin IV resuscitative medications, CCM consulted Perforated viscus with acute bowel peritonitis: consulted GS and ID, continue to treat with ABX Acute renal failure, ATN, Cr 10.9, not known to be ESRD: consulted Nephrology Severe acidosis: continue to treat the infection Hyperkalemia: treat with hyperkalemia cocktail, monitor bmp closely Hyponatremia, hypovolemic: treat with IVFs Hypomagnesia: replete and monitor magnesium levels closely Penicillin allergy: unclear reaction Severe Malnutrition: Consulted Advertising Operations Coordinator Advance Directive discussed: patient wants to be DNR/AND, Nurse Trujillo was witness, will change order once patient signs, Patient wants Cristel, her friend, to make medical decision for her; she had one kid, Meeta (sp) and she doesn't get along with her and she does NOT want her daughter making discussion for her, Nurse Trujillo was witness. Patient is a/o x 3. poor prognosis CCT 34 minutes History Interval history: Patient was seen and examined. Follow-up on current diagnosis of bowel perforation. No overnight events reported to me. Patient denies any chest pain, shortness breath, nausea/vomiting or severe headaches. Imaging, nursing note, chart, labs and old chart reviewed. Discussed with patient. Hospitalist Physical - Physical exam Narrative exam: Gen: cachetic, ill appearing awake alert orientated x 3 HEENT: NCAT, EOMI, PERRL, OP Clear Neck: supple, no adenopathy, no thyromegaly, no JVD CVS/Heart: Regular tachy normal S1S2, pulses present bilaterally Chest/Lungs: Symmetrical chest expansion, good air entry bilaterally GI/Abdomen: colostomy in place with a rubber tube through the bowel in the orifice of the ostomy, soft, distended poor bowel sounds, diffusely tender /Bladder: no suprapubic tenderness, no CVA or paraspinal tenderness Extermity/Skin: no c/c/e, no obvious rash MSK: FROM x 4 Neuro: CN 2-12 grossly intact, no new focal deficits Psych: anxious - Constitutional Vitals: Temp Pulse Resp BP Pulse Ox 98.0 F 107 H 30 H 123/57 100 04/08/19 04:40 04/08/19 07:41 04/08/19 07:41 04/08/19 07:41 04/08/19 07:41 Results - Labs CBC & Chem 7: 04/08/19 05:00 04/08/19 11:44 Labs: Laboratory Last Values WBC 13.2 K/mm3 (4.5-11.0) H 04/08/19 05:00 RBC 4.22 M/mm3 (3.65-5.03) 04/08/19 05:00 Hgb 10.4 gm/dl (10.1-14.3) 04/08/19 05:00 Hct 30.5 % (30.3-42.9) 04/08/19 05:00 MCV 73 fl (79-97) L 04/08/19 05:00 MCH 25 pg (28-32) L 04/08/19 05:00 MCHC 34 % (30-34) 04/08/19 05:00 RDW 30.5 % (13.2-15.2) H 04/08/19 05:00 Plt Count 574 K/mm3 (140-440) H 04/08/19 05:00 Add Manual Diff Complete 04/08/19 05:00 Total Counted 100 04/08/19 05:00 Seg Neutrophils % Bread Jockey 04/07/19 Unknown Seg Neuts % (Manual) 65.0 % (40.0-70.0) 04/08/19 05:00 24.0 % 04/08/19 05:00 1.0 % (13.4-35.0) L 04/08/19 05:00 Reactive Lymphs % (Man) 0 % 04/08/19 05:00 10.0 % (0.0-7.3) H 04/08/19 05:00 0 % (0.0-4.3) 04/08/19 05:00 0 % (0.0-1.8) 04/08/19 05:00 0 % 04/08/19 05:00 0 % 04/08/19 05:00 0 % 04/08/19 05:00 0 % 04/08/19 05:00 Nucleated RBC % Not Reportable 04/08/19 05:00 Seg Neutrophils # Man 8.6 K/mm3 (1.8-7.7) H 04/08/19 05:00 Band Neutrophils # 3.2 K/mm3 04/08/19 05:00 0.1 K/mm3 (1.2-5.4) L 04/08/19 05:00 Abs React Lymphs (Man) 0.0 K/mm3 04/08/19 05:00 1.3 K/mm3 (0.0-0.8) H 04/08/19 05:00 0.0 K/mm3 (0.0-0.4) 04/08/19 05:00 0.0 K/mm3 (0.0-0.1) 04/08/19 05:00 0.0 K/mm3 04/08/19 05:00 0.0 K/mm3 04/08/19 05:00 0.0 K/mm3 04/08/19 05:00 Blast Cells # 0.0 K/mm3 04/08/19 05:00 WBC Morphology Not Reportable 04/08/19 05:00 Hypersegmented Neuts Not Reportable 04/08/19 05:00 Hyposegmented Neuts Not Reportable 04/08/19 05:00 Hypogranular Neuts Not Reportable 04/08/19 05:00 Not Reportable 04/08/19 05:00 Not Reportable 04/08/19 05:00 Not Reportable 04/08/19 05:00 Not Reportable 04/08/19 05:00 Not Reportable 04/08/19 05:00 Not Reportable 04/08/19 05:00 Consistent w auto 04/08/19 05:00 Rare 04/08/19 05:00 Plt Clumps, EDTA Not Reportable 04/08/19 05:00 Not Reportable 04/08/19 05:00 Not Reportable 04/08/19 05:00 Not Reportable 04/08/19 05:00 Plt Morphology Comment Not Reportable 04/08/19 05:00 RBC Morphology Not Reportable 04/08/19 05:00 Dimorphic RBCs Not Reportable 04/08/19 05:00 Not Reportable 04/08/19 05:00 1+ 04/08/19 05:00 1+ 04/08/19 05:00 2+ 04/08/19 05:00 Not Reportable 04/08/19 05:00 Not Reportable 04/08/19 05:00 Not Reportable 04/08/19 05:00 Not Reportable 04/08/19 05:00 Not Reportable 04/08/19 05:00 Not Reportable 04/08/19 05:00 Not Reportable 04/08/19 05:00 Not Reportable 04/08/19 05:00 Not Reportable 04/08/19 05:00 Not Reportable 04/08/19 05:00 Not Reportable 04/08/19 05:00 Not Reportable 04/08/19 05:00 Not Reportable 04/08/19 05:00 Not Reportable 04/08/19 05:00 Not Reportable 04/08/19 05:00 Acanthocytes (Spur) Not Reportable 04/08/19 05:00 Rouleaux Not Reportable 04/08/19 05:00 Not Reportable 04/08/19 05:00 Not Reportable 04/08/19 05:00 Not Reportable 04/08/19 05:00 Not Reportable 04/08/19 05:00 Hem Pathologist Commnt No 04/08/19 05:00 PT 15.6 Sec. (12.2-14.9) H 04/07/19 Unknown INR 1.27 (0.87-1.13) H 04/07/19 Unknown APTT 35.4 Sec. (24.2-36.6) 04/07/19 Unknown Sodium 129 mmol/L (137-145) L 04/08/19 07:30 Potassium 5.4 mmol/L (3.6-5.0) H 04/08/19 07:30 Chloride 84.2 mmol/L (98-107) L 04/08/19 07:30 Carbon Dioxide 20 mmol/L (22-30) L 04/08/19 07:30 30 mmol/L 04/08/19 07:30 BUN 157 mg/dL (7-17) H 04/08/19 05:00 7.8 mg/dL (0.7-1.2) H 04/08/19 07:30 Estimated GFR 6 ml/min 04/08/19 07:30 18 % 04/08/19 05:00 Glucose 154 mg/dL (65-100) H 04/08/19 07:30 POC Glucose 161 (70-105) H 04/08/19 04:18 Lactic Acid 2.90 mmol/L (0.7-2.0) H* 04/08/19 07:30 Calcium 6.6 mg/dL (8.4-10.2) L 04/08/19 07:30 Magnesium 1.50 mg/dL (1.7-2.3) L 04/07/19 19:00 0.20 mg/dL (0.1-1.2) 04/07/19 Unknown AST 11 units/L (5-40) 04/07/19 Unknown ALT 8 units/L (7-56) 04/07/19 Unknown 131 units/L (35-129) H 04/07/19 Unknown 54.0 umol/L (25-60) 04/07/19 Unknown 74 units/L (30-135) 04/08/19 05:00 CK-MB (CK-2) 1.5 ng/mL (0.0-4.0) 04/08/19 05:00 CK-MB (CK-2) Rel Index 2.0 (0-4) 04/08/19 05:00 0.031 ng/mL (0.00-0.029) H 04/08/19 05:00 8.2 g/dL (6.3-8.2) 04/07/19 Unknown 3.8 g/dL (3.9-5) L 04/07/19 Unknown 0.9 % 04/07/19 Unknown Triglycerides 76 mg/dL (2-149) 04/08/19 01:30 Cholesterol 147 mg/dL (50-199) 04/08/19 01:30 89 mg/dL (50-130) 04/08/19 01:30 56 mg/dL (40-59) 04/08/19 01:30 2.62 % 04/08/19 01:30 45 units/L (13-60) 04/07/19 Unknown TSH 1.700 mlU/mL (0.270-4.200) 04/07/19 Unknown Free T4 1.37 ng/dL (0.76-1.46) 04/07/19 Unknown Plasma/Serum Alcohol < 0.01 % (0-0.07) 04/07/19 Unknown Active Medications - Current Medications Current Medications: Generic Name Dose Route Start Last Admin Trade Name Freq PRN Reason Stop Dose Admin Albuterol 2.5 mg 04/08/19 14:00 Proventil IH TIDRT AUDREY Dextrose 50 ml 04/07/19 23:37 D50w (25gm) Syringe IV PRN PRN Hypoglycemia Enoxaparin Sodium 30 mg 04/08/19 10:00 Lovenox SUB-Q QDAY AUDREY Norepinephrine 4 mg in 250 mls @ 7.5 mls/hr 04/07/19 20:00 04/08/19 07:00 Levophed Drip 4 Mg/Ns 250 Ml IV 30 mcg/min TITR AUDREY 112.5 mls/hr Administration Protocol 2 MCG/MIN Aztreonam 1 gm in 50 mls @ 50 mls/hr 04/08/19 00:00 04/08/19 01:31 Azactam/Ns 1 Gm/50 Ml IV 50 mls/hr Q12H AUDREY Administration Vasopressin 20 unit/ Sodium 101 mls @ 9.09 mls/hr 04/07/19 23:45 04/08/19 00:10 Chloride IV 0.03 units/min TITR AUDREY 9.09 mls/hr Administration Protocol 0.03 UNITS/MIN Sodium Chloride 1,000 mls @ 200 mls/hr 04/08/19 01:00 04/08/19 02:54 Nacl 0.9% 1000 Ml IV 150 mls/hr DIRECT AUDREY Administration Morphine Sulfate 2 mg 04/08/19 08:00 04/08/19 08:33 Morphine IV 2 mg Q4H PRN Administration Pain, Moderate (4-6) Ondansetron HCl 4 mg 04/07/19 23:30 Zofran IV Q4H PRN Nausea And Vomiting Sodium Chloride 10 ml 04/08/19 10:00 Sodium Chloride Flush Syringe 10 Ml IV BID AUDREY Sodium Chloride 10 ml 04/07/19 23:30 Sodium Chloride Flush Syringe 10 Ml IV PRN PRN LINE FLUSH
[2019-04-08] MEDS: SODIUM CHLORIDE FLUSH SYRINGE 10 ML IV SCH ×2 (09:39→22:04)
[2019-04-08] MEDS: LOVENOX SUB-Q SCH (09:39)
[2019-04-08] MEDS: PROVENTIL IH SCH ×3 (10:05→20:22)
--- NOTE | 2019-04-08 10:45 | Ultrasound Report ---
ULTRASOUND RENAL INDICATION / CLINICAL INFORMATION: RUSS. Acute renal failure COMPARISON: CT abdomen/pelvis from FINDINGS: RIGHT KIDNEY: Length = 11.4 cm. [normal > 9 cm] - Parenchymal Thickness = 1.3 cm. [normal > 1.5 cm] - Echogenicity: Increased - Hydronephrosis: None. - Cyst or mass: No significant abnormality. - Stones: None seen. LEFT KIDNEY: Length = 11.2 cm. [normal > 9 cm] - Parenchymal Thickness = 1.3 cm. [normal > 1.5 cm] - Echogenicity: Slightly increased - Hydronephrosis: None. - Cyst or mass: Simple cyst in the midpole measuring 1.4 cm. - Stones: None seen. URINARY BLADDER: Collapsed with a Elena catheter in place. FREE FLUID: There is moderate volume ascites. ADDITIONAL FINDINGS: Simple cyst within the spleen measuring 2.2 cm. IMPRESSION: 1. Mildly echogenic kidneys, nonspecific but often seen with medical renal disease. 2. Simple cyst in the midpole of the left kidney. 3. Moderate volume ascites. 4. Simple splenic cyst. Signer Name: Pito Post MD Signed: 04/08/2019 10:41 AM Workstation Name: [id number]
[2019-04-08] MEDS ORDERED: MORPHINE IV ONE (11:00)
[2019-04-08 11:12] LABS: Bilirubin,Urine NEG (Negative); Blood,Urine NEG (Negative); Color,Urine Yellow (Yellow); Urobilinogen,Urine < 2.0 mg/dL (<2.0)
[2019-04-08 11:15] LABS: Creatinine,Urine 106.1 mg/dL (0.1-20.0)
[2019-04-08 12:07] LABS: Chloride, Urine 19.2 mmolL (110-250); Creatinine,Urine 106.1 mg/dL (0.1-20.0)
[2019-04-08 12:24] LABS: Calcium 6.7 mg/dL (8.4-10.2)
--- NOTE | 2019-04-08 12:39 | Consultation ---
History of Present Illness - Reason for Consult Consult date: 04/08/19 septic shock Requesting physician: GABRIELE LOVE - History of Present Illness 63 y/o female with no past medical history recently admitted to [facility] from 03/04/2019-11/26/2018 due to nausea, weight loss, abdominal pain found with small bowel obstruction s/p exploratory laparotomy, diverting loop ileostomy, omental biopsies on 03/08/2019, findings were a large firm right lower quadrant mass, pathology report - Metastatic Moderately Differentiated adenocarcinoma consistent with colorectal primary, advanced stage 4 with mets in the liver and lungs. She was noted with leukocytosis and placed on Levaquin and Flagyl. She was discharged home with home health. Unfortunately, patient was readmitted on 04/08/2019 due to 3-day history of dizziness upon standing, generalized weakness, decreased po intake secondary to a poor appetite, worsening abdominal pain associated with nausea, vomiting and ? fecal matter with vomiting and 30L weight loss. Patient denies fever. Reports mild cough. In the ED, temp 97.8, HR 100, R 20, BP 86/62 --> 68/37. WBC 15. Bands 24%. Hg 12. Plat 655. Creat 10.9. K 6.4. Na 114. Lacate 7.1. UA negative. CXR no consolidation. CT abdomen shows bowel perforation with air and fluid within the abdomen, site of perforation is not clearly. CT chest shows multiple pulmonary nodules bilaterally, no airspace disease or effusion. ID consulted for the management of septic shock. Review of Systems: General: no fever, chills, +poor appetite, +generalized weakness Cutaneous: no rash, pruritus Head: no headaches or injury Eyes: no changes in vision, eye pain, double vision Ears: no ear pain, ear discharge, ringing or hearing loss Nose: no nose bleeding, stuffiness Mouth & throat: no bleeding gums, no horseness, no dental problems, or swollen glands Neck: no pain, node enlargement/lumps, tyroid enlargement or tenderness Respiratory: +dry cough, no wheezing, sputum, hemoptysis, pleuritic chest pain Cardiovascular: no chest pain, leg edema, cyanosis, HEARN, orthopnea Musculoskeletal: no edema Gastrointestinal: +nausea, +vomiting, +abdominal pain, no hematemesis, diarrhea, constipation, melena, bright red blood in stools, fecal incontinence, jaundice Genitourinary/Reproductive: no frequent urination, dysuria, hematuria, incontinence Neurogical: no seizures, no headaches, no weakness, no paresthesias, no loss of speech or vision; no memory loss, no vertigo, no tremors, no numbness Psychiatric: stable mood; no excessive anxiety, sadness or moodiness Past History Past Medical History: cancer (metastatic colon cancer), COPD Past Surgical History: hysterectomy, Other (ileostomy) Social history: smoking Family history: hypertension Medications and Allergies Allergies Allergy/AdvReac Type Severity Reaction Status Date / Time Penicillins Allergy Itching Verified 03/04/19 08:51 Home Medications Medication Instructions Recorded Confirmed Last Taken Type ALBUTEROL Inhaler (OR & NICU) 2 puff IH QID PRN #1 inhalation 11/24/18 03/04/19 Unknown Rx [ProAir HFA Inhaler] Amitriptyline 10 mg PO HS 03/08/19 03/08/19 Unknown History Mirtazapine 45 mg PO HS 03/08/19 03/08/19 Unknown History RisperiDONE 1 mg HS 03/08/19 03/08/19 03/03/19 History HYDROcodone/APAP 5-325 [[place] 2 each PO Q6H PRN #30 tablet 03/25/19 Unknown Rx 5-325 mg TAB] Morphine ER [Ms Contin ER] 15 mg PO Q12HR #30 tablet 03/25/19 Unknown Rx hydrOXYzine HCL [Atarax] 25 mg PO Q6HR PRN #20 tablet 03/27/19 Unknown Rx Active Meds: Active Medications Albuterol (Proventil) 2.5 mg IH TIDRT [facility] Last Admin: 04/08/19 10:05 Dose: Not Given Documented by: Dextrose (D50w (25gm) Syringe) 50 ml IV PRN PRN PRN Reason: Hypoglycemia Enoxaparin Sodium (Lovenox) 30 mg SUB-Q QDAY [facility] Last Admin: 04/08/19 09:39 Dose: 30 mg Documented by: Norepinephrine (Levophed Drip 4 Mg/Ns 250 Ml) 4 mg in 250 mls @ 7.5 mls/hr IV TITR [facility]; Protocol Last Titration: 04/08/19 12:00 Dose: 24 mcg/min, 90 mls/hr Documented by: Aztreonam (Azactam/Ns 1 Gm/50 Ml) 1 gm in 50 mls @ 50 mls/hr IV Q12H [facility] Last Admin: 04/08/19 01:31 Dose: 50 mls/hr Documented by: Vasopressin 20 unit/ Sodium (Chloride) 101 mls @ 9.09 mls/hr IV TITR AUDREY; Protocol Last Admin: 04/08/19 10:43 Dose: 0.03 units/min, 9.09 mls/hr Documented by: Sodium Chloride (Nacl 0.9% 1000 Ml) 1,000 mls @ 200 mls/hr IV DIRECT AUDREY Last Admin: 04/08/19 09:35 Dose: 200 mls/hr Documented by: Morphine Sulfate (Morphine) 2 mg IV Q4H PRN PRN Reason: Pain, Moderate (4-6) Last Admin: 04/08/19 08:33 Dose: 2 mg Documented by: Ondansetron HCl (Zofran) 4 mg IV Q4H PRN PRN Reason: Nausea And Vomiting Sodium Chloride (Sodium Chloride Flush Syringe 10 Ml) 10 ml IV BID [facility] Last Admin: 04/08/19 09:39 Dose: 10 ml Documented by: Sodium Chloride (Sodium Chloride Flush Syringe 10 Ml) 10 ml IV PRN PRN PRN Reason: LINE FLUSH Physical Examination - Physical Exam Narrative exam: General appearance: Alert in NAD anxious Eyes: anicteric sclerae, moist conjunctivae; no lid-lag; PERRLA HENT: Atraumatic; oropharynx clear with moist mucous membranes and no mucosal ulcerations/no oral thrush; normal hard and soft palate. Normal external ears. Neck: Trachea midline; supple, no thyromegaly or lymphadenopathy Lungs: CTA, with normal respiratory effort and no intercostal retractions CV: RRR Abdomen: Soft, mild diffuse tenderness +iliostomy bag Extremities: no edema, cyanosis Skin: Normal temperature, turgor and texture; no rash, ulcers or subcutaneous nodules Psych: anxious. Neuro: alert and oriented x 3. Moving all extermities - Constitutional Vitals: Vital Signs Temp Pulse Resp BP Pulse Ox 98.0 F 104 H 22 119/72 100 04/08/19 04:40 04/08/19 11:45 04/08/19 11:45 04/08/19 11:45 04/08/19 11:45 Temperature -Last 24 Hours Temperature 98.0 F Temperature 97.8 F Temperature 97.8 F Temperature 97.5 F Temperature 97.7 F Results - Labs CBC & Chem 7: 04/08/19 05:00 04/08/19 11:44 Labs: Abnormal lab results 04/07/19 04/07/19 04/07/19 Range/Units 19:00 21:15 22:38 WBC (4.5-11.0) K/mm3 MCV (79-97) fl MCH (28-32) pg RDW (13.2-15.2) % Plt Count (140-440) K/mm3 Seg Neuts % (Manual) (40.0-70.0) % Lymphocytes % (Manual) (13.4-35.0) % Monocytes % (Manual) (0.0-7.3) % Seg Neutrophils # Man (1.8-7.7) K/mm3 Lymphocytes # (Manual) (1.2-5.4) K/mm3 Monocytes # (Manual) (0.0-0.8) K/mm3 PT (12.2-14.9) Sec. INR (0.87-1.13) Sodium (137-145) mmol/L Potassium (3.6-5.0) mmol/L Chloride (98-107) mmol/L Carbon Dioxide (22-30) mmol/L BUN (7-17) mg/dL Creatinine (0.7-1.2) mg/dL Glucose (65-100) mg/dL POC Glucose (70-105) Lactic Acid 7.10 H* 6.10 H* (0.7-2.0) mmol/L Calcium (8.4-10.2) mg/dL Magnesium 1.50 L (1.7-2.3) mg/dL Alkaline Phosphatase (35-129) units/L Troponin T (0.00-0.029) ng/mL Albumin (3.9-5) g/dL Urine WBC (Auto) (0.0-6.0) /HPF Urine Creatinine (0.1-20.0) mg/dL Urine Chloride (110-250) mmolL 04/07/19 04/07/19 04/07/19 Range/Units 23:33 Unknown Unknown WBC 15.1 H (4.5-11.0) K/mm3 MCV 74 L (79-97) fl MCH 25 L (28-32) pg RDW 30.3 H (13.2-15.2) % Plt Count 655 H (140-440) K/mm3 Seg Neuts % (Manual) 84.0 H (40.0-70.0) % Lymphocytes % (Manual) 4.0 L (13.4-35.0) % Monocytes % (Manual) (0.0-7.3) % Seg Neutrophils # Man 12.7 H (1.8-7.7) K/mm3 Lymphocytes # (Manual) 0.6 L (1.2-5.4) K/mm3 Monocytes # (Manual) (0.0-0.8) K/mm3 PT 15.6 H (12.2-14.9) Sec. INR 1.27 H (0.87-1.13) Sodium (137-145) mmol/L Potassium (3.6-5.0) mmol/L Chloride (98-107) mmol/L Carbon Dioxide (22-30) mmol/L BUN (7-17) mg/dL Creatinine (0.7-1.2) mg/dL Glucose (65-100) mg/dL POC Glucose (70-105) Lactic Acid 3.10 H* (0.7-2.0) mmol/L Calcium (8.4-10.2) mg/dL Magnesium (1.7-2.3) mg/dL Alkaline Phosphatase (35-129) units/L Troponin T (0.00-0.029) ng/mL Albumin (3.9-5) g/dL Urine WBC (Auto) (0.0-6.0) /HPF Urine Creatinine (0.1-20.0) mg/dL Urine Chloride (110-250) mmolL 04/07/19 04/07/19 04/08/19 Range/Units Unknown Unknown 01:30 WBC (4.5-11.0) K/mm3 MCV (79-97) fl MCH (28-32) pg RDW (13.2-15.2) % Plt Count (140-440) K/mm3 Seg Neuts % (Manual) (40.0-70.0) % Lymphocytes % (Manual) (13.4-35.0) % Monocytes % (Manual) (0.0-7.3) % Seg Neutrophils # Man (1.8-7.7) K/mm3 Lymphocytes # (Manual) (1.2-5.4) K/mm3 Monocytes # (Manual) (0.0-0.8) K/mm3 PT (12.2-14.9) Sec. INR (0.87-1.13) Sodium 117 L* 127 L D (137-145) mmol/L Potassium 6.4 H* 5.3 H (3.6-5.0) mmol/L Chloride 64.7 L 81.7 L (98-107) mmol/L Carbon Dioxide 13 L 16 L (22-30) mmol/L BUN 176 H 160 H (7-17) mg/dL Creatinine 10.9 H 8.9 H (0.7-1.2) mg/dL Glucose 309 H 104 H (65-100) mg/dL POC Glucose (70-105) Lactic Acid 6.90 H* (0.7-2.0) mmol/L Calcium 7.2 L D (8.4-10.2) mg/dL Magnesium (1.7-2.3) mg/dL Alkaline Phosphatase 131 H (35-129) units/L Troponin T 0.032 H (0.00-0.029) ng/mL Albumin 3.8 L (3.9-5) g/dL Urine WBC (Auto) (0.0-6.0) /HPF Urine Creatinine (0.1-20.0) mg/dL Urine Chloride (110-250) mmolL 04/08/19 04/08/19 04/08/19 Range/Units 01:30 02:12 03:16 WBC (4.5-11.0) K/mm3 MCV (79-97) fl MCH (28-32) pg RDW (13.2-15.2) % Plt Count (140-440) K/mm3 Seg Neuts % (Manual) (40.0-70.0) % Lymphocytes % (Manual) (13.4-35.0) % Monocytes % (Manual) (0.0-7.3) % Seg Neutrophils # Man (1.8-7.7) K/mm3 Lymphocytes # (Manual) (1.2-5.4) K/mm3 Monocytes # (Manual) (0.0-0.8) K/mm3 PT (12.2-14.9) Sec. INR (0.87-1.13) Sodium (137-145) mmol/L Potassium (3.6-5.0) mmol/L Chloride (98-107) mmol/L Carbon Dioxide (22-30) mmol/L BUN (7-17) mg/dL Creatinine (0.7-1.2) mg/dL Glucose (65-100) mg/dL POC Glucose 130 H 132 H (70-105) Lactic Acid (0.7-2.0) mmol/L Calcium (8.4-10.2) mg/dL Magnesium (1.7-2.3) mg/dL Alkaline Phosphatase (35-129) units/L Troponin T 0.031 H (0.00-0.029) ng/mL Albumin (3.9-5) g/dL Urine WBC (Auto) (0.0-6.0) /HPF Urine Creatinine (0.1-20.0) mg/dL Urine Chloride (110-250) mmolL 04/08/19 04/08/19 04/08/19 Range/Units 04:18 05:00 05:00 WBC 13.2 H (4.5-11.0) K/mm3 MCV 73 L (79-97) fl MCH 25 L (28-32) pg RDW 30.5 H (13.2-15.2) % Plt Count 574 H (140-440) K/mm3 Seg Neuts % (Manual) (40.0-70.0) % Lymphocytes % (Manual) 1.0 L (13.4-35.0) % Monocytes % (Manual) 10.0 H (0.0-7.3) % Seg Neutrophils # Man 8.6 H (1.8-7.7) K/mm3 Lymphocytes # (Manual) 0.1 L (1.2-5.4) K/mm3 Monocytes # (Manual) 1.3 H (0.0-0.8) K/mm3 PT (12.2-14.9) Sec. INR (0.87-1.13) Sodium 128 L (137-145) mmol/L Potassium 5.4 H (3.6-5.0) mmol/L Chloride 83.2 L (98-107) mmol/L Carbon Dioxide 19 L (22-30) mmol/L BUN 157 H (7-17) mg/dL Creatinine 8.6 H (0.7-1.2) mg/dL Glucose 162 H (65-100) mg/dL POC Glucose 161 H (70-105) Lactic Acid (0.7-2.0) mmol/L Calcium 6.5 L (8.4-10.2) mg/dL Magnesium (1.7-2.3) mg/dL Alkaline Phosphatase (35-129) units/L Troponin T (0.00-0.029) ng/mL Albumin (3.9-5) g/dL Urine WBC (Auto) (0.0-6.0) /HPF Urine Creatinine (0.1-20.0) mg/dL Urine Chloride (110-250) mmolL 04/08/19 04/08/19 04/08/19 Range/Units 05:00 07:30 07:30 WBC (4.5-11.0) K/mm3 MCV (79-97) fl MCH (28-32) pg RDW (13.2-15.2) % Plt Count (140-440) K/mm3 Seg Neuts % (Manual) (40.0-70.0) % Lymphocytes % (Manual) (13.4-35.0) % Monocytes % (Manual) (0.0-7.3) % Seg Neutrophils # Man (1.8-7.7) K/mm3 Lymphocytes # (Manual) (1.2-5.4) K/mm3 Monocytes # (Manual) (0.0-0.8) K/mm3 PT (12.2-14.9) Sec. INR (0.87-1.13) Sodium 129 L (137-145) mmol/L Potassium 5.4 H (3.6-5.0) mmol/L Chloride 84.2 L (98-107) mmol/L Carbon Dioxide 20 L (22-30) mmol/L BUN 147 H (7-17) mg/dL Creatinine 7.8 H (0.7-1.2) mg/dL Glucose 154 H (65-100) mg/dL POC Glucose (70-105) Lactic Acid 2.90 H* (0.7-2.0) mmol/L Calcium 6.6 L (8.4-10.2) mg/dL Magnesium (1.7-2.3) mg/dL Alkaline Phosphatase (35-129) units/L Troponin T 0.031 H (0.00-0.029) ng/mL Albumin (3.9-5) g/dL Urine WBC (Auto) (0.0-6.0) /HPF Urine Creatinine (0.1-20.0) mg/dL Urine Chloride (110-250) mmolL 04/08/19 04/08/19 04/08/19 Range/Units 10:35 10:35 10:35 WBC (4.5-11.0) K/mm3 MCV (79-97) fl MCH (28-32) pg RDW (13.2-15.2) % Plt Count (140-440) K/mm3 Seg Neuts % (Manual) (40.0-70.0) % Lymphocytes % (Manual) (13.4-35.0) % Monocytes % (Manual) (0.0-7.3) % Seg Neutrophils # Man (1.8-7.7) K/mm3 Lymphocytes # (Manual) (1.2-5.4) K/mm3 Monocytes # (Manual) (0.0-0.8) K/mm3 PT (12.2-14.9) Sec. INR (0.87-1.13) Sodium (137-145) mmol/L Potassium (3.6-5.0) mmol/L Chloride (98-107) mmol/L Carbon Dioxide (22-30) mmol/L BUN (7-17) mg/dL Creatinine (0.7-1.2) mg/dL Glucose (65-100) mg/dL POC Glucose (70-105) Lactic Acid (0.7-2.0) mmol/L Calcium (8.4-10.2) mg/dL Magnesium (1.7-2.3) mg/dL Alkaline Phosphatase (35-129) units/L Troponin T (0.00-0.029) ng/mL Albumin (3.9-5) g/dL Urine WBC (Auto) 10.0 H (0.0-6.0) /HPF Urine Creatinine 106.1 H 106.1 H (0.1-20.0) mg/dL Urine Chloride 19.2 L (110-250) mmolL 04/08/19 Range/Units 11:44 WBC (4.5-11.0) K/mm3 MCV (79-97) fl MCH (28-32) pg RDW (13.2-15.2) % Plt Count (140-440) K/mm3 Seg Neuts % (Manual) (40.0-70.0) % Lymphocytes % (Manual) (13.4-35.0) % Monocytes % (Manual) (0.0-7.3) % Seg Neutrophils # Man (1.8-7.7) K/mm3 Lymphocytes # (Manual) (1.2-5.4) K/mm3 Monocytes # (Manual) (0.0-0.8) K/mm3 PT (12.2-14.9) Sec. INR (0.87-1.13) Sodium 129 L (137-145) mmol/L Potassium (3.6-5.0) mmol/L Chloride 89.0 L (98-107) mmol/L Carbon Dioxide 16 L (22-30) mmol/L BUN (7-17) mg/dL Creatinine 7.0 H (0.7-1.2) mg/dL Glucose 159 H (65-100) mg/dL POC Glucose (70-105) Lactic Acid (0.7-2.0) mmol/L Calcium 6.7 L (8.4-10.2) mg/dL Magnesium (1.7-2.3) mg/dL Alkaline Phosphatase (35-129) units/L Troponin T (0.00-0.029) ng/mL Albumin (3.9-5) g/dL Urine WBC (Auto) (0.0-6.0) /HPF Urine Creatinine (0.1-20.0) mg/dL Urine Chloride (110-250) mmolL Assessment and Plan Cultures: none Assessment: 63 y/o female with no past medical history recently admitted to [facility] from 03/04/2019-11/26/2018 due to nausea, weight loss, abdominal pain found to have small bowel obstruction s/p exploratory laparotomy, diverting loop ileostomy, omental biopsies on 03/08/2019, findings were a large firm right lower quadrant mass, pathology report - metastatic moderately differentiated adenocarcinoma consistent with colorectal primary, advanced stage 4 with mets in the liver and lungs; readmitted on 04/08/2019 due to 3-day history of dizziness upon standing, generalized weakness, decreased po intake secondary to a poor appetite, worsening abdominal pain associated with nausea, vomiting and ? fecal matter with vomiting and 30L weight loss: 1) Severe sepsis with septic +/- hypovolemic shock: Present on admission, manifested by hypotension, tachycardia, leukocytosis, bandemia, increased lactate requiring pressors, currently on levophed and vasopressin. Etiology most likely bowel perforation. 2) Acute bowel perforation/peritonitis: in an patient with stage 4 metastatic colon cancer with metastasis to liver and lungs. CT abdomen shows bowel perforation with air and fluid within the abdomen, site of perforation is not clearly. 3) RUSS/hyperkalemia: Creat 10.9. K 6.4. renally adjusted all meds. 4) Hyponatremia: Na 114 5) Penicillin allergy: unclear reaction Recommendations: - stat blood culture x 2 sets - continue aztreonam, fluconazole and vancomycin renally adjusted - continue metronidazole IV - patient is not a surgical candidate, this represents a grim prognosis, please prepare patient for the worst/psych eval/hospice. Will follow. Dr Lee roundtrey tomorrow. Stella Montanez MD Infectious Diseases Collections Attorney [facility] M [phone] O [phone]
[2019-04-08] MEDS: ATIVAN IV PRN (13:30)
[2019-04-08 16:41] LABS: Calcium 6.6 mg/dL (8.4-10.2)
[2019-04-08 20:44] LABS: Calcium 6.6 mg/dL (8.4-10.2)
[2019-04-09] MEDS: LEVOPHED DRIP 4 MG/NS 250 ML 4 MG/250 ML BAG IV SCH ×2 (00:03→03:48)
[2019-04-09] MEDS: AZACTAM/NS 1 GM/50 ML 1 GM/50 ML VIAL IV SCH ×2 (00:58→11:48)
[2019-04-09] MEDS: NACL 0.9% 1000 ML 1,000 ML IV SCH ×4 (00:58→17:49)
[2019-04-09] MEDS: ATIVAN IV PRN ×2 (01:55→10:14)
--- NOTE | 2019-04-09 08:01 | Progress Note ---
Assessment and Plan - Patient Problems (1) Acute renal failure Current Visit: Yes Status: Acute Plan to address problem: This is likely acute renal injury in the setting of severe prerenal state. We will continue her on IV fluids with NS @200 mL/hour at this time. Elena placed for strict I's and O's. No acute indications for replacement therapy at this time. We'll continue to monitor. Pending likely transfer to hospice. We'll continue conservative management of this time. (2) Metabolic acidosis Current Visit: Yes Status: Acute Plan to address problem: Levels are stable at this time, we'll continue to monitor. (3) Hyperkalemia Current Visit: Yes Status: Acute Plan to address problem: Potassium levels improving at this time. We'll continue with IV fluid hydration to increase distal sodium delivery. As patient continues to urinate her cleara nce and potassium secretion will also increase as well. We'll closely monitor at this time. No acute changes on telemetry. (4) Hyponatremia Current Visit: Yes Status: Acute Plan to address problem: Likely in the setting of hypovolemic state. It is correcting with appropriate fluid hydration. We'll continue normal saline at 200 mL an hour. We'll continue to monitor closely. (5) Bowel perforation Current Visit: Yes Status: Acute Plan to address problem: Patient deemed not to be a good surgical candidate. Conservative management at this time. Patient is on broad-spectrum antibiotics per ID evaluation. (6) Sepsis Current Visit: No Status: Acute Qualifiers: Sepsis type: sepsis due to unspecified organism Qualified Code(s): A41.9 - Sepsis, unspecified organism Plan to address problem: Patient on broad-spectrum antibiotics. Please ensure that antibiotics are dosed appropriately for her decreased renal function. Sepsis workup under way. Pending cultures at this time. Subjective Date of service: 04/09/19 Interval history: No acute changes overnight. Inpatient hospice consult noted. Apparently patient has been accepted in hospice. Pending weaning off of her pressor support at this time. She remains on Levothroid and vasopressin. Normal saline is running at 200 mL per hour. Renal function is slowly improving with the appropriate IV fluid hydration ,maintenance of hemodynamics. Patient is on broad-spectrum antibiotics at this time. ID evaluation noted. Objective - Vital Signs Vital signs: Vital Signs - 12hr 04/08/19 04/08/19 04/08/19 20:00 20:01 20:15 Temperature 97.3 F L Pulse Rate 120 H 121 H Pulse Rate [ Throughout] Respiratory 41 H 42 H Rate Respiratory Rate [Abdomen] Respiratory Rate [ Throughout] Blood Pressure 94/57 110/68 O2 Sat by Pulse 97 95 Oximetry 04/08/19 04/08/19 04/08/19 20:22 20:27 20:31 Temperature Pulse Rate 122 H Pulse Rate [ 122 H 122 H Throughout] Respiratory 32 H Rate Respiratory Rate [Abdomen] Respiratory 39 H 36 H Rate [ Throughout] Blood Pressure 116/48 O2 Sat by Pulse 100 Oximetry 04/08/19 04/08/19 04/08/19 20:45 21:00 21:16 Temperature Pulse Rate 123 H 122 H 128 H Pulse Rate [ Throughout] Respiratory 43 H 36 H 37 H Rate Respiratory Rate [Abdomen] Respiratory Rate [ Throughout] Blood Pressure 119/53 113/61 113/61 O2 Sat by Pulse 96 91 87 Oximetry 04/08/19 04/08/19 04/08/19 21:30 21:46 22:00 Temperature Pulse Rate 127 H 126 H 127 H Pulse Rate [ Throughout] Respiratory 32 H 45 H 42 H Rate Respiratory 25 H Rate [Abdomen] Respiratory Rate [ Throughout] Blood Pressure 110/33 73/45 117/60 O2 Sat by Pulse 98 97 87 Oximetry 04/08/19 04/08/19 04/08/19 22:15 22:30 22:46 Temperature Pulse Rate 125 H 125 H 127 H Pulse Rate [ Throughout] Respiratory 37 H 40 H 39 H Rate Respiratory Rate [Abdomen] Respiratory Rate [ Throughout] Blood Pressure 123/54 123/54 120/57 O2 Sat by Pulse 89 97 99 Oximetry 04/08/19 04/08/19 04/08/19 23:00 23:02 23:16 Temperature Pulse Rate 127 H 126 H 127 H Pulse Rate [ Throughout] Respiratory 42 H 42 H 43 H Rate Respiratory Rate [Abdomen] Respiratory Rate [ Throughout] Blood Pressure 120/57 116/59 120/57 O2 Sat by Pulse 94 95 Oximetry 04/08/19 04/08/19 04/08/19 23:19 23:30 23:46 Temperature Pulse Rate 126 H 127 H 126 H Pulse Rate [ Throughout] Respiratory 44 H 44 H 42 H Rate Respiratory Rate [Abdomen] Respiratory Rate [ Throughout] Blood Pressure 78/54 117/60 97/57 O2 Sat by Pulse 92 92 88 Oximetry 04/09/19 04/09/19 04/09/19 00:00 00:16 00:30 Temperature 97.8 F Pulse Rate 126 H 126 H 125 H Pulse Rate [ Throughout] Respiratory 43 H 42 H 43 H Rate Respiratory Rate [Abdomen] Respiratory Rate [ Throughout] Blood Pressure 89/65 120/48 120/48 O2 Sat by Pulse 95 89 95 Oximetry 04/09/19 04/09/19 04/09/19 00:45 01:00 01:15 Temperature Pulse Rate 124 H 127 H 125 H Pulse Rate [ Throughout] Respiratory 38 H 41 H 35 H Rate Respiratory Rate [Abdomen] Respiratory Rate [ Throughout] Blood Pressure 108/47 108/47 123/73 O2 Sat by Pulse 96 95 90 Oximetry 04/09/19 04/09/19 04/09/19 01:30 01:46 02:00 Temperature Pulse Rate 125 H 122 H 122 H Pulse Rate [ Throughout] Respiratory 42 H 42 H 44 H Rate Respiratory Rate [Abdomen] Respiratory Rate [ Throughout] Blood Pressure 123/73 103/50 103/50 O2 Sat by Pulse 93 92 93 Oximetry 04/09/19 04/09/19 04/09/19 02:15 02:30 02:45 Temperature Pulse Rate 123 H 122 H 121 H Pulse Rate [ Throughout] Respiratory 41 H 44 H 44 H Rate Respiratory Rate [Abdomen] Respiratory Rate [ Throughout] Blood Pressure 104/63 119/53 110/47 O2 Sat by Pulse 93 94 94 Oximetry 04/09/19 04/09/19 04/09/19 03:00 03:15 03:30 Temperature Pulse Rate 122 H 121 H 120 H Pulse Rate [ Throughout] Respiratory 41 H 36 H 40 H Rate Respiratory Rate [Abdomen] Respiratory Rate [ Throughout] Blood Pressure 100/53 104/61 100/66 O2 Sat by Pulse 95 95 Oximetry 04/09/19 04/09/19 04/09/19 03:45 03:50 04:00 Temperature 98.9 F Pulse Rate 118 H 119 H Pulse Rate [ Throughout] Respiratory 39 H 38 H Rate Respiratory Rate [Abdomen] Respiratory Rate [ Throughout] Blood Pressure 100/63 110/62 O2 Sat by Pulse 95 Oximetry 04/09/19 04/09/19 04/09/19 04:15 04:30 04:45 Temperature Pulse Rate 120 H 121 H 119 H Pulse Rate [ Throughout] Respiratory 43 H 37 H 33 H Rate Respiratory Rate [Abdomen] Respiratory Rate [ Throughout] Blood Pressure 105/63 98/63 106/47 O2 Sat by Pulse 97 93 95 Oximetry 04/09/19 04/09/19 04/09/19 05:00 05:15 05:30 Temperature Pulse Rate 120 H 124 H 121 H Pulse Rate [ Throughout] Respiratory 42 H 38 H 42 H Rate Respiratory Rate [Abdomen] Respiratory Rate [ Throughout] Blood Pressure 113/64 109/62 114/60 O2 Sat by Pulse 95 94 94 Oximetry 04/09/19 04/09/19 04/09/19 05:45 06:00 06:15 Temperature Pulse Rate 120 H 123 H 120 H Pulse Rate [ Throughout] Respiratory 41 H 39 H 43 H Rate Respiratory Rate [Abdomen] Respiratory Rate [ Throughout] Blood Pressure 112/59 112/59 120/60 O2 Sat by Pulse 94 94 94 Oximetry 04/09/19 04/09/19 04/09/19 06:30 06:45 07:00 Temperature Pulse Rate 123 H 125 H 120 H Pulse Rate [ Throughout] Respiratory 43 H 37 H 40 H Rate Respiratory Rate [Abdomen] Respiratory Rate [ Throughout] Blood Pressure 120/60 103/61 98/61 O2 Sat by Pulse 94 94 Oximetry - General Appearance General appearance: cachectic, chronically ill, frail EENT: ATNC Neck: no JVD, no thyromegaly Respiratory: Present: Clear to Ascultation Cardiology: regular, S1S2 Gastrointestinal: normal Integumentary: no rash, warm and dry Neurologic: no focal deficit Psychiatric: cooperative - Lab 04/08/19 05:00 04/08/19 20:00 Most recent lab results Calcium 6.6 mg/dL (8.4-10.2) L 04/08/19 20:00 Magnesium 1.50 mg/dL (1.7-2.3) L 04/07/19 19:00 106.1 mg/dL (0.1-20.0) H 04/08/19 10:35 106.1 mg/dL (0.1-20.0) H 04/08/19 10:35 24 mmol/L 04/08/19 10:35 24 mmol/L 04/08/19 10:35 - Allied health notes Allied health notes reviewed: nursing Medications & Allergies - Medications Allergies/Adverse Reactions: Allergies Penicillins Allergy (Verified 03/04/19 08:51) Itching Home Medications: Home Medications Medication Instructions Recorded Confirmed Last Taken Type ALBUTEROL Inhaler (OR & NICU) 2 puff IH QID PRN #1 inhalation 11/24/18 03/04/19 Unknown Rx [ProAir HFA Inhaler] Amitriptyline 10 mg PO HS 03/08/19 03/08/19 Unknown History Mirtazapine 45 mg PO HS 03/08/19 03/08/19 Unknown History RisperiDONE 1 mg HS 03/08/19 03/08/19 03/03/19 History HYDROcodone/APAP 5-325 [Kimberly 2 each PO Q6H PRN #30 tablet 03/25/19 Unknown Rx 5-325 mg TAB] Morphine ER [Ms Contin ER] 15 mg PO Q12HR #30 tablet 03/25/19 Unknown Rx hydrOXYzine HCL [Atarax] 25 mg PO Q6HR PRN #20 tablet 03/27/19 Unknown Rx Active Medications: Generic Name Dose Route Start Last Admin Trade Name Erwin PRN Reason Stop Dose Admin Albuterol 2.5 mg 04/08/19 09:00 04/08/19 20:22 Proventil IH 2.5 mg TIDRT AUDREY Administration Dextrose 50 ml 04/07/19 23:37 D50w (25gm) Syringe IV PRN PRN Hypoglycemia Enoxaparin Sodium 30 mg 04/08/19 10:00 04/08/19 09:39 Lovenox SUB-Q 30 mg QDAY AUDREY Administration Norepinephrine 4 mg in 250 mls @ 7.5 mls/hr 04/07/19 20:00 04/09/19 07:51 Levophed Drip 4 Mg/Ns 250 Ml IV 6 mcg/min TITR AUDREY 22.5 mls/hr Titration Protocol 2 MCG/MIN Aztreonam 1 gm in 50 mls @ 50 mls/hr 04/08/19 00:00 04/09/19 00:58 Azactam/Ns 1 Gm/50 Ml IV 50 mls/hr Q12H AUDREY Administration Vasopressin 20 unit/ Sodium 101 mls @ 9.09 mls/hr 04/07/19 23:45 04/08/19 21:03 Chloride IV 0.03 units/min TITR AUDREY 9.09 mls/hr Administration Protocol 0.03 UNITS/MIN Sodium Chloride 1,000 mls @ 200 mls/hr 04/08/19 01:00 04/09/19 07:00 Nacl 0.9% 1000 Ml IV 200 mls/hr DIRECT AUDREY Administration Lorazepam 0.5 mg 04/08/19 13:14 04/09/19 01:55 Ativan IV 0.5 mg Q4H PRN Administration Anxiety Morphine Sulfate 2 mg 04/08/19 08:00 04/08/19 19:45 Morphine IV 2 mg Q4H PRN Administration Pain, Moderate (4-6) Ondansetron HCl 4 mg 04/07/19 23:30 Zofran IV Q4H PRN Nausea And Vomiting Sodium Chloride 10 ml 04/08/19 10:00 04/08/19 22:04 Sodium Chloride Flush Syringe 10 Ml IV 10 ml BID AUDREY Administration Sodium Chloride 10 ml 04/07/19 23:30 Sodium Chloride Flush Syringe 10 Ml IV PRN PRN LINE FLUSH
[2019-04-09] MEDS: PROVENTIL IH SCH ×3 (08:54→20:16)
[2019-04-09] MEDS: SODIUM CHLORIDE FLUSH SYRINGE 10 ML IV SCH (09:30)
[2019-04-09] MEDS: MORPHINE IV PRN ×2 (09:30→17:49)
[2019-04-09] MEDS: LOVENOX SUB-Q SCH (09:31)
--- NOTE | 2019-04-09 10:51 | Progress Note ---
Assessment and Plan Assessment and plan: Patient is a 63 yo woman with a history of metastatic colon cancer who presented to ED with dizziness, n/v of fecal matter and acute on chronic abdominal pains. Patien was recently admitted/discharge from [facility] on 03/04/2019-03/26/2019 due to nausea, weight loss and abdominal pain; she was found to have small bowel obstruction s/p exploratory laparotomy, diverting loop ileostomy, omental biopsies on 03/08/2019, pathology reported - metastatic moderately differentiated adenocarcinoma consistent with colorectal primary, advanced stage 4 with mets in the liver and lungs. * CT abd/pelvis without contrast IMPRESSION: 1. Bowel perforation with air and fluid within the abdomen in this patient with reported metastatic colon cancer. The site of perforation is not clearly identified given limited noncontrast technique, but prime consideration would be from what appears to be a cecal mass. 2. Probable metastatic disease within the lung bases and the liver. Critical result discovered at 2140 hours and called to Dr. Juares at 2143 hours on 04/07/2019. Metastatic colon cancer to liver and lung causing perforated viscus and this acute illness: supportive care, poor prognosis, except her to not me it. 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 Patient is a/o x 3. poor prognosis, Inpatient Hospice has accepted but waiting on Cristel to be notified per patient. Sister contacted by case management and appears to be in agreement with Hospice. Levophed down to 4mcg and Vasopressin at 1 CCT 33 minutes History Interval history: Patient was seen and examined. Follow-up on current diagnosis of bowel perforation. No overnight events reported to me. Patient denies any chest pain, shortness breath, nausea/vomiting or severe headaches. Imaging, nursing note, chart, labs and old chart reviewed. Discussed with patient. Hospitalist Physical - Physical exam Narrative exam: Gen: cachetic, ill appearing awake alert orientated x 3 HEENT: NCAT, EOMI, PERRL, OP Clear Neck: supple, no adenopathy, no thyromegaly, no JVD CVS/Heart: Regular tachy normal S1S2, pulses present bilaterally Chest/Lungs: Symmetrical chest expansion, good air entry bilaterally GI/Abdomen: colostomy in place with a rubber tube through the bowel in the orifice of the ostomy, soft, distended poor bowel sounds, diffusely tender /Bladder: no suprapubic tenderness, no CVA or paraspinal tenderness Extermity/Skin: no c/c/e, no obvious rash MSK: FROM x 4 Neuro: CN 2-12 grossly intact, no new focal deficits Psych: anxious - Constitutional Vitals: Temp Pulse Resp BP Pulse Ox 98.2 F 119 H 46 H 93/63 93 04/09/19 08:00 04/09/19 10:00 04/09/19 10:00 04/09/19 10:00 04/09/19 10:00 Results - Labs CBC & Chem 7: 04/08/19 05:00 04/08/19 20:00 Labs: Laboratory Last Values WBC 13.2 K/mm3 (4.5-11.0) H 04/08/19 05:00 RBC 4.22 M/mm3 (3.65-5.03) 04/08/19 05:00 Hgb 10.4 gm/dl (10.1-14.3) 04/08/19 05:00 Hct 30.5 % (30.3-42.9) 04/08/19 05:00 MCV 73 fl (79-97) L 04/08/19 05:00 MCH 25 pg (28-32) L 04/08/19 05:00 MCHC 34 % (30-34) 04/08/19 05:00 RDW 30.5 % (13.2-15.2) H 04/08/19 05:00 Plt Count 574 K/mm3 (140-440) H 04/08/19 05:00 Add Manual Diff Complete 04/08/19 05:00 Total Counted 100 04/08/19 05:00 Seg Neutrophils % Salt Manager 04/07/19 Unknown Seg Neuts % (Manual) 65.0 % (40.0-70.0) 04/08/19 05:00 24.0 % 04/08/19 05:00 1.0 % (13.4-35.0) L 04/08/19 05:00 Reactive Lymphs % (Man) 0 % 04/08/19 05:00 10.0 % (0.0-7.3) H 04/08/19 05:00 0 % (0.0-4.3) 04/08/19 05:00 0 % (0.0-1.8) 04/08/19 05:00 0 % 04/08/19 05:00 0 % 04/08/19 05:00 0 % 04/08/19 05:00 0 % 04/08/19 05:00 Nucleated RBC % Not Reportable 04/08/19 05:00 Seg Neutrophils # Man 8.6 K/mm3 (1.8-7.7) H 04/08/19 05:00 Band Neutrophils # 3.2 K/mm3 04/08/19 05:00 0.1 K/mm3 (1.2-5.4) L 04/08/19 05:00 Abs React Lymphs (Man) 0.0 K/mm3 04/08/19 05:00 1.3 K/mm3 (0.0-0.8) H 04/08/19 05:00 0.0 K/mm3 (0.0-0.4) 04/08/19 05:00 0.0 K/mm3 (0.0-0.1) 04/08/19 05:00 0.0 K/mm3 04/08/19 05:00 0.0 K/mm3 04/08/19 05:00 0.0 K/mm3 04/08/19 05:00 Blast Cells # 0.0 K/mm3 04/08/19 05:00 WBC Morphology Not Reportable 04/08/19 05:00 Hypersegmented Neuts Not Reportable 04/08/19 05:00 Hyposegmented Neuts Not Reportable 04/08/19 05:00 Hypogranular Neuts Not Reportable 04/08/19 05:00 Not Reportable 04/08/19 05:00 Not Reportable 04/08/19 05:00 Not Reportable 04/08/19 05:00 Not Reportable 04/08/19 05:00 Not Reportable 04/08/19 05:00 Not Reportable 04/08/19 05:00 Consistent w auto 04/08/19 05:00 Rare 04/08/19 05:00 Plt Clumps, EDTA Not Reportable 04/08/19 05:00 Not Reportable 04/08/19 05:00 Not Reportable 04/08/19 05:00 Not Reportable 04/08/19 05:00 Plt Morphology Comment Not Reportable 04/08/19 05:00 RBC Morphology Not Reportable 04/08/19 05:00 Dimorphic RBCs Not Reportable 04/08/19 05:00 Not Reportable 04/08/19 05:00 1+ 04/08/19 05:00 1+ 04/08/19 05:00 2+ 04/08/19 05:00 Not Reportable 04/08/19 05:00 Not Reportable 04/08/19 05:00 Not Reportable 04/08/19 05:00 Not Reportable 04/08/19 05:00 Not Reportable 04/08/19 05:00 Not Reportable 04/08/19 05:00 Not Reportable 04/08/19 05:00 Not Reportable 04/08/19 05:00 Not Reportable 04/08/19 05:00 Not Reportable 04/08/19 05:00 Not Reportable 04/08/19 05:00 Not Reportable 04/08/19 05:00 Not Reportable 04/08/19 05:00 Not Reportable 04/08/19 05:00 Not Reportable 04/08/19 05:00 Acanthocytes (Spur) Not Reportable 04/08/19 05:00 Rouleaux Not Reportable 04/08/19 05:00 Not Reportable 04/08/19 05:00 Not Reportable 04/08/19 05:00 Not Reportable 04/08/19 05:00 Not Reportable 04/08/19 05:00 Hem Pathologist Commnt No 04/08/19 05:00 PT 15.6 Sec. (12.2-14.9) H 04/07/19 Unknown INR 1.27 (0.87-1.13) H 04/07/19 Unknown APTT 35.4 Sec. (24.2-36.6) 04/07/19 Unknown Sodium 133 mmol/L (137-145) L 04/08/19 20:00 Potassium 4.5 mmol/L (3.6-5.0) 04/08/19 20:00 Chloride 94.4 mmol/L (98-107) L 04/08/19 20:00 Carbon Dioxide 15 mmol/L (22-30) L 04/08/19 20:00 28 mmol/L 04/08/19 20:00 BUN 132 mg/dL (7-17) H 04/08/19 20:00 5.6 mg/dL (0.7-1.2) H 04/08/19 20:00 Estimated GFR 9 ml/min 04/08/19 20:00 24 % 04/08/19 20:00 Glucose 155 mg/dL (65-100) H 04/08/19 20:00 POC Glucose 176 (70-105) H 04/08/19 22:59 Lactic Acid 2.90 mmol/L (0.7-2.0) H* 04/08/19 07:30 Calcium 6.6 mg/dL (8.4-10.2) L 04/08/19 20:00 Magnesium 1.50 mg/dL (1.7-2.3) L 04/07/19 19:00 0.20 mg/dL (0.1-1.2) 04/07/19 Unknown AST 11 units/L (5-40) 04/07/19 Unknown ALT 8 units/L (7-56) 04/07/19 Unknown 131 units/L (35-129) H 04/07/19 Unknown 54.0 umol/L (25-60) 04/07/19 Unknown 74 units/L (30-135) 04/08/19 05:00 CK-MB (CK-2) 1.5 ng/mL (0.0-4.0) 04/08/19 05:00 CK-MB (CK-2) Rel Index 2.0 (0-4) 04/08/19 05:00 0.031 ng/mL (0.00-0.029) H 04/08/19 05:00 8.2 g/dL (6.3-8.2) 04/07/19 Unknown 3.8 g/dL (3.9-5) L 04/07/19 Unknown 0.9 % 04/07/19 Unknown Triglycerides 76 mg/dL (2-149) 04/08/19 01:30 Cholesterol 147 mg/dL (50-199) 04/08/19 01:30 89 mg/dL (50-130) 04/08/19 01:30 56 mg/dL (40-59) 04/08/19 01:30 2.62 % 04/08/19 01:30 45 units/L (13-60) 04/07/19 Unknown TSH 1.700 mlU/mL (0.270-4.200) 04/07/19 Unknown Free T4 1.37 ng/dL (0.76-1.46) 04/07/19 Unknown Yellow (Yellow) 04/08/19 10:35 Clear (Clear) 04/08/19 10:35 5.0 (5.0-7.0) 04/08/19 10:35 Ur Specific [place] 1.014 (1.003-1.030) 04/08/19 10:35 30 mg/dl mg/dL (Negative) 04/08/19 10:35 50 mg/dL (Negative) 04/08/19 10:35 Neg mg/dL (Negative) 04/08/19 10:35 Neg (Negative) 04/08/19 10:35 Neg (Negative) 04/08/19 10:35 Neg (Negative) 04/08/19 10:35 < 2.0 mg/dL (<2.0) 04/08/19 10:35 Ur Leukocyte Esterase Neg (Negative) 04/08/19 10:35 10.0 /HPF (0.0-6.0) H 04/08/19 10:35 1.0 /HPF (0.0-6.0) 04/08/19 10:35 U Epithel Cells (Auto) < 1.0 /HPF (0-13.0) 04/08/19 10:35 390 Mosm/kg 04/08/19 10:35 106.1 mg/dL (0.1-20.0) H 04/08/19 10:35 106.1 mg/dL (0.1-20.0) H 04/08/19 10:35 24 mmol/L 04/08/19 10:35 24 mmol/L 04/08/19 10:35 19.2 mmolL (110-250) L 04/08/19 10:35 Plasma/Serum Alcohol < 0.01 % (0-0.07) 04/07/19 Unknown Active Medications - Current Medications Current Medications: Generic Name Dose Route Start Last Admin Trade Name Freq PRN Reason Stop Dose Admin Albuterol 2.5 mg 04/08/19 09:00 04/09/19 08:54 Proventil IH 2.5 mg TIDRT AUDREY Administration Dextrose 50 ml 04/07/19 23:37 D50w (25gm) Syringe IV PRN PRN Hypoglycemia Enoxaparin Sodium 30 mg 04/08/19 10:00 04/09/19 09:31 Lovenox SUB-Q 30 mg QDAY AUDREY Administration Norepinephrine 4 mg in 250 mls @ 7.5 mls/hr 04/07/19 20:00 04/09/19 09:00 Levophed Drip 4 Mg/Ns 250 Ml IV 0 mcg/min TITR AUDREY 0 mls/hr Titration Protocol 2 MCG/MIN Aztreonam 1 gm in 50 mls @ 50 mls/hr 04/08/19 00:00 04/09/19 00:58 Azactam/Ns 1 Gm/50 Ml IV 50 mls/hr Q12H AUDREY Administration Vasopressin 20 unit/ Sodium 101 mls @ 9.09 mls/hr 04/07/19 23:45 04/09/19 09:31 Chloride IV Infused TITR AUDREY Titration Protocol 0.03 UNITS/MIN Sodium Chloride 1,000 mls @ 200 mls/hr 04/08/19 01:00 04/09/19 07:00 Nacl 0.9% 1000 Ml IV 200 mls/hr DIRECT AUDREY Administration Lorazepam 0.5 mg 04/08/19 13:14 04/09/19 10:14 Ativan IV 0.5 mg Q4H PRN Administration Anxiety Morphine Sulfate 2 mg 04/08/19 08:00 04/09/19 09:30 Morphine IV 2 mg Q4H PRN Administration Pain, Moderate (4-6) Ondansetron HCl 4 mg 04/07/19 23:30 Zofran IV Q4H PRN Nausea And Vomiting Sodium Chloride 10 ml 04/08/19 10:00 04/09/19 09:30 Sodium Chloride Flush Syringe 10 Ml IV 10 ml BID AUDREY Administration Sodium Chloride 10 ml 04/07/19 23:30 Sodium Chloride Flush Syringe 10 Ml IV PRN PRN LINE FLUSH Nutrition/Malnutrition Assess - Dietary Evaluation Nutrition/Malnutrition Findings: Nutrition Notes Start: 04/08/19 12:54 Freq: Status: Active Protocol: Document 04/08/19 12:55 RM (Rec: 04/08/19 13:10 RM [id number]) Nutrition Notes Need for Assessment generated from: MST Initial or Follow up Assessment Current Diagnosis Acute Kidney Injury Other Pertinent Diagnosis Hx metastatic colon CA, Septic shock, Perforated viscus, vomiting fecal mat Current Diet NPO Labs/Tests Reviewed Pertinent Medications Levophed, Vasopressin Height 5 ft 2 in Weight 45.359 kg Usual Body Weight 62.73 kg Bow Body Weight (kg) 50.00 BMI 18.3 Weight change and time frame 27.7% wt loss X 1 year Subjective/Other Information Screened for malnutrition. 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 Stated that she was not able to keep down food and only sometimes liquids. Stated UBW was 138 lbs 1 year ago. Noted slight temporal wasting. Percent of energy/protein needs met: 0%/0% Burn Absent Trauma Absent Minimum of two criteria Yes Energy Intake (non-severe) <75% Estimated Energy Requirement >7 days Interpretation of Weight Loss (severe) > 20% in 1 year Muscle Mass Mild Depletion (non-severe) #1 Nutrition Diagnosis Malnutrition Etiology perforated viscus, N/V As Evidenced by Signs and Symptoms 27.7% wt loss X 1 year, temporal wasting, pt statement that she was not able to keep down food and only sometimes liquids d/t N/V X 9 weeks Is patient on ventilator? No Is Patient Ambulatory and/or Out of Bed No REE-([facility]-confined to bed) 1147.908 Kcal/Kg value to use for calculation 32 Approximate Energy Requirements Using 1451 kcal/Kg Calculation Used for Recommendations Kcal/kg Additional Notes Protein 54-91g (1.2-2g/kg) Fluid Needs: 1 ml/kcal Nutrition Intervention Change Diet Order: Advance diet when medically able or consider TPN if pt diet not advanced by next visit Add Supplement/Snack (indicate name/kcal Ensure Clear 1 daily once diet /protein ) advanced Provides kCal: 240 Provides Protein (gm) 8 Goal #1 Diet advancement Anticipated Discharge Needs: Unable to determine at this time Follow-Up By: 04/10/19 Additional Comments Follow for diet advancement, PO and ONS intakes
--- NOTE | 2019-04-09 11:15 | Progress Note ---
Assessment and Plan Cultures: 04/08/2019 Blood culture: in process 04/08/2019 Urine culture: no growth Assessment: 63 y/o female with no past medical history recently admitted to [facility] from 03/04/2019-11/26/2018 due to nausea, weight loss, abdominal pain found to have small bowel obstruction s/p exploratory laparotomy, diverting loop ileostomy, omental biopsies on 03/08/2019, findings were a large firm right lower quadrant mass, pathology report - metastatic moderately differentiated adenocarcinoma consistent with colorectal primary, advanced stage 4 with mets in the liver and lungs; readmitted on 04/08/2019 due to 3-day history of dizziness upon standing, generalized weakness, decreased po intake secondary to a poor appetite, wor sening abdominal pain associated with nausea, vomiting and ? fecal matter with vomiting and 30L weight loss: 1) Severe sepsis with septic shock: Present on admission, manifested by hypotension, tachycardia, leukocytosis, bandemia, increased lactate requiring pressors. Secondary to bowel perforation. 2) Acute bowel perforation/peritonitis: in an patient with stage 4 metastatic colon cancer with metastasis to liver and lungs. CT abdomen shows bowel perforation with air and fluid within the abdomen. Poor prognosis. 3) RUSS/hyperkalemia 4) Hyponatremia: Na 114 5) Penicillin allergy: unclear reaction. Recommendations: - continue empiric abx: aztreonam, Flagyl, fluconazole and IV vancomycin renally adjusted - continue metronidazole IV - agree with eval for hospice Desiree Lee MD, FACP Infectious Diseases Trimming Operator [facility] ([facility]) M [phone] O [phone] Subjective Date of service: 04/09/19 Interval history: No fever. Off pressors, but blood pressure remains labile per RN. Drowsy. Objective - Exam Narrative Exam: Physical Exam: Constitutional: Drowsy. No acute distress Head, Ears, Nose: Normocephalic, atraumatic. External ears, nose normal Eyes: Conjunctivae/corneas clear. No icterus. No ptosis. Neck: Supple, no meningeal signs Cardiovascular: S1, S2 normal. Respiratory: Good air entry, clear to auscultation bilaterally GI: Soft; bowel sounds hypo. Ostomy bag + Musculoskeletal: No pedal edema, no cyanosis. Skin: No rash or abscess Hem/Lymphatic: No palpable cervical or supraclavicular nodes. No lymphangitis Psych: no agitation Neurological: Drowsy. - Constitutional Vitals: Vital Signs Temp Pulse Resp BP Pulse Ox 98.2 F 119 H 46 H 93/63 93 04/09/19 08:00 04/09/19 10:00 04/09/19 10:00 04/09/19 10:00 04/09/19 10:00 Temperature -Last 24 Hours Temperature 98.2 F Temperature 98.9 F Temperature 97.8 F Temperature 97.3 F Temperature 97.9 F Temperature 98.6 F - Labs CBC & Chem 7: 04/08/19 05:00 04/08/19 20:00 Labs: Abnormal lab results 04/08/19 04/08/19 04/08/19 Range/Units 10:35 10:35 10:35 Sodium (137-145) mmol/L Chloride (98-107) mmol/L Carbon Dioxide (22-30) mmol/L BUN (7-17) mg/dL Creatinine (0.7-1.2) mg/dL Glucose (65-100) mg/dL POC Glucose (70-105) Calcium (8.4-10.2) mg/dL Urine WBC (Auto) 10.0 H (0.0-6.0) /HPF Urine Creatinine 106.1 H 106.1 H (0.1-20.0) mg/dL Urine Chloride 19.2 L (110-250) mmolL 04/08/19 04/08/19 04/08/19 Range/Units 11:44 13:08 15:29 Sodium 129 L 130 L (137-145) mmol/L Chloride 89.0 L 91.2 L (98-107) mmol/L Carbon Dioxide 16 L 15 L (22-30) mmol/L BUN 145 H 133 H (7-17) mg/dL Creatinine 7.0 H 6.4 H (0.7-1.2) mg/dL Glucose 159 H 156 H (65-100) mg/dL POC Glucose 163 H (70-105) Calcium 6.7 L 6.6 L (8.4-10.2) mg/dL Urine WBC (Auto) (0.0-6.0) /HPF Urine Creatinine (0.1-20.0) mg/dL Urine Chloride (110-250) mmolL 07/04/2004/08/19 04/08/19 Range/Units 17:36 20:00 22:59 Sodium 133 L (137-145) mmol/L Chloride 94.4 L (98-107) mmol/L Carbon Dioxide 15 L (22-30) mmol/L BUN 132 H (7-17) mg/dL Creatinine 5.6 H (0.7-1.2) mg/dL Glucose 155 H (65-100) mg/dL POC Glucose 177 H 176 H (70-105) Calcium 6.6 L (8.4-10.2) mg/dL Urine WBC (Auto) (0.0-6.0) /HPF Urine Creatinine (0.1-20.0) mg/dL Urine Chloride (110-250) mmolL
--- NOTE | 2019-04-09 13:29 | Progress Note ---
Assessment and Plan Imp: 1. Metastatic colon cancer -> pulmonary nodules 2. Perforated bowel 2/2 above with severe sepsis 3. Hypovolemic/septic shock 4. Volume depletion 5. Hyperkalemia 6. Lactic acidosis 7. RUSS Rec: 1. IVFs per renal 2. ABX per ID recs, and f/u cultures 3. Not a surgical candidate per notes given stage IV colon cancer, see Dr. Castanon's note 4. Tachypnea likely related to acidosis; monitor and provide O2 if needed, and IV opioids PRN 5. Hyperkalemia per renal 6. NPO 7. DVT PPx 8. Dismal prognosis; DNR/DNI is noted; hospice evaluation is ongoing which is appropriate CCT 31 minutes No family present and patient very somnolent Subjective Date of service: 04/09/19 Principal diagnosis: Sepsis Interval history: Currently weaned off pressors, with borderline BP. Very sleepy, arousable, denies pain or SOB. Tachypneic on RA. Active Medications Albuterol (Proventil) 2.5 mg IH TIDRT [facility] Last Admin: 04/09/19 08:54 Dose: 2.5 mg Documented by: Dextrose (D50w (25gm) Syringe) 50 ml IV PRN PRN PRN Reason: Hypoglycemia Enoxaparin Sodium (Lovenox) 30 mg SUB-Q QDAY [facility] Last Admin: 04/09/19 09:31 Dose: 30 mg Documented by: Norepinephrine (Levophed Drip 4 Mg/Ns 250 Ml) 4 mg in 250 mls @ 7.5 mls/hr IV TITR AUDREY; Protocol Last Titration: 04/09/19 09:00 Dose: 0 mcg/min, 0 mls/hr Documented by: Aztreonam (Azactam/Ns 1 Gm/50 Ml) 1 gm in 50 mls @ 50 mls/hr IV Q12H AUDREY Last Admin: 04/09/19 11:48 Dose: 50 mls/hr Documented by: Vasopressin 20 unit/ Sodium (Chloride) 101 mls @ 9.09 mls/hr IV TITR AUDREY; Pro tocol Last Titration: 04/09/19 09:31 Dose: Infused Documented by: Sodium Chloride (Nacl 0.9% 1000 Ml) 1,000 mls @ 200 mls/hr IV DIRECT AUDREY Last Admin: 04/09/19 11:47 Dose: 200 mls/hr Documented by: Lorazepam (Ativan) 0.5 mg IV Q4H PRN PRN Reason: Anxiety Last Admin: 04/09/19 10:14 Dose: 0.5 mg Documented by: Morphine Sulfate (Morphine) 2 mg IV Q4H PRN PRN Reason: Pain, Moderate (4-6) Last Admin: 04/09/19 09:30 Dose: 2 mg Documented by: Ondansetron HCl (Zofran) 4 mg IV Q4H PRN PRN Reason: Nausea And Vomiting Sodium Chloride (Sodium Chloride Flush Syringe 10 Ml) 10 ml IV BID AUDREY Last Admin: 04/09/19 09:30 Dose: 10 ml Documented by: Sodium Chloride (Sodium Chloride Flush Syringe 10 Ml) 10 ml IV PRN PRN PRN Reason: LINE FLUSH Objective Vital Signs - 12hr 04/09/19 04/09/19 04/09/19 01:30 01:46 02:00 Temperature Pulse Rate 125 H 122 H 122 H Pulse Rate [ Throughout] Respiratory 42 H 42 H 44 H Rate Respiratory Rate [ Throughout] Blood Pressure 123/73 103/50 103/50 O2 Sat by Pulse 93 92 93 Oximetry 04/09/19 04/09/19 04/09/19 02:15 02:30 02:45 Temperature Pulse Rate 123 H 122 H 121 H Pulse Rate [ Throughout] Respiratory 41 H 44 H 44 H Rate Respiratory Rate [ Throughout] Blood Pressure 104/63 119/53 110/47 O2 Sat by Pulse 93 94 94 Oximetry 04/09/19 04/09/19 04/09/19 03:00 03:15 03:30 Temperature Pulse Rate 122 H 121 H 120 H Pulse Rate [ Throughout] Respiratory 41 H 36 H 40 H Rate Respiratory Rate [ Throughout] Blood Pressure 100/53 104/61 100/66 O2 Sat by Pulse 95 95 Oximetry 04/09/19 04/09/19 04/09/19 03:45 03:50 04:00 Temperature 98.9 F Pulse Rate 118 H 119 H Pulse Rate [ Throughout] Respiratory 39 H 38 H Rate Respiratory Rate [ Throughout] Blood Pressure 100/63 110/62 O2 Sat by Pulse 95 Oximetry 04/09/19 04/09/19 04/09/19 04:15 04:30 04:45 Temperature Pulse Rate 120 H 121 H 119 H Pulse Rate [ Throughout] Respiratory 43 H 37 H 33 H Rate Respiratory Rate [ Throughout] Blood Pressure 105/63 98/63 106/47 O2 Sat by Pulse 97 93 95 Oximetry 04/09/19 04/09/19 04/09/19 05:00 05:15 05:30 Temperature Pulse Rate 120 H 124 H 121 H Pulse Rate [ Throughout] Respiratory 42 H 38 H 42 H Rate Respiratory Rate [ Throughout] Blood Pressure 113/64 109/62 114/60 O2 Sat by Pulse 95 94 94 Oximetry 04/09/19 04/09/19 04/09/19 05:45 06:00 06:15 Temperature Pulse Rate 120 H 123 H 120 H Pulse Rate [ Throughout] Respiratory 41 H 39 H 43 H Rate Respiratory Rate [ Throughout] Blood Pressure 112/59 112/59 120/60 O2 Sat by Pulse 94 94 94 Oximetry 04/09/19 04/09/19 04/09/19 06:30 06:45 07:00 Temperature Pulse Rate 123 H 125 H 120 H Pulse Rate [ Throughout] Respiratory 43 H 37 H 40 H Rate Respiratory Rate [ Throughout] Blood Pressure 120/60 103/61 98/61 O2 Sat by Pulse 94 94 Oximetry 04/09/19 04/09/19 04/09/19 07:16 07:30 07:45 Temperature Pulse Rate 122 H 121 H 119 H Pulse Rate [ Throughout] Respiratory 44 H 41 H 43 H Rate Respiratory Rate [ Throughout] Blood Pressure 103/61 105/63 111/61 O2 Sat by Pulse 97 95 95 Oximetry 04/09/19 04/09/19 04/09/19 07:57 08:00 08:15 Temperature 98.2 F Pulse Rate 120 H 126 H Pulse Rate [ Throughout] Respiratory 40 H 39 H 44 H Rate Respiratory Rate [ Throughout] Blood Pressure 111/61 118/64 O2 Sat by Pulse 95 94 93 Oximetry 04/09/19 04/09/19 04/09/19 08:30 08:45 08:54 Temperature Pulse Rate 120 H 119 H Pulse Rate [ 118 H Throughout] Respiratory 39 H 37 H Rate Respiratory 40 H Rate [ Throughout] Blood Pressure 106/43 104/53 O2 Sat by Pulse 96 96 Oximetry 04/09/19 04/09/19 04/09/19 09:00 09:04 09:15 Temperature Pulse Rate 124 H 122 H Pulse Rate [ 120 H Throughout] Respiratory 42 H 30 H Rate Respiratory 44 H Rate [ Throughout] Blood Pressure 104/53 97/59 O2 Sat by Pulse 94 92 Oximetry 04/09/19 04/09/19 04/09/19 09:30 09:45 10:00 Temperature Pulse Rate 117 H 117 H 124 H Pulse Rate [ Throughout] Respiratory 31 H 35 H 46 H Rate Respiratory Rate [ Throughout] Blood Pressure 114/54 97/54 93/63 O2 Sat by Pulse 97 95 93 Oximetry 04/09/19 04/09/19 04/09/19 10:15 10:30 10:45 Temperature Pulse Rate 118 H 120 H 119 H Pulse Rate [ Throughout] Respiratory 36 H 37 H 36 H Rate Respiratory Rate [ Throughout] Blood Pressure 102/57 96/51 88/47 O2 Sat by Pulse 95 95 89 Oximetry 04/09/19 04/09/19 04/09/19 11:00 11:15 11:30 Temperature Pulse Rate 120 H 121 H 119 H Pulse Rate [ Throughout] Respiratory 39 H 39 H 38 H Rate Respiratory Rate [ Throughout] Blood Pressure 91/51 99/42 97/46 O2 Sat by Pulse 95 95 Oximetry 04/09/19 04/09/19 04/09/19 11:45 11:55 12:00 Temperature 98.2 F Pulse Rate 121 H 120 H Pulse Rate [ Throughout] Respiratory 42 H 40 H Rate Respiratory Rate [ Throughout] Blood Pressure 95/45 97/47 O2 Sat by Pulse 95 96 Oximetry 04/09/19 04/09/19 04/09/19 12:15 12:30 12:45 Temperature Pulse Rate 119 H 122 H 119 H Pulse Rate [ Throughout] Respiratory 39 H 39 H 38 H Rate Respiratory Rate [ Throughout] Blood Pressure 95/48 88/47 95/47 O2 Sat by Pulse 96 94 96 Oximetry 04/09/19 13:00 Temperature Pulse Rate 120 H Pulse Rate [ Throughout] Respiratory 41 H Rate Respiratory Rate [ Throughout] Blood Pressure 92/45 O2 Sat by Pulse 95 Oximetry Constitutional: other (critically ill, chronically ill and cachectic appearing) Eyes: non-icteric ENT: oropharynx moist Neck: supple Effort: mildly labored Ascultation: Bilateral: clear (tachypneic) Cardiovascular: other (RR, tachy, no mrg) Gastrointestinal: other (distended, non-tender, + BS, brown to black stool in colostomy bag) Neurologic: other (somnolent, grossly nonfocal) Psychiatric: other (unable to assess) CBC and BMP: 04/08/19 05:00 04/08/19 20:00 ABG, PT/INR, D-dimer: PT/INR, D-dimer PT 15.6 Sec. (12.2-14.9) H 04/07/19 Unknown INR 1.27 (0.87-1.13) H 04/07/19 Unknown Abnormal lab findings: Abnormal Labs 04/07/19 04/07/19 04/07/19 19:00 21:15 22:38 WBC MCV MCH RDW Plt Count Seg Neuts % (Manual) Lymphocytes % (Manual) Monocytes % (Manual) Seg Neutrophils # Man Lymphocytes # (Manual) Monocytes # (Manual) PT INR Sodium Potassium Chloride Carbon Dioxide BUN Creatinine Glucose POC Glucose Lactic Acid 7.10 H* 6.10 H* Calcium Magnesium 1.50 L Alkaline Phosphatase Troponin T Albumin Urine WBC (Auto) Urine Creatinine Urine Chloride 04/07/19 04/07/19 04/07/19 23:33 Unknown Unknown WBC 15.1 H MCV 74 L MCH 25 L RDW 30.3 H Plt Count 655 H Seg Neuts % (Manual) 84.0 H Lymphocytes % (Manual) 4.0 L Monocytes % (Manual) Seg Neutrophils # Man 12.7 H Lymphocytes # (Manual) 0.6 L Monocytes # (Manual) PT 15.6 H INR 1.27 H Sodium Potassium Chloride Carbon Dioxide BUN Creatinine Glucose POC Glucose Lactic Acid 3.10 H* Calcium Magnesium Alkaline Phosphatase Troponin T Albumin Urine WBC (Auto) Urine Creatinine Urine Chloride 04/07/19 04/07/19 04/08/19 Unknown Unknown 01:30 WBC MCV MCH RDW Plt Count Seg Neuts % (Manual) Lymphocytes % (Manual) Monocytes % (Manual) Seg Neutrophils # Man Lymphocytes # (Manual) Monocytes # (Manual) PT INR Sodium 117 L* 127 L D Potassium 6.4 H* 5.3 H Chloride 64.7 L 81.7 L Carbon Dioxide 13 L 16 L BUN 176 H 160 H Creatinine 10.9 H 8.9 H Glucose 309 H 104 H POC Glucose Lactic Acid 6.90 H* Calcium 7.2 L D Magnesium Alkaline Phosphatase 131 H Troponin T 0.032 H Albumin 3.8 L Urine WBC (Auto) Urine Creatinine Urine Chloride 04/08/19 04/08/19 04/08/19 01:30 02:12 03:16 WBC MCV MCH RDW Plt Count Seg Neuts % (Manual) Lymphocytes % (Manual) Monocytes % (Manual) Seg Neutrophils # Man Lymphocytes # (Manual) Monocytes # (Manual) PT INR Sodium Potassium Chloride Carbon Dioxide BUN Creatinine Glucose POC Glucose 130 H 132 H Lactic Acid Calcium Magnesium Alkaline Phosphatase Troponin T 0.031 H Albumin Urine WBC (Auto) Urine Creatinine Urine Chloride 04/08/19 04/08/19 04/08/19 04:18 05:00 05:00 WBC 13.2 H MCV 73 L MCH 25 L RDW 30.5 H Plt Count 574 H Seg Neuts % (Manual) Lymphocytes % (Manual) 1.0 L Monocytes % (Manual) 10.0 H Seg Neutrophils # Man 8.6 H Lymphocytes # (Manual) 0.1 L Monocytes # (Manual) 1.3 H PT INR Sodium 128 L Potassium 5.4 H Chloride 83.2 L Carbon Dioxide 19 L BUN 157 H Creatinine 8.6 H Glucose 162 H POC Glucose 161 H Lactic Acid Calcium 6.5 L Magnesium Alkaline Phosphatase Troponin T Albumin Urine WBC (Auto) Urine Creatinine Urine Chloride 04/08/19 04/08/19 04/08/19 05:00 07:30 07:30 WBC MCV MCH RDW Plt Count Seg Neuts % (Manual) Lymphocytes % (Manual) Monocytes % (Manual) Seg Neutrophils # Man Lymphocytes # (Manual) Monocytes # (Manual) PT INR Sodium 129 L Potassium 5.4 H Chloride 84.2 L Carbon Dioxide 20 L BUN 147 H Creatinine 7.8 H Glucose 154 H POC Glucose Lactic Acid 2.90 H* Calcium 6.6 L Magnesium Alkaline Phosphatase Troponin T 0.031 H Albumin Urine WBC (Auto) Urine Creatinine Urine Chloride 04/08/19 04/08/19 04/08/19 10:35 10:35 10:35 WBC MCV MCH RDW Plt Count Seg Neuts % (Manual) Lymphocytes % (Manual) Monocytes % (Manual) Seg Neutrophils # Man Lymphocytes # (Manual) Monocytes # (Manual) PT INR Sodium Potassium Chloride Carbon Dioxide BUN Creatinine Glucose POC Glucose Lactic Acid Calcium Magnesium Alkaline Phosphatase Troponin T Albumin Urine WBC (Auto) 10.0 H Urine Creatinine 106.1 H 106.1 H Urine Chloride 19.2 L 04/08/19 04/08/19 04/08/19 11:44 13:08 15:29 WBC MCV MCH RDW Plt Count Seg Neuts % (Manual) Lymphocytes % (Manual) Monocytes % (Manual) Seg Neutrophils # Man Lymphocytes # (Manual) Monocytes # (Manual) PT INR Sodium 129 L 130 L Potassium Chloride 89.0 L 91.2 L Carbon Dioxide 16 L 15 L BUN 145 H 133 H Creatinine 7.0 H 6.4 H Glucose 159 H 156 H POC Glucose 163 H Lactic Acid Calcium 6.7 L 6.6 L Magnesium Alkaline Phosphatase Troponin T Albumin Urine WBC (Auto) Urine Creatinine Urine Chloride 04/08/19 04/08/19 04/08/19 17:36 20:00 22:59 WBC MCV MCH RDW Plt Count Seg Neuts % (Manual) Lymphocytes % (Manual) Monocytes % (Manual) Seg Neutrophils # Man Lymphocytes # (Manual) Monocytes # (Manual) PT INR Sodium 133 L Potassium Chloride 94.4 L Carbon Dioxide 15 L BUN 132 H Creatinine 5.6 H Glucose 155 H POC Glucose 177 H 176 H Lactic Acid Calcium 6.6 L Magnesium Alkaline Phosphatase Troponin T Albumin Urine WBC (Auto) Urine Creatinine Urine Chloride Chest x-ray: report reviewed, image reviewed (+ nodules) Allied health notes reviewed: nursing
[2019-04-09] MEDS ORDERED: DIFLUCAN 200 MG/100 ML BAG IV SCH (15:00)
[2019-04-09] MEDS ORDERED: FLAGYL 500 MG/100 ML 500 MG/100 ML BAG IV SCH (15:00)
[2019-04-09] MEDS: Vasostrict 20 UNIT in NACL 0.9% 100 ML IV SCH (17:48)
[2019-04-09 19:58] VITALS: BP 142/106
--- NOTE | 2019-04-09 21:11 | Event Note ---
Date: 04/09/19 Was asked to pronounce patient No pulse or BP or cardiac rhythm Time of expiration 2053 hrs Sister at bedside informed
--- NOTE | 2019-04-10 00:01 | Death Summary ---
Summary - Providers Date of service: 04/09/19 Consults: 04/07/19 17:26 Consult to Case Management [CONS] Stat Services Needed at Discharge: [facility] Other Notified:: physician john 04/07/19 20:34 Consult to Physician [CONS] Urgent Comment: Dr. Juares spoke with Dr. Babb @ 2030 Consulting Provider: GIA BABB Physician Instructions: Reason For Exam: acute renal failure 04/07/19 23:30 Consult to Physician [CONS] Routine Comment: Consulting Provider: MARY CARMEN CUI Physician Instructions: Reason For Exam: cc 04/07/19 23:41 Consult to Physician [CONS] Routine Comment: Consulting Provider: VELASQUEZ JOHNSON Physician Instructions: Reason For Exam: bowel perforation 04/07/19 23:47 Consult to Physician [CONS] Urgent Comment: Consulting Provider: REBECA VICK Physician Instructions: Reason For Exam: septic shock 04/08/19 15:59 Consult to Interventional Radiology [CONS] Routine Consulting Provider: EULOGIO NUNN Reason For Exam: CT guided drainage of peritoneal fluid Place consult to:: CT dept Notified:: Xena Phone number called:: [phone] Was contact made?: Yes If yes, spoke with:: Xena Time called:: 16:04 Attending: VALDEZ WILLIAM - summary Date of admission: 04/07/19 23:30 Date of : 04/09/19 Significant findings: Patient is a 63 yo woman with a history of metastatic colon cancer who presented to ED with dizziness, n/v of fecal matter and acute on chronic abdominal pains. Patien was recently admitted/discharge from [facility] on 03/04/2019-03/26/2019 due to nausea, weight loss and abdominal pain; she was found to have small bowel obstruction s/p exploratory laparotomy, diverting loop ileostomy, omental biopsies on 03/08/2019, pathology reported - metastatic moderately differentiated adenocarcinoma consistent with colorectal primary, advanced stage 4 with mets in the liver and lungs. * CT abd/pelvis without contrast IMPRESSION: 1. Bowel perforation with air and fluid within the abdomen in this patient with reported metastatic colon cancer. The site of perforation is not clearly identified given limited noncontrast technique, but prime consideration would be from what appears to be a cecal mass. 2. Probable metastatic disease within the lung bases and the liver. Critical result discovered at 2[address] and called to Dr. Juares at 2143 hours on 04/07/2019. Metastatic colon cancer to liver and lung causing perforated viscus and this acute illness: supportive care, poor prognosis, except her to not me it. Septic shock + hypovolemic shock: on Levophed and Vasopressin IV resuscitative medications, CCM consulted Perforated viscus with acute bowel peritonitis: consulted GS and ID, continue to treat with ABX Acute renal failure, ATN, Cr 10.9, not known to be ESRD: consulted Nephrology Severe acidosis: continue to treat the infection Hyperkalemia: treat with hyperkalemia cocktail, monitor bmp closely Hyponatremia, hypovolemic: treat with IVFs Hypomagnesia: replete and monitor magnesium levels closely Penicillin allergy: unclear reaction Severe Malnutrition: Consulted Manager Social Responsibility Advance Directive discussed: patient wants to be DNR/AND, Nurse Trujillo was witness, will change order once patient signs, Patient wants Cristel, her friend, to make medical decision for her; she had one kid, Meeta (sp) and she doesn't get along with her and she does NOT want her daughter making discussion for her, Nurse Trujillo was witness. Patient is a/o x 3. poor prognosis, Inpatient Hospice has accepted but waiting on Cristel to be notified per patient. Sister contacted by case management and appears to be in agreement with Hospice. Levophed down to 4mcg and Vasopressin at 1 Patient prior to moving to inpatient hospice Time of 2053 Cause of : Metastatic Colon cancer with perforated bowel
== END 2019-04-09 20:54 | DRG 871 ==
LOC: ED 17:24 → CC1 23:30
PROVIDERS: ADMIT Internal Medicine; ATTEND Internal Medicine
PROC: 06HY33Z Insertion of Infusion Device into Lower Vein, Percutaneous Approach (ICD-10-PCS; principal; 2019-04-07)
DX: A41.9 Sepsis, unspecified organism (principal); K63.1 Perforation of intestine (nontraumatic); R65.21 Severe sepsis with septic shock; K65.9 Peritonitis, unspecified; N17.0 Acute kidney failure with tubular necrosis; E43 Unspecified severe protein-calorie malnutrition; E87.1 Hypo-osmolality and hyponatremia; E87.2 Acidosis; C18.9 Malignant neoplasm of colon, unspecified; C78.7 Secondary malignant neoplasm of liver and intrahepatic bile duct; C78.00 Secondary malignant neoplasm of unspecified lung; Z68.1 Body mass index [BMI] 19.9 or less, adult; E83.42 Hypomagnesemia; F17.200 Nicotine dependence, unspecified, uncomplicated; J44.9 Chronic obstructive pulmonary disease, unspecified; R91.8 Other nonspecific abnormal finding of lung field; F41.9 Anxiety disorder, unspecified; E87.5 Hyperkalemia; G89.29 Other chronic pain; R10.9 Unspecified abdominal pain; Z66 Do not resuscitate; R57.1 Hypovolemic shock; Z90.710 Acquired absence of both cervix and uterus; Z82.49 Family history of ischemic heart disease and other diseases of the circulatory system; Z88.0 Allergy status to penicillin; Z79.51 Long term (current) use of inhaled steroids; Z79.899 Other long term (current) drug therapy
CPT/HCPCS: 36415; 71045; 74176; 76770; 80048; 80053; 80061; 80320; 81001; 82140; 82436; 82550; 82553; 82570; 82962; 83690; 83735; 83935; 84300; 84439; 84443; 84484; 85007; 85025; 85610; 85730; 87040; 87086; 93005; 93010; 94640; 94644; 94760; 96361; 96365; 96367; 96375; G0378; G0480; J0610; J1450; J1650; J1815; J1956; J2060; J2270; J3370; J3475; J7030; J7070